=== PATIENT | female | born 1945 | race Caucasian/White ===

== ENCOUNTER 2023-05-22 20:31 | Inpatient (IN) | payer OTHER, SELFPAY ==
[2023-05-22 15:30] VITALS: BP 124/64
--- NOTE | 2023-05-22 16:52 | ED.GENMED ---
History of Present Illness
General
Chief Complaint: Musculo-Skeletal Complaint
Source: patient
Exam Limitations: none
Time Seen by Provider: 05/22/23 16:19
Nursing documentation reviewed up to this point in time: agreed with
Travel History
Have you had any contact with someone who has COVID-19?: No
Do you have any symptoms of coronavirus? Fever > 100 degrees, chills, cough, shortness of breath, sore throat, loss of taste or smell, muscle aches, or headache?: No
History of Present Illness
History of Present Illness:
77 old female with past medical history of chronic kidney disease stage III CABG x 5 hypertension hyperlipidemia reflux type 2 diabetes presents to the ER for evaluation fall. She was at work prior to arrival but reports there was a dog present
and she tripped over the dog landing on her left hip. She denies hitting her head. Denies any neck pain. She is on Plavix
Past History
Past History
ED Past Medical History: HTN, Hypercholesterolemia and NIDDM
ED Past Surgical History: Cardiac (BADG x 5 01/2023. ) and Gynecological
Social History
Tobacco: Smoker
Alcohol: Occasional
Drug: None
Personal:
Living: with family
Phy Exam
General Physical Exam
General Presentation: no apparent distress
General age: appears stated age
General Skin: warm and dry
General Habitus: normal
General Mental: alert
General Hydration: appears well hydrated
Cardiovascular Exam
Cardiovascular Exam: regular rate/rhythm, no murmur and normal peripheral pulses
Pulmonary Exam
Pulmonary Exam: lungs clear
Neurological Exam
Neurological Exam: alert and oriented x3
[place] Coma Scale
Eye Opening: Spontaneous
Verbal Response: Oriented
Motor Response: Obeys Commands
GCS Total Score: 15
Musculoskeletal Exam
Musculoskeletal Exam: other (Patient with strong pulses to left hip pain with any movement of left hip no obvious swelling)
Skin Exam
Skin Exam: normal color and warm/dry
Psychiatric Exam
Psychiatric Exam: normal mood/affect
Course
Orders/Labs/Results
Orders:
Orders
05/22/23 16:52
Hip, Left 2-3 Views [CR Hip - LT w/wo Pel 2-3 Vw*] Urgent
Comment:
Reason For Exam: trauma
Include a pelvis x-ray?: Yes
05/22/23 18:55
IV Insert/Care/Rem.- Treatment PRN
05/22/23 19:01
Morphine Sulfate 2 mg IV NOW STA
05/22/23 19:03
CT Lower Ext W/o Iv Cont Lt Urgent
Comment:
Reason For Exam: trauma
05/22/23 19:23
Electrocardiogram (*1) Stat
Reason for Study: Other
Other Reason for Exam: chest pain
EKG- Treatment ONCE
05/22/23 19:34
Complete Blood Count/With Diff Urgent
Comprehensive Metabolic Panel Urgent
PTT Urgent
Prothrombin Time Urgent
05/22/23 20:03
Admit/Transfer Patient As Directed
Co-Sign Provider:
Level of Care: Inpatient admission
Assign to:: Medical/Surgical
Physician / Group: trent gallagher
Diagnosis: femoral neck fracture
Reason for Hospitalization: femoral neck fracture
Expected length of stay greater than two midnights?: Yes
ELOS- Estimated Length of Stay in days: 3
I certify the patient meets the requirements for IP care: Yes
05/22/23 20:05
Code Status As Directed
Resuscitation Status: Full Code
Abnormal Lab Results
05/22/23
19:34
WBC 13.3 H 10^3/uL
(4.8-10.8)
RBC 3.38 L 10^6/uL
(4.20-5.40)
Hgb 10.1 L g/dL
(12.0-16.0)
Hct 30.4 L %
(37.0-47.0)
Abs Immat Gran (auto) 0.1 H 10^3/uL
(0-0.05)
Absolute Neuts (auto) 9.7 H 10^3/uL
(1.4-6.5)
Absolute Monos (auto) 0.9 H 10^3/uL
(0.1-0.6)
Lymphocytes % 16.5 L %
(20.5-51.1)
BUN 38 H mg/dl
(7-17)
Creatinine 1.7 H mg/dL
(0.6-1.0)
Glucose 231 H mg/dl
(70-99)
AST 81 H U/L
(14-36)
ALT 123 H U/L
(0-35)
Alkaline Phosphatase 193 H U/L
(38-126)
Total Protein 6.1 L g/dl
(6.3-8.2)
Albumin 3.1 L g/dl
(3.5-5.0)
05/22/23 19:34
05/22/23 19:34
Vital Signs
Initial and Last Documented VS:
Initial Vital Signs
Temp Pulse Resp BP Pulse Ox
97.6 F 65 18 124/64 94
05/22/23 15:30 05/22/23 15:30 05/22/23 15:30 05/22/23 15:30 05/22/23 15:30
Last Documented Vital Signs
Temp Pulse Resp BP Pulse Ox
97.6 F 65 18 127/88 97
05/22/23 15:30 05/22/23 15:30 05/22/23 15:30 05/22/23 20:27 05/22/23 20:30
Small Parts Shaper Operator consulted with Physician
Small Parts Shaper Operator consulted with physician?: Yes
Name of Physician Consulted: Christiano
MDM/Problems Addressed
Differential Diagnosis Includes:
not limited to: hip fracture/dislocation
MDM/Problems Addressed:
Patient is a 77-year-old female with cardiac history of bypass surgery on Plavix presents to the ER after fall. She tripped over her dog and fell landing on her left hip denies hitting her head no complaints of headache no obvious injury on exam no
bony cervical spine tenderness. X-ray does show a subcapital fracture of the left femoral neck with impaction. Case reviewed with Dr. Evans who was able to visualize images on [place] text. She does recommend CT. Patient last had Plavix this
morning will require washout. Will admit to the hospital service
2052: Labs reviewed white count elevated however has had chronic leukocytosis in the past elevated renal function however chronic kidney disease LFTS has had mild elevation in the past
*Radiology
Radiology exam reviewed: radiology read reviewed (acute subcapital fx of the left femoral neck w/ impaction )
*Critical Care Note
Total Time (30-74mins, 75-104mins- exclusive of procedures): Not Applicable
ED Attending Note
-
Portions of this chart may have been created with voice recognition software.� Occasional wrong word or��sound alike� substitutions may have occurred due to the inherent limitations of voice recognition software.
Discharge Plan
Departure
Patient Disposition: Admit
Date of Disposition: 05/22/23
Time of Disposition: 19:26
Admit to: Med/Surg
Admit to doctor: hospitalist
Presentation/result/management discussed w/ accepting MD/DO: Hospitalist
Patient with high blood pressure during this ER visit?: No
Condition: Fair
Covid-19: Not Applicable
Discharge Problem:
left hip fracture
Interventions
Interventions:
*Risk Screen - Suicide Last Done: 05/22/23 15:30
*General Assessment Last Done: 05/22/23 15:30
*Neglect/Abuse Screening Last Done: 05/22/23 15:30
ED- Fall Risk Assessment Last Done: 05/22/23 16:05
*ED COVID-19 Vaccine History Last Done: 05/22/23 16:05
ED-Musculoskeletal Assessment Last Done: 05/22/23 16:04
[2023-05-22 16:53] VITALS: BMI 21.8
[2023-05-22] MEDS: MORPHINE SULFATE 2 MG IV (19:34)
--- NOTE | 2023-05-22 19:37 | HPS.HSE ---
Addendum entered and electronically signed by Soren Alvarado DO 05/22/23 21:19:
Patient seen and examined independently. Agree with findings and plan as set forth by MEG Ríos.
Patient is a 77y F with PMH significant for ASCVD, TN, DM-II and CKD who presents to ED for evaluation of L hip pain s/p fall. Patient states that she was carrying a small dog this afternoon when she tripped and fell - landing on her L side.
Patient does not believe that she struck her head. No prodrome of lightheadedness or dizziness. No LOC. Patient typically ambulates with a cane but was not using one while carrying the dog. The dog was not injured.
Ass:
Left Hip Fracture
ASCVD s/p CABG, Bilateral Iliac Stents / Iliofemoral Endarterectomy
Benign Hypertension
DM-II
CKD III
GERD
Plan:
Admit for further evaluation and treatment.
Bedrest and pain control for now.
Hold Plavix in preparation for surgery.
Continue ASA uninterrupted given intravascular stents.
Cardiology evaluation for pre-op assessment given relatively recent issues.
Continue basal : bolus insulin regimen.
Original Note:
Family Physician
-
Family Physician: Larry Bridges
Chief Complaint
-
fall
History of Present Illness
77 year old with PMH for c diff diarrhea, PAD< type 2 DM, CAD,STEMI, CKD, HTN,depression, HLD< GERD presented to us with fall. she has LE weakness and usually uses cane for ambulation. today she picked up a small dog at work, she lost the balance
and fell on her left side. she was on the floor until family got there. she is complaining of left hip pain since the fall. noted some bruising on left elbow and shoulder. denied JOHNSON,dizzy or syncopal episode. denied fever, chills, chest pain, sob.
denied abdominal pain,n,v,d. denied dysuria or hematuria.
x ray with left hip fracture. admitting for further management.
Medical History
Past Medical History
Past Medical History: Reports Other
Additional Past Medical History:
DM
HTN
HLD
GERD
CKD
PAD
Past Surgical History: Reports Other
Additional Past Surgical History:
CABG x5 vessels
right iliofemoral endarterectomy with bovine pericardial patch angioplasty, bilateral kissing iliac stents, right external iliac artery stent
Social History
Tobacco: Former Smoker
Alcohol: None
Drug: None
Living: With Family
Family History
Family History: Not pertinent
Allergies / Home Medications
Allergies reflects when Allergies were last updated in [employer].
Home Medications with original date entered in [employer]
Allergy/Medication List:
Allergies
Allergy/AdvReac Type Severity Reaction Status Date / Time
meperidine Allergy Unknown Verified 02/17/23 12:33
moxifloxacin HCl Allergy Swelling Verified 02/17/23 12:33
[From Avelox]
Penicillins Allergy Swelling Verified 02/17/23 12:33
Sulfa (Sulfonamide Allergy Swelling Verified 02/17/23 12:33
Antibiotics)
[Sulfa(Sulfonamide
Antibiotics)]
Home Medications
aspirin 81 mg tablet,delayed release 81 mg PO DAILY Blood Clot Prevention/Tx 01/18/23
bupropion HCl 150 mg 24 hr tablet, extended release 150 mg PO DAILY Depression 01/18/23
cholecalciferol (vitamin D3) 25 mcg (1,000 unit) tablet (Vitamin D3) 25 mcg PO DAILY Supplement 01/18/23
duloxetine 40 mg capsule,delayed release 40 mg PO DAILY Depression 01/18/23
insulin detemir U-100 100 unit/mL (3 mL) subcutaneous pen (Levemir FlexPen) 26 unit SC HS Diabetes 01/18/23
amlodipine 5 mg tablet 5 mg PO DAILY Blood Pressure #0 tabs 01/29/23
atorvastatin 80 mg tablet 80 mg PO QPM #30 tabs 01/29/23
clopidogrel 75 mg tablet 75 mg PO DAILY #30 tabs 01/29/23
dapagliflozin propanediol 10 mg tablet (Farxiga) 10 mg PO DAILY #30 tabs 01/29/23
pantoprazole 40 mg tablet,delayed release (Protonix) 40 mg PO DAILY GI prophylaxis #30 tabs 01/29/23
acetaminophen 325 mg tablet 650 mg PO Q4HPRN PRN mild pain 02/17/23
guaifenesin 600 mg tablet, extended release 12 hr 600 mg PO [id number] PRN Congestion 02/17/23
metoprolol succinate 25 mg tablet,extended release 24 hr 12.5 mg PO DAILY Blood Pressure 02/17/23
nitroglycerin 0.4 mg sublingual tablet 0.4 mg sublingual [id number] PRN chest pain #0 tabs 02/21/23
potassium chloride 20 mEq tablet,extended release(part/cryst) 20 meq PO DAILY #0 tabs 02/21/23
insulin aspart U-100 100 unit/mL (3 mL) subcutaneous pen (Novolog FlexPen U-100 Insulin aspart) 5 unit SC BID@0800,1700 05/22/23
Review of Systems
-
Constitutional: Reports No Symptoms
EENT: Reports No Symptoms
Respiratory: Reports No Symptoms
Cardiac: Reports No Symptoms
Abdomen/GI: Reports No Symptoms
: Reports No Symptoms
Musculoskeletal: Reports Other (left hip pain)
Skin: Reports No Symptoms
Neurological: Reports No Symptoms
Endocrine: Reports No Symptoms
Hematologic/Lymphatic: Reports No Symptoms
Psych: Reports No Symptoms
Physical Exam
Vital Signs
Vital Signs
Temp Pulse Resp BP Pulse Ox
97.6 F 65 18 124/64 94
05/22/23 15:30 05/22/23 15:30 05/22/23 15:30 05/22/23 15:30 05/22/23 15:30
Physical Exam
General: Well Developed, Well Nourished and No Apparent Distress
HEENT: NormoCephalic, Moist mucous membranes and Atraumatic
Respiratory: Clear
Cardiac: S1/S2 and Regular Rhythm; No Murmur or Rub
GI: Soft, Non Tender, Non Distended and Normal Bowel Sounds; No Organomegaly
Rectal: Deferred by Provider
Musculoskeletal: No Clubbing, No Cyanosis and No Edema
Skin: No Rash
Neuro: AO x 3 and Nonfocal/grossly intact
Psych: Calm
Data Reviewed
-
Diagnostic Radiology: Report Reviewed by me
Lab Data: Labs Reviewed by me
Impression/Plan
-
#fall/left hip fracture
-hip x ray with Acute subcapital fracture of the left femoral neck with impaction.The remaining osseous structures are intact. No dislocation. Moderate osteoarthrosis of the right hip. Mild osteoarthrosis of the left hip. Vascular stents and
surgical clips project over the pelvis.
-orthopedics aware
-Dilaudid prn for pain
-orthopedics aware
#chronic leukocytosis
-wbc 13.3
-afebrile
-ctm
#anemia of chronic disease
-hgb 10.3
-no active bleeding
-ctm
#Ischemia right lower extremity/severe PAD
-status post right iliofemoral endarterectomy with bovine pericardial patch angioplasty, bilateral kissing iliac stents, right external iliac artery stent on 02/18.
#DM2 with hyperglycemia
- insulin sliding scale
-Farxiga continued
-insulin 5u with meals
-Levemir 10us hs
#CAD/recent STEMI - asa continued, hold plavix
-Status post coronary bypass graft x 5 on 01/23/23.
# CKD3b - renal function at baseline.�
#Essential HTN
-Continue Norvasc, metoprolol
#Depression
-Duloxetine continued
-Bupropion continued
#Hyperlipidemia
-Statin continued
#chronic LFT elevation
-ast 81,alt 123
-continue to trend
#GERD
-PPI continued
#Full code
[2023-05-22 19:44] LABS: % Basophils 0.5 % (0-2); % Eosinophils 3.2 % (0-6); % Immature Granulocytes 0.4 % (0-0.5); % Lymphocytes 16.5 % (20.5-51.1); % Monocytes 6.5 % (1.7-9.3); % Neutrophils 72.9 % (42.2-75.2); Absolute Basophils 0.1 10^3/uL (0-0.2); Absolute Eosinophils 0.4 10^3/uL (0-0.7); Absolute Immature Granulocytes 0.1 10^3/uL (0-0.05); Absolute Lymphocytes 2.2 10^3/uL (1.2-3.4); Absolute Monocytes 0.9 10^3/uL (0.1-0.6); Absolute Neutrophils 9.7 10^3/uL (1.4-6.5); Hematocrit 30.4 % (37.0-47.0); Hemoglobin 10.1 g/dL (12.0-16.0); Mean Corp Hgb Conc. 33.2 g/dL (33.0-37.0); Mean Corpuscular Hgb 29.9 pg (27.0-31.0); Mean Corpuscular Volume 89.9 fL (81.0-99.0); Mean Platelet Volume 10.4 fL (7.4-10.4); Nucleated Red Blood Cells % 0 %; Platelet Count 380 10^3/uL (130-400); Red Blood Cell Count 3.38 10^6/uL (4.20-5.40); Red Cell Dist. Width 12.8 % (11.5-14.5); White Blood Cell Count 13.3 10^3/uL (4.8-10.8)
[2023-05-22 19:53] LABS: INR 1.02; PT 13.2 Sec (11.4-14.6)
[2023-05-22 19:54] LABS: APTT 30.2 Sec (23.4-35.0)
[2023-05-22 19:57] LABS: ALT (SGPT) 123 U/L (0-35); AST (SGOT) 81 U/L (14-36); Albumin 3.1 g/dl (3.5-5.0); Alkaline Phosphatase 193 U/L (38-126); Blood Urea Nitrogen 38 mg/dl (7-17); Calcium 9.1 mg/dl (8.4-10.2); Carbon Dioxide 23 mmol/L (22-30); Chloride 107 mmol/L (98-107); Estimated Creatinine Clearance 27 ml/min; Glucose 231 mg/dl (70-99); Potassium 4.8 mmol/L (3.5-5.1); Sodium 135 mmol/L (135-145); Total Bilirubin 0.3 mg/dl (0.2-1.3); Total Protein 6.1 g/dl (6.3-8.2); eGFR 30.89
[2023-05-22 20:27] VITALS: BP 127/88
[2023-05-22 21:50] VITALS: BP 136/73
[2023-05-22 22:00] LABS: Glucose - Point of Care 147 mg/dl (70-99)
[2023-05-22] MEDS: SENOKOT 17.1999999999999993 MG PO (22:28)
[2023-05-22] MEDS: COLACE 100 MG PO (22:29)
[2023-05-22] MEDS: DILAUDID 0.5 MG IV (22:29)
[2023-05-22 22:55] VITALS: BP 136/73; BMI 21.5
[2023-05-22] MEDS: LEVEMIR SC (23:01)
[2023-05-22 23:40] VITALS: BP 110/61
[2023-05-23] MEDS: TYLENOL PO ×4 (00:15→17:43)
--- NOTE | 2023-05-23 01:21 | PTCARENOTE ---
pt refused hs Levemir stating ''my sugar will drop, I don't want it'', Pt was educated regarding her refusal, expressed understanding however continued to decline. Pt has a BOBBI Stovalle meter.
--- NOTE | 2023-05-23 01:33 | PTCARENOTE ---
21:37pt admit to unit, dx left hip fx. Pt aaox3, bedrest,NWB, plavix on hold, asa continues as pt has extensive cardiac hx, stents. Pt refused Hoang,bs 147, LUE Yulia meter in place. Pt rec'vd prn dilaudid for pain, vs stable, call sidhu within
reach, oriented to unit.
[2023-05-23] MEDS: DILAUDID 0.5 MG IV (07:49)
[2023-05-23 07:50] VITALS: BP 150/59
[2023-05-23] MEDS: FLUSH (NSS) 2 FLUSH IV (07:50)
[2023-05-23] MEDS: ASPIR LOW (ENTERIC COATED) 81 MG PO (07:55)
[2023-05-23] MEDS: COLACE PO ×2 (07:56→21:00)
[2023-05-23] MEDS: FARXIGA 10 MG PO (07:57)
[2023-05-23] MEDS: CYMBALTA DELAYED RELEASE 40 MG PO (07:57)
[2023-05-23] MEDS: KCL 20 MEQ PO (07:57)
[2023-05-23] MEDS: NORVASC 5 MG PO (07:57)
[2023-05-23] MEDS: PROTONIX 40 MG PO (07:58)
[2023-05-23] MEDS: TOPROL XL 12.5 MG PO (07:58)
[2023-05-23] MEDS: SENOKOT PO ×2 (07:58→21:00)
[2023-05-23] MEDS: WELLBUTRIN XL (24 hour extended release) 150 MG PO (07:58)
[2023-05-23] MEDS: TYLENOL 650 MG PO ×2 (07:58→20:57)
[2023-05-23 08:09] LABS: Glucose - Point of Care 187 mg/dl (70-99)
--- NOTE | 2023-05-23 08:14 | CON.ORTHO ---
Consultation
-
Date/Time Consultation Requested: 05/22/2023; time unknown
Date/Time Consultation Performed: 05/23/2023; 0700
Requesting Provider: unknown
Performing Provider: Nadine Colon PA-C for Dr. Thea Diego
Reason for Consultation: Left hip fracture
Consultation - Orthopedics
History
Ms. Dwyer is a 77 year old female with PMH of�PAD< type 2 DM, CAD, STEMI, CKD, HTN, depression, HLD and GERD. She is seen today for evaluation of her left hip. She reports she was at work carrying a small dog when she lost her balance and fell onto
her left side. She reports she was unable to get up off the ground and waited until her son came. He was able to pick her up and they presented to [facility] ED where x-rays and CT scan revealed a left femoral neck fracture. She is
resting comfortably in bed this morning, but does endorse mild aching pain about the left hip. She denies pain elsewhere. She reports she has baseline gait dysfunction and balance issues, and typically ambulates with the assistance of a cane. She
lives at home with her daughter. She has a history of left ankle ORIF with subsequent removal of hardware but otherwise denies orthopedic surgeries. She denies any known history of difficulty with anesthesia. She does have a history of ID and is
status post CABG. She has a history of DVT in her right leg. She is diabetic on insulin and medications.
Allergies / Home Medications
Allergy/AdvReac Type Severity Reaction Status Date / Time
meperidine Allergy Unknown Verified 02/17/23 12:33
moxifloxacin HCl Allergy Swelling Verified 02/17/23 12:33
[From Avelox]
Penicillins Allergy Swelling Verified 02/17/23 12:33
Sulfa (Sulfonamide Allergy Swelling Verified 02/17/23 12:33
Antibiotics)
[Sulfa(Sulfonamide
Antibiotics)]
Medication Instructions Recorded
aspirin 81 mg tablet,delayed 81 mg PO DAILY Blood Clot 01/18/23
release Prevention/Tx
bupropion HCl 150 mg 24 hr tablet, 150 mg PO DAILY Depression 01/18/23
extended release
cholecalciferol (vitamin D3) 25 25 mcg PO DAILY Supplement 01/18/23
mcg (1,000 unit) tablet (Vitamin
D3)
duloxetine 40 mg capsule,delayed 40 mg PO DAILY Depression 01/18/23
release
insulin detemir U-100 100 unit/mL 26 unit SC HS Diabetes 01/18/23
(3 mL) subcutaneous pen (Levemir
FlexPen)
amlodipine 5 mg tablet 5 mg PO DAILY Blood Pressure #0 01/29/23
tabs
atorvastatin 80 mg tablet 80 mg PO QPM #30 tabs 01/29/23
clopidogrel 75 mg tablet 75 mg PO DAILY #30 tabs 01/29/23
dapagliflozin propanediol 10 mg 10 mg PO DAILY #30 tabs 01/29/23
tablet (Farxiga)
pantoprazole 40 mg tablet,delayed 40 mg PO DAILY GI prophylaxis #30 01/29/23
release (Protonix) tabs
acetaminophen 325 mg tablet 650 mg PO Q4HPRN PRN mild pain 02/17/23
guaifenesin 600 mg tablet, 600 mg PO [id number] PRN Congestion 02/17/23
extended release 12 hr
metoprolol succinate 25 mg 12.5 mg PO DAILY Blood Pressure 02/17/23
tablet,extended release 24 hr
nitroglycerin 0.4 mg sublingual 0.4 mg sublingual [id number] PRN 02/21/23
tablet chest pain #0 tabs
potassium chloride 20 mEq 20 meq PO DAILY #0 tabs 02/21/23
tablet,extended release(part/cryst)
insulin aspart U-100 100 unit/mL 5 unit SC BID@0800,1700 05/22/23
(3 mL) subcutaneous pen (Novolog
FlexPen U-100 Insulin aspart)
Vital Signs / Lab Results
Temp Pulse Resp BP Pulse Ox
98.1 F 78 14 150/59 94
05/22/23 23:40 05/23/23 07:58 05/22/23 23:40 05/23/23 07:58 05/22/23 23:40
05/22/23 19:34
05/22/23 19:34
XR Left Hip 05/22/2023 FINDINGS/IMPRESSION:
Acute subcapital fracture of the left femoral neck with impaction.
The remaining osseous structures are intact. No dislocation. Moderate osteoarthrosis of the right hip. Mild osteoarthrosis of the left hip. Vascular stents and surgical clips project over the pelvis.
CT LLE 05/22/2023 IMPRESSION:
Acute subcapital fracture of the left femoral neck with impaction.
Physical exam:
General: Pleasant female in no acute distress, alert and oriented x 3
Head: Atraumatic, normocephalic
Eyes: Sclera anicteric
Ears: Normal hearing
Heart: No edema
Lungs: Normal work of breathing, no audible wheezing
Left lower extremity: No obvious erythema, ecchymosis or lesions about the left hip. Tenderness to palpation about the anterior and lateral hip. Thigh soft and compressible. Range of motion deferred secondary to known fracture. Positive logroll.
Calf soft and nontender. Patient able to wiggle toes, plantar and dorsiflex ankle. Sensation intact to light touch. Palpable PT and DP pulses.
Assessment / Plan
Left femoral neck fracture
--Unfortunately, Holly sustained a fracture of her left femoral neck in her fall. We recommend proceeding with cannulated screw fixation for stabilization of her fracture. The risks, benefits, alternatives, recovery process and potential
complications were discussed in detail. All questions were answered. Holly elected to proceed with surgical intervention of her fracture. Surgical and blood consent is signed and placed on the patient chart. Will plan to proceed with surgery on
Saturday 05/27 under the direction of Dr. Diego after Plavix washout. We would appreciate the recommendations of the medicine and cardiac teams for medical optimization.
-- Nonweightbearing to left lower extremity until surgery.
-- Continue current pain management regimen. Ice for edema control.
-- Obtain type and screen within 72 hours of surgery.
-- Orthopedics will continue to follow, please reach out with any additional orthopedic questions or concerns.
--- NOTE | 2023-05-23 08:38 | CON.CAR ---
Addendum entered and electronically signed by Nam Shannon MD 05/23/23 11:55:
I saw and examined the patient.
The BATTERY TESTER's note was reviewed and I agree with the note.
Comment: She is at increased risk but having had CABG recently without ischemic symptoms since CABG is favorable. Needing to hold Plavix increases risk but needed to minimize planned surgical site bleeding. Would resume Plavix once OK with ortho.
Original Note:
Consultation
Consultation Request
Date/Time Consultation Requested: 05/22/232111
Date/Time Consultation Performed: 05/23/23 0800
Requesting Provider: Sonali Brown
Performing Provider: Tianna WEAVER for Dr. Shannon
Reason for Consultation: pre-op cardiovascular risk assessment
Medical History
-
Chief Complaint: fall with hip pain
History of Present Illness:
77 y/o female with NSTEMI with multivessel disease and CABG x 5 01/23/23, PAD (iliofemoral endarterectomy with bovine pericardial patch angioplasty, b/l kissing iliac stents, and right external iliac artery stent 02/18/23), hypertension, DM2, former
tobacco (quit Jan 2023), dyslipidemia, and anemia who is here for evaluation after she was at work yesterday and lifted up a dog (something she wouldn't normally do, and she wasn't using her cane) and her legs gave out and she fell and laid there
until help came. She has LLE pain and has sustained a left femoral neck fracture. Plan is for surgery after Plavix washout. We are consulted for pre-operative cardiovascular risk assessment. She denies any CP, SOB, dizziness, or syncope. She has
been feeling well.
Past Medical History
Past Medical History: CAD, HTN, Hypercholesterolemia, NIDDM and Other (as above)
Social History
Tobacco: Former Smoker (quit in January )
Living: With Family
Employment: Employed
Family History
Family History: Reviewed & Not Pertinent
Allergies / Home Medications
Allergy/AdvReac Type Severity Reaction Status Date / Time
meperidine Allergy Unknown Verified 02/17/23 12:33
moxifloxacin HCl Allergy Swelling Verified 02/17/23 12:33
[From Avelox]
Penicillins Allergy Swelling Verified 02/17/23 12:33
Sulfa (Sulfonamide Allergy Swelling Verified 02/17/23 12:33
Antibiotics)
[Sulfa(Sulfonamide
Antibiotics)]
Medication Instructions Recorded Confirmed Type
aspirin 81 mg tablet,delayed 81 mg PO DAILY Blood Clot 01/18/23 05/22/23 History
release Prevention/Tx
bupropion HCl 150 mg 24 hr tablet, 150 mg PO DAILY Depression 01/18/23 05/22/23 History
extended release
cholecalciferol (vitamin D3) 25 25 mcg PO DAILY Supplement 01/18/23 05/22/23 History
mcg (1,000 unit) tablet (Vitamin
D3)
duloxetine 40 mg capsule,delayed 40 mg PO DAILY Depression 01/18/23 05/22/23 History
release
insulin detemir U-100 100 unit/mL 26 unit SC HS Diabetes 01/18/23 05/22/23 History
(3 mL) subcutaneous pen (Levemir
FlexPen)
amlodipine 5 mg tablet 5 mg PO DAILY Blood Pressure #0 01/29/23 05/22/23 Rx
tabs
atorvastatin 80 mg tablet 80 mg PO QPM #30 tabs 01/29/23 05/22/23 Rx
clopidogrel 75 mg tablet 75 mg PO DAILY #30 tabs 01/29/23 05/22/23 Rx
dapagliflozin propanediol 10 mg 10 mg PO DAILY #30 tabs 01/29/23 05/22/23 Rx
tablet (Farxiga)
pantoprazole 40 mg tablet,delayed 40 mg PO DAILY GI prophylaxis #30 01/29/23 05/22/23 Rx
release (Protonix) tabs
acetaminophen 325 mg tablet 650 mg PO Q4HPRN PRN mild pain 02/17/23 05/22/23 History
guaifenesin 600 mg tablet, 600 mg PO [id number] PRN Congestion 02/17/23 05/22/23 History
extended release 12 hr
metoprolol succinate 25 mg 12.5 mg PO DAILY Blood Pressure 02/17/23 05/22/23 History
tablet,extended release 24 hr
nitroglycerin 0.4 mg sublingual 0.4 mg sublingual [id number] PRN 02/21/23 05/22/23 Rx
tablet chest pain #0 tabs
potassium chloride 20 mEq 20 meq PO DAILY #0 tabs 02/21/23 05/22/23 Rx
tablet,extended release(part/cryst)
insulin aspart U-100 100 unit/mL 5 unit SC BID@0800,1700 Diabetes 05/22/23 05/22/23 History
(3 mL) subcutaneous pen (Novolog
FlexPen U-100 Insulin aspart)
Review of Systems
-
History Source: Patient
All other systems: Negative unless noted
Neurological: Other (fall with left hip pain)
Physical Exam
Vital Signs
Temp Pulse Resp BP Pulse Ox
97.8 F 78 18 150/59 99
05/23/23 07:50 05/23/23 07:58 05/23/23 07:50 05/23/23 07:58 05/23/23 07:50
Lab Results
05/22/23 19:34
05/22/23 19:34
Physical Exam
General: Well Developed, Well Nourished and No Apparent Distress
HEENT: Normocephalic and Anicteric
Respiratory: Clear and Non Labored Respirations
Cardiac: Regular Rhythm and Peripheral Edema (trace BLE edema)
Skin: Warm and Dry
Neuro: AO x 3
Psych: Calm
Impression / Plan
-
Acute subcapital fracture of the left femoral neck with impaction:
-this diagnosis is threat to bodily function
-orthopedics consulted and recommending cannulated screw fixation for stabilization of her fracture on Sunday05/28/23 after Plavix washout.
-pain management/DVT prophylaxis per primary/ortho
-pre-op cardiovascular risk assessment: Patient with NSTEMI with CAD s/p CABG January 2023. She has no CP or SOB. She ambulates with a cane and is able to do ADL's on her own. According to NSQIP risk score, she is at above average risk for
cardiac complication at 2.5%. Continue aspirin and beta-jaime.
CAD s/p CABG:
-stable without CP
-continue ASA, statin, BB
-Plavix held- resume when safe post-op
HTN:
-continue CCB and BB and follow
-pain management as above
Dyslipidemia:
-on statin
-elevated LFT's noted and will have to be monitored closely; per primary team
PAD:
-iliofemoral endarterectomy with bovine pericardial patch angioplasty, b/l kissing iliac stents, and right external iliac artery stent 02/18/23
-on ASA/Plavix as OP; Plavix as above
-follows with Dr. Blanton
CKD:
-seems stable overall
-monitor
Data Reviewed
-
EKG: Tracing Personally Visualized and interpreted (SR 73 BPM, nonspecific ST/T)
CT Scan: Report Reviewed by me (Acute subcapital fracture of the left femoral neck with impaction.)
Medical Tests (Nuc Med, Echo etc): Report Reviewed by me (echo 01/19/23: Normal left ventricular systolic function. Left ventricular ejection fraction is 55-60% . No significant valve stenosis or regurgitation.)
Labs: Labs Reviewed by me
[2023-05-23 09:25] LABS: Glycohemoglobin (HgbA1c) 10.6 % (4.0-5.6)
[2023-05-23] MEDS: NOVOLOG FLEXPEN 5 UNITS SC ×2 (10:03→17:44)
[2023-05-23] MEDS: NOVOLOG FLEXPEN-LOW RESISTANCE 1 UNITS SC (10:04)
--- NOTE | 2023-05-23 10:47 | W.PN.HOSP.TC ---
Today's Communication/Plan
-
see A/P
Assessment / Plan
Assessment / Plan
77y F with PMH significant for ASCVD, HTN, DM-II and CKD who presented to ED for evaluation of L hip pain s/p fall.� Patient states that she was carrying a small dog in the afternoon when she tripped and fell - landing on her L side.� Patient
does not believe that she struck her head.� No prodrome of lightheadedness or dizziness.� No LOC.� Patient typically ambulates with a cane but was not using one while carrying the dog.� The dog was not injured.
A/P:
# Mechanical fall with Left Hip subcapital fracture of the femoral neck
Pain control
Hold SUPERVISOR BIT AND SHANK DEPARTMENT Plavix in preparation for surgery.
Continue ASA uninterrupted given intravascular stents.
Cardiology evaluation for pre-op assessment given relatively recent issues.
Ortho on board, [facility] surgery Sunday05/28/23 after Plavix washout.
# Chronic leukocytosis
afebrile
Monitor WBC
# Anemia of chronic disease
# CAD s/p CABG
# PAD with Bilateral Iliac Stents / Iliofemoral Endarterectomy
# Benign Hypertension
Continue SUPERVIS[employer] BIT [employer] SHANK DEPARTMENT Norvasc, metoprolol with holding parameter
# DM-II
Continue reduced Lantus dose at 10 units HS (from 26 units HS SUPERVISOR BIT AND SHANK DEPARTMENT)
Cont aspart 5 units BID.
Cover with ISS
A1C 10.6%
# CKD III
# GERD
# Depression
Duloxetine continued
Bupropion continued
# Hyperlipidemia
Statin continued
# Chronic LFT elevation
Monitor LFT
Given surgery is not until next Sunday, can check Abd US
Cont statin and tylenol with caution, montior LFT closely
Full code
DVT ppx: ASA
Anticipated Discharge: > 48 hours
Subjective/Interval History
-
Date of Service: May 23, 2023
Objective Data
-
Vital Signs:
Vital Signs
Temp Pulse Resp BP Pulse Ox
36.6 C 78 18 150/59 99
05/23/23 07:50 05/23/23 07:58 05/23/23 07:50 05/23/23 07:58 05/23/23 07:50
I&O
05/22/23 05/23/23 05/24/23
06:59 06:59 06:59
Intake Total 600 / 600
Output Total 725 / 725
Balance -125 / -125
Review of Systems
-
All other systems: Reviewed and negative
Physical Exam
-
General: Well Developed, Well Nourished, No Apparent Distress and Comfortable
HEENT: Normocephalic and Atraumatic
Respiratory: Clear to Auscultation and Non Labored Respirations; Negative Accessory Resp Muscle Use
Cardiac: Regular Rhythm and S1/S2
GI: Soft
Musculoskeletal: No Edema
Neuro: Awake
Psych: Calm and Intact Judgement/Insight
Data Reviewed
-
Diagnostic Radiology: Report Reviewed by me
CT Scan: Report Reviewed by me
Labs: Labs Reviewed by me
--- NOTE | 2023-05-23 10:56 | CM ---
Patient seen at bedside. Patient states that she lives with daughter in a [facility] home with her daughter. Patient daughter had worked outside of the home prior to Sunday but now has been laid off. Patient does have a walker, rollator and a shower
bench. Patient PCP is Dr. Bridges and she uses the [facility] in [place]. Patient has been to [facility] and used [facility] in the past after 2 hospitalizations in last year and early this year. Patient discouraged about being here again. CM will continue to follow
for discharge planning needs.
Plan; home with VN vs SNF pending functional assessments following surgery
[2023-05-23 12:49] LABS: Glucose - Point of Care 288 mg/dl (70-99)
[2023-05-23] MEDS: NOVOLOG FLEXPEN-LOW RESISTANCE 3 UNITS SC (12:58)
[2023-05-23 15:24] VITALS: BP 127/52
--- NOTE | 2023-05-23 16:13 | W.PN.UPDATE ---
Update Note
Progress Note Update
Patient was seen with daughter at bedside
Patient had fallen at home not using her cane. She was instructed to use a cane for balance for ambulation purposes. She injured her left hip. She presented to [facility] emergency room last night and we are consulted by the hospitalist
service for orthopedic evaluation of a left hip fracture. She has not had groin pain in this hip in the past but has had several falls over the course of the past year. She had history of CABG and an NM. She subsequently ended up with C.
difficile infection and a right lower extremity DVT.She is currently on Plavix. Her last dose was yesterday morning.
Left hip: Negative logroll. Good active range of motion of the ankle. No tenderness to palpation about the lower leg. Compartments are supple. Pain with hip flexion.
X-rays and CT scan shows a nondisplaced impacted left femoral neck fracture. Minimal to no DJD.
Nondisplaced left femoral neck fracture impacted
Plan: Nonoperative and operative approaches of her hip fracture were discussed. The operative approaches are left hip hemiarthroplasty or cannulated screw fixation. She agrees with cannulated screw fixation as form Of treatment for this fracture.
She understands if the cannulated screw fixation should fail or she develops arthritis that she may need to be converted into a left Hip hemiarthroplasty or total hip arthroplasty in the future. We need to allow for her Plavix to washout as likely
she will need a spinal anesthetic for this procedure with her history of heart disease. Therefore, we are going to proceed with surgery on 05/27/2022 in the morning. She is to be n.p.o. past midnight the night before. Risks are but are not
limited to infection, need for further surgery, need for physical therapy, stiffness, DVT, PE, NM, CVA, malunion, hardware failure, nonunion, screw cut out the joint, arthritis, avascular necrosis, neurovascular impairment, catastrophic occurrences,
etc. The postoperative regimen was discussed. All questions were answered. Consents were signed and placed on the chart
[2023-05-23 17:08] LABS: Glucose - Point of Care 312 mg/dl (70-99)
[2023-05-23] MEDS: NOVOLOG FLEXPEN-LOW RESISTANCE 4 UNITS SC (17:44)
[2023-05-23] MEDS: LIPITOR 80 MG PO (17:45)
[2023-05-23] MEDS: DILAUDID 0.25 MG IV (20:57)
[2023-05-23 22:36] LABS: Glucose - Point of Care 246 mg/dl (70-99)
[2023-05-23] MEDS: LEVEMIR 0.100000000000000006 UNITS SC (22:50)
[2023-05-23 23:19] VITALS: BP 162/68
[2023-05-24] MEDS: TYLENOL PO ×3 (01:30→08:00)
[2023-05-24 05:23] LABS: % Basophils 0.6 % (0-2); % Eosinophils 4.9 % (0-6); % Immature Granulocytes 0.4 % (0-0.5); % Lymphocytes 20.3 % (20.5-51.1); % Monocytes 10.8 % (1.7-9.3); Absolute Basophils 0.1 10^3/uL (0-0.2); Absolute Eosinophils 0.6 10^3/uL (0-0.7); Absolute Immature Granulocytes 0.1 10^3/uL (0-0.05); Absolute Lymphocytes 2.6 10^3/uL (1.2-3.4); Absolute Monocytes 1.4 10^3/uL (0.1-0.6); Absolute Neutrophils 7.9 10^3/uL (1.4-6.5); Hematocrit 27.8 % (37.0-47.0); Hemoglobin 9.4 g/dL (12.0-16.0); Mean Corp Hgb Conc. 33.8 g/dL (33.0-37.0); Mean Corpuscular Hgb 30.5 pg (27.0-31.0); Mean Corpuscular Volume 90.3 fL (81.0-99.0); Mean Platelet Volume 10.6 fL (7.4-10.4); Nucleated Red Blood Cells % 0 %; Platelet Count 313 10^3/uL (130-400); Red Blood Cell Count 3.08 10^6/uL (4.20-5.40); Red Cell Dist. Width 12.7 % (11.5-14.5); White Blood Cell Count 12.6 10^3/uL (4.8-10.8)
[2023-05-24 05:30] LABS: ALT (SGPT) 81 U/L (0-35); AST (SGOT) 58 U/L (14-36); Albumin 2.4 g/dl (3.5-5.0); Alkaline Phosphatase 131 U/L (38-126); Blood Urea Nitrogen 46 mg/dl (7-17); Calcium 8.3 mg/dl (8.4-10.2); Carbon Dioxide 21 mmol/L (22-30); Chloride 104 mmol/L (98-107); Estimated Creatinine Clearance 23 ml/min; Glucose 237 mg/dl (70-99); Magnesium 1.8 mg/dl (1.6-2.3); Potassium 4.8 mmol/L (3.5-5.1); Sodium 129 mmol/L (135-145); Total Bilirubin 0.4 mg/dl (0.2-1.3); Total Protein 5.2 g/dl (6.3-8.2); eGFR 25.41
[2023-05-24] MEDS: NOVOLOG FLEXPEN-LOW RESISTANCE SC ×2 (07:30→14:14)
[2023-05-24 07:37] LABS: Glucose - Point of Care 211 mg/dl (70-99)
[2023-05-24] MEDS: NOVOLOG FLEXPEN SC (08:00)
[2023-05-24 08:03] VITALS: BP 137/62
--- NOTE | 2023-05-24 08:35 | W.PN.UPDATE ---
Update Note
Progress Note Update
Patient resting comfortably. Continue with Eliqubrad wilhelm. She is n.p.o. for Sunday. plan will be to proceed with a cannulated screw fixation of her left hip fracture via Dr. Evans
--- NOTE | 2023-05-24 09:43 | CM ---
Reviewed the chart notes. Per note, NWB to LLE and the plan is for surgery to LLE on Sunday after Plavix washout. CM continues to be available to patient/family and is monitoring medical plan for needs at discharge.
Plan: Discharge plans will depend on the patient's progress.
--- NOTE | 2023-05-24 10:07 | W.PN.HOSP.TC ---
Today's Communication/Plan
-
fluid restrict
adjust pain meds
if sodium no better in AM--would consult renal
bowel regimen with pain meds
Assessment / Plan
Assessment / Plan
77y F with PMH significant for ASCVD, HTN, DM-II and CKD who presented to ED for evaluation of L hip pain s/p fall.� Patient states that she was carrying a small dog in the afternoon when she tripped and fell - landing on her L side.� Patient
does not believe that she struck her head.� No prodrome of lightheadedness or dizziness.� No LOC.� Patient typically ambulates with a cane but was not using one while carrying the dog.� The dog was not injured.
Mechanical fall with Left Hip subcapital fracture of the femoral neck--cont pain control, stop standing tylenol with increased LFTs--will increase Dilaudid back to 0.5 mg--PT/OT after surgery--plavix washout likely longer as ortho planning spinal
anesthesia per their note--cont asa--apprec Cardiology evaluation for pre-op assessment given relatively recent issues--apprec ortho
hyponatremia --likely multifactorial--pain from fracture, duloxetine--fluid restrict--if no better in AM, would consult renal
Chronic leukocytosis--unclear cause--stable
Anemia of chronic disease--stable--follow
CAD s/p CABG/PAD with Bilateral Iliac Stents / Iliofemoral Endarterectomy--apprec cards
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
Type 2 DM --Continue reduced Lantus dose at 10 units HS (from 26 units HS AUTOMATIC OVEN OPERATOR)--Cont aspart 5 units BID--Cover with ISS--A1C 10.6% (not well controlled)--in fact on pt monitor sugar this AM 209
CKD III--appears creat at baseline
GERD--PPI
Depression--Duloxetine continued--Bupropion continued
Hyperlipidemia--Statin continued--likely cause of mildly elevated LFTs--await abdominal US
LFT elevation--as above
Full code
DVT ppx: ASA
Anticipated Discharge: > 48 hours
Subjective/Interval History
-
Date of Service: May 24, 2023
pt c/o of waiting until Sunday for surgery
Objective Data
-
Labs:
Laboratory Results
05/24/23
04:50
WBC 12.6 H
Hgb 9.4 L
Hct 27.8 L
Plt Count 313
Sodium 129 L
Potassium 4.8
Chloride 104
Carbon Dioxide 21 L
BUN 46 H
Creatinine 2.0 H
Glucose 237 H
Calcium 8.3 L
Total Bilirubin 0.4
AST 58 H
ALT 81 H
Alkaline Phosphatase 131 H
Vital Signs:
max temp for 24 hours
05/23/23
23:19
Temp 98.2 F
Vital Signs
Temp Pulse Resp BP Pulse Ox
97.9 F 74 18 137/62 99
05/24/23 08:03 05/24/23 08:03 05/24/23 08:03 05/24/23 08:03 05/24/23 08:03
I&O
05/23/23 05/24/23 05/25/23
06:59 06:59 06:59
Intake Total 600 / 600 660 / 660
Output Total 725 / 725 900 / 900
Balance -125 / -125 -240 / -240
Review of Systems
-
All other systems: Reviewed and negative
Musculoskeletal: Reports Joint Pain
Physical Exam
-
General: Well Developed, Well Nourished and No Apparent Distress
HEENT: Normocephalic and Atraumatic
Respiratory: Clear to Auscultation; Negative Wheezes or Rhonchi
Cardiac: Regular Rhythm and S1/S2; Negative Murmur
GI: Soft, Nontender, Nondistended and Normal Bowel Sounds
Musculoskeletal: No Clubbing, No Cyanosis, No Edema and Other (left leg shortened and externally rotated)
Neuro: Awake and Alert
Psych: Calm
[2023-05-24] MEDS: DILAUDID 0.5 MG IV ×2 (11:26→21:51)
[2023-05-24] MEDS: FLUSH (NSS) 2 FLUSH IV (11:27)
[2023-05-24 12:31] LABS: Glucose - Point of Care 158 mg/dl (70-99)
[2023-05-24] MEDS: ASPIR LOW (ENTERIC COATED) 81 MG PO (14:07)
[2023-05-24] MEDS: COLACE 100 MG PO ×2 (14:07→21:09)
[2023-05-24] MEDS: CYMBALTA DELAYED RELEASE 40 MG PO (14:07)
[2023-05-24] MEDS: NORVASC 5 MG PO (14:08)
[2023-05-24] MEDS: SENOKOT 17.1999999999999993 MG PO ×2 (14:08→21:09)
[2023-05-24] MEDS: KCL 20 MEQ PO (14:08)
[2023-05-24] MEDS: TOPROL XL 12.5 MG PO (14:08)
[2023-05-24] MEDS: PROTONIX 40 MG PO (14:08)
[2023-05-24] MEDS: FARXIGA 10 MG PO (14:08)
[2023-05-24] MEDS: MIRALAX 17 GRAMS PO (14:09)
[2023-05-24] MEDS: WELLBUTRIN XL (24 hour extended release) 150 MG PO (14:09)
[2023-05-24 15:33] VITALS: BP 161/61
[2023-05-24 17:16] LABS: Glucose - Point of Care 254 mg/dl (70-99)
[2023-05-24] MEDS: NOVOLOG FLEXPEN 5 UNITS SC (17:25)
[2023-05-24] MEDS: NOVOLOG FLEXPEN-LOW RESISTANCE 3 UNITS SC (17:25)
[2023-05-24] MEDS: LIPITOR 80 MG PO (17:25)
[2023-05-24 21:26] LABS: Glucose - Point of Care 193 mg/dl (70-99)
[2023-05-24] MEDS: LEVEMIR 0.100000000000000006 UNITS SC (21:50)
[2023-05-24 23:20] VITALS: BP 136/90
[2023-05-25 05:46] LABS: % Basophils 0.4 % (0-2); % Eosinophils 1.8 % (0-6); % Immature Granulocytes 0.5 % (0-0.5); % Lymphocytes 17.3 % (20.5-51.1); % Monocytes 10.9 % (1.7-9.3); % Neutrophils 69.1 % (42.2-75.2); Absolute Basophils 0.1 10^3/uL (0-0.2); Absolute Eosinophils 0.3 10^3/uL (0-0.7); Absolute Immature Granulocytes 0.1 10^3/uL (0-0.05); Absolute Lymphocytes 2.5 10^3/uL (1.2-3.4); Absolute Monocytes 1.6 10^3/uL (0.1-0.6); Absolute Neutrophils 9.8 10^3/uL (1.4-6.5); Hematocrit 29.8 % (37.0-47.0); Hemoglobin 9.8 g/dL (12.0-16.0); Mean Corp Hgb Conc. 32.9 g/dL (33.0-37.0); Mean Corpuscular Hgb 29.6 pg (27.0-31.0); Mean Platelet Volume 10.7 fL (7.4-10.4); Nucleated Red Blood Cells % 0 %; Platelet Count 354 10^3/uL (130-400); Red Blood Cell Count 3.31 10^6/uL (4.20-5.40); Red Cell Dist. Width 12.6 % (11.5-14.5); White Blood Cell Count 14.2 10^3/uL (4.8-10.8)
[2023-05-25 06:15] LABS: ALT (SGPT) 87 U/L (0-35); AST (SGOT) 65 U/L (14-36); Albumin 2.6 g/dl (3.5-5.0); Alkaline Phosphatase 138 U/L (38-126); Blood Urea Nitrogen 52 mg/dl (7-17); Calcium 8.6 mg/dl (8.4-10.2); Carbon Dioxide 23 mmol/L (22-30); Chloride 98 mmol/L (98-107); Estimated Creatinine Clearance 26 ml/min; Glucose 210 mg/dl (70-99); Magnesium 1.9 mg/dl (1.6-2.3); Potassium 5.3 mmol/L (3.5-5.1); Sodium 129 mmol/L (135-145); Total Bilirubin 0.4 mg/dl (0.2-1.3); Total Protein 5.5 g/dl (6.3-8.2); eGFR 28.84
[2023-05-25 07:40] VITALS: BP 133/60
[2023-05-25 07:45] LABS: Glucose - Point of Care 201 mg/dl (70-99)
--- NOTE | 2023-05-25 08:42 | W.PN.ORTHO ---
Today's Communication / Plan
-
77-year-old female postop day 1 status post left hip cephalomedullary nail fixation with Dr. Munoz doing very well postoperatively
-Weightbearing as tolerated with assistive devices as indicated; PT/OT/discharge planning
-Recommend DVT prophylaxis for 30 days after surgery, aspirin 325 mg daily or per primary
-Will plan for outpatient follow-up in 2 weeks for wound check and staple removal.
-Orthopedic surgery will continue to follow
Assessment
.
Distal Motor Intact: Yes
Dressing:
Clean, dry and intact.
Plan
.
Surgery / Date: 24 May [address] Munoz
DVT Prophylaxis: Aspirin
Activity:
Out of bed.
PT/OT
Subjective
.
.:
Patient resting comfortably. She is ambulatory with a walker complaining of minimal pain
Vital Signs and Labs
.
Vital Signs and Labs:
Lab Results
05/25/23 05:23
05/25/23 05:23
Temp Pulse Resp BP Pulse Ox
98.0 F 74 18 133/60 98
05/25/23 07:40 05/25/23 07:40 05/25/23 07:40 05/25/23 07:40 05/25/23 07:40
PT 13.2 Sec (11.4-14.6) 05/22/23 19:34
INR 1.02 05/22/23 19:34
Physical Exam
-
Examination of the left lower extremity shows dressings intact without strikethrough or surrounding erythema. Neurovascular intact L3-S1
[2023-05-25] MEDS: ROXICODONE 5 MG PO (08:58)
[2023-05-25] MEDS: FARXIGA 10 MG PO (08:59)
[2023-05-25] MEDS: ASPIR LOW (ENTERIC COATED) 81 MG PO (08:59)
[2023-05-25] MEDS: TOPROL XL 12.5 MG PO (08:59)
[2023-05-25] MEDS: PROTONIX 40 MG PO (09:00)
[2023-05-25] MEDS: NORVASC 5 MG PO (09:00)
[2023-05-25] MEDS: WELLBUTRIN XL (24 hour extended release) 150 MG PO (09:00)
[2023-05-25] MEDS: KCL 20 MEQ PO (09:00)
[2023-05-25] MEDS: COLACE 100 MG PO ×2 (09:00→20:44)
[2023-05-25] MEDS: SENOKOT 17.1999999999999993 MG PO ×2 (09:00→20:44)
[2023-05-25] MEDS: CYMBALTA DELAYED RELEASE 40 MG PO (09:01)
[2023-05-25] MEDS: MIRALAX PO (09:02)
[2023-05-25] MEDS: NOVOLOG FLEXPEN-LOW RESISTANCE 2 UNITS SC ×2 (09:03→12:06)
[2023-05-25] MEDS: NOVOLOG FLEXPEN 5 UNITS SC ×2 (09:03→17:25)
--- NOTE | 2023-05-25 09:06 | W.PN.UPDATE ---
Update Note
Progress Note Update
77-year-old female planned for OR 28 May 2023 for left cannulated screw fixation for impacted left femoral neck fracture pending Plavix washout.
-As permitted with medical clearance; hyponatremia as noted by primary.
--- NOTE | 2023-05-25 10:07 | W.PN.HOSP.TC ---
Today's Communication/Plan
-
see A/P
Assessment / Plan
Assessment / Plan
77y F with PMH significant for ASCVD, HTN, DM-II and CKD who presented to ED for evaluation of L hip pain s/p fall.� Patient states that she was carrying a small dog in the afternoon when she tripped and fell - landing on her L side.� Patient
does not believe that she struck her head.� No prodrome of lightheadedness or dizziness.� No LOC.� Patient typically ambulates with a cane but was not using one while carrying the dog.� The dog was not injured.
A/P:
Mechanical fall with Left Hip subcapital fracture of the femoral neck--cont pain control with oxycodone 5 mg Q4H PRN and Dilaudid 0.5 mg Q4H PRN-- not on standing tylenol with increased LFTs--plavix washout prior to OR per ortho--cont asa--apprec
Cardiology evaluation for pre-op assessment given relatively recent issues--apprec ortho
hyponatremia --likely multifactorial--pain from fracture, duloxetine--fluid restrict 40 oz--cont to monitor
Mild hyperkalemia, stop AUTOMATIC THREAD WINDER potassium supplement, monitor K level
Chronic leukocytosis--unclear cause--stable
Anemia of chronic disease--stable--follow
CAD s/p CABG
PAD with Bilateral Iliac Stents / Iliofemoral Endarterectomy--apprec cards
Essential Hypertension--Continue AUTOMATIC THREAD WINDER Norvasc, metoprolol with holding parameter
Type 2 DM --Continue Lantus adjust to 15 units HS (AUTOMATIC THREAD WINDER 26 units HS)--Cont aspart 5 units BID--Cover with ISS--A1C 10.6% (not well controlled)
CKD III--appears creat at baseline, Cr today 1.8
GERD--PPI
Depression--Duloxetine continued--Bupropion continued
Hyperlipidemia--Statin continued--likely cause of mildly elevated LFTs--await abdominal US
LFT elevation, improving-- not on Tylenol, hold AUTOMATIC THREAD WINDER statin, Abd US noted cholelithiasis but pt is asymptomatic
Full code
DVT ppx: ASA
Anticipated Discharge: > 48 hours
Subjective/Interval History
-
Date of Service: May 25, 2023
Objective Data
-
Labs:
Laboratory Results
05/25/23
05:23
WBC 14.2 H
Hgb 9.8 L
Hct 29.8 L
Plt Count 354
Sodium 129 L
Potassium 5.3 H
Chloride 98
Carbon Dioxide 23
BUN 52 H
Creatinine 1.8 H
Glucose 210 H
Calcium 8.6
Total Bilirubin 0.4
AST 65 H
ALT 87 H
Alkaline Phosphatase 138 H
Vital Signs:
Vital Signs
Temp Pulse Resp BP Pulse Ox
36.7 C 74 18 133/60 98
05/25/23 07:40 05/25/23 07:40 05/25/23 07:40 05/25/23 09:00 05/25/23 07:40
I&O
05/24/23 05/25/23 05/26/23
06:59 06:59 06:59
Intake Total 660 / 660 1200 / 1200
Output Total 900 / 900 1375 / 1375
Balance -240 / -240 -175 / -175
Review of Systems
-
All other systems: Reviewed and negative
Physical Exam
-
General: Well Developed, Well Nourished, No Apparent Distress and Comfortable
HEENT: Normocephalic and Atraumatic
Respiratory: Clear to Auscultation and Non Labored Respirations; Negative Wheezes, Rhonchi or Accessory Resp Muscle Use
Cardiac: Regular Rhythm and S1/S2; Negative Murmur
GI: Soft, Nontender, Nondistended and Normal Bowel Sounds
Musculoskeletal: No Clubbing, No Cyanosis, No Edema and Other (left leg shortened and externally rotated)
Neuro: Awake and Alert
Psych: Calm and Intact Judgement/Insight
Data Reviewed
-
Diagnostic Radiology: Report Reviewed by me
CT Scan: Report Reviewed by me
Labs: Labs Reviewed by me
[2023-05-25 11:56] LABS: Glucose - Point of Care 238 mg/dl (70-99)
--- NOTE | 2023-05-25 12:38 | CM ---
No change in plan; patient seen at bedside, hoping for family visit as she is looking for company. CM will continue to follow for discharge planning needs.
Plan; home with VN/PT/OT vs SNF pending functional assessments following planned surgery sunday
[2023-05-25 15:41] VITALS: BP 128/59
[2023-05-25 17:15] LABS: Glucose - Point of Care 290 mg/dl (70-99)
[2023-05-25] MEDS: NOVOLOG FLEXPEN-LOW RESISTANCE 3 UNITS SC (17:25)
--- NOTE | 2023-05-25 17:52 | PTCARENOTE ---
Entered patient's room and found one bottle of water and one bottle of diet coke; Patient educated on fluid restriction and on the importance of fluid restriction; Patient verbalized understanding
[2023-05-25 21:35] LABS: Glucose - Point of Care 313 mg/dl (70-99)
[2023-05-25] MEDS: LEVEMIR 0.149999999999999994 UNITS SC (21:48)
[2023-05-25] MEDS: DILAUDID 0.5 MG IV (23:03)
[2023-05-25] MEDS: FLUSH (NSS) 2 FLUSH IV (23:04)
[2023-05-25 23:05] VITALS: BP 140/59
[2023-05-26 06:53] LABS: % Basophils 0.3 % (0-2); % Eosinophils 2.7 % (0-6); % Immature Granulocytes 0.5 % (0-0.5); % Lymphocytes 17.4 % (20.5-51.1); % Monocytes 10.7 % (1.7-9.3); % Neutrophils 68.4 % (42.2-75.2); Absolute Eosinophils 0.4 10^3/uL (0-0.7); Absolute Immature Granulocytes 0.1 10^3/uL (0-0.05); Absolute Lymphocytes 2.4 10^3/uL (1.2-3.4); Absolute Monocytes 1.5 10^3/uL (0.1-0.6); Absolute Neutrophils 9.6 10^3/uL (1.4-6.5); Hemoglobin 9.6 g/dL (12.0-16.0); Mean Corp Hgb Conc. 33.1 g/dL (33.0-37.0); Mean Corpuscular Hgb 29.5 pg (27.0-31.0); Mean Corpuscular Volume 89.2 fL (81.0-99.0); Mean Platelet Volume 10.6 fL (7.4-10.4); Nucleated Red Blood Cells % 0 %; Platelet Count 373 10^3/uL (130-400); Red Blood Cell Count 3.25 10^6/uL (4.20-5.40); Red Cell Dist. Width 12.5 % (11.5-14.5)
[2023-05-26 07:02] LABS: Glucose - Point of Care 179 mg/dl (70-99)
[2023-05-26 07:27] LABS: ALT (SGPT) 90 U/L (0-35); AST (SGOT) 78 U/L (14-36); Albumin 2.6 g/dl (3.5-5.0); Alkaline Phosphatase 146 U/L (38-126); Blood Urea Nitrogen 57 mg/dl (7-17); Calcium 8.4 mg/dl (8.4-10.2); Carbon Dioxide 24 mmol/L (22-30); Chloride 100 mmol/L (98-107); Estimated Creatinine Clearance 24 ml/min; Glucose 178 mg/dl (70-99); Sodium 128 mmol/L (135-145); Total Bilirubin 0.4 mg/dl (0.2-1.3); Total Protein 5.5 g/dl (6.3-8.2); eGFR 27.03
[2023-05-26 07:34] VITALS: BP 130/65
[2023-05-26] MEDS: CYMBALTA DELAYED RELEASE 40 MG PO (08:44)
[2023-05-26] MEDS: FARXIGA 10 MG PO (08:44)
[2023-05-26] MEDS: NOVOLOG FLEXPEN 5 UNITS SC ×2 (08:44→18:25)
[2023-05-26] MEDS: NOVOLOG FLEXPEN-LOW RESISTANCE 1 UNITS SC ×2 (08:44→18:25)
[2023-05-26] MEDS: SENOKOT 17.1999999999999993 MG PO ×2 (08:45→20:29)
[2023-05-26] MEDS: TOPROL XL 12.5 MG PO (08:45)
[2023-05-26] MEDS: ASPIR LOW (ENTERIC COATED) 81 MG PO (08:45)
[2023-05-26] MEDS: COLACE 100 MG PO ×2 (08:45→20:30)
[2023-05-26] MEDS: PROTONIX 40 MG PO (08:46)
[2023-05-26] MEDS: MIRALAX 17 GRAMS PO (08:46)
[2023-05-26] MEDS: WELLBUTRIN XL (24 hour extended release) 150 MG PO (08:46)
[2023-05-26] MEDS: NORVASC 5 MG PO (08:46)
[2023-05-26] MEDS: ROXICODONE 5 MG PO (09:06)
--- NOTE | 2023-05-26 09:58 | W.PN.HOSP.TC ---
Today's Communication/Plan
-
consult renal
waiting for surgery
Assessment / Plan
Assessment / Plan
pt is a 77 year old female
Mechanical fall with Left Hip subcapital fracture of the femoral neck--cont pain control with oxycodone 5 mg Q4H PRN and Dilaudid 0.5 mg Q4H PRN-- not on standing tylenol with increased LFTs--plavix washout prior to OR per ortho--cont asa--apprec
Cardiology evaluation for pre-op assessment given relatively recent issues--apprec ortho
hyponatremia --likely multifactorial--pain from fracture, duloxetine--fluid restrict 40 oz--cont to monitor
Mild hyperkalemia, stop WASTE HANDLING TECHNICIAN potassium supplement, monitor K level
Chronic leukocytosis--unclear cause--stable
Anemia of chronic disease--stable--follow
CAD s/p CABG
PAD with Bilateral Iliac Stents / Iliofemoral Endarterectomy--apprec cards
Essential Hypertension--Continue WASTE HANDLING TECHNICIAN Norvasc, metoprolol with holding parameter
Type 2 DM --Continue Lantus adjust to 15 units HS (WASTE HANDLING TECHNICIAN 26 units HS)--Cont aspart 5 units BID--Cover with ISS--A1C 10.6% (not well controlled)
CKD III--appears creat at baseline, Cr today 1.8
GERD--PPI
Depression--Duloxetine continued--Bupropion continued
Hyperlipidemia--Statin continued--likely cause of mildly elevated LFTs--await abdominal US
LFT elevation, improving-- not on Tylenol, hold WASTE HANDLING TECHNICIAN statin, Abd US noted cholelithiasis but pt is asymptomatic
Full code
DVT ppx: ASA
Anticipated Discharge: > 48 hours
Subjective/Interval History
-
Date of Service: May 26, 2023
pt still waiting for surgery on Sunday
Objective Data
-
Labs:
Laboratory Results
05/26/23
06:26
WBC 14.0 H
Hgb 9.6 L
Hct 29.0 L
Plt Count 373
Sodium 128 L
Potassium 5.0
Chloride 100
Carbon Dioxide 24
BUN 57 H
Creatinine 1.9 H
Glucose 178 H
Calcium 8.4
Total Bilirubin 0.4
AST 78 H
ALT 90 H
Alkaline Phosphatase 146 H
Vital Signs:
max temp for 24 hours
05/25/23
23:05
Temp 99 F
Vital Signs
Temp Pulse Resp BP Pulse Ox
98 F 70 16 130/65 96
05/26/23 07:34 05/26/23 08:45 05/26/23 07:34 05/26/23 08:45 05/26/23 07:34
I&O
05/25/23 05/26/23 05/27/23
06:59 06:59 06:59
Intake Total 1200 / 1200 1480 / 1480
Output Total 1375 / 1375 1600 / 1600
Balance -175 / -175 -120 / -120
Review of Systems
-
All other systems: Reviewed and negative
Physical Exam
-
General: Well Developed, Well Nourished and No Apparent Distress
HEENT: Normocephalic and Atraumatic
Respiratory: Clear to Auscultation; Negative Wheezes or Rhonchi
Cardiac: Regular Rhythm and S1/S2; Negative Murmur
GI: Soft, Nontender, Nondistended and Normal Bowel Sounds
Musculoskeletal: No Clubbing, No Cyanosis and No Edema
Neuro: Awake
Psych: Calm
--- NOTE | 2023-05-26 10:13 | W.PN.UPDATE ---
Update Note
Progress Note Update
77-year-old female with right hip femoral neck fracture.
Awaiting Plavix washout with plan to proceed to OR on 05/28/2023 right hip cannulated screw fixation under the direction of Dr. Diego.
Continue pain control and bedrest.
Appreciate medicine's management of medical comorbidities.
[2023-05-26 11:57] LABS: Glucose - Point of Care 244 mg/dl (70-99)
[2023-05-26] MEDS: NOVOLOG FLEXPEN-LOW RESISTANCE 244 UNITS SC (12:25)
--- NOTE | 2023-05-26 15:40 | W.CON.NEPH ---
Consultation
-
Date/Time Consultation Requested: 05/26/23 1000
Date/Time Consultation Performed: 05/26/23 1550
Requesting Provider: gris Cain
Performing Provider: Connie Parker
Reason for Consultation: hyponatremia, CKD
Medical History
-
Chief Complaint: Fall
History of Present Illness:
77y F with PMH significant for ASCVD s/p CABG 01/2023 on plavix, ASA, IDDM-II and CKD stage 3b baseline cr 1.5-1.8 on Farxiga, HTN on BB, Amlodipine, Depression on Duloxetine who presents to ED for evaluation of L hip pain s/p fall on 05/21. She
found to have left hip fracture and awaiting plavix wash out to have surg on 05/27. Since admit her sodium slowly decreasing from 135 to 128 today hence Nephro consulted. Her cr peak at 2 and today at 1.9. Reports no dysuria, no cp or sob. No BM
since admit and no n/v.
Past Medical History
-CABG x5 January 23 2023
-IDDM2 uncontrolled
-HTN
-CKD3 b
-Meningioma resection history
PAD
HLD
Past Surgical History: Other (Seizures with meningioma, status post meningioma resection. History of ankle surgery on the right. Tubal ligation. CABG)
Social History
She smoked 1-1/2 packs per day since the age of 16. quit Jan 2023
There is no alcohol abuse.
Family History
Father, hypertension. Mother, breast cancer.
Maternal grandfather had colon cancer.
Allergies / Home Medications
Allergy/AdvReac Type Severity Reaction Status Date / Time
meperidine Allergy Unknown Verified 02/17/23 12:33
moxifloxacin HCl Allergy Swelling Verified 02/17/23 12:33
[From Avelox]
Penicillins Allergy Swelling Verified 02/17/23 12:33
Sulfa (Sulfonamide Allergy Swelling Verified 02/17/23 12:33
Antibiotics)
[Sulfa(Sulfonamide
Antibiotics)]
Medication Instructions Recorded Confirmed Type
aspirin 81 mg tablet,delayed 81 mg PO DAILY Blood Clot 01/18/23 05/22/23 History
release Prevention/Tx
bupropion HCl 150 mg 24 hr tablet, 150 mg PO DAILY Depression 01/18/23 05/22/23 History
extended release
cholecalciferol (vitamin D3) 25 25 mcg PO DAILY Supplement 01/18/23 05/22/23 History
mcg (1,000 unit) tablet (Vitamin
D3)
duloxetine 40 mg capsule,delayed 40 mg PO DAILY Depression 01/18/23 05/22/23 History
release
insulin detemir U-100 100 unit/mL 26 unit SC HS Diabetes 01/18/23 05/22/23 History
(3 mL) subcutaneous pen (Levemir
FlexPen)
amlodipine 5 mg tablet 5 mg PO DAILY Blood Pressure #0 01/29/23 05/22/23 Rx
tabs
atorvastatin 80 mg tablet 80 mg PO QPM #30 tabs 01/29/23 05/22/23 Rx
clopidogrel 75 mg tablet 75 mg PO DAILY #30 tabs 01/29/23 05/22/23 Rx
dapagliflozin propanediol 10 mg 10 mg PO DAILY #30 tabs 01/29/23 05/22/23 Rx
tablet (Farxiga)
pantoprazole 40 mg tablet,delayed 40 mg PO DAILY GI prophylaxis #30 01/29/23 05/22/23 Rx
release (Protonix) tabs
acetaminophen 325 mg tablet 650 mg PO Q4HPRN PRN mild pain 02/17/23 05/22/23 History
guaifenesin 600 mg tablet, 600 mg PO [id number] PRN Congestion 02/17/23 05/22/23 History
extended release 12 hr
metoprolol succinate 25 mg 12.5 mg PO DAILY Blood Pressure 02/17/23 05/22/23 History
tablet,extended release 24 hr
nitroglycerin 0.4 mg sublingual 0.4 mg sublingual [id number] PRN 02/21/23 05/22/23 Rx
tablet chest pain #0 tabs
potassium chloride 20 mEq 20 meq PO DAILY #0 tabs 02/21/23 05/22/23 Rx
tablet,extended release(part/cryst)
insulin aspart U-100 100 unit/mL 5 unit SC BID@0800,1700 Diabetes 05/22/23 05/22/23 History
(3 mL) subcutaneous pen (Novolog
FlexPen U-100 Insulin aspart)
Review of Systems
-
All compelte 12 point ROS have been inquired and found negative other than stated in HPI
Physical Exam
Vital Signs
Vital Signs
Temp Pulse Resp BP Pulse Ox
98 F 70 16 130/65 96
05/26/23 07:34 05/26/23 08:45 05/26/23 07:34 05/26/23 08:45 05/26/23 07:34
Lab Results
WBC 14.0 10^3/uL (4.8-10.8) H 05/26/23 06:26
RBC 3.25 10^6/uL (4.20-5.40) L 05/26/23 06:26
Hgb 9.6 g/dL (12.0-16.0) L 05/26/23 06:26
Hct 29.0 % (37.0-47.0) L 05/26/23 06:26
Plt Count 373 10^3/uL (130-400) 05/26/23 06:26
Sodium 128 mmol/L (135-145) L 05/26/23 06:26
Potassium 5.0 mmol/L (3.5-5.1) 05/26/23 06:26
Chloride 100 mmol/L (98-107) 05/26/23 06:26
Carbon Dioxide 24 mmol/L (22-30) 05/26/23 06:26
BUN 57 mg/dl (7-17) H 05/26/23 06:26
Creatinine 1.9 mg/dL (0.6-1.0) H 05/26/23 06:26
eGFR 27.03 05/26/23 06:26
Glucose 178 mg/dl (70-99) H 05/26/23 06:26
Calcium 8.4 mg/dl (8.4-10.2) 05/26/23 06:26
Albumin 2.6 g/dl (3.5-5.0) L 05/26/23 06:26
Physical Exam
General: Awake, Alert, Oriented, AOx3, No Distress and Nontoxic
HEENT: EOMI and Anicteric
Respiratory: Clear
Cardiac: S1/S2, Regular Rate/Rhythm and No Edema
Abdomen: Soft, Nontender and Nondistended
Musculoskeletal: No Cyanosis and No Edema
Skin: No Rash
Neuro: Nonfocal/Grossly Intact
Psych: Mood/afflect pleasant, Insight/judgement good and Appropriate
Assessment/Plan
-
IMP:
Mechanical fall with Left Hip subcapital fracture of the femoral neck
hyponatremia
CKD III-baseline 1.5-1.8
Mild hyperkalemia-off kcl
Chronic leukocytosis--unclear cause
Anemia of chronic disease-
CAD s/p CABG
PAD with Bilateral Iliac Stents / Iliofemoral Endarterectomy
Essential Hypertension
Type 2 IDDM
GERD
Depression
Hyperlipidemia
LFT elevation
Plan:
A/w M fall and found left hip fx waiting plavix wash out to have surg on 05/27
hyponatremia-chronic and seem slowly worsening since admit
check U osmo, U na suspect high ADH mediated with pain
likely dose sasmca today , check TSH in am
BP stable on meds
CKD-cr over all stable close to baseline , bladder scan 221cc
holding kcl with mild hyperkalemia which improved
pain control
d/w pt and nursing
Data Reviewed
-
Radiology: Report Reviewed by me
Labs: Labs Reviewed by me, Discussed with Nurse and Discussed with Patient
Old Records: Reviewed
[2023-05-26 15:53] VITALS: BP 144/54
[2023-05-26 16:31] LABS: Osmolality Urine 556 mOsm/kg (300-900)
[2023-05-26 17:25] LABS: Urine Sodium 74 mmol/L (30-90)
[2023-05-26 17:44] LABS: Glucose - Point of Care 166 mg/dl (70-99)
[2023-05-26] MEDS: SAMSCA 15 MG PO (20:28)
[2023-05-26 21:38] LABS: Glucose - Point of Care 249 mg/dl (70-99)
[2023-05-26] MEDS: LEVEMIR 0.149999999999999994 UNITS SC (22:14)
[2023-05-26 23:10] VITALS: BP 127/63
[2023-05-27 07:35] VITALS: BP 153/62
[2023-05-27 07:35] LABS: Glucose - Point of Care 131 mg/dl (70-99)
[2023-05-27] MEDS: NOVOLOG FLEXPEN-LOW RESISTANCE SC ×2 (07:35→12:05)
[2023-05-27 08:13] LABS: % Basophils 0.4 % (0-2); % Eosinophils 2.8 % (0-6); % Immature Granulocytes 0.4 % (0-0.5); % Lymphocytes 16.4 % (20.5-51.1); Absolute Basophils 0.1 10^3/uL (0-0.2); Absolute Eosinophils 0.4 10^3/uL (0-0.7); Absolute Immature Granulocytes 0.1 10^3/uL (0-0.05); Absolute Lymphocytes 2.4 10^3/uL (1.2-3.4); Absolute Monocytes 1.6 10^3/uL (0.1-0.6); Absolute Neutrophils 10.2 10^3/uL (1.4-6.5); Hematocrit 30.6 % (37.0-47.0); Mean Corp Hgb Conc. 32.7 g/dL (33.0-37.0); Mean Corpuscular Hgb 29.6 pg (27.0-31.0); Mean Corpuscular Volume 90.5 fL (81.0-99.0); Nucleated Red Blood Cells % 0 %; Platelet Count 385 10^3/uL (130-400); Red Blood Cell Count 3.38 10^6/uL (4.20-5.40); Red Cell Dist. Width 12.5 % (11.5-14.5); White Blood Cell Count 14.8 10^3/uL (4.8-10.8)
[2023-05-27 08:53] LABS: ALT (SGPT) 106 U/L (0-35); AST (SGOT) 90 U/L (14-36); Albumin 2.7 g/dl (3.5-5.0); Alkaline Phosphatase 157 U/L (38-126); Blood Urea Nitrogen 59 mg/dl (7-17); Calcium 8.6 mg/dl (8.4-10.2); Carbon Dioxide 25 mmol/L (22-30); Chloride 102 mmol/L (98-107); Estimated Creatinine Clearance 23 ml/min; Glucose 108 mg/dl (70-99); Magnesium 2.2 mg/dl (1.6-2.3); Potassium 4.7 mmol/L (3.5-5.1); Sodium 134 mmol/L (135-145); Total Bilirubin 0.5 mg/dl (0.2-1.3); Total Protein 5.8 g/dl (6.3-8.2); eGFR 25.41
[2023-05-27] MEDS: ASPIR LOW (ENTERIC COATED) 81 MG PO (09:23)
[2023-05-27] MEDS: WELLBUTRIN XL (24 hour extended release) 150 MG PO (09:23)
[2023-05-27] MEDS: CYMBALTA DELAYED RELEASE 40 MG PO (09:23)
[2023-05-27] MEDS: FARXIGA 10 MG PO (09:23)
[2023-05-27] MEDS: SENOKOT 17.1999999999999993 MG PO (09:24)
[2023-05-27] MEDS: PROTONIX 40 MG PO (09:24)
[2023-05-27] MEDS: COLACE 100 MG PO (09:24)
[2023-05-27] MEDS: NOVOLOG FLEXPEN 5 UNITS SC ×2 (09:25→17:33)
[2023-05-27] MEDS: NORVASC 5 MG PO (09:25)
[2023-05-27] MEDS: TOPROL XL 12.5 MG PO (09:25)
[2023-05-27] MEDS: MIRALAX 17 GRAMS PO (09:25)
--- NOTE | 2023-05-27 10:30 | W.PN.UPDATE ---
Update Note
Progress Note Update
77 year old female resting comfortably in bed on my arrival.
Sodium levels improving - now at 134.
Plan to proceed to OR tomorrow, 05/28/[address] Diego for cannulated screw fixation of hip fracture.
NPO after midnight.
IV antibiotics iron caster to OR.
--- NOTE | 2023-05-27 10:35 | W.PN.HOSP.TC ---
Today's Communication/Plan
-
plan for OR tomorrow 05/27 per ortho
Assessment / Plan
Assessment / Plan
pt is a 77 year old female
Mechanical fall with Left Hip subcapital fracture of the femoral neck--cont pain control with oxycodone 5 mg Q4H PRN and Dilaudid 0.5 mg Q4H PRN-- not on standing tylenol with increased LFTs--plavix washout prior to OR per ortho, for surgery Sunday
05/27--cont asa--apprec Cardiology evaluation for pre-op assessment given relatively recent issues--apprec ortho
hyponatremia --likely multifactorial--SIADH from pain from fracture, duloxetine--fluid restrict 40 oz--apprec renal as was not improving--s/p samsca
Mild hyperkalemia, stop FOOT WORKER potassium supplement, monitor K level
Chronic leukocytosis--unclear cause--stable
Anemia of chronic disease--stable--follow
CAD s/p CABG
PAD with Bilateral Iliac Stents / Iliofemoral Endarterectomy--apprec cards
Essential Hypertension--Continue FOOT WORKER Norvasc, metoprolol with holding parameter
Type 2 DM --Continue Lantus adjust to 15 units HS (FOOT WORKER 26 units HS)--Cont aspart 5 units BID--Cover with ISS--A1C 10.6% (not well controlled)
CKD III--appears creat at baseline, Cr today 2.0
GERD--PPI
Depression--Duloxetine continued--Bupropion continued
Hyperlipidemia--Statin continued--likely cause of mildly elevated LFTs--await abdominal US
LFT elevation, improving-- not on Tylenol, hold FOOT WORKER statin, Abd US noted cholelithiasis but pt is asymptomatic
Full code
DVT ppx: ASA
Anticipated Discharge: > 48 hours
Subjective/Interval History
-
Date of Service: May 27, 2023
pt depressed waiting for surgery
sodium better
Objective Data
-
Labs:
Laboratory Results
05/27/23
07:47
WBC 14.8 H
Hgb 10.0 L
Hct 30.6 L
Plt Count 385
Sodium 134 L
Potassium 4.7
Chloride 102
Carbon Dioxide 25
BUN 59 H
Creatinine 2.0 H
Glucose 108 H
Calcium 8.6
Total Bilirubin 0.5
AST 90 H
ALT 106 H
Alkaline Phosphatase 157 H
Vital Signs:
max temp for 24 hours
05/26/23
23:10
Temp 98.7 F
Vital Signs
Temp Pulse Resp BP Pulse Ox
98.1 F 73 16 153/62 96
05/27/23 07:35 05/27/23 07:35 05/27/23 07:35 05/27/23 07:35 05/27/23 07:35
I&O
05/26/23 05/27/23 05/28/23
06:59 06:59 06:59
Intake Total 1480 / 1480 1120 / 1120
Output Total 1600 / 1600 1100 / 1100
Balance -120 / -120 20 / 20
Review of Systems
-
All other systems: Reviewed and negative
Physical Exam
-
General: Well Developed, Well Nourished and No Apparent Distress
HEENT: Normocephalic and Atraumatic
Respiratory: Clear to Auscultation; Negative Wheezes or Rhonchi
Cardiac: Regular Rhythm and S1/S2; Negative Murmur
GI: Soft, Nontender, Nondistended and Normal Bowel Sounds
Musculoskeletal: No Clubbing, No Cyanosis and No Edema
Neuro: Awake and Alert
[2023-05-27 11:59] LABS: Glucose - Point of Care 145 mg/dl (70-99)
--- NOTE | 2023-05-27 12:54 | W.PN.NEPH.PH ---
Today's Communication / Plan
-
monitor labs
maintain FR 48 ounces/day
Assessment/Plan
-
IMP:
Mechanical fall with Left Hip subcapital fracture of the femoral neck
hyponatremia
CKD III-baseline 1.5-1.8
Mild hyperkalemia-off kcl
Chronic leukocytosis--unclear cause
Anemia of chronic disease-
CAD s/p CABG
PAD with Bilateral Iliac Stents / Iliofemoral Endarterectomy
Essential Hypertension
Type 2 IDDM
GERD
Depression
Hyperlipidemia
LFT elevation
Plan:
A/w M fall and found left hip fx waiting plavix wash out to have surg on 05/27
hyponatremia-chronic and seem slowly worsening since admit
high U osmo 556, U na 74 suggest high ADH mediated with pain
sodium improving with samsca check TSH in am
BP stable on meds
CKD-cr increasing trend, monitorfor now
avoid hypotension and nephrotoxins
use isotonic IVF perioperatively if needed
holding kcl with mild hyperkalemia which improved
pain control
d/w pt
-
-
Date of Service: May 27, 2023
CC / HPI / ROS
-
Chief Complaint:
CKD, hyponatremia
History of Present Illness:
sodium better at 134, ccr up at 2
non [id number] with out ramos
Bp stable
Review of Systems:
no cp or sob
no n/v
Labs
-
Labs:
WBC 14.8 10^3/uL (4.8-10.8) H 05/27/23 07:47
RBC 3.38 10^6/uL (4.20-5.40) L 05/27/23 07:47
Hgb 10.0 g/dL (12.0-16.0) L 05/27/23 07:47
Hct 30.6 % (37.0-47.0) L 05/27/23 07:47
Plt Count 385 10^3/uL (130-400) 05/27/23 07:47
Sodium 134 mmol/L (135-145) L 05/27/23 07:47
Potassium 4.7 mmol/L (3.5-5.1) 05/27/23 07:47
Chloride 102 mmol/L (98-107) 05/27/23 07:47
Carbon Dioxide 25 mmol/L (22-30) 05/27/23 07:47
BUN 59 mg/dl (7-17) H 05/27/23 07:47
Creatinine 2.0 mg/dL (0.6-1.0) H 05/27/23 07:47
eGFR 25.41 05/27/23 07:47
Glucose 108 mg/dl (70-99) H 05/27/23 07:47
Calcium 8.6 mg/dl (8.4-10.2) 05/27/23 07:47
Albumin 2.7 g/dl (3.5-5.0) L 05/27/23 07:47
Physical Exam
-
Vital Signs:
Vital Signs
Temp Pulse Resp BP Pulse Ox
98.1 F 73 16 153/62 96
05/27/23 07:35 05/27/23 07:35 05/27/23 07:35 05/27/23 07:35 05/27/23 07:35
Cardiovascular:: Regular rate and rhythm
Respiratory:: Bilateral: CTA
Lung Excursion:: Normal
Abdomen:: Nontender and Soft
Extremity Edema:: None: Bilateral:
Ramos Catheter: No
[2023-05-27 15:50] VITALS: BP 115/58
[2023-05-27 17:31] LABS: Glucose - Point of Care 265 mg/dl (70-99)
[2023-05-27] MEDS: NOVOLOG FLEXPEN-LOW RESISTANCE 3 UNITS SC (17:32)
[2023-05-27] MEDS: DILAUDID 0.5 MG IV (17:38)
[2023-05-27 21:33] LABS: Glucose - Point of Care 167 mg/dl (70-99)
[2023-05-27] MEDS: COLACE PO (22:12)
[2023-05-27] MEDS: LEVEMIR 0.149999999999999994 UNITS SC (22:12)
[2023-05-27] MEDS: SENOKOT PO (22:12)
[2023-05-27 22:36] VITALS: BP 140/61
[2023-05-28] VITALS (12 sets, daily range): BP systolic 102–145; BP diastolic 49–107; PULSE 82
[2023-05-28] MEDS: DILAUDID 0.5 MG IV (02:49)
[2023-05-28 05:19] LABS: Urine Albumin 1+ (Neg - Trace); Urine Bilirubin Negative (Negative); Urine Color Yellow; Urine Glucose 3+ (Negative); Urine Ketone Negative (Negative); Urine Leukocyte 2+ (Negative); Urine Nitrite Negative (Negative); Urine Occult Blood 2+ (Negative); Urine Urobilinogen Negative (Neg - 1+)
[2023-05-28 05:23] LABS: Urine Character Cloudy (Clear)
[2023-05-28 05:39] LABS: % Basophils 0.4 % (0-2); % Eosinophils 2.6 % (0-6); % Immature Granulocytes 0.5 % (0-0.5); % Lymphocytes 17.7 % (20.5-51.1); % Monocytes 11.5 % (1.7-9.3); % Neutrophils 67.3 % (42.2-75.2); Absolute Basophils 0.1 10^3/uL (0-0.2); Absolute Eosinophils 0.4 10^3/uL (0-0.7); Absolute Immature Granulocytes 0.1 10^3/uL (0-0.05); Absolute Lymphocytes 2.4 10^3/uL (1.2-3.4); Absolute Monocytes 1.6 10^3/uL (0.1-0.6); Absolute Neutrophils 9.3 10^3/uL (1.4-6.5); Hematocrit 31.9 % (37.0-47.0); Hemoglobin 10.5 g/dL (12.0-16.0); Mean Corp Hgb Conc. 32.9 g/dL (33.0-37.0); Mean Corpuscular Hgb 29.6 pg (27.0-31.0); Mean Corpuscular Volume 89.9 fL (81.0-99.0); Mean Platelet Volume 10.7 fL (7.4-10.4); Nucleated Red Blood Cells % 0 %; Platelet Count 435 10^3/uL (130-400); Red Blood Cell Count 3.55 10^6/uL (4.20-5.40); Red Cell Dist. Width 12.4 % (11.5-14.5); White Blood Cell Count 13.8 10^3/uL (4.8-10.8)
[2023-05-28 05:50] LABS: Urine Amorphous Seen; Urine Mucus Many; Urine Squamous Cell >30 /LPF (Few)
[2023-05-28 05:51] LABS: Urine Bacteria Many (Negative); Urine White Cell >100 /HPF (0-5)
[2023-05-28 05:53] LABS: ALT (SGPT) 102 U/L (0-35); AST (SGOT) 80 U/L (14-36); Albumin 2.7 g/dl (3.5-5.0); Alkaline Phosphatase 165 U/L (38-126); Blood Urea Nitrogen 63 mg/dl (7-17); Calcium 8.7 mg/dl (8.4-10.2); Carbon Dioxide 22 mmol/L (22-30); Chloride 105 mmol/L (98-107); Estimated Creatinine Clearance 24 ml/min; Glucose 140 mg/dl (70-99); Magnesium 2.2 mg/dl (1.6-2.3); Potassium 4.5 mmol/L (3.5-5.1); Sodium 135 mmol/L (135-145); Total Bilirubin 0.5 mg/dl (0.2-1.3); Total Protein 5.9 g/dl (6.3-8.2); eGFR 27.03
[2023-05-28 07:26] LABS: Glucose - Point of Care 89 mg/dl (70-99)
[2023-05-28] MEDS: NOVOLOG FLEXPEN SC (08:00)
--- NOTE | 2023-05-28 08:59 | W.PN.HOSP.TC ---
Today's Communication/Plan
-
see A/P
Assessment / Plan
Assessment / Plan
A/P:
# Mechanical fall with Left Hip subcapital fracture of the femoral neck
cont pain control with oxycodone 5 mg Q4H PRN and Dilaudid 0.5 mg Q4H PRN
not on standing tylenol due to chronically elevated LFTs
plavix washout prior to OR per ortho, planned for surgery Saturday 05/27
cont asa
apprec Cardiology evaluation for pre-op assessment given relatively recent issues
# hyponatremia, resolved
Multifactorial due to SIADH from pain/fracture, duloxetine
cont fluid restrict adjusted to 50 oz
apprec renal, s/p samsca
# Mild hyperkalemia,
stopped SEAT PACK INSPECTOR potassium supplement
monitor K level
# Chronic leukocytosis, unclear cause
stable
# Anemia of chronic disease, stable
follow
# CAD s/p CABG
# PAD with Bilateral Iliac Stents / Iliofemoral Endarterectomy
# Essential Hypertension
Continue SEAT PACK INSPECTOR Norvasc, metoprolol with holding parameter
# IDDM
Continue Lantus adjusted to 15 units HS (SEAT PACK INSPECTOR 26 units HS)
Cont aspart 5 units BID
Cover with ISS
A1C 10.6% (not well controlled)
# CKD III
SCr at 1.9, baseline at 1.9
# GERD
PPI
# Depression
cont Duloxetine, cont Bupropion
# Hyperlipidemia
Hold SEAT PACK INSPECTOR statin
# Transaminitis related to statin?
Abs US noted cholelithiasis with small calculi layering in dependent position, mild thickening of the right renal cortex
Pt asymptomatic
Full code
DVT ppx: ASA
DW RN
DW family at bedside
Anticipated Discharge: 24 - 48 hours
Subjective/Interval History
-
Date of Service: May 28, 2023
Objective Data
-
Labs:
Laboratory Results
05/28/23
04:53
WBC 13.8 H
Hgb 10.5 L
Hct 31.9 L
Plt Count 435 H
Sodium 135
Potassium 4.5
Chloride 105
Carbon Dioxide 22
BUN 63 H
Creatinine 1.9 H
Glucose 140 H
Calcium 8.7
Total Bilirubin 0.5
AST 80 H
ALT 102 H
Alkaline Phosphatase 165 H
Vital Signs:
Vital Signs
Temp Pulse Resp BP Pulse Ox
36.8 C 78 18 140/61 95
05/27/23 22:36 05/27/23 22:36 05/27/23 22:36 05/27/23 22:36 05/27/23 22:36
I&O
05/27/23 05/28/23 05/29/23
06:59 06:59 06:59
Intake Total 1120 / 1120 1020 / 1020
Output Total 1100 / 1100 880 / 880
Balance 20 / 20 140 / 140
Review of Systems
-
All other systems: Reviewed and negative
Physical Exam
-
General: Well Developed and Well Nourished
HEENT: Normocephalic, Atraumatic and Oxygen (2L NC)
Respiratory: Clear to Auscultation and Non Labored Respirations; Negative Wheezes, Rhonchi or Accessory Resp Muscle Use
Cardiac: Regular Rhythm and S1/S2; Negative Murmur
GI: Soft, Nontender, Nondistended and Normal Bowel Sounds
Musculoskeletal: No Clubbing, No Cyanosis and No Edema
Neuro: Awake and Alert
Psych: Calm and Intact Judgement/Insight
Data Reviewed
-
Diagnostic Radiology: Report Reviewed by me
CT Scan: Report Reviewed by me
Labs: Labs Reviewed by me
[2023-05-28 09:18] LABS: Glucose - Point of Care 80 mg/dl (70-99)
[2023-05-28] MEDS: NOVOLOG FLEXPEN-LOW RESISTANCE SC ×2 (09:21→13:21)
--- NOTE | 2023-05-28 10:30 | PTCARENOTE ---
Pt received from the PACU via bed. Transport was w/o incident. Pt is AAOx3, HRR, lungs are clear, resp. easy. VSS, pt is afebrile. Left hip with Aquacell dressing intact w/ sm.amount of bloody drainage noted consistent w/ PACU report. Ice pack
applied to left hip as ordered. Pt instructed on plan of care. Pt verbalized understanding of instructions. Call sidhu is within reach.
[2023-05-28] MEDS: COLACE 100 MG PO ×2 (10:38→20:28)
[2023-05-28] MEDS: NORVASC 5 MG PO (10:38)
[2023-05-28] MEDS: FARXIGA 10 MG PO (10:38)
[2023-05-28] MEDS: PROTONIX 40 MG PO (10:38)
[2023-05-28] MEDS: ASPIR LOW (ENTERIC COATED) 81 MG PO (10:38)
[2023-05-28] MEDS: CYMBALTA DELAYED RELEASE 40 MG PO (10:38)
[2023-05-28] MEDS: TOPROL XL 12.5 MG PO (10:38)
[2023-05-28] MEDS: WELLBUTRIN XL (24 hour extended release) 150 MG PO (10:39)
[2023-05-28] MEDS: MIRALAX PO (10:39)
[2023-05-28] MEDS: SENOKOT PO (10:39)
--- NOTE | 2023-05-28 11:13 | W.PN.NEPH.PH ---
Today's Communication / Plan
-
observe
Creatinine at baseline
Sodium stable at 135
Assessment/Plan
-
IMP:
Mechanical fall with Left Hip subcapital fracture of the femoral neck
hyponatremia
CKD III-baseline 1.5-1.8
Mild hyperkalemia-off kcl
Chronic leukocytosis--unclear cause
Anemia of chronic disease-
CAD s/p CABG
PAD with Bilateral Iliac Stents / Iliofemoral Endarterectomy
Essential Hypertension
Type 2 IDDM
GERD
Depression
Hyperlipidemia
LFT elevation
Plan:
A/w M fall and found left hip fx waiting plavix wash out to have surg on 05/27
hyponatremia-chronic and seem slowly worsening since admit
high U osmo 556, U na 74 suggest high ADH mediated with pain
sodium improving to 135 with samsca checked TSH , now on fluid restriction , adjusted to 48 oz today
BP stable on meds
CKD-cr close to baseline
avoid hypotension and nephrotoxins
use isotonic IVF perioperatively if needed
holding kcl with mild hyperkalemia which improved
pain control
d/w pt
-
-
Date of Service: May 28, 2023
CC / HPI / ROS
-
Chief Complaint:
CKD, hyponatremia
History of Present Illness:
sodium better at 135, on fluid restriction
Creatinine stable at 1.9
non [id number] with out ramos
Bp stable
Review of Systems:
no cp or sob
no n/v
Labs
-
Labs:
WBC 13.8 10^3/uL (4.8-10.8) H 05/28/23 04:53
RBC 3.55 10^6/uL (4.20-5.40) L 05/28/23 04:53
Hgb 10.5 g/dL (12.0-16.0) L 05/28/23 04:53
Hct 31.9 % (37.0-47.0) L 05/28/23 04:53
Plt Count 435 10^3/uL (130-400) H 05/28/23 04:53
Sodium 135 mmol/L (135-145) 05/28/23 04:53
Potassium 4.5 mmol/L (3.5-5.1) 05/28/23 04:53
Chloride 105 mmol/L (98-107) 05/28/23 04:53
Carbon Dioxide 22 mmol/L (22-30) 05/28/23 04:53
BUN 63 mg/dl (7-17) H 05/28/23 04:53
Creatinine 1.9 mg/dL (0.6-1.0) H 05/28/23 04:53
eGFR 27.03 05/28/23 04:53
Glucose 140 mg/dl (70-99) H 05/28/23 04:53
Calcium 8.7 mg/dl (8.4-10.2) 05/28/23 04:53
Albumin 2.7 g/dl (3.5-5.0) L 05/28/23 04:53
Physical Exam
-
Vital Signs:
Vital Signs
Temp Pulse Resp BP Pulse Ox
97.4 F 75 17 140/63 96
05/28/23 10:30 05/28/23 10:30 05/28/23 10:30 05/28/23 10:30 05/28/23 10:30
Cardiovascular:: Regular rate and rhythm
Respiratory:: Bilateral: Coarse
Lung Excursion:: Normal
Abdomen:: Nontender and Soft
Bowel Sounds:: Normal
Extremity Edema:: None: Bilateral:
Ramos Catheter: No
[2023-05-28] MEDS: NSS 1000 IV (11:32)
[2023-05-28 13:13] LABS: Glucose - Point of Care 109 mg/dl (70-99)
--- NOTE | 2023-05-28 14:39 | CM ---
Reviewed the chart notes and spoke with the patient at the bedside. Patient agreeable to SNF/rehab prior to transitioning back to home. Patient agreeable to referrals being sent to area SNFs. Referral started, awaiting PT notes to attach and
send. CM continues to be available to patient/family and is monitoring medical plan for needs at discharge.
Plan: Discharge to SNF/rehab once bed found. Precert will be required.
[2023-05-28] MEDS: ROXICODONE 5 MG PO (17:30)
[2023-05-28] MEDS: ASPIRIN 325 MG PO (17:30)
[2023-05-28] MEDS: ANCEF 5 IV (17:30)
[2023-05-28 17:37] LABS: Glucose - Point of Care 387 mg/dl (70-99)
[2023-05-28] MEDS: NOVOLOG FLEXPEN 5 UNITS SC (18:25)
[2023-05-28] MEDS: NOVOLOG FLEXPEN-LOW RESISTANCE 5 UNITS SC (18:26)
[2023-05-28] MEDS: SENOKOT 17.1999999999999993 MG PO (20:28)
[2023-05-28 21:47] LABS: Glucose - Point of Care 376 mg/dl (70-99)
[2023-05-28] MEDS: LEVEMIR 0.149999999999999994 UNITS SC (22:52)
[2023-05-29] MEDS: ANCEF 5 IV (00:01)
[2023-05-29] MEDS: ROXICODONE 5 MG PO ×2 (00:06→04:17)
[2023-05-29] MEDS: NSS 1000 IV (00:19)
[2023-05-29 03:40] VITALS: BP 136/62
--- NOTE | 2023-05-29 06:24 | W.PN.ORTHO ---
Today's Communication / Plan
-
77-year-old female postop day #1 from a cannulated screw fixation for a left femoral neck fracture performed on 05/28/[address] Diego.
- Partial weightbearing to LLE x 4 weeks with a walker for assistance.
- DVT prophylaxis per primary team. May resume Plavix and Aspirin per medical team.
- PT/OT.
- Pain control per primary team.
- Hemoglobin this AM 9.5. Continue to monitor.
- Discharge planning per CM.
- Orthopedic surgery will continue to follow along at this time.
Assessment
.
Distal Motor Intact: Yes
Dressing:
Clean, dry and intact.
Assessment:
Postop day #1 cannulated screw fixation left femoral neck fracture.
Plan
.
Surgery / Date: 05/28/2023; cannulated screw fixation
DVT Prophylaxis: Other
Activity:
Out of bed.
PT/OT
Discharge Information:
Appreciate CM.
Subjective
.
.:
Patient resting comfortably.
Vital Signs and Labs
.
Vital Signs and Labs:
Temp Pulse Resp BP Pulse Ox
97.5 F 76 18 136/62 98
05/29/23 03:40 05/29/23 03:40 05/29/23 03:40 05/29/23 03:40 05/29/23 03:40
PT 13.2 Sec (11.4-14.6) 05/22/23 19:34
INR 1.02 05/22/23 19:34
Physical Exam
-
Physical examination of the left lower extremity, with attention to the left hip reveals Aquacel dressing to be intact. There is localized bloody strikethrough about the middle aspect of the Aquacel, which has not breached beyond the sharpie
marking. Thigh is soft and compressible. Calf is soft nontender to palpation. She is able to plantarflex and dorsiflex her left lower extremity. Sensation is intact to light touch. NVI distally.
[2023-05-29 06:53] LABS: Hematocrit 29.9 % (37.0-47.0); Hemoglobin 9.5 g/dL (12.0-16.0); Mean Corp Hgb Conc. 31.8 g/dL (33.0-37.0); Mean Corpuscular Hgb 29.5 pg (27.0-31.0); Mean Corpuscular Volume 92.9 fL (81.0-99.0); Mean Platelet Volume 10.8 fL (7.4-10.4); Platelet Count 452 10^3/uL (130-400); Red Blood Cell Count 3.22 10^6/uL (4.20-5.40); Red Cell Dist. Width 12.5 % (11.5-14.5)
[2023-05-29 07:19] LABS: Glucose - Point of Care 336 mg/dl (70-99)
[2023-05-29 07:19] LABS: Blood Urea Nitrogen 69 mg/dl (7-17); Calcium 8.5 mg/dl (8.4-10.2); Carbon Dioxide 20 mmol/L (22-30); Chloride 100 mmol/L (98-107); Estimated Creatinine Clearance 22 ml/min; Glucose 307 mg/dl (70-99); Magnesium 2.4 mg/dl (1.6-2.3); Potassium 4.6 mmol/L (3.5-5.1); Sodium 135 mmol/L (135-145); eGFR 23.97
[2023-05-29 07:40] VITALS: BP 129/58
--- NOTE | 2023-05-29 08:23 | W.PN.CD ---
Today's Communication / Plan
-
-Per surgery, aspirin/Plavix can be resumed; will order.
-Will resume atorvastatin at a lower dose of 40 mg daily.
-Elevated LFT's noted; continue to monitor as outpatient.
-Outpatient follow-up with Cardiology.
Impression / Plan
-
Acute subcapital fracture of the left femoral neck with impaction:
-Stable status- surgery yesterday.
-Routine postoperative management as directed by Surgery.
CAD s/p CABG:
-Remains stable without CP.
-Continue statin, BB
-Per surgery, aspirin/Plavix can be resumed; will order.
HTN:
-Fairly controlled on current medication regimen.
-Continue current doses of amlodipine and metoprolol succinate.
Dyslipidemia:
-Will resume atorvastatin at a lower dose of 40 mg daily.
-Elevated LFT's noted; continue to monitor as outpatient.
PAD:
-iliofemoral endarterectomy with bovine pericardial patch angioplasty, b/l kissing iliac stents, and right external iliac artery stent 02/18/23
-on ASA/Plavix as OP; Plavix as above
-follows with Dr. Blanton
CKD:
-Stable.
Physical Exam
Vital Signs/Labs
Vital Signs
Temp Pulse Resp BP Pulse Ox
98.6 F 74 18 129/58 100
05/29/23 07:40 05/29/23 07:40 05/29/23 07:40 05/29/23 07:40 05/29/23 07:40
05/29/23 05:33
05/29/23 05:33
PT 13.2 Sec (11.4-14.6) 05/22/23 19:34
INR 1.02 05/22/23 19:34
APTT 30.2 Sec (23.4-35.0) 05/22/23 19:34
Magnesium 2.4 mg/dl (1.6-2.3) H 05/29/23 05:33
Physical Exam
Constitutional: No acute distress and Comfortable
EENT: Anicteric
Cardiovascular: Rhythm & rate is regular, Pedal edema is absent and Systolic murmur absent
Respiratory: Respiratory effort normal
GI: Soft
Neuro/Psych: AO x 3
Other: Skin (Warm, dry, intact)
Data Reviewed
-
Date of Service: May 29, 2023
Medical Tests (PFT, Pathology etc): Discussed with Nurse and Discussed with Patient
Labs: Labs Reviewed by me
[2023-05-29] MEDS: NOVOLOG FLEXPEN 5 UNITS SC ×2 (08:49→17:37)
[2023-05-29] MEDS: MIRALAX 17 GRAMS PO (08:50)
[2023-05-29] MEDS: CYMBALTA DELAYED RELEASE 40 MG PO (08:50)
[2023-05-29] MEDS: COLACE 100 MG PO ×2 (08:50→21:39)
[2023-05-29] MEDS: NOVOLOG FLEXPEN-LOW RESISTANCE 4 UNITS SC (08:50)
[2023-05-29] MEDS: FARXIGA 10 MG PO (08:50)
[2023-05-29] MEDS: TOPROL XL 12.5 MG PO (08:51)
[2023-05-29] MEDS: NORVASC 5 MG PO (08:51)
[2023-05-29] MEDS: LOW STRENGTH ASPIRIN 81 MG PO (08:51)
[2023-05-29] MEDS: PROTONIX 40 MG PO (08:51)
[2023-05-29] MEDS: SENOKOT 17.1999999999999993 MG PO ×2 (08:51→21:38)
[2023-05-29] MEDS: WELLBUTRIN XL (24 hour extended release) 150 MG PO (08:51)
[2023-05-29] MEDS: PLAVIX 75 MG PO (08:51)
[2023-05-29] MEDS: ASPIRIN PO (08:59)
--- NOTE | 2023-05-29 09:24 | W.PN.HOSP.TC ---
Today's Communication/Plan
-
see A/P
Assessment / Plan
Assessment / Plan
A/P:
# Mechanical fall with Left Hip subcapital fracture of the femoral neck
cont pain control with oxycodone 5 mg Q4H PRN and Dilaudid 0.5 mg Q4H PRN
not on standing tylenol due to chronically elevated LFTs
s/p surgery 05/27 for cannulated screw fixation of left femoral neck by Dr. Diego
cont baby ASA and resumed BUSINESS INTELLIGENCE REPORTING ANALYST plavix, for DVT ppx per ortho
PT OT recc SNF
# hyponatremia, multifactorial due to SIADH from pain/fracture, duloxetine; resolved
cont fluid restrict adjusted to 50 oz
apprec renal, s/p samsca
# Mild hyperkalemia, resolved
stopped BUSINESS INTELLIGENCE REPORTING ANALYST potassium supplement
monitor K level
# Chronic leukocytosis, unclear cause
stable
recc outpt heme eval, pt informed
# Anemia of chronic disease, stable
follow
# CAD s/p CABG
# PAD with Bilateral Iliac Stents / Iliofemoral Endarterectomy
# Essential Hypertension
Continue BUSINESS INTELLIGENCE REPORTING ANALYST Norvasc, metoprolol with holding parameter
# IDDM
Continue Lantus adjusted to 20 units HS (BUSINESS INTELLIGENCE REPORTING ANALYST 26 units HS)
Cont aspart 5 units BID
Cover with ISS
A1C 10.6% (not well controlled)
# CKD III
SCr at 1.9, baseline at 1.9
# GERD
PPI
# Depression
cont Duloxetine, cont Bupropion
# Hyperlipidemia
resumed BUSINESS INTELLIGENCE REPORTING ANALYST statin but lower dose at 40 mg HS
# Transaminitis related to statin?
Abs US noted cholelithiasis with small calculi layering in dependent position, mild thickening of the right renal cortex
Pt asymptomatic
monitor LFT
Full code
DVT ppx: ASA / plavix
DW RN
total time spent 51 min
Anticipated Discharge: Within 24 hours
Subjective/Interval History
-
Date of Service: May 29, 2023
Objective Data
-
Labs:
Laboratory Results
05/29/23
05:33
WBC 17.0 H
Hgb 9.5 L
Hct 29.9 L
Plt Count 452 H
Sodium 135
Potassium 4.6
Chloride 100
Carbon Dioxide 20 L
BUN 69 H
Creatinine 2.1 H
Glucose 307 H
Calcium 8.5
Vital Signs:
Vital Signs
Temp Pulse Resp BP Pulse Ox
37.0 C 74 18 129/58 100
05/29/23 07:40 05/29/23 07:40 05/29/23 07:40 05/29/23 07:40 05/29/23 07:40
I&O
05/28/23 05/29/23 05/30/23
06:59 06:59 06:59
Intake Total 1020 / 1020 1779
Output Total 880 / 880
Balance 140 / 140 1779
Review of Systems
-
All other systems: Reviewed and negative
Physical Exam
-
General: Well Developed, Well Nourished, Comfortable and Conversant
HEENT: Normocephalic and Atraumatic; Negative Oxygen
Respiratory: Clear to Auscultation and Non Labored Respirations; Negative Wheezes, Rhonchi or Accessory Resp Muscle Use
Cardiac: Regular Rhythm and S1/S2; Negative Murmur
GI: Soft, Nontender, Nondistended and Normal Bowel Sounds
Musculoskeletal: No Clubbing, No Cyanosis and No Edema
Neuro: Awake and Alert
Psych: Calm and Intact Judgement/Insight
Data Reviewed
-
Diagnostic Radiology: Report Reviewed by me
CT Scan: Report Reviewed by me
Labs: Labs Reviewed by me
--- NOTE | 2023-05-29 09:27 | CM ---
Reviewed the chart notes and sent referrals forward with PT evaluation attached. CM continues to be available to patient/family and is monitoring medical plan for needs at discharge.
Plan: Discharge to SNF/rehab once bed found and precert obtained.
[2023-05-29 09:56] LABS: ALT (SGPT) 61 U/L (0-35); AST (SGOT) 65 U/L (14-36); Albumin 2.8 g/dl (3.5-5.0); Alkaline Phosphatase 194 U/L (38-126); Direct Bilirubin 0.1 mg/dl (0.0-0.4); Total Bilirubin 0.3 mg/dl (0.2-1.3); Total Protein 5.9 g/dl (6.3-8.2)
--- NOTE | 2023-05-29 11:16 | W.PN.NEPH.PH ---
Today's Communication / Plan
-
observe on FR
Assessment/Plan
-
IMP:
Mechanical fall with Left Hip subcapital fracture of the femoral neck
hyponatremia
CKD III-baseline 1.5-1.8
Mild hyperkalemia-off kcl
Chronic leukocytosis--unclear cause
Anemia of chronic disease-
CAD s/p CABG
PAD with Bilateral Iliac Stents / Iliofemoral Endarterectomy
Essential Hypertension
Type 2 IDDM
GERD
Depression
Hyperlipidemia
LFT elevation
Plan:
A/w M fall and found left hip fx s/p repair on 05.27
hyponatremia-chronic
high U osmo 556, U na 74 suggest high ADH mediated with pain
sodium improving to 135 with samsca given a few days prior remains on fluid restriction adjusted to 48 oz today
BP stable on meds
CKD-cr close to baseline ~2
holding kcl with mild hyperkalemia which improved
-
-
Date of Service: May 29, 2023
CC / HPI / ROS
-
Chief Complaint:
CKD, hyponatremia
History of Present Illness:
sodium better at 135, on fluid restriction
Creatinine stable at 1.9
non [id number] with out ramos
Bp stable
Review of Systems:
no cp or sob
no n/v
Labs
-
Labs:
WBC 17.0 10^3/uL (4.8-10.8) H 05/29/23 05:33
RBC 3.22 10^6/uL (4.20-5.40) L 05/29/23 05:33
Hgb 9.5 g/dL (12.0-16.0) L 05/29/23 05:33
Hct 29.9 % (37.0-47.0) L 05/29/23 05:33
Plt Count 452 10^3/uL (130-400) H 05/29/23 05:33
Sodium 135 mmol/L (135-145) 05/29/23 05:33
Potassium 4.6 mmol/L (3.5-5.1) 05/29/23 05:33
Chloride 100 mmol/L (98-107) 05/29/23 05:33
Carbon Dioxide 20 mmol/L (22-30) L 05/29/23 05:33
BUN 69 mg/dl (7-17) H 05/29/23 05:33
Creatinine 2.1 mg/dL (0.6-1.0) H 05/29/23 05:33
eGFR 23.97 05/29/23 05:33
Glucose 307 mg/dl (70-99) H 05/29/23 05:33
Calcium 8.5 mg/dl (8.4-10.2) 05/29/23 05:33
Albumin 2.8 g/dl (3.5-5.0) L 05/29/23 05:33
Physical Exam
-
Vital Signs:
Vital Signs
Temp Pulse Resp BP Pulse Ox
98.6 F 74 18 129/58 100
05/29/23 07:40 05/29/23 07:40 05/29/23 07:40 05/29/23 07:40 05/29/23 08:00
Cardiovascular:: Regular rate and rhythm
Respiratory:: Bilateral: CTA
Lung Excursion:: Normal
Abdomen:: Nontender and Soft
Bowel Sounds:: Normal
Extremity Edema:: None: Bilateral:
Ramos Catheter: No
[2023-05-29 12:13] LABS: Glucose - Point of Care 177 mg/dl (70-99)
[2023-05-29] MEDS: NOVOLOG FLEXPEN-LOW RESISTANCE 1 UNITS SC (12:38)
[2023-05-29 13:25] VITALS: BP 116/58; PULSE 77
[2023-05-29 13:27] VITALS: BP 116/58; PULSE 77
[2023-05-29 16:00] VITALS: BP 134/58
--- NOTE | 2023-05-29 16:02 | CM ---
Reviewed the chart notes and spoke with the patient and her daughter at the bedside. [facility] has accepted the patient for tomorrow. Patient unsure she wants to go to SNF. Daughter and patient to discuss. PT recommendation is SNF. IMM signed and
placed on the chart. CM continues to be available to patient/family and is monitoring medical plan for needs at discharge.
Precert required. Listed as a [employer] patient in system.
[facility] NPI#[id number]
Dr. Benny Cote NPI# [id number]
Plan: Discharge plan SNF vs home with VN.
[2023-05-29 16:59] LABS: Glucose - Point of Care 211 mg/dl (70-99)
[2023-05-29] MEDS: NOVOLOG FLEXPEN-LOW RESISTANCE 2 UNITS SC (17:37)
[2023-05-29] MEDS: LIPITOR 40 MG PO (17:38)
[2023-05-29 21:30] LABS: Glucose - Point of Care 284 mg/dl (70-99)
[2023-05-29] MEDS: LEVEMIR 0.200000000000000011 UNITS SC (21:39)
[2023-05-29 23:15] LABS: Urine Albumin Trace (Neg - Trace); Urine Bilirubin Negative (Negative); Urine Character Slightly Cloudy (Clear); Urine Color Yellow; Urine Glucose 3+ (Negative); Urine Ketone Negative (Negative); Urine Leukocyte 2+ (Negative); Urine Nitrite Negative (Negative); Urine Occult Blood 1+ (Negative); Urine Urobilinogen Negative (Neg - 1+)
[2023-05-29 23:18] VITALS: BP 123/59
[2023-05-30 00:26] LABS: Urine White Cell >100 /HPF (0-5)
[2023-05-30 00:30] LABS: Urine Squamous Cell SEEN /LPF (Few); Urine Yeast Many (Negative)
[2023-05-30 05:13] LABS: Hematocrit 26.4 % (37.0-47.0); Hemoglobin 8.5 g/dL (12.0-16.0); Mean Corp Hgb Conc. 32.2 g/dL (33.0-37.0); Mean Corpuscular Hgb 29.5 pg (27.0-31.0); Mean Corpuscular Volume 91.7 fL (81.0-99.0); Mean Platelet Volume 10.6 fL (7.4-10.4); Platelet Count 394 10^3/uL (130-400); Red Blood Cell Count 2.88 10^6/uL (4.20-5.40); Red Cell Dist. Width 12.5 % (11.5-14.5); White Blood Cell Count 9.4 10^3/uL (4.8-10.8)
[2023-05-30 05:45] LABS: ALT (SGPT) 48 U/L (0-35); AST (SGOT) 66 U/L (14-36); Albumin 2.5 g/dl (3.5-5.0); Alkaline Phosphatase 169 U/L (38-126); Blood Urea Nitrogen 63 mg/dl (7-17); Calcium 8.2 mg/dl (8.4-10.2); Carbon Dioxide 21 mmol/L (22-30); Chloride 108 mmol/L (98-107); Direct Bilirubin 0.1 mg/dl (0.0-0.4); Estimated Creatinine Clearance 21 ml/min; Glucose 188 mg/dl (70-99); Magnesium 2.3 mg/dl (1.6-2.3); Potassium 4.3 mmol/L (3.5-5.1); Sodium 135 mmol/L (135-145); Total Bilirubin 0.3 mg/dl (0.2-1.3); Total Protein 5.3 g/dl (6.3-8.2); eGFR 22.67
[2023-05-30 07:32] LABS: Glucose - Point of Care 110 mg/dl (70-99)
[2023-05-30 07:35] VITALS: BP 126/62
[2023-05-30] MEDS: NOVOLOG FLEXPEN-LOW RESISTANCE SC ×2 (08:53→12:31)
--- NOTE | 2023-05-30 09:03 | W.PN.HOSP.TC ---
Addendum entered and electronically signed by Patricia Gibbs MD 05/30/23 09:30:
called daughter several times to update, calls now answered
DW CM
total DC time 35 min
Original Note:
Today's Communication/Plan
-
for SNF
Assessment / Plan
Assessment / Plan
A/P:
# Mechanical fall with Left Hip subcapital fracture of the femoral neck
cont pain control with oxycodone 5 mg Q4H PRN and Dilaudid 0.5 mg Q4H PRN
not on standing tylenol due to chronically elevated LFTs
s/p surgery 05/27 for cannulated screw fixation of left femoral neck by Dr. Diego
cont baby ASA and resumed FIRE REGULATOR plavix for DVT ppx per ortho
PT OT recc SNF , pt elected [facility]
# hyponatremia, multifactorial due to SIADH from pain/fracture, duloxetine; resolved
cont fluid restrict adjusted to 50 oz
apprec renal, s/p samsca
# Mild hyperkalemia, resolved
stopped FIRE REGULATOR potassium supplement
monitor K level
# leukocytosis, reactive and resolved
stable
# Anemia of chronic disease, stable
follow
# CAD s/p CABG
# PAD with Bilateral Iliac Stents / Iliofemoral Endarterectomy
# Essential Hypertension
Continue FIRE REGULATOR Norvasc, metoprolol with holding parameter
# IDDM
Continue Lantus adjusted to 20 units HS (FIRE REGULATOR 26 units HS)
Cont aspart 5 units BID
Cover with ISS
A1C 10.6% (not well controlled)
# CKD III
SCr at 1.9, baseline at 1.9
# GERD
PPI
# Depression
cont Duloxetine, cont Bupropion
# Hyperlipidemia
resumed FIRE REGULATOR statin but lower dose at 40 mg HS
# Transaminitis related to statin?
Abs US noted cholelithiasis with small calculi layering in dependent position, mild thickening of the right renal cortex
Pt asymptomatic
monitor LFT
Full code
DVT ppx: ASA / plavix
DW RN
Anticipated Discharge: Today
Subjective/Interval History
-
Date of Service: May 30, 2023
Objective Data
-
Labs:
Laboratory Results
05/30/23
03:46
WBC 9.4
Hgb 8.5 L
Hct 26.4 L
Plt Count 394
Sodium 135
Potassium 4.3
Chloride 108 H
Carbon Dioxide 21 L
BUN 63 H
Creatinine 2.2 H
Glucose 188 H
Calcium 8.2 L
Total Bilirubin 0.3
AST 66 H
ALT 48 H
Alkaline Phosphatase 169 H
Vital Signs:
Vital Signs
Temp Pulse Resp BP Pulse Ox
36.6 C 72 18 126/62 97
05/30/23 07:35 05/30/23 07:35 05/30/23 07:35 05/30/23 07:35 05/30/23 07:35
I&O
05/29/23 05/30/23 05/31/23
06:59 06:59 06:59
Intake Total 1779 240 / 240
Balance 1779 240 / 240
Review of Systems
-
All other systems: Reviewed and negative
Physical Exam
-
General: Well Developed, Well Nourished, Comfortable and Conversant
HEENT: Normocephalic and Atraumatic; Negative Oxygen
Respiratory: Clear to Auscultation and Non Labored Respirations; Negative Wheezes, Rhonchi or Accessory Resp Muscle Use
Cardiac: Regular Rhythm and S1/S2; Negative Murmur
GI: Soft, Nontender, Nondistended and Normal Bowel Sounds
Musculoskeletal: No Clubbing, No Cyanosis and No Edema
Neuro: Awake and Alert
Psych: Calm and Intact Judgement/Insight
Data Reviewed
-
Diagnostic Radiology: Report Reviewed by me
CT Scan: Report Reviewed by me
Labs: Labs Reviewed by me
[2023-05-30] MEDS: PLAVIX 75 MG PO (09:05)
[2023-05-30] MEDS: PROTONIX 40 MG PO (09:05)
[2023-05-30] MEDS: FARXIGA 10 MG PO (09:05)
[2023-05-30] MEDS: WELLBUTRIN XL (24 hour extended release) 150 MG PO (09:05)
[2023-05-30] MEDS: CYMBALTA DELAYED RELEASE 40 MG PO (09:05)
[2023-05-30] MEDS: TOPROL XL 12.5 MG PO (09:06)
[2023-05-30] MEDS: COLACE 100 MG PO (09:06)
[2023-05-30] MEDS: SENOKOT 17.1999999999999993 MG PO (09:06)
[2023-05-30] MEDS: LOW STRENGTH ASPIRIN 81 MG PO (09:06)
[2023-05-30] MEDS: MIRALAX 17 GRAMS PO (09:07)
[2023-05-30] MEDS: NORVASC 5 MG PO (09:07)
[2023-05-30] MEDS: NOVOLOG FLEXPEN 5 UNITS SC (09:10)
--- NOTE | 2023-05-30 09:52 | CM ---
Addendum entered by Mary Ellen Reyes RN 05/30/23 10:25:
[facility]
Call report to: [phone]
Fax report to: [phone]
Patient's daughter to transport.
Original Note:
Reviewed the chart notes and spoke with the patient at the bedside. The patient is in agreement with discharge to [facility] today. Attending and RN informed.
Auth obtained from [facility]: [id number]; Skill Level I; 8 days; NRD 06/06/23; fax clinicals to: [phone].
Patient's daughter will provide transportation.
Plan: Discharge to [facility] today.
--- NOTE | 2023-05-30 10:05 | W.PN.UPDATE ---
Update Note
Progress Note Update
Ms. Dwyer is POD2 following her left hip cannulated screw fixation performed by Dr. Diego. She is resting comfortably in bed this morning. She endorses waxing and waning pain about the hip. She was able to work with physical therapy without
significant difficulty.
Directed exam of the left lower extremity reveals Aquacel dressing clean, dry and intact. Mild tenderness to palpation about the hip. Thigh soft and compressible. Calf soft and nontender. Patient able to wiggle toes, plantar and dorsiflex ankle.
Neurovascularly intact distally.
Hgb 8.5 this AM.
77-year-old female postop day #2 from a cannulated screw fixation for a left femoral neck fracture performed on 05/28/[address] Diego.
- Partial weightbearing to LLE x 4 weeks with a walker for assistance. We appreciate the assistance of PT/OT.
- DVT prophylaxis per primary team.� May resume Plavix and Aspirin per medical team.
- Pain control per primary team.
- Hemoglobin this AM 8.5 this AM.� Continue to monitor.
- Maintain surgical dressing until 7-10 days post-op. Staple removal at 2 weeks post-op.
- Discharge planning per CM.
- Patient stable post-operatively from an orthopedic standpoint. Orthopedics will sign off for now. Please reach out with any additional questions or concerns.
[2023-05-30] MEDS: ROXICODONE 5 MG PO (10:35)
[2023-05-30 12:21] LABS: Glucose - Point of Care 88 mg/dl (70-99)
--- NOTE | 2023-05-30 13:08 | W.PN.NEPH.PH ---
Today's Communication / Plan
-
ok for d/c
Assessment/Plan
-
IMP:
Mechanical fall with Left Hip subcapital fracture of the femoral neck
hyponatremia
CKD III-baseline 1.5-1.8
Mild hyperkalemia-off kcl
Chronic leukocytosis--unclear cause
Anemia of chronic disease-
CAD s/p CABG
PAD with Bilateral Iliac Stents / Iliofemoral Endarterectomy
Essential Hypertension
Type 2 IDDM
GERD
Depression
Hyperlipidemia
LFT elevation
Plan:
A/w M fall and found left hip fx s/p repair on 05.27
hyponatremia-chronic
high U osmo 556, U na 74 suggest high ADH mediated with pain
sodium stable at 135
cont fluid restriction 48 oz
BP stable on meds
CKD-cr close to baseline ~2
holding kcl with mild hyperkalemia which improved
for d/c today
bmp in 1week
f/u Dr Hills
-
-
Date of Service: May 30, 2023
CC / HPI / ROS
-
Chief Complaint:
CKD, hyponatremia
History of Present Illness:
sodium stable at 135, on fluid restriction
Creatinine slightly up at 2.2
Bp stable
hb decreasing to 8.5 post op
Review of Systems:
no cp or sob
no n/v
Labs
-
Labs:
WBC 9.4 10^3/uL (4.8-10.8) 05/30/23 03:46
RBC 2.88 10^6/uL (4.20-5.40) L 05/30/23 03:46
Hgb 8.5 g/dL (12.0-16.0) L 05/30/23 03:46
Hct 26.4 % (37.0-47.0) L 05/30/23 03:46
Plt Count 394 10^3/uL (130-400) 05/30/23 03:46
Sodium 135 mmol/L (135-145) 05/30/23 03:46
Potassium 4.3 mmol/L (3.5-5.1) 05/30/23 03:46
Chloride 108 mmol/L (98-107) H 05/30/23 03:46
Carbon Dioxide 21 mmol/L (22-30) L 05/30/23 03:46
BUN 63 mg/dl (7-17) H 05/30/23 03:46
Creatinine 2.2 mg/dL (0.6-1.0) H 05/30/23 03:46
eGFR 22.67 05/30/23 03:46
Glucose 188 mg/dl (70-99) H 05/30/23 03:46
Calcium 8.2 mg/dl (8.4-10.2) L 05/30/23 03:46
Albumin 2.5 g/dl (3.5-5.0) L 05/30/23 03:46
Physical Exam
-
Vital Signs:
Vital Signs
Temp Pulse Resp BP Pulse Ox
97.9 F 72 18 126/62 97
05/30/23 07:35 05/30/23 09:07 05/30/23 07:35 05/30/23 09:07 05/30/23 07:35
Cardiovascular:: Regular rate and rhythm
Respiratory:: Bilateral: CTA
Lung Excursion:: Normal
Abdomen:: Nontender and Soft
Extremity Edema:: None: Bilateral:
Triplett Catheter: No
--- NOTE | 2023-05-30 15:22 | W.DCSUMMARY ---
Discharge Summary
Discharge Data
Date of Admission: 05/22/23
Date of Discharge: 05/30/23
-
Pending Results: No
Hospital Course
Principal Diagnosis:
Mechanical fall with Left Hip subcapital fracture of the femoral neck
hyponatremia, multifactorial due to SIADH from pain/fracture vs duloxetine, resolved
Transaminitis, improved, possibly reactive
Chronic Diagnoses:�
Anemia of chronic disease, stable
Coronary artery disease status post bypass surgery
Peripheral artery disease with Bilateral Iliac Stents / Iliofemoral Endarterectomy
Essential Hypertension on Norvasc, metoprolol
Insulin-dependent diabetes
Chronic kidney disease stage III
Gastroesophageal reflux disease
Depression, mood stable on Duloxetine, cont Bupropion
Hyperlipidemia
Consultations:�
Orthopedic
Cardiology
Nephrology
Procedures:�
Cannulated screw fixation of left femoral neck by Dr. Diego
Clinical course:�
This is a 77-year-old female, with past medical history as stated above, who presented with mechanical fall resulting in left hip femoral neck fracture.
Problem 1:
Mechanical fall with Left Hip subcapital fracture of the femoral neck.
She underwent surgery 05/27 for cannulated screw fixation of left femoral neck by Dr. Diego.
She can continue with her prior to admission baby ASA and Plavix for DVT prophylaxis per orthopedic.
She was discharged to SNF per PT OT recommendation.
Problem 2:
Hyponatremia, multifactorial due to SIADH from pain/fracture vs duloxetine; resolved.
The patient received 1 dose of Samsca which improved her sodium level.
Her sodium level was at 135 on the day of discharge.
Problem 3:
Transaminitis, improved, possibly reactive.
Her prior to admission Lipitor was decreased from 80 to 40 mg daily which she should continue per cardiology recommendation.
She can follow-up a repeat LFT with result to her PCP outpatient.
As for the rest of her medical problems, they were stable during her hospital stay.
Discharge Plan
-
Patient Disposition: Fpc/SNF
Discharge Diagnosis/Procedures: Mechanical fall with Left Hip sub-capital fracture of the femoral neck status post surgery 05/27 for cannulated screw fixation of left femoral neck by Dr. Diego; elevated liver enzymes
Condition: Fair
Diet: As tolerated, Low Sodium and Diabetic, Carb Controlled
Activity: As tolerated
Driving Restrictions: Not until seen by your Dr
Blood Work: CBC, CMP
Referrals:
Larry Bridges MD [Family Provider] - in less than 1 week
Additional Discharge Medication Instructions: Your Lipitor was decreased from 80 to 40 mg (due to elevated LFT)
stop taking potassium supplement
Prescriptions:
New
atorvastatin 40 mg Tablet
40 mg PO QPM Qty: 30 0RF
Continued
aspirin 81 mg Tablet,Delayed Release (Dr/Ec)
81 mg PO DAILY
bupropion HCl 150 mg Tablet Extended Release 24 Hr
150 mg PO DAILY
Levemir FlexPen 100 unit/mL (3 mL) Insulin Pen
26 unit SC HS
cholecalciferol (vitamin D3) [Vitamin D3] 25 mcg (1,000 unit) Tablet
25 mcg PO DAILY
duloxetine 40 mg Capsule,Delayed Release(Dr/Ec)
40 mg PO DAILY
clopidogrel 75 mg Tablet
75 mg PO DAILY Qty: 30 1RF
dapagliflozin propanediol [Farxiga] 10 mg Tablet
10 mg PO DAILY Qty: 30 0RF
amlodipine 5 mg Tablet
5 mg PO DAILY Qty: 0 0RF
pantoprazole [Protonix] 40 mg tablet,delayed release (DR/EC)
40 mg PO DAILY Qty: 30 1RF
acetaminophen 325 mg tablet
650 mg PO Q4HPRN PRN (Reason: mild pain)
metoprolol succinate 25 mg tablet extended release 24 hr
12.5 mg PO DAILY
guaifenesin 600 mg tablet extended release 12hr
600 mg PO [id number] PRN (Reason: Congestion)
nitroglycerin 0.4 mg Tablet, Sublingual
0.4 mg sublingual [id number] PRN (Reason: chest pain) Qty: 0 0RF
insulin aspart U-100 [Novolog FlexPen U-100 Insulin] 100 unit/mL (3 mL) insulin pen
5 unit SC BID@0800,1700
Discontinued
atorvastatin 80 mg Tablet
80 mg PO QPM Qty: 30 1RF
potassium chloride 20 mEq Tablet,Er Particles/Crystals
20 meq PO DAILY Qty: 0 0RF
Discharge Orders:
Discharge Patient (As Directed); Ordered 05/30/23
Ordered By: Patricia Gibbs
Discharge Date and Time
Discharge Date/Time: 05/30/23 14:25
== END 2023-05-30 14:25 | DRG 481 ==
LOC: 2 SOUTH 20:31
PROVIDERS: Nurse Practitioner; Nurse Practitioner Gerontology; Registered Nurse; ADMITTING PHYSICIAN Hospitalist; ATTENDING PHYSICIAN Internal Medicine; CONSULT PHYSICIAN Internal Medicine; CONSULT PHYSICIAN Internal Medicine Cardiovascular Disease; CONSULT PHYSICIAN Orthopaedic Surgery; EMERGENCY PHYSICIAN Emergency Medicine; FAMILY PHYSICIAN Family Medicine
PROC: 0QS734Z Reposition Left Upper Femur with Internal Fixation Device, Percutaneous Approach (ICD-10-PCS; 2023-05-28)
DX: S72.012A Unspecified intracapsular fracture of left femur, initial encounter for closed fracture (principal); E22.2 Syndrome of inappropriate secretion of antidiuretic hormone; N18.32 Chronic kidney disease, stage 3b; I25.10 Atherosclerotic heart disease of native coronary artery without angina pectoris; E78.00 Pure hypercholesterolemia, unspecified; W01.0XXA Fall on same level from slipping, tripping and stumbling without subsequent striking against object, initial encounter; Y93.01 Activity, walking, marching and hiking; Y92.89 Other specified places as the place of occurrence of the external cause; Y99.0 Civilian activity done for income or pay; E11.22 Type 2 diabetes mellitus with diabetic chronic kidney disease; I12.9 Hypertensive chronic kidney disease with stage 1 through stage 4 chronic kidney disease, or unspecified chronic kidney disease; E11.65 Type 2 diabetes mellitus with hyperglycemia; F32.A Depression, unspecified; E87.5 Hyperkalemia; E11.51 Type 2 diabetes mellitus with diabetic peripheral angiopathy without gangrene; F17.200 Nicotine dependence, unspecified, uncomplicated; D63.8 Anemia in other chronic diseases classified elsewhere; M16.11 Unilateral primary osteoarthritis, right hip; M16.12 Unilateral primary osteoarthritis, left hip; D72.829 Elevated white blood cell count, unspecified; K21.9 Gastro-esophageal reflux disease without esophagitis; R79.89 Other specified abnormal findings of blood chemistry; R74.01 Elevation of levels of liver transaminase levels; R29.6 Repeated falls; I25.2 Old myocardial infarction; Z79.02 Long term (current) use of antithrombotics/antiplatelets; Z88.0 Allergy status to penicillin; Z88.2 Allergy status to sulfonamides; Z95.1 Presence of aortocoronary bypass graft; Z88.8 Allergy status to other drugs, medicaments and biological substances; Z79.82 Long term (current) use of aspirin; Z79.4 Long term (current) use of insulin; Z86.718 Personal history of other venous thrombosis and embolism; Z80.3 Family history of malignant neoplasm of breast; Z80.0 Family history of malignant neoplasm of digestive organs
CPT/HCPCS: 73502; 73700; 76000; 76700; 80053; 81003; 81015; 82248; 82570; 82962; 83036; 83735; 83935; 84300; 85025; 85027; 85610; 85730; 86850; 86900; 86901; 87086; 93005; 96374; 97162; 97166; 97530; 97535; 99285; C1713; C1769

== ENCOUNTER 2023-06-13 15:28 | Emergency (ER) | payer OTHER, SELFPAY ==
[2023-06-13 15:32] VITALS: BP 127/35; BMI 22.9
[2023-06-13 15:38] VITALS: BP 127/35
[2023-06-13 15:42] LABS: Glucose - Point of Care 221 mg/dl (70-99)
--- NOTE | 2023-06-13 15:59 | ED.GENMED ---
History of Present Illness
General
Chief Complaint: Blood Sugar Problem
Source: patient and ambulance crew
Time Seen by Provider: 06/13/23 15:31
Travel History
Have you had any contact with someone who has COVID-19?: No
Do you have any symptoms of coronavirus? Fever > 100 degrees, chills, cough, shortness of breath, sore throat, loss of taste or smell, muscle aches, or headache?: No
History of Present Illness
History of Present Illness:
78-year-old female history of insulin-dependent diabetes, CKD, CAD status post CABG presenting with hyperglycemia. Per EMS, glucose was 364 prior to arrival. Patient states that she has been taking insulin as prescribed. Patient denies chest
pain, shortness of breath, cough, nausea, vomiting, diarrhea, abdominal pain. Patient pressure with urination but denies dysuria or or hematuria.
Past History
Past History
ED Past Medical History: HTN, Hypercholesterolemia and NIDDM
ED Past Surgical History: Cardiac (BADG x 5 01/2023. ) and Gynecological
Social History
Tobacco: Smoker
Alcohol: Occasional
Drug: None
Personal:
Living: with family
Phy Exam
Physical Exam
Physical Exam:
General: Alert, no acute distress
Head: NCAT
Eyes: clear conjunctiva
Neck: supple
Cardiac: regular rate and rhythm, no murmur
Lungs: clear to auscultation bilaterally. No wheezes, rales, or rhonchi. Speaking full unlabored sentences. No respiratory distress.
Abdomen: soft, nondistended nontender. No rebound or guarding.
MSK: bilateral equal pitting lower extremity edema. No deformity. superficial abrasions to bilateral shins, no overlying erythema or discharge. no erythema to bilateral lower extremities
Skin: warm, dry, no rash
Neuro: Alert. no focal deficits
Course
Orders/Labs/Results
Orders:
Orders
06/13/23 16:03
CXR2 [CR Chest - 2 Views ] Urgent
Comment:
Reason For Exam: sob, hx chf
06/13/23 16:04
EKG [Electrocardiogram (*1)] Urgent
Reason for Study: Fatigue / Weakness
EKG- Treatment ONCE
06/13/23 16:45
B-Hydroxybutyrate Urgent
CBC/With Diff [Complete Blood Count/With Diff] Urgent
CMP [Comprehensive Metabolic Panel] Urgent
UA Reflex to Culture [Urinalysis Reflex To Culture] Urgent
Date Specimen was Collected: 06/13/23
Time Specimen was Collected: 16:35
Urine Microscopic Reflex Cult Urgent
Urine Culture Urgent
RANDY Source: U
Specimen Description:
Date Specimen was Collected: 06/13/23
Time Specimen was Collected: 16:35
06/13/23 19:19
CefTRIAXone [Rocephin] 1,000 mg IV NOW STA
Abnormal Lab Results
06/13/23 06/13/23
15:39 16:45
WBC 12.0 H 10^3/uL
(4.8-10.8)
RBC 2.63 L 10^6/uL
(4.20-5.40)
Hgb 7.7 L g/dL
(12.0-16.0)
Hct 24.9 L %
(37.0-47.0)
MCHC 30.9 L g/dL
(33.0-37.0)
Absolute Neuts (auto) 7.8 H 10^3/uL
(1.4-6.5)
Absolute Monos (auto) 1.1 H 10^3/uL
(0.1-0.6)
Monocytes % 9.5 H %
(1.7-9.3)
Sodium 133 L mmol/L
(135-145)
BUN 37 H mg/dl
(7-17)
Creatinine 1.9 H mg/dL
(0.6-1.0)
Glucose 152 H mg/dl
(70-99)
AST 122 H U/L
(14-36)
ALT 131 H U/L
(0-35)
Alkaline Phosphatase 238 H U/L
(38-126)
Total Protein 6.0 L g/dl
(6.3-8.2)
Albumin 3.1 L g/dl
(3.5-5.0)
Leukocyte Esterase Rfl Trace A
(Negative)
Urine WBC (Reflex) 30-40 A /HPF
(0-5)
Urine Bacteria (Reflex) Few A
(Negative)
Urine Yeast Few A
(Negative)
Urine Glucose 3+ A
(Negative)
POC Glucose 221 H mg/dl
(70-99)
06/13/23 16:45
06/13/23 16:45
Vital Signs
Initial and Last Documented VS:
Initial Vital Signs
Temp Pulse Resp BP Pulse Ox
97.9 F 85 18 127/35 98
06/13/23 15:32 06/13/23 15:32 06/13/23 15:32 06/13/23 15:32 06/13/23 15:32
Last Documented Vital Signs
Temp Pulse Resp BP Pulse Ox
97.9 F 86 9 144/50 97
06/13/23 15:32 06/13/23 20:30 06/13/23 20:00 06/13/23 19:39 06/13/23 19:39
Comment
Comment:
Patient presents to the Emergency Department with ___hyperglycemia
Number and Complexity of Problems Addressed at the Encounter
� Chronic conditions affecting care: insulin dependent diabetes
� Acute Exacerbation and/or Progression of Chronic Illness: insulin dependent diabetes
� Differential Diagnosis includes: DKA, UTI, pneumonia, STEMI, medication noncompliance
Amount and/or Complexity of Data to be Reviewed and Analyzed
� I performed an independent evaluation of and my interpretation is:
EKG:
CT:
Xrays: CXR clear
Laboratory Studies: UA shows possible UTI. WBC 12. elevated LFTs (chronically elevated). no evidence of DKA. creatinine at baseline.
Other:
� Review of other/old records reveals:
� Clinical information was obtained by an independent historian:
� Prescriptions/Medications Considered but not given:
� Further testing considered but not performed: given no abdominal tenderness to palpation on exam, will hold on further abdominal imaging to investigate elevated LFTs
Risk of Complications and/or Morbidity or Mortality of Patient Management
� Social Determinants of health affecting care:
� Discussion with other providers (PCP, Hospitalists, Consultants, etc):
� Escalation of care including admission/observation vs risk of discharge considered: 78yoF presenting with hyperglycemia. Family at bedside states patient is currently being treated for yeast infection with fluconazole. Family also states patient
has been intermittently confused for the past few days, none currently. UA shows possible UTI. Given history of hyperglycemia and confusion, will treat for UTI. Glucose 152 in ER with no evidence of DKA. No vomiting. Vitals stable. Stable for
discharge back to facility with keflex for UTI
*Critical Care Note
Total Time (30-74mins, 75-104mins- exclusive of procedures): Not Applicable
ED Attending Note
-
Portions of this chart may have been created with voice recognition software.� Occasional wrong word or��sound alike� substitutions may have occurred due to the inherent limitations of voice recognition software.
Discharge Plan
Departure
Patient Disposition: Senior Living/SNF
Date of Disposition: 06/13/23
Time of Disposition: 19:20
Patient with high blood pressure during this ER visit?: Yes
Discharge Problem:
Acute UTI
Instructions: Urinary Tract Infection, Adult (DC), BLOOD PRESSURE
Prescriptions:
New
cephalexin 500 mg capsule
500 mg PO TID 7 Days Qty: 21 0RF
No Action
aspirin 81 mg Tablet,Delayed Release (Dr/Ec)
81 mg PO DAILY
bupropion HCl 150 mg Tablet Extended Release 24 Hr
150 mg PO DAILY
Levemir FlexPen 100 unit/mL (3 mL) Insulin Pen
24 unit SC HS
cholecalciferol (vitamin D3) [Vitamin D3] 25 mcg (1,000 unit) Tablet
25 mcg PO DAILY
duloxetine 40 mg Capsule,Delayed Release(Dr/Ec)
40 mg PO DAILY
clopidogrel 75 mg Tablet
75 mg PO DAILY Qty: 30 1RF
dapagliflozin propanediol [Farxiga] 10 mg Tablet
10 mg PO DAILY Qty: 30 0RF
amlodipine 5 mg Tablet
5 mg PO DAILY Qty: 0 0RF
pantoprazole [Protonix] 40 mg tablet,delayed release (DR/EC)
40 mg PO DAILY Qty: 30 1RF
acetaminophen 325 mg tablet
650 mg PO Q4HPRN PRN (Reason: mild pain/fever>100.4)
metoprolol succinate 25 mg tablet extended release 24 hr
12.5 mg PO DAILY
guaifenesin 600 mg tablet extended release 12hr
600 mg PO [id number] PRN (Reason: Congestion)
nitroglycerin 0.4 mg Tablet, Sublingual
0.4 mg sublingual [id number] PRN (Reason: chest pain) Qty: 0 0RF
insulin aspart U-100 [Novolog FlexPen U-100 Insulin] 100 unit/mL (3 mL) insulin pen
4 unit SC TID@0800,1200,1700
atorvastatin 40 mg Tablet
40 mg PO QPM Qty: 30 0RF
fluconazole 200 mg Tablet
200 mg PO DAILY@2029
Patient Comments:
06/13/2023: for 7 days started 06/09/23
tramadol 50 mg Tablet
25 mg PO Q8H
bisacodyl [Dulcolax (bisacodyl)] 10 mg Suppository
10 mg W[place] DAILY PRN (Reason: if lactulose is ineffective)
oxybutynin chloride 5 mg Tablet
5 mg PO HS
lactulose 10 gram/15 mL Solution
20 g PO HS PRN (Reason: constipation)
Referrals:
Benny Coet DO [Non-Admitting Privileges] -
Activity Restrictions/Additional Instructions:
Follow up with primary care doctor in 1-2 days
Take keflex 3 times daily for 7 days
Continue taking all medications include fluconazole and insulin as prescribed
Return to the emergency department for fever, persistent vomiting or new/worsening symptoms
Interventions
Interventions:
*Risk Screen - Suicide Last Done: 06/13/23 15:32
*General Assessment Last Done: 06/13/23 15:32
*Neglect/Abuse Screening Last Done: 06/13/23 15:32
ED- Fall Risk Assessment Last Done: 06/13/23 15:49
*ED COVID-19 Vaccine History Last Done: 06/13/23 15:32
*Nursing Disposition Last Done: 06/13/23 20:58
ED- Neurological Assessment Last Done: 06/13/23 15:32
Discharge Date and Time
Discharge Date/Time: 06/13/23 23:04
Print Language: JAPANESE
[2023-06-13 16:01] VITALS: BP 115/39
[2023-06-13 17:00] LABS: Urine Albumin Negative (Neg - Trace); Urine Bilirubin Negative (Negative); Urine Character Clear (Clear); Urine Color Yellow; Urine Glucose 3+ (Negative); Urine Ketone Negative (Negative); Urine Leukocyte Trace (Negative); Urine Nitrite Negative (Negative); Urine Occult Blood Negative (Negative); Urine Urobilinogen Negative (Neg - 1+)
[2023-06-13 17:02] LABS: % Basophils 0.4 % (0-2); % Eosinophils 1.5 % (0-6); % Immature Granulocytes 0.3 % (0-0.5); % Lymphocytes 23.2 % (20.5-51.1); % Monocytes 9.5 % (1.7-9.3); % Neutrophils 65.1 % (42.2-75.2); Absolute Basophils 0.1 10^3/uL (0-0.2); Absolute Eosinophils 0.2 10^3/uL (0-0.7); Absolute Lymphocytes 2.8 10^3/uL (1.2-3.4); Absolute Monocytes 1.1 10^3/uL (0.1-0.6); Absolute Neutrophils 7.8 10^3/uL (1.4-6.5); Hematocrit 24.9 % (37.0-47.0); Hemoglobin 7.7 g/dL (12.0-16.0); Mean Corp Hgb Conc. 30.9 g/dL (33.0-37.0); Mean Corpuscular Hgb 29.3 pg (27.0-31.0); Mean Corpuscular Volume 94.7 fL (81.0-99.0); Mean Platelet Volume 10.3 fL (7.4-10.4); Nucleated Red Blood Cells % 0 %; Platelet Count 352 10^3/uL (130-400); Red Blood Cell Count 2.63 10^6/uL (4.20-5.40); Red Cell Dist. Width 13.8 % (11.5-14.5)
[2023-06-13 17:07] LABS: Urine Squamous Cell 16-20 /LPF (Few)
[2023-06-13 17:09] LABS: Urine Bacteria Few (Negative); Urine Red Blood Cell 0-2 /HPF (0-2); Urine White Cell 30-40 /HPF (0-5)
[2023-06-13 17:10] LABS: Urine Yeast Few (Negative)
[2023-06-13 17:16] LABS: ALT (SGPT) 131 U/L (0-35); AST (SGOT) 122 U/L (14-36); Albumin 3.1 g/dl (3.5-5.0); Alkaline Phosphatase 238 U/L (38-126); Blood Urea Nitrogen 37 mg/dl (7-17); Calcium 8.9 mg/dl (8.4-10.2); Carbon Dioxide 22 mmol/L (22-30); Chloride 101 mmol/L (98-107); Estimated Creatinine Clearance 24 ml/min; Glucose 152 mg/dl (70-99); Potassium 4.1 mmol/L (3.5-5.1); Sodium 133 mmol/L (135-145); Total Bilirubin 0.5 mg/dl (0.2-1.3); eGFR 26.86
[2023-06-13 17:22] LABS: B-Hydroxybutyrate 0.08 mmol/L (0.02-0.27)
[2023-06-13 17:50] VITALS: BP 154/44
[2023-06-13 18:00] VITALS: BP 151/80
[2023-06-13] MEDS: ROCEPHIN 1000 MG IV (19:34)
[2023-06-13 19:39] VITALS: BP 144/50
== END 2023-06-13 23:04 ==
LOC: EMR 15:28
PROVIDERS: EMERGENCY PHYSICIAN Emergency Medicine; FAMILY PHYSICIAN Family Medicine
DX: N39.0 Urinary tract infection, site not specified (principal); E11.22 Type 2 diabetes mellitus with diabetic chronic kidney disease; I13.0 Hypertensive heart and chronic kidney disease with heart failure and stage 1 through stage 4 chronic kidney disease, or unspecified chronic kidney disease; I50.9 Heart failure, unspecified; N18.9 Chronic kidney disease, unspecified; E78.00 Pure hypercholesterolemia, unspecified; I25.10 Atherosclerotic heart disease of native coronary artery without angina pectoris; F17.200 Nicotine dependence, unspecified, uncomplicated; Z87.440 Personal history of urinary (tract) infections; Z95.1 Presence of aortocoronary bypass graft
CPT/HCPCS: 99283; 96374; 71046; 80053; 81003; 81015; 82010; 82962; 85025; 87086; 93005

== ENCOUNTER → 2023-06-15 09:22 | Outpatient (REF) | payer OTHER, SELFPAY ==
[2023-06-15 11:35] LABS: Iron 59 ug/dl (37-170)
[2023-06-15 11:44] LABS: Percent Saturation 37 % (20-50); Total Iron Binding Capacity 157 ug/dl (265-497)
== END ==
LOC: OLABN 09:22
PROVIDERS: ATTENDING PHYSICIAN Student in an Organized Health Care Education/Training Program
DX: D63.8 Anemia in other chronic diseases classified elsewhere (principal)
CPT/HCPCS: 36415; 82728; 83540; 83550

== ENCOUNTER 2023-06-19 13:09 | Inpatient (IN) | payer OTHER, SELFPAY ==
[2023-06-19] VITALS (11 sets, daily range): BP systolic 93–148; BP diastolic 52–105; BMI 22.6
--- NOTE | 2023-06-19 09:15 | ED.GENMED ---
History of Present Illness
General
Chief Complaint: Abnormal Lab Value
Source: patient, records and ambulance crew
Time Seen by Provider: 06/19/23 09:08
Travel History
Have you had any contact with someone who has COVID-19?: No
Do you have any symptoms of coronavirus? Fever > 100 degrees, chills, cough, shortness of breath, sore throat, loss of taste or smell, muscle aches, or headache?: No
History of Present Illness
History of Present Illness:
78-year-old female with past medical history of CAD, CKD, insulin-dependent diabetes, previous brain tumor, currently being treated for urinary tract infection that was diagnosed in this emergency department about a week ago presenting to the
emergency department via EMS from [facility] after reportedly experiencing hallucinations. Unclear as to what exactly patient was hallucinating about as patient states she does not feel as if she needs to be in the emergency
department and she is angry that she is even here. Patient reportedly had a hemoglobin of 6 at the facility but it is also unclear as to when this lab work placed. Patient has no other concerns at this time.
Past History
Past History
ED Past Medical History: HTN, Hypercholesterolemia, IDDM and Renal failure
ED Past Surgical History: Cardiac (BADG x 5 01/2023. ), Gynecological, Orthopedic and Other
Social History
Tobacco: Smoker
Alcohol: Occasional
Drug: None
Personal:
Living: with family
Review of Systems
Review of Systems
All Other Systems: ROS reviewed and negative except as documented in HPI and ROS
Phy Exam
Physical Exam
Physical Exam:
GENERAL: Alert , in no apparent distress
EYE: Clear conjunctiva
NECK: Supple
ENT: o/p clr, mmm.
CARDIAC: Regular rate and rhythm, no murmur.
LUNGS: Clear breath sounds bilaterally, no acute respiratory distress, no wheezes/rales/rhonchi
ABDOMEN: Soft, without focal tenderness, no r/g, no cvat
Rectal exam: Chaperoned by ED EHSAN Trish: Light brown stool and heme-negative
NEUROLOGICAL: Alert and oriented, questionably dysarthric although it is noted patient does not have her upper dentures in. Patient states she does not feel that her speech is different than normal
SKIN: Warm and dry, skin intact.
MUSCULOSKELETAL: No edema, well perfused.
PSYCH: Normal and appropriate interaction.
Scores
Heart Failure Risk
Heart Failure Risk Score: Not Applicable
Heart Score for Chest Pain Patients
STEMI patient?: Not applicable
Withdrawal Assessment of Alcohol
Withdrawal Assessment Completed?: Not applicable
Course
Orders/Labs/Results
Orders:
Orders
06/19/23 09:15
Bedside Glucose- Treatment ONCE
06/19/23 09:24
Type+Screen Urgent
Complete Blood Count/With Diff Urgent
Comprehensive Metabolic Panel Urgent
Iron Urgent
PTT Urgent
Prothrombin Time Urgent
TSH Reflex To Free T4 Urgent
Comment: ADD ON
Total Iron Binding Urgent
Vitamin B12 Urgent
Comment: ADD ON
06/19/23 09:27
CT Head W/o Iv Contrast Urgent
Comment:
Reason For Exam: hallucinations
06/19/23 10:14
Urinalysis Reflex To Culture Urgent
Date Specimen was Collected: 06/19/23
Time Specimen was Collected: 10:12
Urine Microscopic Reflex Cult Urgent
Blood Culture Q30M
RANDY Source: Blood/Venous
Specimen Description:
Urine Culture Urgent
RANDY Source: U
Specimen Description:
Date Specimen was Collected: 06/19/23
Time Specimen was Collected: 10:12
06/19/23 10:29
Add On- LAB Routine
Tests Added?: B12, TSH reflex T4, Iron, TIBC
06/19/23 10:30
Blood Culture Q30M
RANDY Source: Blood/Venous
Specimen Description:
Abnormal Lab Results
06/19/23 06/19/23 06/19/23
09:53 10:14
RBC 2.47 L 10^6/uL
(4.20-5.40)
Hgb 7.4 L g/dL
(12.0-16.0)
Hct 23.1 L %
(37.0-47.0)
MCHC 32.0 L g/dL
(33.0-37.0)
RDW 14.9 H %
(11.5-14.5)
Plt Count 410 H 10^3/uL
(130-400)
Absolute Monos (auto) 0.7 H 10^3/uL
(0.1-0.6)
BUN 36 H mg/dl
(7-17)
Creatinine 1.6 H mg/dL
(0.6-1.0)
Glucose 127 H mg/dl
(70-99)
AST 87 H U/L
(14-36)
ALT 112 H U/L
(0-35)
Alkaline Phosphatase 223 H U/L
(38-126)
Total Protein 5.7 L g/dl
(6.3-8.2)
Albumin 2.8 L g/dl
(3.5-5.0)
Leukocyte Esterase Rfl 2+ A
(Negative)
Urine WBC (Reflex) 30-40 A /HPF
(0-5)
Urine Bacteria (Reflex) Few A
(Negative)
Urine Glucose 3+ A
(Negative)
POC Glucose 129 H mg/dl
(70-99)
06/19/23 09:24
06/19/23 09:24
Vital Signs
Initial and Last Documented VS:
Initial Vital Signs
Temp Pulse Resp BP Pulse Ox
98.2 F 75 22 148/95 74
06/19/23 09:05 06/19/23 09:05 06/19/23 09:05 06/19/23 09:05 06/19/23 09:05
Last Documented Vital Signs
Temp Pulse Resp BP Pulse Ox
98.2 F 75 18 140/99 74
06/19/23 09:05 06/19/23 10:06 06/19/23 10:06 06/19/23 10:05 06/19/23 09:05
MDM/Problems Addressed
Differential Diagnosis Includes:
UTI refractory to antibiotics, anemia, electrolyte disturbance, neurologic event considered given patient's history of a brain mass and also her questionable dysarthria however there are no other focal neurologic deficits
MDM/Problems Addressed:
78-year-old female presenting emergency department for evaluation from [facility] where she is currently residing after a recent hip fracture with surgical repair. Patient states she does not feel that there is anything wrong.
There is questionable anemia on previous labs as well as reports that patient was hallucinating earlier today. Patient is awake alert and oriented x 3 and is without any specific complaint. Will check labs, given her history of diabetes we will
check a [id number] glucose. Patient's daughter is reportedly on her way to the emergency department so we will attempt to get further history from daughter. Will also contact [facility].
*Pulse Oximetry
Patient hypoxic: no
*Special Library Librarian Interpretation
Rate: normal
Rhythm: sinus
*Critical Care Note
Total Time (30-74mins, 75-104mins- exclusive of procedures): Not Applicable
Data Reviewed
Review of Other/Old Records Reveals: Labs (Patient's urine culture from June 12 was likely contaminated. It does not appear patient was actively having a urinary tract infection), Records and Discharge Summary
Source: patient, records, ambulance crew and [facility]
Patient Management
Discussion with other providers: Hospitalist and senior care staff
Escalation/DeEscalation of care consider admission/obs:
9:28 AM: Spoke to patient's nurse at [facility] who states that over the last few days patient has been hallucinating stating that she has been seeing things that are not present. Last night one of the district administrative assistant managers for the facility had
to sit with the patient from 3 AM to 6 AM as patient believes that there were killers in the building that were holding guns and threatening to kill staff and residents. Patient was also noted to be fully awake alert and oriented and would answer
questions appropriately but still have these episodes. Nursing team notes that over the last few weeks patient's ambulatory function has significantly declined and has needed much more assistance than she usually has needed. They are overall
unsure as to what the exact causes as they note that she has been getting her antibiotics for her potential UTI as directed.
9:40 AM: Patient's daughter now at the bedside. Confirms history from [facility]. States that this has been a pretty progressive decline and that her mother is normally able to care for herself but that over the last few days this has been much
different than her usual baseline.
10:20 AM: Notified hospitalist team with plan to admit. Unclear etiology for patient's delirium/altered mental status at this time. She does have a downtrending hemoglobin however has light brown stool that is heme-negative. Family is in
agreement with plan for admission.
ED Attending Note
-
Portions of this chart may have been created with voice recognition software.� Occasional wrong word or��sound alike� substitutions may have occurred due to the inherent limitations of voice recognition software.
Discharge Plan
Departure
Patient Disposition: Admit
Date of Disposition: 06/19/23
Time of Disposition: 10:21
Presentation/result/management discussed w/ accepting MD/DO: Hospitalist
Discharge Problem:
Delirium, Anemia, CKD (chronic kidney disease), Elevated liver function tests
Prescriptions:
No Action
aspirin 81 mg Tablet,Delayed Release (Dr/Ec)
81 mg PO DAILY
Levemir FlexPen 100 unit/mL (3 mL) Insulin Pen
24 unit SC HS
cholecalciferol (vitamin D3) [Vitamin D3] 25 mcg (1,000 unit) Tablet
25 mcg PO DAILY
duloxetine 40 mg Capsule,Delayed Release(Dr/Ec)
40 mg PO DAILY
amlodipine 5 mg Tablet
5 mg PO DAILY Qty: 0 0RF
pantoprazole [Protonix] 40 mg tablet,delayed release (DR/EC)
40 mg PO DAILY Qty: 30 1RF
acetaminophen 325 mg tablet
650 mg PO Q4HPRN PRN (Reason: mild pain/fever>100.4)
metoprolol succinate 25 mg tablet extended release 24 hr
12.5 mg PO DAILY
guaifenesin 600 mg tablet extended release 12hr
600 mg PO [id number] PRN (Reason: Congestion)
nitroglycerin 0.4 mg Tablet, Sublingual
0.4 mg sublingual [id number] PRN (Reason: chest pain) Qty: 0 0RF
insulin aspart U-100 [Novolog FlexPen U-100 Insulin] 100 unit/mL (3 mL) insulin pen
4 unit SC TID@0800,1200,1700
bisacodyl [Dulcolax (bisacodyl)] 10 mg Suppository
10 mg SC [id number] PRN (Reason: if lactulose is ineffective)
oxybutynin chloride 5 mg Tablet
5 mg PO HS
lactulose 10 gram/15 mL Solution
20 g PO HSPRN PRN (Reason: constipation)
melatonin 3 mg Tablet
6 mg PO HS PRN (Reason: SLEEP)
atorvastatin 40 mg tablet
40 mg PO QPM
clopidogrel 75 mg tablet
75 mg PO DAILY
cephalexin 500 mg capsule
500 mg PO TID
Patient Comments:
PATIENT STARTED 06/14/2023-06/20/23
dapagliflozin propanediol [Farxiga] 10 mg tablet
10 mg PO DAILY
Referrals:
Benny Cote DO [Family Provider] -
Interventions
Interventions:
*Risk Screen - Suicide Last Done: 06/19/23 09:05
*General Assessment Last Done: 06/19/23 09:05
*Neglect/Abuse Screening Last Done: 06/19/23 09:05
Discharge Date and Time
Print Language: MOHAWK
[2023-06-19 09:43] LABS: % Basophils 0.6 % (0-2); % Eosinophils 4.2 % (0-6); % Immature Granulocytes 0.3 % (0-0.5); % Lymphocytes 23.3 % (20.5-51.1); % Monocytes 7.8 % (1.7-9.3); % Neutrophils 63.8 % (42.2-75.2); Absolute Basophils 0.1 10^3/uL (0-0.2); Absolute Eosinophils 0.4 10^3/uL (0-0.7); Absolute Monocytes 0.7 10^3/uL (0.1-0.6); Absolute Neutrophils 5.5 10^3/uL (1.4-6.5); Hematocrit 23.1 % (37.0-47.0); Hemoglobin 7.4 g/dL (12.0-16.0); Mean Corpuscular Volume 93.5 fL (81.0-99.0); Mean Platelet Volume 10.2 fL (7.4-10.4); Nucleated Red Blood Cells % 0 %; Platelet Count 410 10^3/uL (130-400); Red Blood Cell Count 2.47 10^6/uL (4.20-5.40); Red Cell Dist. Width 14.9 % (11.5-14.5); White Blood Cell Count 8.6 10^3/uL (4.8-10.8)
[2023-06-19 09:50] LABS: INR 1.14; PT 14.4 Sec (11.4-14.6)
[2023-06-19 09:51] LABS: APTT 34.3 Sec (23.4-35.0)
[2023-06-19 09:53] LABS: ALT (SGPT) 112 U/L (0-35); AST (SGOT) 87 U/L (14-36); Albumin 2.8 g/dl (3.5-5.0); Alkaline Phosphatase 223 U/L (38-126); Blood Urea Nitrogen 36 mg/dl (7-17); Calcium 8.7 mg/dl (8.4-10.2); Carbon Dioxide 24 mmol/L (22-30); Chloride 106 mmol/L (98-107); Estimated Creatinine Clearance 29 ml/min; Glucose 127 mg/dl (70-99); Potassium 4.6 mmol/L (3.5-5.1); Sodium 135 mmol/L (135-145); Total Bilirubin 0.4 mg/dl (0.2-1.3); Total Protein 5.7 g/dl (6.3-8.2); eGFR 33.01
[2023-06-19 09:55] LABS: Glucose - Point of Care 129 mg/dl (70-99)
[2023-06-19 10:22] LABS: Urine Albumin Trace (Neg - Trace); Urine Bilirubin Negative (Negative); Urine Character Clear (Clear); Urine Color Yellow; Urine Glucose 3+ (Negative); Urine Ketone Negative (Negative); Urine Leukocyte 2+ (Negative); Urine Nitrite Negative (Negative); Urine Occult Blood Negative (Negative); Urine Specific Gravity 1.005 (<1.030); Urine Urobilinogen Negative (Neg - 1+)
--- NOTE | 2023-06-19 10:25 | HPS.HSE ---
Family Physician
-
Family Physician: Benny Cote DO
Chief Complaint
-
Hallucinations
History of Present Illness
78 female history of recent CABG peripheral arterial disease bilateral iliac stents iliofemoral endarterectomy hypertension diabetes CKD 3 GERD depression hyperlipidemia remote Hx Meningioma resection recent left hip fracture ORIF presents from
[facility] due to progressive confusion hallucinations for weeks. AOx3 but clearly confused exhibiting chorea makes motions like she is eating something with a fork unable to give meaningful history follows simple commands. All of history
taken from records, ED report, and family report at bedside. Family (daughter Yanna, [id number] Madeleine, son JAYLEN) reports confusion started roughly around the same time patient was started on oxybutynin for urinary frequency. Patient was
evaluated at this facility earlier 06/12 for which she was diagnosed with UTI and discharged with oral abx Keflex. Urine Cx from 06/12 notably neg for infection. VSS on room air afebrile no leukocytosis progressive anemia hgb 7.4 down from 7.7
previous ED evaluation. Brown stools heme neg per ED report. No obvious signs of bleeding. Mild transaminitis persistently present since Jan 2023, CKD III Cr baseline 1.6 CT head notes no acute abn's.
Medical History
Past Medical History
Past Medical History: Reports None (as above)
Past Surgical History: Reports Other (as above)
Social History
Tobacco: Smoker
Alcohol: Occasional
Drug: None
Personal:
Living: Other (from SNF rehab for hip fracture)
Family History
Family History: Not pertinent (reviewed)
Allergies / Home Medications
Allergies reflects when Allergies were last updated in [employer]
Home Medications with original date entered in [employer]
Allergy/Medication List:
Allergies
Allergy/AdvReac Type Severity Reaction Status Date / Time
meperidine Allergy Unknown Verified 06/19/23 09:12
moxifloxacin HCl Allergy Swelling Verified 06/19/23 09:12
[From Avelox]
Penicillins Allergy Swelling, Verified 06/19/23 11:05
tolerated
cefazolin
and
ceftriaxone
in the past
Sulfa (Sulfonamide Allergy Swelling Verified 06/19/23 09:12
Antibiotics)
[Sulfa(Sulfonamide
Antibiotics)]
Home Medications
aspirin 81 mg tablet,delayed release 81 mg PO DAILY Blood Clot Prevention/Tx 01/18/23
cholecalciferol (vitamin D3) 25 mcg (1,000 unit) tablet (Vitamin D3) 25 mcg PO DAILY Supplement 01/18/23
duloxetine 40 mg capsule,delayed release 40 mg PO DAILY Neurological Condition 01/18/23
insulin detemir U-100 100 unit/mL (3 mL) subcutaneous pen (Levemir FlexPen) 24 unit SC HS Diabetes 01/18/23
amlodipine 5 mg tablet 5 mg PO DAILY Blood Pressure #0 tabs 01/29/23
pantoprazole 40 mg tablet,delayed release (Protonix) 40 mg PO DAILY GI prophylaxis #30 tabs 01/29/23
acetaminophen 325 mg tablet 650 mg PO Q4HPRN PRN mild pain/fever>100.4 02/17/23
guaifenesin 600 mg tablet, extended release 12 hr 600 mg PO [id number] PRN Congestion 02/17/23
metoprolol succinate 25 mg tablet,extended release 24 hr 12.5 mg PO DAILY Blood Pressure 02/17/23
nitroglycerin 0.4 mg sublingual tablet 0.4 mg sublingual [id number] PRN chest pain #0 tabs 02/21/23
insulin aspart U-100 100 unit/mL (3 mL) subcutaneous pen (Novolog FlexPen U-100 Insulin aspart) 4 unit SC TID@0800,1200,1700 Diabetes 05/22/23
bisacodyl 10 mg rectal suppository (Dulcolax (bisacodyl)) 10 mg WA [id number] PRN if lactulose is ineffective 06/13/23
lactulose 10 gram/15 mL oral solution 20 g PO HSPRN PRN constipation 06/13/23
oxybutynin chloride 5 mg tablet 5 mg PO HS Urinary Issue 06/13/23
atorvastatin 40 mg tablet 40 mg PO QPM High Cholesterol 06/19/23
cephalexin 500 mg capsule 500 mg PO TID Infection 06/19/23
clopidogrel 75 mg tablet 75 mg PO DAILY Blood Clot Prevention/Tx 06/19/23
dapagliflozin propanediol 10 mg tablet (Farxiga) 10 mg PO DAILY Diabetes 06/19/23
melatonin 3 mg tablet 6 mg PO HS PRN SLEEP 06/19/23
Review of Systems
-
Unable to obtain full review of systems at this time due to: Acuity (Patient acutely delirious no meaningful ROS could be obtained)
A 12 point ROS was completed and negative except as noted: No
Physical Exam
Vital Signs
Vital Signs
Temp Pulse Resp BP Pulse Ox
98.2 F 75 22 148/95 74
06/19/23 09:05 06/19/23 09:05 06/19/23 09:05 06/19/23 09:05 06/19/23 09:05
Physical Exam
General: Other (as below)
Laboratory Results
-
06/19/23 09:24
06/19/23 09:24
Laboratory Results
PT 14.4 Sec (11.4-14.6) 06/19/23 09:24
INR 1.14 06/19/23 09:24
APTT 34.3 Sec (23.4-35.0) 06/19/23 09:24
Total Bilirubin 0.4 mg/dl (0.2-1.3) 06/19/23 09:24
AST 87 U/L (14-36) H 06/19/23 09:24
ALT 112 U/L (0-35) H 06/19/23 09:24
Alkaline Phosphatase 223 U/L (38-126) H 06/19/23 09:24
Impression/Plan
-
Physical Exam
General: Pallor noted
HEENT: Throat clear. PERRLA Normocephalic atraumatic
NECK: Supple. No JVD Carotid Bruits
RESPIRATORY: Lungs clear to auscultation. No crackles wheezes stridor
CVS: S1, S2 normal. RRR. No murmur, rub or gallop.
ABDOMEN: Soft, non-tender. No distension. BS+/normal.
EXTREMITIES: No peripheral cyanosis or edema.
INTERNAL AFFAIRS COMMANDER: AOx3 ostensibly confused exhibiting chorea upper extremities making motions like she is eating a meal with a fork and knife
IMPRESSION:
78 female history of recent CABG peripheral arterial disease bilateral iliac stents iliofemoral endarterectomy hypertension diabetes CKD 3 GERD depression hyperlipidemia remote Hx Meningioma resection recent left hip fracture ORIF 05/28/23 presents
from [facility] due to progressive confusion hallucinations for weeks. AOx3 but clearly confused exhibiting chorea makes motions like she is eating something with a fork unable to give meaningful history follows simple commands. All of
history taken from records, ED report, and family report at bedside. Family (daughter Yanna, [id number] Madeleine, son JAYLEN) reports confusion started roughly around the same time patient was started on oxybutynin for urinary frequency. Patient
was evaluated at this facility earlier 06/12 for which she was diagnosed with UTI and discharged with oral abx Keflex. Urine Cx from 06/12 notably neg for infection. VSS on room air afebrile no leukocytosis progressive anemia hgb 7.4 down from 7.7
previous ED evaluation. Brown stools heme neg per ED report. No obvious signs of bleeding. Mild transaminitis persistently present since Jan 2023, CKD III Cr baseline 1.6 CT head notes no acute abn's.
PLAN:
#Acute Delirium suspect Medication induced
#Possible Serotonin syndrome vs Anticholinergic Syndrome vs Polypharmacy
#Hx depression on Duloxetine (reportedly Wellbutrin was added at SNF rehab not seen on med [facility])
Tele admit
EKG appreciated no significant QT prolongation
hold home Duloxetine Melatonin Oxybutynin
Psych Eval
#Progressive Anemia
Anemia of Chronic disease
B12 and iron wnl, TIBC low
stools reportedly brown heme neg
no obvious signs of bleeding
monitor H&H
Hematology eval requested
#Persistent Transaminitis unclear etiology
monitor LFT
GI eval
#CABG
#PAD hx bilateral iliac stents iliofemoral endarterectomy
cont home ASA Plavix
#HLD
cont statin
#HTN
cont home Amlodipine Metoprolol with holding parameters
#DM
with confusion unclear how much patient will eat
low dose sliding scale for now
reduced dose bedtime long acting 5U
#CKD3
Cr 1.6 baseline
monitor
avoid nephrotoxic agents as possible
#GERD
cont protonix
#Depression
monitor off psychiatric medications for now given acute deliirium above
Psych eval
svt ppx SCD
gi ppx protonix
meds reconciled and resumed as appropriate
Full Code
discussed with patient and family (son JAYLEN, daughter Yanna, [id number] Gaby) at bedside
I spent a total of 60 minutes with the patient or on the floor. More than 50% of this time involved counseling and coordination of care.
[2023-06-19 10:38] LABS: Urine Squamous Cell 0-2 /LPF (Few)
[2023-06-19 10:39] LABS: Urine Bacteria Few (Negative); Urine Red Blood Cell 0-2 /HPF (0-2); Urine White Cell 30-40 /HPF (0-5)
[2023-06-19 11:48] LABS: TSH Reflex To Free T4 1.06 uIU/ml (0.47-4.68)
[2023-06-19 12:06] LABS: Iron 50 ug/dl (37-170)
[2023-06-19 12:07] LABS: Vitamin B12 754 pg/ml (239-931)
[2023-06-19 12:15] LABS: Percent Saturation 25 % (20-50); Total Iron Binding Capacity 197 ug/dl (265-497)
[2023-06-19] MEDS: NSS 1000 IV (14:56)
[2023-06-19 15:06] LABS: Creatine Phosphokinase 65 U/L (30-135)
[2023-06-19 15:16] LABS: Ammonia < 9 umol/L (9-30)
--- NOTE | 2023-06-19 15:26 | CON.ONC ---
Impression
Impression
Normocytic anemia
borderline thrombocytosis
change in MS, hallucinations
CKD3
recent ORIF
recent UTI
CABG in late 2022
Plan
Plan
Anemia may be from CKD, recent surgery and recent infection/antibiotics. No evidence for deficiencies of B12, folate, or iron. Will check hemolysis panel and myeloma panel to be complete.
Patient History
History of Present Illness
78 yo F brought in from SNF w/ change in mental status, and atypical movements. Recent medical history noted for CABG in late 2022, hip ORIF in late May 2023, and recent UTI, treated with abx. Neurologic status thought possibly secondary to meds.
Heme consulted re: worsening anemia. hgb is 7.4, WBC 8.6, platelet count 410. She has chronic kidney disease, creatinine is 1.6. No deficiencies of B12, folate, iron. No bleeding. She bruises easily, on Plavix and ASA.
She's unable to give much history, very irritable.
Past-Medical/Surgical History
PSH/PMH: as above, also peripheral arterial disease bilateral iliac stents iliofemoral endarterectomy hypertension diabetes CKD 3 GERD depression hyperlipidemia remote Hx Meningioma resection recent left hip fracture ORIF
SH: smoker, lives at [facility] currently
FH: unknown
Patient Medication
�Medication �Instructions �Recorded �Confirmed �Last Taken �Type
aspirin 81 mg tablet,delayed 81 mg PO DAILY Blood Clot 01/18/23 06/19/23 05/22/23 History
release Prevention/Tx
cholecalciferol (vitamin D3) 25 25 mcg PO DAILY Supplement 01/18/23 06/19/23 05/22/23 History
mcg (1,000 unit) tablet (Vitamin
D3)
duloxetine 40 mg capsule,delayed 40 mg PO DAILY Neurological 01/18/23 06/19/23 05/22/23 History
release Condition
insulin detemir U-100 100 unit/mL 24 unit SC HS Diabetes 01/18/23 06/19/23 05/21/23 History
(3 mL) subcutaneous pen (Levemir
FlexPen)
amlodipine 5 mg tablet 5 mg PO DAILY Blood Pressure #0 01/29/23 06/19/23 05/22/23 Rx
tabs
pantoprazole 40 mg tablet,delayed 40 mg PO DAILY GI prophylaxis #30 01/29/23 06/19/23 05/22/23 Rx
release (Protonix) tabs
acetaminophen 325 mg tablet 650 mg PO Q4HPRN PRN mild 02/17/23 06/19/23 02/16/23 History
pain/fever>100.4
guaifenesin 600 mg tablet, 600 mg PO [id number] PRN Congestion 02/17/23 06/19/23 Unknown History
extended release 12 hr
metoprolol succinate 25 mg 12.5 mg PO DAILY Blood Pressure 02/17/23 06/19/23 05/22/23 History
tablet,extended release 24 hr
nitroglycerin 0.4 mg sublingual 0.4 mg sublingual [id number] PRN 02/21/23 06/19/23 Unknown Rx
tablet chest pain #0 tabs
insulin aspart U-100 100 unit/mL 4 unit SC TID@0800,1200,1700 05/22/23 06/19/23 05/22/23 History
(3 mL) subcutaneous pen (Novolog Diabetes
FlexPen U-100 Insulin aspart)
bisacodyl 10 mg rectal suppository 10 mg HI [id number] PRN if lactulose 06/13/23 06/19/23 Unknown History
(Dulcolax (bisacodyl)) is ineffective
lactulose 10 gram/15 mL oral 20 g PO HSPRN PRN constipation 06/13/23 06/19/23 Unknown History
solution
oxybutynin chloride 5 mg tablet 5 mg PO HS Urinary Issue 06/13/23 06/19/23 Unknown History
atorvastatin 40 mg tablet 40 mg PO QPM High Cholesterol 06/19/23 06/19/23 Unknown History
cephalexin 500 mg capsule 500 mg PO TID Infection 06/19/23 06/19/23 Unknown History
clopidogrel 75 mg tablet 75 mg PO DAILY Blood Clot 06/19/23 06/19/23 Unknown History
Prevention/Tx
dapagliflozin propanediol 10 mg 10 mg PO DAILY Diabetes 06/19/23 06/19/23 Unknown History
tablet (Farxiga)
melatonin 3 mg tablet 6 mg PO HS PRN SLEEP 06/19/23 06/19/23 Unknown History
Active Medications
Generic Name Dose Route Start Last Admin
Trade Name Freq PRN Reason Stop Dose Admin
Acetaminophen 650 mg 06/19/23 14:26
Acetaminophen 325 Mg Tablet PO 07/17/23 14:25
Q4HPRN PRN
mild pain/fever>100.4
Amlodipine Besylate 5 mg 06/20/23 08:00
Amlodipine 5 Mg Tablet PO 07/18/23 07:59
DAILY ANDREA
Aspirin 81 mg 06/20/23 08:00
Aspirin 81 Mg (Enteric Coated) Tablet PO 07/18/23 07:59
DAILY ANDREA
Atorvastatin Calcium 40 mg 06/19/23 18:00
Atorvastatin (Lipitor) 40 Mg Tablet PO 07/17/23 17:59
QPM ANDREA
Bisacodyl 10 mg 06/19/23 14:26
Bisacodyl 10 Mg Rectal Suppository RECTAL 07/17/23 14:25
[id number] PRN
if lactulose is ineffective
Cholecalciferol 25 mcg 06/20/23 08:00
Cholecalciferol (Vitamin D3) 25 Mcg Tablet (1,000 Units) PO 07/18/23 07:59
DAILY ANDREA
Clopidogrel Bisulfate 75 mg 06/20/23 08:00
Clopidogrel 75 Mg Tablet PO 07/18/23 07:59
DAILY ANDREA
Dapagliflozin 10 mg 06/20/23 08:00
Dapagliflozin (Farxiga) 10 Mg Tablet PO 07/18/23 07:59
DAILY ANDREA
Dextrose 12.5 grams 06/19/23 13:14
Dextrose 50% (0.5 Grams/Ml) 50 Ml Syringe IV 07/17/23 13:13
[id number] PRN
hypoglycemia
Protocol
Glucagon 1 mg 06/19/23 13:14
Glucagon 1 Mg Vial IM 07/17/23 13:13
PRN PRN
hypoglycemia
Protocol
Guaifenesin 600 mg 06/19/23 14:26
Guaifenesin 600 Mg Extended Release Tablet PO 07/17/23 14:25
[id number] PRN
Congestion
Sodium Chloride 1,000 mls @ 70 mls/hr 06/19/23 13:22 06/19/23 14:56
Nss IV 1,000 mls
.[id number] ANDREA Administration
Insulin Glargine 5 units/ 0.05 mls @ 0 mls/hr 06/19/23 22:00
Device SC 07/17/23 21:59
HS ANDREA
As Directed
Insulin Aspart 0 units 06/19/23 16:30
Insulin Aspart Low Resistance 300 Units/3 Ml Pen.Injctr SC 07/17/23 16:29
AC ANDREA
Protocol
Lactulose 20 grams 06/19/23 14:38
Lactulose Solution (20 Grams/30 Ml) 30 Ml Cup PO 07/17/23 14:37
HSPRN PRN
constipation
Metoprolol Succinate 12.5 mg 06/20/23 08:00
Metoprolol 12.5 Mg Extended Release Dose (1/2 Of 25 Mg Xl Tablet) PO 07/18/23 07:59
DAILY ANDREA
Nitroglycerin 0.4 mg 06/19/23 14:26
Nitroglycerin 0.4 Mg Sl Tablet SL 07/17/23 14:25
[id number] PRN
chest pain
Pantoprazole Sodium 40 mg 06/20/23 08:00
Pantoprazole 40 Mg Delayed Release Tablet PO 07/18/23 07:59
DAILY ANDREA
Polyethylene Glycol 17 grams 06/19/23 14:26
Polyethylene Glycol Powder 17 Grams Packet PO 07/17/23 14:25
DAILYPRN PRN
constipation
Senna/Docusate Sodium 1 tablet 06/19/23 14:26
Docusate W/Senna (Luann-Colace) Tablet PO 07/17/23 14:25
BIDPRN PRN
constipation
Sodium Chloride 0 flush 06/19/23 14:00
Sodium Chloride 0.9% (Flush) Syringe IV 07/17/23 13:59
PER PROTOCOL ANDREA
Physical Exam
-
General: Appears Chronically Ill and Other (irritable)
HEENT: Negative Jaundice
Cardiology: Normal Sinus Rhythm
Pulmonary: Clear
GI: Soft, Normal Bowel Sounds and Distended
Extremities: Edema
Neurology: Non Focal and No Lateralizing Symptoms
Skin: Warm; Negative No Ecchymosis (scattered purpura)
Hematologic / Lymphatic: No Lymphadenopathy
Psych: Agitated
Labs
Lab Results
WBC 8.6 10^3/uL (4.8-10.8) 06/19/23 09:24
RBC 2.47 10^6/uL (4.20-5.40) L 06/19/23 09:24
Hgb 7.4 g/dL (12.0-16.0) L 06/19/23 09:24
Hct 23.1 % (37.0-47.0) L 06/19/23 09:24
MCV 93.5 fL (81.0-99.0) 06/19/23 09:24
MCH 30.0 pg (27.0-31.0) 06/19/23 09:24
MCHC 32.0 g/dL (33.0-37.0) L 06/19/23 09:24
RDW 14.9 % (11.5-14.5) H 06/19/23:
Plt Count 410 10^3/uL (130-400) H 06/19/23:24
MPV 10.2 fL (7.4-10.4) 06/19/23:24
Abs Immat Gran (auto) 0.0 10^3/uL (0-0.05) 06/19/23:
Absolute Neuts (auto) 5.5 10^3/uL (1.4-6.5) 06/19/23:
Absolute Lymphs (auto) 2.0 10^3/uL (1.2-3.4) 06/19/23:
Absolute Monos (auto) 0.7 10^3/uL (0.1-0.6) H 06/19/23:24
Absolute Eos (auto) 0.4 10^3/uL (0-0.7) 06/19/23:
Absolute Basos (auto) 0.1 10^3/uL (0-0.2) 06/19/23:24
Immature Gran % 0.3 % (0-0.5) 06/19/23:
Neutrophils % 63.8 % (42.2-75.2) 06/19/23:
Lymphocytes % 23.3 % (20.5-51.1) 06/19/23:
Monocytes % 7.8 % (1.7-9.3) 06/19/23:
Eosinophils % 4.2 % (0-6) 06/19/23:
Basophils % 0.6 % (0-2) 06/19/23:
Creatinine 1.6 mg/dL (0.6-1.0) H 06/19/23:24
Vital Signs
Vital Signs
Temp Pulse Resp BP Pulse Ox
98.9 F 78 12 142/52 91
06/19/23 14:55 06/19/23 14:55 06/19/23 14:55 06/19/23 14:55 06/19/23 14:55
--- NOTE | 2023-06-19 15:49 | CS.PSYCHR ---
Consult Summary - Psychiatry
-
Pt is 78 yo female history of recent left hip fracture ORIF presents from [facility] due to progressive confusion hallucinations for weeks. Pt alert, oriented to self and hospital, making motions like she is eating something with a fork unable
to give meaningful history, follows simple commands. Family reported confusion started roughly around the same time patient was started on oxybutynin for urinary frequency. Cymbalta, oxybutynin, melatonin being held. Pt seen resting in bed,
refusing to keep nasal cannuli in place, has INT in left hand. Pt calm, fairly cooperative with questions, states she 'does not want things pumped into my body', states she has had recent surgeries, giving rambling history. No overt hallucinations
at present, no agitation, no unusual hand gestures/movements. Sensorium appears fairly intact at present.
PMH: DM-II, HTN, CKD-3, HLD, GERD, PAD with hx of bilat iliac stents, hx of iliofemoral endarterectomy, remote Hx Meningioma resection
Psych hx: unspecified depression, Rx Cymbalta 40 mg QD, reportedly on it for years without issue, previously noted on Bupropion in combination
SH: lives in her home with dtr, states she has had the house for 48 years
MSE: as above, no current agitation, no signs of hallucinations, no abnormal movements or gestures. Pt alert, oriented to self and hospital, giving limited answers. Pt states she feels a little depressed due to medical problems. Insight appears
limited
Imp: Delirium, cause unclear, possibly related to medications. Do not see signs of Serotonin syndrome or psychosis
Unspecified depression
Rec: agree with monitoring off of suspected medications
will follow
[2023-06-19] MEDS: NSS (PRESERVATIVE FREE) 0.25 ML IV (16:19)
[2023-06-19] MEDS: ATIVAN 0.5 MG IV (16:19)
[2023-06-19 16:24] LABS: Glucose - Point of Care 102 mg/dl (70-99)
[2023-06-19] MEDS: LIPITOR 40 MG PO (16:26)
[2023-06-19] MEDS: NOVOLOG FLEXPEN-LOW RESISTANCE SC (16:26)
--- NOTE | 2023-06-19 16:50 | PTCARENOTE ---
Received pt from ED, pulled over to bed. Pt oriented to person, place and month/year but pt is having confused conversation regarding her stay here. She seems to think she is going for surgery. Attempts to reorient unsuccessful. [facility] sitter placed as
pt was getting more agitated, attempting to get OOB and pulling at IV lines. Dr Bey notified of increased agitation, 0.5mg IV ativan given. VSS. Oxygen 91%, RR shallow, unlabored, but pt is refusing to wear oxygen. Full assessment and admission as
documented.
[2023-06-19 17:53] LABS: Uric Acid 7.4 mg/dl (2.5-6.2)
--- NOTE | 2023-06-19 18:05 | PTCARENOTE ---
Pt fell asleep. Restraints never applied. Med-sitter in room and redirecting pt when needed. Pt having hallucinations intermittently, reaching for things in the air, appearing to be eating food at times, talking to herself. Will continue to bed
alarm, med sitter and hourly rounds to maintain pt safety.
--- NOTE | 2023-06-19 19:40 | PTCARENOTE ---
Pt received in bed, agitated, angry and restless with poor safety awareness, unable to follow commands. Speech garbled and confused. Medsitter and bed alarm in place. Pt constantly rolling body on the side of the bed and swinging legs to the side of
the bed/floor. VETERINARY [employer]ICINE TEACHER made aware, 4side rails and soft limb b/l wrist restrains ordered and in place.
[2023-06-19 21:54] LABS: Glucose - Point of Care 182 mg/dl (70-99)
[2023-06-19] MEDS: LANTUS 0.0500000000000000028 UNITS SC (21:58)
[2023-06-20] VITALS (9 sets, daily range): BP systolic 116–141; BP diastolic 50–68
--- NOTE | 2023-06-20 03:55 | PTCARENOTE ---
Pt bladder scan for 960cc d/t decreased urine output at the beginning of shift. Toileting attempted with max assist x2 to the bedside commode, 100cc urine output. [employer] made aware, straight cath x2 this shift with approx 900 cc and 450cc of yellow
urine with sediments. Tolerated procedure well.
[2023-06-20] MEDS: NSS 1000 IV (04:43)
[2023-06-20 05:22] LABS: % Basophils 0.4 % (0-2); % Eosinophils 1.2 % (0-6); % Immature Granulocytes 0.4 % (0-0.5); % Lymphocytes 19.8 % (20.5-51.1); % Monocytes 6.5 % (1.7-9.3); % Neutrophils 71.7 % (42.2-75.2); Absolute Eosinophils 0.1 10^3/uL (0-0.7); Absolute Monocytes 0.7 10^3/uL (0.1-0.6); Absolute Neutrophils 7.3 10^3/uL (1.4-6.5); Hematocrit 21.9 % (37.0-47.0); Mean Corpuscular Hgb 30.2 pg (27.0-31.0); Mean Corpuscular Volume 94.4 fL (81.0-99.0); Mean Platelet Volume 10.3 fL (7.4-10.4); Nucleated Red Blood Cells % 0 %; Platelet Count 379 10^3/uL (130-400); Red Blood Cell Count 2.32 10^6/uL (4.20-5.40); Red Cell Dist. Width 15.1 % (11.5-14.5); White Blood Cell Count 10.2 10^3/uL (4.8-10.8)
[2023-06-20 05:47] LABS: Blood Urea Nitrogen 32 mg/dl (7-17); Calcium 8.2 mg/dl (8.4-10.2); Carbon Dioxide 23 mmol/L (22-30); Chloride 109 mmol/L (98-107); Estimated Creatinine Clearance 29 ml/min; Glucose 145 mg/dl (70-99); LDH 310 U/L (120-246); Potassium 4.5 mmol/L (3.5-5.1); Sodium 135 mmol/L (135-145); eGFR 33.01
--- NOTE | 2023-06-20 06:26 | W.PN.ONC2 ---
Today's Communication / Plan
-
Awaiting anemia panel. Transfuse 1 unit PRBC for HgB 7 but with MS issues and inability to consent will ask primary attending to order.
Retic count = 4 suggests descent underlying bone marrow function.
Impression
Impression
Normocytic anemia
Delirium
CKD3
recent ORIF
recent UTI
CABG in late 2022
Plan
Plan
Anemia may be from CKD, recent surgery and recent infection/antibiotics. No evidence for deficiencies of B12, folate, or iron. Further anemia w/u pending including hemolysis panel and myeloma panel to be complete.
Subjective/Objective
Chief Complaint
ACS Heme F/U
Subjective
Very confused and agitated. Not answering verbal commands. /\\ in MS seems to have occurred at SNF around time she was started on oxybutynin. Needed strait cath overnight for urinary retention. In soft restraints.
Vital Signs:
Vital Signs
Temp Pulse Resp BP Pulse Ox
97.9 F 81 24 116/50 90
06/20/23 03:48 06/20/23 03:48 06/20/23 03:48 06/20/23 03:48 06/20/23 03:48
Lab Results:
Laboratory Data
WBC 10.2 10^3/uL (4.8-10.8) 06/20/23 05:08
Hgb 7.0 g/dL (12.0-16.0) L 06/20/23 05:08
Plt Count 379 10^3/uL (130-400) 06/20/23 05:08
PT 14.4 Sec (11.4-14.6) 06/19/23 09:24
INR 1.14 06/19/23 09:24
APTT 34.3 Sec (23.4-35.0) 06/19/23 09:24
eGFR 33.01 06/20/23 05:08
Laboratory Tests
04/10/24
05:08
Retic Count 4.0 H
Physical Exam
Cardiology: S1 and S2
Extremities: No C/C/E
Neuro: Other (encephalopathic)
--- NOTE | 2023-06-20 06:53 | CON.GI ---
Addendum entered and electronically signed by Madonna Quinteros DO 06/20/23 11:33:
2. Abnormal LFTs - . Majority cholestatic
. They have been abnormal since 2022 which is as far back as the labs I can see. Added GGT to see if this could possibly be bone involvement. Avoid hepatotoxic medications. Check hepatitis panel - pending. Ultrasound done in May showed no
abnormal liver findings.
- Will follow up on ordered labs
Addendum entered and electronically signed by Madonna Quinteros DO 06/20/23 11:29:
Patient seen and examined independently of CIRCULAR SHEAR OPERATOR. I agree with her note with my additions below
Holly is a 78-year-old female who is not clear on why she is here. She has a history of recent CABG, peripheral arterial disease with bilateral iliac stents and iliofemoral endarterectomy on Plavix and 81 mg of aspirin, chronic anemia, history of
remote meningioma resection recent left hip fracture who comes from [facility] with confusion and hallucinations. Primary team believes it was secondary to medications and possible UTI. GI was asked to see her for anemia.
I did speak both with the patient and the daughter. From a GI perspective she denies any dysphagia, heartburn, nausea, vomiting, abdominal pain. She says she has chronic alternating constipation diarrhea. Has never had endoscopy or colonoscopy.
Her father may have had colon cancer.
Patient is not certain why she is here and why she is getting all these tests done. I did call and speak with her daughter Yanna over the phone. She is not aware of having prior anemia or GI workup.
The patient states she does not want any significant testing done including an endoscopy or colonoscopy. I have asked her daughter to come in and discuss this with her to make sure this is a team decision.
# Anemia -patient stools are brown and heme-negative. She has no overt bleeding other than easy bruising being on aspirin Plavix
-- Patient denies any overt bleeding including epistaxis, vaginal bleeding, GI bleeding
likely multifactorial in the setting of recent surgery in May, anemia of chronic disease from CKD 3
-- Her B12 and folate are normal, her ferritin is high and her percent saturation is 37. Not consistent with iron deficiency
-I did review Dr. Pierre's note. This is normocytic anemia -other etiologies and addition to the recent surgery, recent infections and antibiotics. She has no evidence of B12, folate or iron deficiency. He did include a hemolysis panel and myeloma
panel to be completed
- -Patient has no GI symptoms
-- The patient states she does not want any significant testing done including an endoscopy or colonoscopy. I have asked her daughter to come in and discuss this with her to make sure this is a team decision.
-- Patient is to get 1 unit of blood.
-- Please call us back if family/patient is willing to undergo GI procedures otherwise this is supportive care especially with brown heme-negative stool
-- No urgent indication for endoscopy
Original Note:
Consultation
-
Date/Time Consultation Requested: 06/19/23 1430
Date/Time Consultation Performed: 06/20/23 0700
Requesting Provider: Marcio ugarte MD
Performing Provider: MEG Tobar, Madonna Quinteros DO
Reason for Consultation: increased LFT's anemia
Medical History
Chief Complaint / HPI
Chief Complaint: confusion
History of Present Illness:
Pt is a 78yo with recent CABG, peripheral arterial disease with bilateral iliac stents and iliofemoral endarterectomy, hypertension, diabetes, CKD 3, GERD depression, hyperlipidemia, remote Hx Meningioma resection, recent left hip fracture ORIF
presents from [facility] due to progressive confusion and hallucinations. Per admission pt with some medication changes including Oxybutynin and UTI with Keflex use. On admission patient noted anemia with drop in hbg baseline 8-10 now down to
7 after admission. She was also noted with increased LFT's with bili 0.4, AT 87, ALT 112, alk phos 223. LDH mild elevation 310 and chronic hypoalbuminemia since last fall. She has been seen by hematology for anemia with concern for anemia for
CKD, recent surgery and infection with hemolysis and myeloma work up pending with stable retic count at 4. She has also been seen by psych with concern for medication induced delirium.
At this time unable to reach family per patient admits to occasional GERD but denies dysphagia, nausea, vomiting
abdominal pain, diarrhea, constipation, or rectal bleeding.
Past Medical History
Past Medical History: GERD, HTN, Hypercholesterolemia, NIDDM, Renal Failure (CKD 3 ), Psychiatric (depression) and Other (PAD with prior iliac stents, c-diff 02/2023 )
Past Surgical History: Brain (meningioma resection), Cardiac (CABG), Orthopedic (hip ORIF) and Other (iliofemoral endarterctomy)
Social History
Tobacco: Former Smoker
Alcohol: None
Drug: None
Living: Care Home
Employment: Retired
Family History
Family History: Other (pt denies family hx liver disease but spouse hx hepatitis )
Allergies / Home Medications
Allergy/AdvReac Type Severity Reaction Status Date / Time
meperidine Allergy Unknown Verified 06/19/23 09:12
moxifloxacin HCl Allergy Swelling Verified 06/19/23 09:12
[From Avelox]
Penicillins Allergy Swelling, Verified 06/19/23 11:05
tolerated
cefazolin
and
ceftriaxone
in the past
Sulfa (Sulfonamide Allergy Swelling Verified 06/19/23 09:12
Antibiotics)
[Sulfa(Sulfonamide
Antibiotics)]
�Medication �Instructions �Recorded
aspirin 81 mg tablet,delayed 81 mg PO DAILY Blood Clot 01/18/23
release Prevention/Tx
cholecalciferol (vitamin D3) 25 25 mcg PO DAILY Supplement 01/18/23
mcg (1,000 unit) tablet (Vitamin
D3)
duloxetine 40 mg capsule,delayed 40 mg PO DAILY Neurological 01/18/23
release Condition
insulin detemir U-100 100 unit/mL 24 unit SC HS Diabetes 01/18/23
(3 mL) subcutaneous pen (Levemir
FlexPen)
amlodipine 5 mg tablet 5 mg PO DAILY Blood Pressure #0 01/29/23
tabs
pantoprazole 40 mg tablet,delayed 40 mg PO DAILY GI prophylaxis #30 01/29/23
release (Protonix) tabs
acetaminophen 325 mg tablet 650 mg PO Q4HPRN PRN mild 02/17/23
pain/fever>100.4
guaifenesin 600 mg tablet, 600 mg PO [id number] PRN Congestion 02/17/23
extended release 12 hr
metoprolol succinate 25 mg 12.5 mg PO DAILY Blood Pressure 02/17/23
tablet,extended release 24 hr
nitroglycerin 0.4 mg sublingual 0.4 mg sublingual [id number] PRN 02/21/23
tablet chest pain #0 tabs
insulin aspart U-100 100 unit/mL 4 unit SC TID@0800,1200,1700 05/22/23
(3 mL) subcutaneous pen (Novolog Diabetes
FlexPen U-100 Insulin aspart)
bisacodyl 10 mg rectal suppository 10 mg WA [id number] PRN if lactulose 06/13/23
(Dulcolax (bisacodyl)) is ineffective
lactulose 10 gram/15 mL oral 20 g PO HSPRN PRN constipation 06/13/23
solution
oxybutynin chloride 5 mg tablet 5 mg PO HS Urinary Issue 06/13/23
atorvastatin 40 mg tablet 40 mg PO QPM High Cholesterol 06/19/23
cephalexin 500 mg capsule 500 mg PO TID Infection 06/19/23
clopidogrel 75 mg tablet 75 mg PO DAILY Blood Clot 06/19/23
Prevention/Tx
dapagliflozin propanediol 10 mg 10 mg PO DAILY Diabetes 06/19/23
tablet (Farxiga)
melatonin 3 mg tablet 6 mg PO HS PRN SLEEP 06/19/23
Review of Systems
-
Unable to obtain full review of systems at this time due to: Other (delerium )
History Source: Patient
Constitutional: Reports No Symptoms
EENT: Reports No Symptoms
Respiratory: Reports No Symptoms
Cardiac: Reports No Symptoms
Abdomen/GI: Reports No Symptoms
: Reports No Symptoms
Musculoskeletal: Reports No Symptoms
Skin: Reports No Symptoms
Neurological: Reports Other (forgetfulness )
Endocrine: Reports No Symptoms
Hematologic/Lymphatic: Reports No Symptoms
Vital Signs
Temp Pulse Resp BP Pulse Ox
97.9 F 81 24 116/50 90
06/20/23 03:48 06/20/23 03:48 06/20/23 03:48 06/20/23 03:48 06/20/23 03:48
Physical Exam
Exam
General: Other (elderly female with some forgetfulness )
HEENT: Normocephalic and Anicteric
Respiratory: Other (decreased )
Cardiac: Regular Rhythm
GI: Soft, Non Tender and Non Distended
Musculoskeletal: No Clubbing and No Cyanosis
Skin: Warm and Dry
Neuro: Awake, Alert and Other (forgetful )
Psych: Other (minimal restlessness with b/l limb restraints )
Results
WBC 10.2 10^3/uL (4.8-10.8) 06/20/23 05:08
Hgb 7.0 g/dL (12.0-16.0) L 06/20/23 05:08
Hct 21.9 % (37.0-47.0) L 06/20/23 05:08
MCV 94.4 fL (81.0-99.0) 06/20/23 05:08
Plt Count 379 10^3/uL (130-400) 06/20/23 05:08
Absolute Neuts (auto) 7.3 10^3/uL (1.4-6.5) H 06/20/23 05:08
PT 14.4 Sec (11.4-14.6) 06/19/23 09:24
INR 1.14 06/19/23 09:24
APTT 34.3 Sec (23.4-35.0) 06/19/23 09:24
Sodium 135 mmol/L (135-145) 06/20/23 05:08
Potassium 4.5 mmol/L (3.5-5.1) 06/20/23 05:08
Chloride 109 mmol/L (98-107) H 06/20/23 05:08
Carbon Dioxide 23 mmol/L (22-30) 06/20/23 05:08
BUN 32 mg/dl (7-17) H 06/20/23 05:08
Creatinine 1.6 mg/dL (0.6-1.0) H 06/20/23 05:08
Calcium 8.2 mg/dl (8.4-10.2) L 06/20/23 05:08
Total Bilirubin 0.4 mg/dl (0.2-1.3) 06/19/23 09:24
AST 87 U/L (14-36) H 06/19/23 09:24
ALT 112 U/L (0-35) H 06/19/23 09:24
Alkaline Phosphatase 223 U/L (38-126) H 06/19/23 09:24
Diagnostic Image Results:
05/23 US abdomen
The liver measures 13 cm in length and is normal
Cholelithiasis with small calculi layering in dependent position
Mild thickening of the right renal cortex
Prior GI Procedures:
EGD: pt denies
Colonoscopy: pt denies
Assessment / Plan
-
Pt is a 78yo with recent CABG, peripheral arterial disease with bilateral iliac stents and iliofemoral endarterectomy, hypertension, diabetes, CKD 3, GERD depression, hyperlipidemia, remote Hx Meningioma resection, recent left hip fracture ORIF
presents from [facility] due to progressive confusion and hallucinations. Per admission pt with some medication changes including Oxybutynin and UTI with Keflex use. On admission patient noted anemia with drop in hbg baseline 8-10 now down to
7 after admission. She was also noted with increased LFT's with bili 0.4, AT 87, ALT 112, alk phos 223. LDH mild elevation 310 and chronic hypoalbuminemia since last fall. She has been seen by hematology for anemia with concern for anemia for
CKD, recent surgery and infection with hemolysis and myeloma work up pending with stable retic count at 4. She has also been seen by psych with concern for medication induced delirium.
-increased LFT's
-delirium
-anemia acute on chronic
-recent fall with femoral neck fracture with repair 05/28/23
-recent CABG 01/2023
- PAD iliofemoral endarterectomy with bovine pericardial patch angioplasty, b/l kissing iliac stents, and right external iliac artery stent 02/18/23 on chronic ASA and Plavix
-recent hyponatremia- improved
other medical problems:
-cholelithiasis
-02/2023 c-diff
-DM
-CKD
-GERD
-depression
-hyperlipidemia
-hx meningioma resection
PLAN:
etiology of elevated LFT's unclear-- some elevation since February with limited labs prior to that time
recent US abdomen in May normal liver, CBD 5.5 cm, cholelithiasis
check hepatitis panel as pt states spouse with hx hepatitis in past
INR, Platelets normal but low albumin, Ammonia <9
will review for further serology with dr. Quinteros to proceed IP vs OP
as far as anemia stools remain brown
pt remains on ASA and Plavix with recent vascular procedure in February
may be multi factorial with multiple recent medication issues, CKD, infection etc. B12, folate and iron studies stable
cont to trend hbg for transfusion today
Pt unsure about any prior EGD/colon
await heme work up for hemolysis and myeloma
retic count 4 and haptoglobin pending
left message for daughter to review history
-
-
Thank you for consultation and allowing me to participate in the patient's care. Please call the [facility] physician during the after hours with any questions or concerns.
[2023-06-20 07:04] LABS: ALT (SGPT) 81 U/L (0-35); AST (SGOT) 63 U/L (14-36); Albumin 2.4 g/dl (3.5-5.0); Alkaline Phosphatase 187 U/L (38-126); Direct Bilirubin 0.4 mg/dl (0.0-0.4); Total Bilirubin 0.5 mg/dl (0.2-1.3); Total Protein 4.9 g/dl (6.3-8.2)
--- NOTE | 2023-06-20 07:25 | W.PN.HOSP.TC ---
Today's Communication/Plan
-
cont hold duloxetine oxybutynin melatonin
bladder scan, straight cath prn
follow up pos-transfusion CBC with AM labs
ativan prn agitation
IVF completed, daily weights I/O
Assessment / Plan
Assessment / Plan
Physical Exam
General: Pallor noted
HEENT: Throat clear. PERRLA Normocephalic atraumatic
NECK: Supple. No JVD Carotid Bruits
RESPIRATORY: Lungs clear to auscultation. No crackles wheezes stridor
CVS: S1, S2 normal. RRR. No murmur, rub or gallop.
ABDOMEN: Soft, non-tender. No distension. BS+/normal.
EXTREMITIES: No peripheral cyanosis or edema.
VENDING ROUTE DRIVER: AOx3 some confusion rambling remains present but more coherent less chorea noted
IMPRESSION:
78 female history of recent CABG peripheral arterial disease bilateral iliac stents iliofemoral endarterectomy hypertension diabetes CKD 3 GERD depression hyperlipidemia remote Hx Meningioma resection recent left hip fracture ORIF 05/28/23 presents
from [facility] due to progressive confusion hallucinations for weeks. AOx3 but clearly confused exhibiting chorea makes motions like she is eating something with a fork unable to give meaningful history follows simple commands. All of
history taken from records, ED report, and family report at bedside. Family (daughter Yanna, [id number] Madeleine, son JAYLEN) reports confusion started roughly around the same time patient was started on oxybutynin for urinary frequency. Patient
was evaluated at this facility earlier 06/12 for which she was diagnosed with UTI and discharged with oral abx Keflex. Urine Cx from 06/12 notably neg for infection. VSS on room air afebrile no leukocytosis progressive anemia hgb 7.4 down from 7.7
previous ED evaluation. Brown stools heme neg per ED report. No obvious signs of bleeding. Mild transaminitis persistently present since Jan 2023, CKD III Cr baseline 1.6 CT head notes no acute abn's.
PLAN:
#Acute Delirium suspect Medication induced
#Possible Serotonin syndrome vs Anticholinergic Syndrome vs Polypharmacy
#Hx depression on Duloxetine (reportedly Wellbutrin was added at [facility] rehab not seen on med rec)
Tele admit
EKG appreciated no significant QT prolongation
hold home Duloxetine Melatonin Oxybutynin
Psych Eval appreciated
Delirium appears to be resolving
Acute urinary retention noted consistent with anticholinergic effects Oxybutynin (half-life 13h should note improvement in symptoms 24-48H from last dose)
cont bladder scan prn, straight cath as necessary for now
Acute Hypoxic Insufficiency
Possible Heart Failure
-CXR appreciated possible Heart Failure Atelectasis PNA (less likely PNA given afebrile no leukocytosis)
-Incentive Spirometer
-Daily weight I/O
-BNP elevated 05186 increased from prior 6400
-ECHO however notes preserved EF 60-65% no significant change from prior ECHO
-exam not suggestive of hypervolemia, holding off on diuretics for now
#Progressive Anemia
Anemia of Chronic disease
B12 and iron wnl, TIBC low
stools reportedly brown heme neg
no obvious signs of bleeding
monitor H&H
Hematology eval appreciated transfused 1PRBC for hgb 7.0 (daughter provided consent, patient at the time without capacity to make decisions for herself d/t confusion AMS)
#Persistent Transaminitis unclear etiology
monitor LFT
GI eval appreciated
#CABG
#PAD hx bilateral iliac stents iliofemoral endarterectomy
cont home ASA Plavix
#HLD
cont statin
#HTN
cont home Amlodipine Metoprolol with holding parameters
#DM
with confusion unclear how much patient will eat
low dose sliding scale for now
reduced dose bedtime long acting 5U
#CKD3
Cr 1.6 baseline
monitor
avoid nephrotoxic agents as possible
#GERD
cont protonix
#Depression
monitor off psychiatric medications for now given acute deliirium above
Psych eval
svt ppx SCD
gi ppx protonix
meds reconciled and resumed as appropriate
Full Code
discussed with patient and her daughter Yanna
I spent a total of 60 minutes with the patient or on the floor. More than 50% of this time involved counseling and coordination of care.
Anticipated Discharge: > 48 hours
Subjective/Interval History
-
Date of Service: June 20, 2023
Remains AOx3. Confusion seems to be improving, less chorea upper ext's noted. weaned off restraints. Noted acute urinary retention consistent with anticholinergic effects oxybutynin
Objective Data
-
Labs:
Laboratory Results
06/20/23
05:08
WBC 10.2
Hgb 7.0 L
Hct 21.9 L
Plt Count 379
Sodium 135
Potassium 4.5
Chloride 109 H
Carbon Dioxide 23
BUN 32 H
Creatinine 1.6 H
Glucose 145 H
Calcium 8.2 L
Total Bilirubin 0.5
AST 63 H
ALT 81 H
Alkaline Phosphatase 187 H
Vital Signs:
Vital Signs
Temp Pulse Resp BP Pulse Ox
97.9 F 81 24 116/50 90
06/20/23 03:48 06/20/23 03:48 06/20/23 03:48 06/20/23 03:48 06/20/23 03:48
I&O
06/19/23 06/20/23 06/21/23
06:59 06:59 06:59
Intake Total 1560 / 1560
Output Total 1350 / 1350
Balance 210 / 210
[2023-06-20 08:36] LABS: Glucose - Point of Care 154 mg/dl (70-99)
[2023-06-20] MEDS: NOVOLOG FLEXPEN-LOW RESISTANCE 1 UNITS SC ×3 (09:23→17:27)
[2023-06-20] MEDS: ASPIR LOW (ENTERIC COATED) 81 MG PO (09:24)
[2023-06-20] MEDS: TOPROL XL 12.5 MG PO (09:24)
[2023-06-20] MEDS: PROTONIX 40 MG PO (09:24)
[2023-06-20] MEDS: NORVASC 5 MG PO (09:24)
[2023-06-20] MEDS: PLAVIX 75 MG PO (09:25)
[2023-06-20] MEDS: FARXIGA 10 MG PO (09:25)
[2023-06-20 09:43] LABS: Venous Blood Gas B.E. -3.9 mmol/L (-4 to +4); Venous Blood Gas HCO3 21.6 mmol/L (22-27); Venous Blood Gas O2 Sat % 94.6 %; Venous Blood Gas pCO2 40 mmHg (35-48); Venous Blood Gas pH 7.34 (7.32-7.43); Venous Blood Gas pO2 114 mmHg (30-50)
[2023-06-20] MEDS: VITAMIN D3 (cholecalciferol) 25 MCG PO (09:53)
--- NOTE | 2023-06-20 11:33 | W.PN.UPDATE ---
Update Note
Progress Note Update
For billing purposes
[2023-06-20 11:42] LABS: GGTP 60 U/L (12-43)
--- NOTE | 2023-06-20 11:48 | W.PN.UPDATE ---
Update Note
Progress Note Update
patient seen chart reviewed. discussed with nursing. the patient comes to from [facility]. she had recent left hip fx. she was brought to bc change in mental status. she had periods of agitation since coming here and continues to be
confused. she has hx dm htn ckd hld gerd pad with hx years ago of surgery for meningioma. she was noted to be very anemic and transfusion is planned for today. b12 tsh are nl. liver functions are elevated unclear cause. ua appeared to indicate
infection but culture results suggest contamination and antibiotics have been dc'ed. medications which may have contributed to confusion including oxybutynin cymbalta and melatonin have been dc'ed. notably nsg reports she has not voided
spontaneously yet and nursing may have to catherize her. the patient when i saw her today was pleasant and calm. restraints had been removed. she was oriented x3. she was appropriate with superficial conversation. she did tell me she worried
about her son. for now would hold off on any meds which could be associated with confusion . would repeat urinalysis with reflex to culture especially since catheterizaion likely given retention. would check folic acid will follow
[2023-06-20 12:35] LABS: Glucose - Point of Care 171 mg/dl (70-99)
[2023-06-20 13:58] LABS: Folate > 20.0 ng/ml (2.76-20)
[2023-06-20 16:35] LABS: Urine Albumin Negative (Neg - Trace); Urine Bilirubin Negative (Negative); Urine Character Clear (Clear); Urine Color Yellow; Urine Glucose 3+ (Negative); Urine Ketone 1+ (Negative); Urine Leukocyte Negative (Negative); Urine Nitrite Negative (Negative); Urine Occult Blood Negative (Negative); Urine Urobilinogen Negative (Neg - 1+)
[2023-06-20 16:44] LABS: NT-proBNP 17100 pg/ml
[2023-06-20 17:10] LABS: Glucose - Point of Care 176 mg/dl (70-99)
--- NOTE | 2023-06-20 17:14 | CM ---
Patient was discharged from on 05/30/23 to [facility] for detention and rehab. She became ill and was admitted back to on 06/19/23. Prior to [facility], patient lived with her daughter in a [facility] style home. She has a RW,
rollator and shower chair. no in-home services.. Discharge Plan of Care: TBD after therapy evaluations. Pharmacy is [facility] in [place] and PCP is Dr. Benny Cote.
[2023-06-20] MEDS: NOVOLOG FLEXPEN-LOW RESISTANCE SC (17:22)
[2023-06-20] MEDS: LIPITOR 40 MG PO (17:23)
[2023-06-20] MEDS: TYLENOL 650 MG PO (18:47)
[2023-06-20 21:56] LABS: Glucose - Point of Care 259 mg/dl (70-99)
[2023-06-20] MEDS: LANTUS 0.0500000000000000028 UNITS SC (22:10)
[2023-06-21] VITALS (8 sets, daily range): BP systolic 130–152; BP diastolic 63–82; O2SAT 93–96; BMI 22.9
[2023-06-21 04:58] LABS: Mean Corp Hgb Conc. 33.4 g/dL (33.0-37.0); Mean Corpuscular Hgb 29.8 pg (27.0-31.0); Mean Platelet Volume 10.1 fL (7.4-10.4); Platelet Count 451 10^3/uL (130-400); Red Blood Cell Count 3.26 10^6/uL (4.20-5.40); Red Cell Dist. Width 16.3 % (11.5-14.5); White Blood Cell Count 14.4 10^3/uL (4.8-10.8)
[2023-06-21 05:15] LABS: Hemoglobin 9.7 g/dL (12.0-16.0)
[2023-06-21 05:32] LABS: Blood Urea Nitrogen 38 mg/dl (7-17); Calcium 8.4 mg/dl (8.4-10.2); Carbon Dioxide 23 mmol/L (22-30); Chloride 105 mmol/L (98-107); Estimated Creatinine Clearance 29 ml/min; Glucose 184 mg/dl (70-99); Magnesium 1.9 mg/dl (1.6-2.3); Phosphorus 4.2 mg/dl (2.5-4.5); Sodium 133 mmol/L (135-145); eGFR 33.01
[2023-06-21 06:02] LABS: Hepatitis A IgM Antibody Negative (Negative); Hepatitis B Core Ab, IgM Negative (Negative)
[2023-06-21 08:47] LABS: Glucose - Point of Care 169 mg/dl (70-99)
[2023-06-21] MEDS: TOPROL XL 12.5 MG PO (09:17)
[2023-06-21] MEDS: FARXIGA 10 MG PO (09:17)
[2023-06-21] MEDS: PLAVIX 75 MG PO (09:18)
[2023-06-21] MEDS: VITAMIN D3 (cholecalciferol) 25 MCG PO (09:18)
[2023-06-21] MEDS: NOVOLOG FLEXPEN-LOW RESISTANCE 1 UNITS SC (09:18)
[2023-06-21] MEDS: ASPIR LOW (ENTERIC COATED) 81 MG PO (09:18)
[2023-06-21] MEDS: NORVASC 5 MG PO (09:18)
[2023-06-21] MEDS: PROTONIX 40 MG PO (09:18)
[2023-06-21 09:36] LABS: Procalcitonin 0.88 ng/ml (0.0-0.25)
--- NOTE | 2023-06-21 11:29 | W.PN.UPDATE ---
Update Note
Progress Note Update
patient seen chart reviewed. spoke with nursing. patient is at this point cooperative. there have been no problems with agitation / aggression. patient offered no complaints. she is not in pain. her tray came while i was there....she allowed me to
help set up her tray and began eating. noted at times patient speech a little difficult to understand not clear what this represents but do not feel it is psychiatric. changed ativan order to q 12 h do not foresee her needing it and would avoid
sedating meds if possible psych will sign off.
--- NOTE | 2023-06-21 11:47 | W.PN.GI.CBS2 ---
Addendum entered and electronically signed by Madonna Quinteros DO 06/21/23 16:17:
Patient seen and examined independently of IMPRESS ASSOCIATE. I agree with her note with my additions below
Patient is still confused about why she is here and does not have capacity to make medical decisions.
I left a detailed message with her daughter, Yanna. I have not heard back.
Patient's anemia is stable.
Currently the patient does not want to undergo any GI procedures. I asked the daughter to come in and talk to her about goals and what to if any testing she would want. I have not heard back from the daughter and have left messages.
. If the patient is interested in a workup, we can do it outpatient.
GI will sign off.
Original Note:
Today's Communication / Plan
-
etiology of elevated LFT's unclear-- some elevation since February with limited labs prior to that time and may be chronic elevation
GGT elevated at 60, Hep A IGM and hep B core neg other serology pending with per patient spouse hx hepatitis in past
avoid hepatotoxic meds
recent US abdomen in May normal liver, CBD 5.5 cm, cholelithiasis
INR, Platelets normal but low albumin, Ammonia <9
consider further OP serology work up
cont to trend no LFT's completed today
anemia may be multi factorial with multiple recent medication issues, CKD, infection etc. B12, folate and iron studies stable
hbg improved to 9.7 with 1 unit up from 7 with brown stools
remain on ASA and Plavix
await heme work up for hemolysis and myeloma
retic count 4 and haptoglobin remains pending
discussed again with patient declined work up for anemia with other medical issues-- I left a detailed message for daughter Yanna to confirm her input also
-- Please call us back if family/patient is willing to undergo GI procedures otherwise this is supportive care especially with brown heme-negative stool
I left GI contact on discharge for follow up if pt wishes to proceed with further GI work up for anemia and elevated LFT
Assessment / Plan
-
Pt is a 78yo with recent CABG, peripheral arterial disease with bilateral iliac stents and iliofemoral endarterectomy, hypertension, diabetes, CKD 3, GERD depression, hyperlipidemia, remote Hx Meningioma resection, recent left hip fracture ORIF
presents from [facility] due to progressive confusion and hallucinations. Per admission pt with some medication changes including Oxybutynin and UTI with Keflex use. On admission patient noted anemia with drop in hbg baseline 8-10 now down to
7 after admission. She was also noted with increased LFT's with bili 0.4, AT 87, ALT 112, alk phos 223. LDH mild elevation 310 and chronic hypoalbuminemia since last fall. She has been seen by hematology for anemia with concern for anemia for
CKD, recent surgery and infection with hemolysis and myeloma work up pending with stable retic count at 4. She has also been seen by psych with concern for medication induced delirium. Per 06/19 eval pt denies any dysphagia, heartburn, nausea,
vomiting, abdominal pain. She says she has chronic alternating constipation diarrhea. Has never had endoscopy or colonoscopy. Her father may have had colon cancer.
-increased LFT's
-delirium
-anemia acute on chronic
-recent fall with femoral neck fracture with repair 05/28/23
-recent CABG 01/2023
- PAD iliofemoral endarterectomy with bovine pericardial patch angioplasty, b/l kissing iliac stents, and right external iliac artery stent 02/18/23 on chronic ASA and Plavix
-recent hyponatremia- improved
other medical problems:
-cholelithiasis
-02/2023 c-diff
-DM
-CKD
-GERD
-depression
-hyperlipidemia
-hx meningioma resection
PLAN:
etiology of elevated LFT's unclear-- some elevation since February with limited labs prior to that time and may be chronic elevation
GGT elevated at 60, Hep A IGM and hep B core neg other serology pending with per patient spouse hx hepatitis in past
avoid hepatotoxic meds
recent US abdomen in May normal liver, CBD 5.5 cm, cholelithiasis
INR, Platelets normal but low albumin, Ammonia <9
consider further OP serology work up
cont to trend no LFT's completed today
anemia may be multi factorial with multiple recent medication issues, CKD, infection etc. B12, folate and iron studies stable
hbg improved to 9.7 with 1 unit up from 7 with brown stools
remain on ASA and Plavix
await heme work up for hemolysis and myeloma
retic count 4 and haptoglobin remains pending
discussed again with patient declined work up for anemia with other medical issues-- I left a detailed message for daughter Yanna to confirm her input also
-- Please call us back if family/patient is willing to undergo GI procedures otherwise this is supportive care especially with brown heme-negative stool
I left GI contact on discharge for follow up if pt wishes to proceed with further GI work up for anemia and elevated LFT
Subjective
Subjective
Date of Service: June 21, 2023
06/19 brown stool, on diabetic diet
Objective
Data Reviewed
Laboratory Data:
Laboratory Results
06/21/23 04:33
06/21/23 04:33
Laboratory Results
PT 14.4 Sec (11.4-14.6) 06/19/23 09:24
INR 1.14 06/19/23 09:24
APTT 34.3 Sec (23.4-35.0) 06/19/23 09:24
Phosphorus 4.2 mg/dl (2.5-4.5) 06/21/23 04:33
Magnesium 1.9 mg/dl (1.6-2.3) 06/21/23 04:33
Total Bilirubin 0.5 mg/dl (0.2-1.3) 06/20/23 05:08
AST 63 U/L (14-36) H 06/20/23 05:08
ALT 81 U/L (0-35) H 06/20/23 05:08
Alkaline Phosphatase 187 U/L (38-126) H 06/20/23 05:08
Vital Signs and I&O:
Vital Signs
Temp Pulse Resp BP Pulse Ox
98.0 F 85 20 141/63 95
06/21/23 11:38 06/21/23 11:38 06/21/23 11:38 06/21/23 11:38 06/21/23 11:38
I&O
06/20/23 06/21/23 06/22/23
06:59 06:59 06:59
Intake Total 1560 / 1560 1090 / 1090
Output Total 1350 / 1350 1710 / 1710
Balance 210 / 210 -620 / -620
Physical Exam
Physical Exam
HEENT: Anicteric and Moist mucous membranes
Cardiology: Normal Sinus Rhythm
Pulmonary: Clear
GI: Soft and Non Tender
Extremities: Other (diffuse weakness)
Neuro: Non Focal (soft speech)
[2023-06-21 13:06] LABS: Glucose - Point of Care 216 mg/dl (70-99)
[2023-06-21] MEDS: NOVOLOG FLEXPEN-LOW RESISTANCE 2 UNITS SC ×2 (13:08→17:31)
--- NOTE | 2023-06-21 14:01 | W.PN.HOSP.TC ---
Addendum entered and electronically signed by Maurice Epps MD 06/21/23 14:32:
Cef/Flagyl (allergy to PCN)
Original Note:
Today's Communication/Plan
-
see outlined plan
Assessment / Plan
Assessment / Plan
IMPRESSION:
78 female history of recent CABG peripheral arterial disease bilateral iliac stents iliofemoral endarterectomy hypertension diabetes CKD 3 GERD depression hyperlipidemia remote Hx Meningioma resection recent left hip fracture ORIF 05/28/23 [facility] confusion hallucinations for weeks. AOx3 but clearly confused exhibiting chorea makes motions like she is eating something with a fork unable to give meaningful history follows simple commands. All of
history taken from records, ED report, and family report at bedside. Family (daughter Yanna, [id number] Madeleine, son JAYLEN) reports confusion started roughly around the same time patient was started on oxybutynin for urinary frequency. Patient
was evaluated at this facility earlier 06/12 for which she was diagnosed with UTI and discharged with oral abx Keflex. Urine Cx from 06/12 notably neg for infection. VSS on room air afebrile no leukocytosis progressive anemia hgb 7.4 down from 7.7
previous ED evaluation. Brown stools heme neg per ED report. No obvious signs of bleeding. Mild transaminitis persistently present since Jan 2023, CKD III Cr baseline 1.6 CT head notes no acute abn's.
Assessment:
Acute Delirium, med induced
- stop Duloxetine/Melatonin/Oxybutynin
- resolving symptoms, more alert/awake
HX of depression
- psych evaluated
- hold meds
Acute urinary retention
- continue Triplett; patient had multiple SCs
- Oxybutynin stopped
Acute Hypoxic Insufficiency on 3L NC
- dry cough, leukocytosis, + procal
- start IV Unasyn
- speech eval
possible mild CHF on CXR, likely worsened by IVF
- IV Lasix x 1
- Normal biventricular size and systolic function without regional wall motion abnormality. Estimated LVEF 60-65%. Aortic sclerosis without stenosis.
Progressive Anemia
Anemia of Chronic disease
- heme negative
- monitor Hb
- Heme following
- s/p 1 unit PRBC; 9.7
Persistent Transaminitis unclear etiology
- trend LFTs
CABG
PAD hx bilateral iliac stents iliofemoral endarterectomy
- cont home ASA Plavix
HLD
- cont statin
Essential HTN
- continue Amlodipine/Metoprolol
Type 2 DM
- continue basal/bolus
- A1c: 10.6% last month
CKD3
- Cr 1.6 baseline
- monitor
- avoid nephrotoxic agents as possible
GERD
- cont Protonix
Hx of C. Diff
- start empiric Vanco x 10 days while on IV unasyn
DVT ppx: SCDs
Code: Full
Anticipated Discharge: > 48 hours
Subjective/Interval History
-
Date of Service: June 21, 2023
no new complaints presently
reports dry cough, remains on 3L, procal elevated
Objective Data
-
Labs:
Laboratory Results
06/21/23
04:33
WBC 14.4 H
Hgb 9.7 L D
Hct 29.0 L
Plt Count 451 H
Sodium 133 L
Potassium 4.0
Chloride 105
Carbon Dioxide 23
BUN 38 H
Creatinine 1.6 H
Glucose 184 H
Calcium 8.4
Vital Signs:
Vital Signs
Temp Pulse Resp BP Pulse Ox
98.0 F 85 20 141/63 95
06/21/23 11:38 06/21/23 11:38 06/21/23 11:38 06/21/23 11:38 06/21/23 11:38
I&O
06/20/23 06/21/23 06/22/23
06:59 06:59 06:59
Intake Total 1560 / 1560 1090 / 1090
Output Total 1350 / 1350 1710 / 1710
Balance 210 / 210 -620 / -620
Physical Exam
-
General: No Apparent Distress
HEENT: Normocephalic and Atraumatic
Respiratory: Rhonchi (faint), Crackles and Decreased Breath Sounds
Cardiac: Regular Rhythm and S1/S2
GI: Soft and Nontender
Musculoskeletal: No Edema
Neuro: AO x 3
Hematologic / Lymphatic: No Lymphadenopathy
Psych: Calm
Data Reviewed
-
Total Time Spent with Patient (in minutes): 45
Labs: Labs Reviewed by me
[2023-06-21 14:37] LABS: ALT (SGPT) 74 U/L (0-35); AST (SGOT) 61 U/L (14-36); Albumin 2.5 g/dl (3.5-5.0); Alkaline Phosphatase 185 U/L (38-126); Direct Bilirubin 0.3 mg/dl (0.0-0.4); Total Bilirubin 0.5 mg/dl (0.2-1.3); Total Protein 5.2 g/dl (6.3-8.2)
--- NOTE | 2023-06-21 14:40 | CM ---
On O2 3L, baseline is no O2, Ruling out PNA. Discharge Plan of Care: Return to [facility]. Updated referral forwarded.
[2023-06-21] MEDS: ROCEPHIN 1000 MG IV (15:26)
[2023-06-21] MEDS: LASIX 20 MG IV (15:26)
[2023-06-21] MEDS: STERILE WATER FOR INJECTION 10 ML IV (15:26)
[2023-06-21] MEDS: FLAGYL 500 MG PO ×2 (15:26→23:05)
--- NOTE | 2023-06-21 16:17 | W.PN.UPDATE ---
Update Note
Progress Note Update
For billing purposes
--- NOTE | 2023-06-21 16:29 | PTOTSP ---
Speech Language Pathology
Pt seen for clinical bedside swallow evaluation. Seen with meal tray of regular solids/thin liquids (soda via cup, water via straw, mashed potatoes, open face hot turkey sandwich). Adequate mastication, bolus formation, and A-P transit noted with
no oral residue. No overt signs of aspiration.
Recommend:
(1) Continue regular solids/thin liquids
(2) General aspiration precautions
(3) Meds as tolerated
(4) FUR BLOWER to sign off. Please reconsult as indicated
[2023-06-21 17:04] LABS: Haptoglobin 94 mg/dL (30-200)
[2023-06-21] MEDS: LIPITOR 40 MG PO (17:21)
[2023-06-21] MEDS: FIRVANQ 125 MG PO ×2 (17:21→23:07)
[2023-06-21 17:28] LABS: Glucose - Point of Care 199 mg/dl (70-99)
[2023-06-21 19:06] LABS: Hepatitis B Surface Antigen Negative (Negative)
[2023-06-21 19:25] LABS: Hepatitis B Core Ab, Total Reactive (Negative); Hepatitis B Surface Antibody Positive; Hepatitis C Antibody Negative (Negative)
[2023-06-21 19:46] LABS: Hepatitis A Antibody, Total Negative (Negative)
[2023-06-21 20:57] LABS: Glucose - Point of Care 188 mg/dl (70-99)
[2023-06-21] MEDS: LANTUS 0.0500000000000000028 UNITS SC (22:57)
[2023-06-22 03:00] VITALS: BP 121/52
[2023-06-22 06:00] VITALS: BMI 22.6
[2023-06-22 06:06] LABS: % Basophils 0.3 % (0-2); % Eosinophils 0.8 % (0-6); % Immature Granulocytes 0.3 % (0-0.5); % Lymphocytes 15.5 % (20.5-51.1); % Monocytes 6.1 % (1.7-9.3); Absolute Eosinophils 0.1 10^3/uL (0-0.7); Absolute Lymphocytes 1.8 10^3/uL (1.2-3.4); Absolute Monocytes 0.7 10^3/uL (0.1-0.6); Absolute Neutrophils 9.1 10^3/uL (1.4-6.5); Hematocrit 27.3 % (37.0-47.0); Hemoglobin 9.2 g/dL (12.0-16.0); Mean Corp Hgb Conc. 33.7 g/dL (33.0-37.0); Mean Corpuscular Hgb 29.7 pg (27.0-31.0); Mean Corpuscular Volume 88.1 fL (81.0-99.0); Mean Platelet Volume 10.5 fL (7.4-10.4); Nucleated Red Blood Cells % 0 %; Platelet Count 390 10^3/uL (130-400); Red Cell Dist. Width 15.7 % (11.5-14.5); White Blood Cell Count 11.9 10^3/uL (4.8-10.8)
[2023-06-22] MEDS: FIRVANQ 125 MG PO ×4 (06:27→23:53)
[2023-06-22 06:36] LABS: ALT (SGPT) 61 U/L (0-35); AST (SGOT) 57 U/L (14-36); Albumin 2.3 g/dl (3.5-5.0); Alkaline Phosphatase 167 U/L (38-126); Blood Urea Nitrogen 41 mg/dl (7-17); Calcium 8.3 mg/dl (8.4-10.2); Carbon Dioxide 21 mmol/L (22-30); Chloride 102 mmol/L (98-107); Direct Bilirubin 0.4 mg/dl (0.0-0.4); Estimated Creatinine Clearance 31 ml/min; Glucose 158 mg/dl (70-99); Potassium 3.7 mmol/L (3.5-5.1); Sodium 132 mmol/L (135-145); Total Bilirubin 0.6 mg/dl (0.2-1.3); Total Protein 4.9 g/dl (6.3-8.2); eGFR 35.67
[2023-06-22 07:05] VITALS: BP 131/73
[2023-06-22 07:36] LABS: Glucose - Point of Care 197 mg/dl (70-99)
[2023-06-22] MEDS: TOPROL XL 12.5 MG PO (08:21)
[2023-06-22] MEDS: PROTONIX 40 MG PO (08:21)
[2023-06-22] MEDS: NORVASC 5 MG PO (08:21)
[2023-06-22] MEDS: VITAMIN D3 (cholecalciferol) 25 MCG PO (08:21)
[2023-06-22] MEDS: ASPIR LOW (ENTERIC COATED) 81 MG PO (08:21)
[2023-06-22] MEDS: PLAVIX 75 MG PO (08:21)
[2023-06-22] MEDS: FARXIGA 10 MG PO (08:21)
[2023-06-22] MEDS: FLAGYL 500 MG PO ×3 (08:22→23:53)
[2023-06-22] MEDS: NOVOLOG FLEXPEN-LOW RESISTANCE 1 UNITS SC (08:22)
[2023-06-22 11:08] LABS: Glucose - Point of Care 228 mg/dl (70-99)
--- NOTE | 2023-06-22 11:10 | PN.CDI ---
CDI
- -
CDI:
Physician Documentation Request
Admit Date: 06/19/23 13:09
Dear Doctor Mich,
Clinical Indicators:
Patient admitted with confusion & hallucinations.
06/18 RN note, 'Med sitter placed as pt was getting more agitated, attempting to get OOB and pulling at IV lines.'
06/19 Oncology PN, Physical Exam: encephalopathic
06/20 PN, 'Acute Delirium, med induced- stop Duloxetine/Melatonin/Oxybutynin- resolving symptoms, more alert/awake.'
Based on the above, could you clarify which, if any of the following, is the most likely etiology of the confusion/altered mental status.
Toxic Metabolic Encephalopathy.
Acute Delirium Only
Other, please specify
Unable to determine
Use of terms such as suspected, likely, concern for, or probable (associated with a specific diagnosis that is being evaluated, monitored, or treated as if it exists) are acceptable and can be coded in the inpatient setting, when documented at the
time of discharge.
Thank you,
NYDIA Alejandra RN
CDI Specialist
available via tiger text
Please use your independent medical judgment in providing your response.
--- NOTE | 2023-06-22 11:20 | PN.CDI ---
CDI
- -
CDI:
Physician Documentation Request
Admit Date: 06/19/23 13:09
Dear Doctor Mich,
Clinical Indicators:
Patient admitted with confusion & hallucinations.
06/18 RN skin/wound assessment: Sacrum Stage 2 pressure injury, POA
Treatment: Silicone border foam dressing per protocol.
Physician documentation of the type and location of wounds is required for compliant documentation. Based on the above clinical findings and your assessment, please provide the following in your progress note:
1. Location of the ulcer/wound, including laterality.
2. Type (etiology) of ulcer/wound:
- Pressure (decubitus) ulcer
- Other, please specify
- Unable to determine
3. If a pressure ulcer, please also include the stage* of the ulcer:
- Stage 1 - Skin intact, non-blanchable redness
- Stage 2 - Partial thickness loss of dermis, includes intact or open blister
- Stage 3 - Full thickness tissue not including bone, tendon or muscle
- Stage 4 - Full thickness tissue loss, including exposed bone, tendon or muscle
- Unstageable - Full thickness loss in which the base of the ulcer is covered by slough (yellow, vanegas, brock, green or brown) and/or eschar (avnegas, brown or black) in the wound bed.
- Unable to determine
Use of terms such as suspected, likely, concern for, or probable (associated with a specific diagnosis that is being evaluated, monitored, or treated as if it exists) are acceptable and can be coded in the inpatient setting, when documented at the
time of discharge.
Thank you,
NYDIA Alejandra RN
CDI Specialist
available via tiger text
Please use your independent medical judgment in providing your response.
*Source: National Pressure Ulcer Advisory Panel (NPUAP)
[2023-06-22 11:22] VITALS: BP 126/54
--- NOTE | 2023-06-22 11:48 | W.PN.HOSP.TC ---
Today's Communication/Plan
-
IV Lasix x1 further dose
continue IV Abx and wean O2
monitor labs
Assessment / Plan
Assessment / Plan
IMPRESSION:
78 female history of recent CABG peripheral arterial disease bilateral iliac stents iliofemoral endarterectomy hypertension diabetes CKD 3 GERD depression hyperlipidemia remote Hx Meningioma resection recent left hip fracture ORIF 05/28/23 [facility] confusion hallucinations for weeks. AOx3 but clearly confused exhibiting chorea makes motions like she is eating something with a fork unable to give meaningful history follows simple commands. All of
history taken from records, ED report, and family report at bedside. Family (daughter Yanna, [id number] Madeleine, son JAYLEN) reports confusion started roughly around the same time patient was started on oxybutynin for urinary frequency. Patient
was evaluated at this facility earlier 06/12 for which she was diagnosed with UTI and discharged with oral abx Keflex. Urine Cx from 06/12 notably neg for infection. VSS on room air afebrile no leukocytosis progressive anemia hgb 7.4 down from 7.7
previous ED evaluation. Brown stools heme neg per ED report. No obvious signs of bleeding. Mild transaminitis persistently present since Jan 2023, CKD III Cr baseline 1.6 CT head notes no acute abn's.
Assessment:
Acute Delirium, med induced
- stop Duloxetine/Melatonin/Oxybutynin
- resolving symptoms, more alert/awake
HX of depression
- psych evaluated
- hold meds
Acute urinary retention
- continue Triplett; patient had multiple SCs
- Oxybutynin stopped
Acute Hypoxic Insufficiency on 3L NC
- wean O2 as able, down 2L
- dry cough, leukocytosis, + procal
- continue Rocephin/Flagyl, day 2
- speech evaluation
possible mild CHF on CXR, likely worsened by IVF
- IV Lasix x 1
- Normal biventricular size and systolic function without regional wall motion abnormality. Estimated LVEF 60-65%. Aortic sclerosis without stenosis.
Progressive Anemia
Anemia of Chronic disease
- heme negative
- monitor Hb
- Heme following
- s/p 1 unit PRBC; 9.2
Persistent Transaminitis unclear etiology
- trend LFTs
CABG
PAD hx bilateral iliac stents iliofemoral endarterectomy
- cont home ASA/Plavix
HLD
- cont statin
Essential HTN
- continue Amlodipine/Metoprolol
Type 2 DM
- continue basal/bolus
- A1c: 10.6% last month
CKD3
- Cr 1.6 baseline
- monitor
- avoid nephrotoxic agents as possible
GERD
- cont Protonix
Hx of C. Diff
- continue empiric Vanco, day 04/21 while on IV abx
DVT ppx: SCDs
Code: Full
Anticipated Discharge: > 48 hours
Subjective/Interval History
-
Date of Service: June 22, 2023
denies any complaints
s/p IV Lasix x 1 with good output
remains on 2L
Objective Data
-
Labs:
Laboratory Results
06/22/23
05:09
WBC 11.9 H
Hgb 9.2 L
Hct 27.3 L
Plt Count 390
Sodium 132 L
Potassium 3.7
Chloride 102
Carbon Dioxide 21 L
BUN 41 H
Creatinine 1.5 H
Glucose 158 H
Calcium 8.3 L
Total Bilirubin 0.6
AST 57 H
ALT 61 H
Alkaline Phosphatase 167 H
Vital Signs:
Vital Signs
Temp Pulse Resp BP Pulse Ox
98.6 F 81 17 126/54 93
06/22/23 11:22 06/22/23 11:22 06/22/23 11:22 06/22/23 11:22 06/22/23 11:22
I&O
06/21/23 06/22/23 06/23/23
06:59 06:59 06:59
Intake Total 1090 / 1090 1210 / 1210
Output Total 1710 / 1710 2275 / 2275
Balance -620 / -620 -1065 / -1065
Physical Exam
-
General: No Apparent Distress
HEENT: Normocephalic and Atraumatic
Respiratory: Crackles; Negative Wheezes
Cardiac: Regular Rhythm and S1/S2
GI: Soft
Neuro: AO x 3
Psych: Calm
Data Reviewed
-
Total Time Spent with Patient (in minutes): 42
Labs: Labs Reviewed by me
[2023-06-22] MEDS: MUCINEX 1200 MG PO ×2 (12:06→20:49)
[2023-06-22] MEDS: LASIX 20 MG IV (12:07)
[2023-06-22] MEDS: NOVOLOG FLEXPEN-LOW RESISTANCE 2 UNITS SC (12:08)
[2023-06-22 13:41] LABS: Alpha 1 Globulin 0.42 g/dL (0.19-0.46); IgA 262 mg/dL (68-408); IgG 939 mg/dL (768-1632); IgM 72 mg/dL (35-263); Immunofixation Electrophoresis IFE Done
[2023-06-22 15:15] VITALS: BP 129/59
[2023-06-22 16:38] LABS: Glucose - Point of Care 311 mg/dl (70-99)
--- NOTE | 2023-06-22 17:09 | CM ---
Per MD: Treating for PNA. Anticipating discharge on Sunday06/25/23. Discharge Plan of Care: Return to [facility] for resumption of STR. WILL NEED AUTH.
[2023-06-22] MEDS: STERILE WATER FOR INJECTION 10 ML IV (17:29)
[2023-06-22] MEDS: LIPITOR 40 MG PO (17:29)
[2023-06-22] MEDS: ROCEPHIN 1000 MG IV (17:29)
[2023-06-22] MEDS: NOVOLOG FLEXPEN-LOW RESISTANCE 4 UNITS SC (17:34)
[2023-06-22 20:28] VITALS: BP 114/66
[2023-06-22 21:43] LABS: Glucose - Point of Care 226 mg/dl (70-99)
[2023-06-22] MEDS: LANTUS 0.0500000000000000028 UNITS SC (21:59)
[2023-06-23 00:02] VITALS: BP 146/58
[2023-06-23 04:28] VITALS: BP 148/60
[2023-06-23 06:00] VITALS: BMI 22.9
[2023-06-23] MEDS: FIRVANQ 125 MG PO ×3 (06:08→17:02)
[2023-06-23 07:05] VITALS: BP 139/54
[2023-06-23 07:05] LABS: Glucose - Point of Care 177 mg/dl (70-99)
[2023-06-23] MEDS: NOVOLOG FLEXPEN-LOW RESISTANCE 1 UNITS SC (08:06)
[2023-06-23] MEDS: MUCINEX 1200 MG PO ×2 (08:07→20:24)
[2023-06-23] MEDS: PLAVIX 75 MG PO (08:07)
[2023-06-23] MEDS: FLAGYL 500 MG PO ×2 (08:07→17:02)
[2023-06-23] MEDS: ASPIR LOW (ENTERIC COATED) 81 MG PO (08:07)
[2023-06-23] MEDS: PROTONIX 40 MG PO (08:07)
[2023-06-23] MEDS: TOPROL XL 12.5 MG PO (08:08)
[2023-06-23] MEDS: VITAMIN D3 (cholecalciferol) 25 MCG PO (08:08)
[2023-06-23] MEDS: FARXIGA 10 MG PO (08:08)
[2023-06-23] MEDS: NORVASC 5 MG PO (08:08)
[2023-06-23 08:12] LABS: Hematocrit 28.7 % (37.0-47.0); Hemoglobin 9.6 g/dL (12.0-16.0); Mean Corp Hgb Conc. 33.4 g/dL (33.0-37.0); Mean Corpuscular Hgb 29.6 pg (27.0-31.0); Mean Corpuscular Volume 88.6 fL (81.0-99.0); Mean Platelet Volume 10.5 fL (7.4-10.4); Platelet Count 394 10^3/uL (130-400); Red Blood Cell Count 3.24 10^6/uL (4.20-5.40); Red Cell Dist. Width 15.6 % (11.5-14.5); White Blood Cell Count 9.9 10^3/uL (4.8-10.8)
[2023-06-23 08:40] LABS: ALT (SGPT) 61 U/L (0-35); AST (SGOT) 69 U/L (14-36); Albumin 2.1 g/dl (3.5-5.0); Alkaline Phosphatase 180 U/L (38-126); Blood Urea Nitrogen 43 mg/dl (7-17); Calcium 8.1 mg/dl (8.4-10.2); Carbon Dioxide 20 mmol/L (22-30); Chloride 103 mmol/L (98-107); Estimated Creatinine Clearance 27 ml/min; Glucose 164 mg/dl (70-99); Potassium 3.3 mmol/L (3.5-5.1); Sodium 133 mmol/L (135-145); Total Bilirubin 0.5 mg/dl (0.2-1.3); Total Protein 4.8 g/dl (6.3-8.2)
[2023-06-23 11:05] VITALS: BP 115/60
[2023-06-23 12:48] LABS: Glucose - Point of Care 226 mg/dl (70-99)
[2023-06-23] MEDS: KCL 20 MEQ PO (13:08)
[2023-06-23] MEDS: NOVOLOG FLEXPEN-LOW RESISTANCE 2 UNITS SC (13:09)
--- NOTE | 2023-06-23 14:50 | W.PN.HOSP.TC ---
Today's Communication/Plan
-
continue IV Abx
continue prophylactic PO Vanco
wean O2
DC planning SNF
Assessment / Plan
Assessment / Plan
IMPRESSION:
78 female history of recent CABG peripheral arterial disease bilateral iliac stents iliofemoral endarterectomy hypertension diabetes CKD 3 GERD depression hyperlipidemia remote Hx Meningioma resection recent left hip fracture ORIF 05/28/23 [facility] confusion hallucinations for weeks. AOx3 but clearly confused exhibiting chorea makes motions like she is eating something with a fork unable to give meaningful history follows simple commands. All of
history taken from records, ED report, and family report at bedside. Family (daughter Yanna, [id number] Madeleine, son JAYLEN) reports confusion started roughly around the same time patient was started on oxybutynin for urinary frequency. Patient
was evaluated at this facility earlier 06/12 for which she was diagnosed with UTI and discharged with oral abx Keflex. Urine Cx from 06/12 notably neg for infection. VSS on room air afebrile no leukocytosis progressive anemia hgb 7.4 down from 7.7
previous ED evaluation. Brown stools heme neg per ED report. No obvious signs of bleeding. Mild transaminitis persistently present since Jan 2023, CKD III Cr baseline 1.6 CT head notes no acute abn's.
Assessment:
Acute Delirium from TME from med induced
- stop Duloxetine/Melatonin/Oxybutynin
- resolving symptoms, more alert/awake
HX of depression
- psych evaluated
- hold meds
Acute urinary retention
- continue Triplett; patient had multiple SCs
- Oxybutynin stopped
Acute Hypoxic Insufficiency on 3L NC
- wean O2 as able, down to RA
- dry cough, leukocytosis, + procal
- continue Rocephin/Flagyl, day 3/7
- speech evaluation; reg diet/thins
possible mild CHF on CXR, likely worsened by IVF
- IV Lasix x 2 doses
- Normal biventricular size and systolic function without regional wall motion abnormality. Estimated LVEF 60-65%. Aortic sclerosis without stenosis.
Progressive Anemia
Anemia of Chronic disease
- heme negative
- monitor Hb
- Heme following
- s/p 1 unit PRBC; 9.6
Persistent Transaminitis unclear etiology
- trend LFTs
CABG
PAD hx bilateral iliac stents iliofemoral endarterectomy
- cont home ASA/Plavix
HLD
- cont statin
Essential HTN
- continue Amlodipine/Metoprolol
Type 2 DM
- continue basal/bolus
- A1c: 10.6% last month
CKD3
Hypokalemia
- Cr 1.6 baseline
- monitor
- avoid nephrotoxic agents as possible
- replete K prn
GERD
- cont Protonix
Hx of C. Diff
- continue empiric Vanco, day 05/19 while on IV abx
Sacrum Stage 2 pressure injury, POA
DVT ppx: SCDs
Code: Full
Anticipated Discharge: > 48 hours
Subjective/Interval History
-
Date of Service: June 23, 2023
weaned to RA
no new complaints presently
Objective Data
-
Labs:
Laboratory Results
06/23/23
07:20
WBC 9.9
Hgb 9.6 L
Hct 28.7 L
Plt Count 394
Sodium 133 L
Potassium 3.3 L
Chloride 103
Carbon Dioxide 20 L
BUN 43 H
Creatinine 1.7 H
Glucose 164 H
Calcium 8.1 L
Total Bilirubin 0.5
AST 69 H
ALT 61 H
Alkaline Phosphatase 180 H
Vital Signs:
Vital Signs
Temp Pulse Resp BP Pulse Ox
97.9 F 78 12 115/60 98
06/23/23 11:05 06/23/23 11:05 06/23/23 11:05 06/23/23 11:05 06/23/23 13:12
I&O
06/22/23 06/23/23 06/24/23
06:59 06:59 06:59
Intake Total 1210 / 1210 600 / 600
Output Total 2275 / 2275 1900 / 1900
Balance -1065 / -1065 -1300 / -1300
Physical Exam
-
General: No Apparent Distress
HEENT: Normocephalic and Atraumatic
Respiratory: Negative Wheezes or Rales
Cardiac: Regular Rhythm and S1/S2
GI: Soft
Genito-urinary: No Costovertebral Tender
Neuro: AO x 3
Psych: Calm
Data Reviewed
-
Total Time Spent with Patient (in minutes): 42
Labs: Labs Reviewed by me
[2023-06-23 15:05] VITALS: BP 145/51
[2023-06-23 15:24] LABS: Free Kappa Light Chains,Quant 50.15 mg/L (3.30-19.40); Free Lambda Light Chains,Quant 32.32 mg/L (5.71-26.30); Kappa/Lambda Fr Light Ratio 1.55 (0.26-1.65)
[2023-06-23] MEDS: ROCEPHIN 1000 MG IV (16:59)
[2023-06-23] MEDS: STERILE WATER FOR INJECTION 10 ML IV (16:59)
[2023-06-23] MEDS: LIPITOR 40 MG PO (17:08)
[2023-06-23 17:57] LABS: Glucose - Point of Care 312 mg/dl (70-99)
[2023-06-23] MEDS: NOVOLOG FLEXPEN-LOW RESISTANCE 4 UNITS SC (18:04)
[2023-06-23 21:43] LABS: Glucose - Point of Care 208 mg/dl (70-99)
[2023-06-23] MEDS: LANTUS 0.0500000000000000028 UNITS SC (21:56)
[2023-06-23 23:28] VITALS: BP 139/57
[2023-06-24] MEDS: FLAGYL 500 MG PO ×3 (00:31→17:02)
[2023-06-24] MEDS: FIRVANQ 125 MG PO ×4 (00:31→17:02)
[2023-06-24 05:56] VITALS: BMI 21.5
[2023-06-24 06:00] VITALS: BMI 21.5
[2023-06-24 07:05] VITALS: BP 136/70
[2023-06-24 07:13] LABS: Glucose - Point of Care 215 mg/dl (70-99)
[2023-06-24 07:52] LABS: % Basophils 0.6 % (0-2); % Eosinophils 9.4 % (0-6); % Immature Granulocytes 0.5 % (0-0.5); % Lymphocytes 18.3 % (20.5-51.1); % Monocytes 8.7 % (1.7-9.3); % Neutrophils 62.5 % (42.2-75.2); Absolute Basophils 0.1 10^3/uL (0-0.2); Absolute Eosinophils 0.8 10^3/uL (0-0.7); Absolute Lymphocytes 1.5 10^3/uL (1.2-3.4); Absolute Monocytes 0.7 10^3/uL (0.1-0.6); Absolute Neutrophils 5.2 10^3/uL (1.4-6.5); Hematocrit 28.7 % (37.0-47.0); Hemoglobin 9.6 g/dL (12.0-16.0); Mean Corp Hgb Conc. 33.4 g/dL (33.0-37.0); Mean Corpuscular Hgb 29.5 pg (27.0-31.0); Mean Corpuscular Volume 88.3 fL (81.0-99.0); Mean Platelet Volume 10.5 fL (7.4-10.4); Nucleated Red Blood Cells % 0 %; Platelet Count 417 10^3/uL (130-400); Red Blood Cell Count 3.25 10^6/uL (4.20-5.40); Red Cell Dist. Width 15.5 % (11.5-14.5); White Blood Cell Count 8.3 10^3/uL (4.8-10.8)
[2023-06-24 08:14] LABS: ALT (SGPT) 67 U/L (0-35); AST (SGOT) 87 U/L (14-36); Albumin 2.1 g/dl (3.5-5.0); Alkaline Phosphatase 206 U/L (38-126); Blood Urea Nitrogen 40 mg/dl (7-17); Calcium 8.2 mg/dl (8.4-10.2); Carbon Dioxide 20 mmol/L (22-30); Chloride 104 mmol/L (98-107); Estimated Creatinine Clearance 29 ml/min; Glucose 176 mg/dl (70-99); Potassium 3.6 mmol/L (3.5-5.1); Sodium 134 mmol/L (135-145); Total Bilirubin 0.4 mg/dl (0.2-1.3); Total Protein 4.7 g/dl (6.3-8.2); eGFR 33.01
[2023-06-24] MEDS: PLAVIX 75 MG PO (08:19)
[2023-06-24] MEDS: TOPROL XL 12.5 MG PO (08:19)
[2023-06-24] MEDS: ASPIR LOW (ENTERIC COATED) 81 MG PO (08:19)
[2023-06-24] MEDS: PROTONIX 40 MG PO (08:19)
[2023-06-24] MEDS: NORVASC 5 MG PO (08:19)
[2023-06-24] MEDS: MUCINEX 1200 MG PO ×2 (08:19→20:26)
[2023-06-24] MEDS: VITAMIN D3 (cholecalciferol) 25 MCG PO (08:19)
[2023-06-24] MEDS: FARXIGA 10 MG PO (08:20)
[2023-06-24] MEDS: NOVOLOG FLEXPEN-LOW RESISTANCE 2 UNITS SC ×3 (08:20→17:08)
--- NOTE | 2023-06-24 09:26 | W.PN.HOSP.TC ---
Today's Communication/Plan
-
medically stable for DC pending bed/auth. CM aware.
Assessment / Plan
Assessment / Plan
IMPRESSION:
78 female history of recent CABG peripheral arterial disease bilateral iliac stents iliofemoral endarterectomy hypertension diabetes CKD 3 GERD depression hyperlipidemia remote Hx Meningioma resection recent left hip fracture ORIF 05/28/23 [facility] confusion hallucinations for weeks. AOx3 but clearly confused exhibiting chorea makes motions like she is eating something with a fork unable to give meaningful history follows simple commands. All of
history taken from records, ED report, and family report at bedside. Family (daughter Yanna, [id number]-lle Madeleine, son JAYLEN) reports confusion started roughly around the same time patient was started on oxybutynin for urinary frequency. Patient
was evaluated at this facility earlier 06/12 for which she was diagnosed with UTI and discharged with oral abx Keflex. Urine Cx from 06/12 notably neg for infection. VSS on room air afebrile no leukocytosis progressive anemia hgb 7.4 down from 7.7
previous ED evaluation. Brown stools heme neg per ED report. No obvious signs of bleeding. Mild transaminitis persistently present since Jan 2023, CKD III Cr baseline 1.6 CT head notes no acute abn's.
Assessment:
Acute Delirium from TME from med induced
- stop Duloxetine/Melatonin/Oxybutynin
- resolving symptoms, more alert/awake
HX of depression
- psych evaluated
- above meds stopped
Acute urinary retention
- continue Triplett; patient had multiple SCs
- Oxybutynin stopped
Acute Hypoxic Insufficiency on 3L NC
- wean O2 as able, down to RA
- dry cough, leukocytosis, + procal
- continue Rocephin/Flagyl, day 4/
- speech evaluation; reg diet/thins
possible mild CHF on CXR, likely worsened by IVF
- IV Lasix x 2 doses
- Normal biventricular size and systolic function without regional wall motion abnormality. Estimated LVEF 60-65%. Aortic sclerosis without stenosis.
Progressive Anemia
Anemia of Chronic disease
- heme negative
- monitor Hb
- Heme following
- s/p 1 unit PRBC; 9.6 and stable today
Persistent Transaminitis unclear etiology
- trend LFTs; they seem chronically elevated
- OP GI f/u
CABG
PAD hx bilateral iliac stents iliofemoral endarterectomy
- cont home ASA/Plavix
HLD
- cont statin
Essential HTN
- continue Amlodipine/Metoprolol
Type 2 DM
- continue basal/bolus
- A1c: 10.6% last month
CKD3
Hypokalemia
- Cr 1.6 baseline
- monitor
- avoid nephrotoxic agents as possible
- replete K prn
GERD
- cont Protonix
Hx of C. Diff
- continue empiric Vanco, day 06/19 while on IV abx
Sacrum Stage 2 pressure injury, POA
DVT ppx: SCDs
Code: Full
Anticipated Discharge: Within 24 hours
Subjective/Interval History
-
Date of Service: June 24, 2023
feels much improved
no new complaints
Objective Data
-
Labs:
Laboratory Results
06/24/23
06:44
WBC 8.3
Hgb 9.6 L
Hct 28.7 L
Plt Count 417 H
Sodium 134 L
Potassium 3.6
Chloride 104
Carbon Dioxide 20 L
BUN 40 H
Creatinine 1.6 H
Glucose 176 H
Calcium 8.2 L
Total Bilirubin 0.4
AST 87 H
ALT 67 H
Alkaline Phosphatase 206 H
Vital Signs:
Vital Signs
Temp Pulse Resp BP Pulse Ox
97.4 F 82 16 136/70 92
06/24/23 07:05 06/24/23 08:19 06/24/23 07:05 06/24/23 08:19 06/24/23 07:05
I&O
06/23/23 06/24/23 06/25/23
06:59 06:59 06:59
Intake Total 600 / 600 1420 / 1420
Output Total 1900 / 1900 850 / 850
Balance -1300 / -1300 570 / 570
Physical Exam
-
General: No Apparent Distress
HEENT: Normocephalic and Atraumatic
Respiratory: Negative Wheezes or Rales
Cardiac: Regular Rhythm and S1/S2
GI: Soft and Nontender
Neuro: AO x 3
Hematologic / Lymphatic: No Lymphadenopathy
Psych: Calm
Data Reviewed
-
Total Time Spent with Patient (in minutes): 42
Labs: Labs Reviewed by me
[2023-06-24 11:28] VITALS: BP 150/70; PULSE 78; O2SAT 100
[2023-06-24 11:57] LABS: Glucose - Point of Care 237 mg/dl (70-99)
[2023-06-24 15:05] VITALS: BP 144/61
--- NOTE | 2023-06-24 15:55 | CM ---
CM reviewed pt with Dr Epps- anticipate dc tomorrow
Update to admissions/[facility] ([phone])
Pt accepted back for readmission pending [employer] auth
[place] to therapy requesting updated clinicals for auth
[facility]- [id number]
[facility]- [phone]
Discharge Disposition- return [facility] tomorrow pending [employer] auth
[2023-06-24] MEDS: LIPITOR 40 MG PO (17:02)
[2023-06-24] MEDS: ROCEPHIN 1000 MG IV (17:02)
[2023-06-24] MEDS: STERILE WATER FOR INJECTION 10 ML IV (17:02)
[2023-06-24 17:04] LABS: Glucose - Point of Care 229 mg/dl (70-99)
[2023-06-24 21:40] LABS: Glucose - Point of Care 273 mg/dl (70-99)
[2023-06-24] MEDS: LANTUS 0.0500000000000000028 UNITS SC (21:47)
[2023-06-24 23:24] VITALS: BP 144/66
[2023-06-25] MEDS: FLAGYL 500 MG PO ×3 (00:15→15:58)
[2023-06-25] MEDS: FIRVANQ 125 MG PO ×4 (00:15→17:16)
[2023-06-25 04:58] LABS: % Basophils 0.5 % (0-2); % Eosinophils 9.7 % (0-6); % Immature Granulocytes 0.3 % (0-0.5); % Lymphocytes 24.2 % (20.5-51.1); % Monocytes 8.7 % (1.7-9.3); % Neutrophils 56.6 % (42.2-75.2); Absolute Eosinophils 0.8 10^3/uL (0-0.7); Absolute Lymphocytes 1.9 10^3/uL (1.2-3.4); Absolute Monocytes 0.7 10^3/uL (0.1-0.6); Absolute Neutrophils 4.4 10^3/uL (1.4-6.5); Hematocrit 29.9 % (37.0-47.0); Hemoglobin 9.7 g/dL (12.0-16.0); Mean Corp Hgb Conc. 32.4 g/dL (33.0-37.0); Mean Corpuscular Hgb 29.8 pg (27.0-31.0); Mean Corpuscular Volume 91.7 fL (81.0-99.0); Mean Platelet Volume 10.4 fL (7.4-10.4); Nucleated Red Blood Cells % 0 %; Platelet Count 383 10^3/uL (130-400); Red Blood Cell Count 3.26 10^6/uL (4.20-5.40); Red Cell Dist. Width 15.2 % (11.5-14.5); White Blood Cell Count 7.8 10^3/uL (4.8-10.8)
[2023-06-25 05:29] LABS: ALT (SGPT) 61 U/L (0-35); AST (SGOT) 68 U/L (14-36); Albumin 2.1 g/dl (3.5-5.0); Alkaline Phosphatase 218 U/L (38-126); Blood Urea Nitrogen 40 mg/dl (7-17); Calcium 8.1 mg/dl (8.4-10.2); Carbon Dioxide 19 mmol/L (22-30); Chloride 109 mmol/L (98-107); Estimated Creatinine Clearance 31 ml/min; Glucose 218 mg/dl (70-99); Potassium 3.5 mmol/L (3.5-5.1); Sodium 133 mmol/L (135-145); Total Bilirubin 0.3 mg/dl (0.2-1.3); Total Protein 4.7 g/dl (6.3-8.2); eGFR 35.67
[2023-06-25 06:00] VITALS: BMI 21.2
--- NOTE | 2023-06-25 06:09 | PTCARENOTE ---
Removed Triplett catheter at 0600 per order. Patient resting comfortably and has no complaints at this time.
[2023-06-25 07:13] LABS: Glucose - Point of Care 207 mg/dl (70-99)
[2023-06-25 08:04] VITALS: BP 141/70
[2023-06-25] MEDS: VITAMIN D3 (cholecalciferol) 25 MCG PO (08:14)
[2023-06-25] MEDS: PLAVIX 75 MG PO (08:14)
[2023-06-25] MEDS: NOVOLOG FLEXPEN-LOW RESISTANCE 2 UNITS SC ×2 (08:14→17:15)
[2023-06-25] MEDS: PROTONIX 40 MG PO (08:15)
[2023-06-25] MEDS: SODIUM BICARBONATE 1300 MG PO (08:15)
[2023-06-25] MEDS: MUCINEX 1200 MG PO ×2 (08:15→20:07)
[2023-06-25] MEDS: TOPROL XL 12.5 MG PO (08:16)
[2023-06-25] MEDS: FARXIGA 10 MG PO (08:16)
[2023-06-25] MEDS: NORVASC 5 MG PO (08:16)
[2023-06-25] MEDS: ASPIR LOW (ENTERIC COATED) 81 MG PO (08:16)
--- NOTE | 2023-06-25 08:23 | PN.CDI ---
CDI
- -
CDI:
Physician Documentation Request
Admit Date: 06/19/23 13:09
Dear Doctor Mich,
Clinical Indicators:
Patient admitted with acute delirium, med induced.
06/19 CXR report, 'There is interstitial airspace disease at the right infrahilar region which may be pneumonia or atelectasis.'
06/19 PN, 'possible Heart Failure Atelectasis PNA (less likely PNA given afebrile no leukocytosis)
06/20 PN, 'Acute Hypoxic Insufficiency on 3L NC - dry cough, leukocytosis, + procal- continue Rocephin/Flagyl, day 3/7...'
Procalcitonin:
06/21/23
08:47
Procalcitonin 0.88 H
Based on the above, could you clarify in the progress notes, the appropriate diagnosis, if significant, that supports the above abnormalities and additional evaluation, monitoring and/or treatment rendered:
Pneumonia, please indicate POA status
Atelectasis only
Other, please specify
Use of terms such as suspected, likely, concern for, or probable (associated with a specific diagnosis that is being evaluated, monitored, or treated as if it exists) are acceptable and can be coded in the inpatient setting, when documented at the
time of discharge.
Thank you,
NYDIA Alejandra RN
CDI Specialist
available via tiger text
Please use your independent medical judgment in providing your response.
--- NOTE | 2023-06-25 08:34 | PTCARENOTE ---
pt ramos removed at 0600 this morning. pt states not having to go at this time. pt due to void by 12pm. pt received 2 units of insulin with breakfast per sliding scale protocol. see MAR for proper documentation. pt is aaox3 and plan is to [facility]. pt states she has been having loose stool incontinence starting yesterday and states this is what happened in may when she had her hip surgery. made aware.
--- NOTE | 2023-06-25 08:40 | PN.CDI ---
CDI
- -
CDI:
Physician Documentation Request
Admit Date: 06/19/23 13:09
Dear Doctor Mich,
Clinical Indicators:
Patient admitted with acute delirium, med induced.
06/19 Echo report, 'Normal biventricular size and systolic function without regional wall motion abnormality. Estimated LVEF 60-65%'
06/20 PN, 'possible mild CHF on CXR, likely worsened by IVF'
Lasix 20 mg IV x 2 doses.
BNP:
06/20/23
05:08
Fle-H-[id number] Pept [id number]
Based on the above, could you clarify in the progress notes, the appropriate diagnosis, if significant, that supports the above abnormalities and additional evaluation, monitoring and/or treatment rendered:.
Acute HFpEF
Iatrogenic fluid overload only
Other, please specify
Use of terms such as suspected, likely, concern for, or probable (associated with a specific diagnosis that is being evaluated, monitored, or treated as if it exists) are acceptable and can be coded in the inpatient setting, when documented at the
time of discharge.
Thank you,
NYDIA Alejandra RN
CDI Specialist
available via tiger text
Please use your independent medical judgment in providing your response.
--- NOTE | 2023-06-25 08:51 | PN.CDI ---
CDI
- -
CDI:
Physician Documentation Request
Admit Date: 06/19/23 13:09
Dear Doctor Mich,
Clinical Indicators:
Patient admitted with acute delirium, med induced.
Lasix 20 mg IV given x 2 doses.
Sodium levels:
06/21/23 06/22/23 06/23/23
04:33 05:09 07:20
Sodium 133 L 132 L 133 L
06/24/23
06:44
Sodium 134 L
Based on the above, could you clarify in the progress notes, the appropriate diagnosis, if significant, that supports the above abnormalities and additional evaluation, monitoring and/or treatment rendered:
Hyponatremia
Abnormal lab values, clinically insignificant
Other, please specify
Use of terms such as suspected, likely, concern for, or probable (associated with a specific diagnosis that is being evaluated, monitored, or treated as if it exists) are acceptable and can be coded in the inpatient setting, when documented at the
time of discharge.
Thank you,
NYDIA Alejandra RN
CDI Specialist
available via tiger text
Please use your independent medical judgment in providing your response.
[2023-06-25 11:09] LABS: Glucose - Point of Care 335 mg/dl (70-99)
[2023-06-25] MEDS: NOVOLOG FLEXPEN-LOW RESISTANCE 4 UNITS SC (11:39)
[2023-06-25 12:09] LABS: Albumin 2.46 g/dL (3.75-5.01); Alpha 2 Globulin 0.62 g/dL (0.48-1.05); Total Protein-Electrophoresis 5.1 g/dL (6.3-8.2)
--- NOTE | 2023-06-25 13:04 | W.PN.HOSP.TC ---
Today's Communication/Plan
-
test for C. Diff
continue oral Vanco
continue pneumonia tx
Assessment / Plan
Assessment / Plan
IMPRESSION:
78 female history of recent CABG peripheral arterial disease bilateral iliac stents iliofemoral endarterectomy hypertension diabetes CKD 3 GERD depression hyperlipidemia remote Hx Meningioma resection recent left hip fracture ORIF 05/28/23 presents
from [facility] due to progressive confusion hallucinations for weeks. AOx3 but clearly confused exhibiting chorea makes motions like she is eating something with a fork unable to give meaningful history follows simple commands. All of
history taken from records, ED report, and family report at bedside. Family (daughter Yanna, [id number] Madeleine, son JAYLEN) reports confusion started roughly around the same time patient was started on oxybutynin for urinary frequency. Patient
was evaluated at this facility earlier 06/12 for which she was diagnosed with UTI and discharged with oral abx Keflex. Urine Cx from 06/12 notably neg for infection. VSS on room air afebrile no leukocytosis progressive anemia hgb 7.4 down from 7.7
previous ED evaluation. Brown stools heme neg per ED report. No obvious signs of bleeding. Mild transaminitis persistently present since Jan 2023, CKD III Cr baseline 1.6 CT head notes no acute abn's.
Assessment:
Acute Delirium from TME from med induced
- stop Duloxetine/Melatonin/Oxybutynin
- resolving symptoms, more alert/awake
HX of depression
- psych evaluated
- above meds stopped
Acute urinary retention
- Oxybutynin stopped
- s/p Triplett, follow void trial
Acute Hypoxic Insufficiency on 3L NC
- wean O2 as able, down to RA
- dry cough, leukocytosis, + procal consistent with pneumonia, likely aspiration
- continue Rocephin/Flagyl, day 5/7
- speech evaluation; reg diet/thins
possible mild HFpEF on CXR, likely worsened by IVF (iatrogenic overload)
- IV Lasix x 2 doses
- Normal biventricular size and systolic function without regional wall motion abnormality. Estimated LVEF 60-65%. Aortic sclerosis without stenosis.
Progressive Anemia
Anemia of Chronic disease
- heme negative
- monitor Hb
- Heme following
- s/p 1 unit PRBC; 9.7 and stable today
Persistent Transaminitis unclear etiology
- trend LFTs; they seem chronically elevated
- OP GI f/u
CABG
PAD hx bilateral iliac stents iliofemoral endarterectomy
- cont home ASA/Plavix
HLD
- cont statin
Essential HTN
- continue Amlodipine/Metoprolol
Type 2 DM
- continue basal/bolus
- A1c: 10.6% last month
CKD3b
Hypokalemia
- Cr 1.6 baseline
- monitor
- avoid nephrotoxic agents as possible
- replete K prn
GERD
- cont Protonix
Hx of C. Diff
- continue empiric Vanco, day 07/19 while on IV abx
- with diarrhea last night, will request C. Diff sample
Sacrum Stage 2 pressure injury, POA
Hyponatremia
DVT ppx: SCDs
Code: Full
Anticipated Discharge: Within 24 hours
Subjective/Interval History
-
Date of Service: June 25, 2023
Objective Data
-
Labs:
Laboratory Results
06/25/23
04:40
WBC 7.8
Hgb 9.7 L
Hct 29.9 L
Plt Count 383
Sodium 133 L
Potassium 3.5
Chloride 109 H
Carbon Dioxide 19 L
BUN 40 H
Creatinine 1.5 H
Glucose 218 H
Calcium 8.1 L
Total Bilirubin 0.3
AST 68 H
ALT 61 H
Alkaline Phosphatase 218 H
Vital Signs:
Vital Signs
Temp Pulse Resp BP Pulse Ox
97.5 F 76 18 141/70 98
06/25/23 08:04 06/25/23 08:04 06/25/23 08:04 06/25/23 08:16 06/25/23 09:32
I&O
06/24/23 06/25/23 06/26/23
06:59 06:59 06:59
Intake Total 1420 / 1420 1680 / 1680
Output Total 850 / 850 1500 / 1500
Balance 570 / 570 180 / 180
Data Reviewed
-
Total Time Spent with Patient (in minutes): 41
Labs: Labs Reviewed by me
[2023-06-25 15:09] VITALS: BP 158/73
[2023-06-25] MEDS: ROCEPHIN 1000 MG IV (15:58)
[2023-06-25] MEDS: STERILE WATER FOR INJECTION 10 ML IV (15:59)
[2023-06-25 16:27] LABS: Glucose - Point of Care 243 mg/dl (70-99)
[2023-06-25] MEDS: LIPITOR 40 MG PO (17:16)
--- NOTE | 2023-06-25 17:28 | CM ---
Addendum entered by Lynn Ca 06/25/23 17:29:
NEEDS AUTH FOR [facility].
Original Note:
Discharge Plan of Care: Return to [facility] when medically cleared.
[2023-06-25 21:28] LABS: Glucose - Point of Care 351 mg/dl (70-99)
[2023-06-25] MEDS: LANTUS 0.0500000000000000028 UNITS SC (21:29)
[2023-06-25 23:09] VITALS: BP 135/72
[2023-06-26] MEDS: FIRVANQ 125 MG PO ×3 (01:00→12:13)
[2023-06-26] MEDS: FLAGYL 500 MG PO ×2 (01:00→08:18)
[2023-06-26 05:55] VITALS: BMI 21.5
[2023-06-26 07:14] LABS: Glucose - Point of Care 279 mg/dl (70-99)
[2023-06-26 07:49] VITALS: BP 134/100
[2023-06-26] MEDS: TOPROL XL 12.5 MG PO (08:17)
[2023-06-26] MEDS: VITAMIN D3 (cholecalciferol) 25 MCG PO (08:18)
[2023-06-26] MEDS: ASPIR LOW (ENTERIC COATED) 81 MG PO (08:18)
[2023-06-26] MEDS: FARXIGA 10 MG PO (08:18)
[2023-06-26] MEDS: PLAVIX 75 MG PO (08:19)
[2023-06-26] MEDS: PROTONIX 40 MG PO (08:19)
[2023-06-26] MEDS: NORVASC 5 MG PO (08:19)
[2023-06-26] MEDS: MUCINEX 1200 MG PO (08:31)
[2023-06-26] MEDS: NOVOLOG FLEXPEN-LOW RESISTANCE 3 UNITS SC ×2 (08:32→12:09)
[2023-06-26 08:33] LABS: % Basophils 0.7 % (0-2); % Eosinophils 6.9 % (0-6); % Immature Granulocytes 0.3 % (0-0.5); % Lymphocytes 18.7 % (20.5-51.1); % Monocytes 6.3 % (1.7-9.3); % Neutrophils 67.1 % (42.2-75.2); Absolute Basophils 0.1 10^3/uL (0-0.2); Absolute Eosinophils 0.6 10^3/uL (0-0.7); Absolute Lymphocytes 1.7 10^3/uL (1.2-3.4); Absolute Monocytes 0.6 10^3/uL (0.1-0.6); Absolute Neutrophils 6.2 10^3/uL (1.4-6.5); Hematocrit 31.1 % (37.0-47.0); Hemoglobin 10.2 g/dL (12.0-16.0); Mean Corp Hgb Conc. 32.8 g/dL (33.0-37.0); Mean Corpuscular Hgb 29.9 pg (27.0-31.0); Mean Corpuscular Volume 91.2 fL (81.0-99.0); Mean Platelet Volume 10.5 fL (7.4-10.4); Nucleated Red Blood Cells % 0 %; Platelet Count 406 10^3/uL (130-400); Red Blood Cell Count 3.41 10^6/uL (4.20-5.40); Red Cell Dist. Width 15.2 % (11.5-14.5); White Blood Cell Count 9.2 10^3/uL (4.8-10.8)
[2023-06-26] MEDS: NOVOLOG FLEXPEN 6 UNITS SC ×2 (08:33→12:10)
[2023-06-26 09:03] LABS: ALT (SGPT) 57 U/L (0-35); AST (SGOT) 59 U/L (14-36); Albumin 2.4 g/dl (3.5-5.0); Alkaline Phosphatase 252 U/L (38-126); Blood Urea Nitrogen 39 mg/dl (7-17); Calcium 8.2 mg/dl (8.4-10.2); Carbon Dioxide 18 mmol/L (22-30); Chloride 107 mmol/L (98-107); Estimated Creatinine Clearance 31 ml/min; Glucose 261 mg/dl (70-99); Potassium 3.9 mmol/L (3.5-5.1); Sodium 132 mmol/L (135-145); Total Bilirubin 0.3 mg/dl (0.2-1.3); eGFR 35.67
[2023-06-26 11:30] LABS: Glucose - Point of Care 287 mg/dl (70-99)
[2023-06-26 12:28] VITALS: BP 149/63
--- NOTE | 2023-06-26 12:32 | CM ---
Patient has been medically cleared for discharge back to [facility] for resumption of care home and rehab services. Insurance authorization with [employer] ([employer] [place] [facility]) has been approved for 06/26/23 through to and including 07/03/23
with [employer] on 07/03/23. Concurrent reviews to be faxed to [phone]. Authorization reference # for facility is: [id number] and reference # for ambulance is: [id number].
Transport has been scheduled for 1:30PM. Patient, daughter, admissions and team notified.
NURSE TO NURSE # [phone]
FAX # [phone]
--- NOTE | 2023-06-26 12:40 | W.PN.HOSP.TC ---
Today's Communication/Plan
-
dc SNF
Assessment / Plan
Assessment / Plan
IMPRESSION:
78 female history of recent CABG peripheral arterial disease bilateral iliac stents iliofemoral endarterectomy hypertension diabetes CKD 3 GERD depression hyperlipidemia remote Hx Meningioma resection recent left hip fracture ORIF 05/28/23 [facility] confusion hallucinations for weeks. AOx3 but clearly confused exhibiting chorea makes motions like she is eating something with a fork unable to give meaningful history follows simple commands. All of
history taken from records, ED report, and family report at bedside. Family (daughter Yanna, [id number] Madeleine, son JAYLEN) reports confusion started roughly around the same time patient was started on oxybutynin for urinary frequency. Patient
was evaluated at this facility earlier 06/12 for which she was diagnosed with UTI and discharged with oral abx Keflex. Urine Cx from 06/12 notably neg for infection. VSS on room air afebrile no leukocytosis progressive anemia hgb 7.4 down from 7.7
previous ED evaluation. Brown stools heme neg per ED report. No obvious signs of bleeding. Mild transaminitis persistently present since Jan 2023, CKD III Cr baseline 1.6 CT head notes no acute abn's.
Assessment:
Acute Delirium from TME from med induced
- stop Duloxetine/Melatonin/Oxybutynin
- resolving symptoms, more alert/awake
HX of depression
- psych evaluated
- above meds stopped
Acute urinary retention
- Oxybutynin stopped
- s/p Triplett, voiding well
Acute Hypoxic Insufficiency on 3L NC
- wean O2 as able, down to RA
- dry cough, leukocytosis, + procal consistent with pneumonia, likely aspiration
- continue Rocephin/Flagyl, day 6/7
- speech evaluation; reg diet/thins
possible mild HFpEF on CXR, likely worsened by IVF (iatrogenic overload)
- IV Lasix x 2 doses
- Normal biventricular size and systolic function without regional wall motion abnormality. Estimated LVEF 60-65%. Aortic sclerosis without stenosis.
Progressive Anemia
Anemia of Chronic disease
- heme negative
- monitor Hb
- Heme following
- s/p 1 unit PRBC; 10.2 and stable today
Persistent Transaminitis unclear etiology
- trend LFTs; they seem chronically elevated
- OP GI f/u
CABG
PAD hx bilateral iliac stents iliofemoral endarterectomy
- cont home ASA/Plavix
HLD
- cont statin
Essential HTN
- continue Amlodipine/Metoprolol
Type 2 DM
- continue basal/bolus
- A1c: 10.6% last month
CKD3b
Hypokalemia
- Cr 1.6 baseline
- monitor
- avoid nephrotoxic agents as possible
- replete K prn
GERD
- cont Protonix
Hx of C. Diff
- continue empiric Vanco, day 08/23
- C. Diff sample ag+, toxin -
Sacrum Stage 2 pressure injury, POA
Hyponatremia
DVT ppx: SCDs
Code: Full
More than 30 minutes spent in discharge including
Final examination of the patient
Summarizing hospital stay
Instructions for continuing care to all relevant caregivers
Preparation of discharge records, prescriptions, and referral forms
Total time spent (in minutes): 41
Anticipated Discharge: Today
Subjective/Interval History
-
Date of Service: June 26, 2023
stools documented as forming
denies any new complaints
for SNF dc today
Objective Data
-
Labs:
Laboratory Results
06/26/23
07:47
WBC 9.2
Hgb 10.2 L
Hct 31.1 L
Plt Count 406 H
Sodium 132 L
Potassium 3.9
Chloride 107
Carbon Dioxide 18 L
BUN 39 H
Creatinine 1.5 H
Glucose 261 H
Calcium 8.2 L
Total Bilirubin 0.3
AST 59 H
ALT 57 H
Alkaline Phosphatase 252 H
Vital Signs:
Vital Signs
Temp Pulse Resp BP Pulse Ox
97.9 F 77 18 149/63 98
06/26/23 12:28 06/26/23 12:28 06/26/23 12:28 06/26/23 12:28 06/26/23 12:28
I&O
06/25/23 06/26/23 06/27/23
06:59 06:59 06:59
Intake Total 1680 / 1680 1560 / 1560
Output Total 1500 / 1500 400 / 400
Balance 180 / 180 1160 / 1160
Physical Exam
-
General: No Apparent Distress
HEENT: Normocephalic and Atraumatic
Respiratory: Negative Wheezes
Cardiac: Regular Rhythm and S1/S2
GI: Soft and Nontender
Musculoskeletal: No Edema
Neuro: AO x 3
Hematologic / Lymphatic: No Lymphadenopathy
Psych: Calm
Data Reviewed
-
Total Time Spent with Patient (in minutes): 41
Labs: Labs Reviewed by me
--- NOTE | 2023-06-26 12:49 | W.DS.TRANS ---
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
-
Discharge Instructions:
Discharge Diagnosis/Procedures change in mental status from medications,
aspiration pneumonia, diarrhea
Diet Low Cholesterol
Activity As tolerated
Other Services OT,PT
Instructions:
Stand-Alone Forms:
Changes to Home Medications: No
Discharge Medications:
DC Medications w/original date entered in [employer]
aspirin 81 mg tablet,delayed release 81 mg PO DAILY Blood Clot Prevention/Tx 01/18/23
cholecalciferol (vitamin D3) 25 mcg (1,000 unit) tablet (Vitamin D3) 25 mcg PO DAILY Supplement 01/18/23
insulin detemir U-100 100 unit/mL (3 mL) subcutaneous pen (Levemir FlexPen) 24 unit SC HS Diabetes 01/18/23
amlodipine 5 mg tablet 5 mg PO DAILY Blood Pressure #0 tabs 01/29/23
pantoprazole 40 mg tablet,delayed release (Protonix) 40 mg PO DAILY GI prophylaxis #30 tabs 01/29/23
acetaminophen 325 mg tablet 650 mg PO Q4HPRN PRN mild pain/fever>100.4 02/17/23
guaifenesin 600 mg tablet, extended release 12 hr 600 mg PO [id number] PRN Congestion 02/17/23
metoprolol succinate 25 mg tablet,extended release 24 hr 12.5 mg PO DAILY Blood Pressure 02/17/23
nitroglycerin 0.4 mg sublingual tablet 0.4 mg sublingual [id number] PRN chest pain #0 tabs 02/21/23
insulin aspart U-100 100 unit/mL (3 mL) subcutaneous pen (Novolog FlexPen U-100 Insulin aspart) 4 unit SC TID@0800,1200,1700 Diabetes 05/22/23
bisacodyl 10 mg rectal suppository (Dulcolax (bisacodyl)) 10 mg NV [id number] PRN if lactulose is ineffective 06/13/23
lactulose 10 gram/15 mL oral solution 20 g PO HSPRN PRN constipation 06/13/23
atorvastatin 40 mg tablet 40 mg PO QPM High Cholesterol 06/19/23
clopidogrel 75 mg tablet 75 mg PO DAILY Blood Clot Prevention/Tx 06/19/23
dapagliflozin propanediol 10 mg tablet (Farxiga) 10 mg PO DAILY Diabetes 06/19/23
cefdinir 300 mg capsule 300 mg PO BID #2 caps 06/26/23
metronidazole 500 mg tablet 500 mg PO Q8 #6 tabs 06/26/23
vancomycin 125 mg capsule (Vancocin) 125 mg PO QID #32 caps 06/26/23
Home Medication Changes
Pending Results: No
Total time spent discharging patient (in min): 42
== END 2023-06-26 14:04 | DRG 91 ==
LOC: 2 NORTH 13:09
PROVIDERS: Nurse Practitioner Adult Health; Physician Assistant Medical; Psychiatry & Neurology Psychiatry; ADMITTING PHYSICIAN Internal Medicine; ATTENDING PHYSICIAN Internal Medicine; CONSULT PHYSICIAN Internal Medicine; CONSULT PHYSICIAN Internal Medicine Hematology & Oncology; EMERGENCY PHYSICIAN Emergency Medicine; FAMILY PHYSICIAN Student in an Organized Health Care Education/Training Program; OTHER PHYSICIAN Psychiatry & Neurology Psychiatry
PROC: 30233N1 Transfusion of Nonautologous Red Blood Cells into Peripheral Vein, Percutaneous Approach (ICD-10-PCS; 2023-06-20)
DX: G92.8 Other toxic encephalopathy (principal); J69.0 Pneumonitis due to inhalation of food and vomit; I50.30 Unspecified diastolic (congestive) heart failure; I13.0 Hypertensive heart and chronic kidney disease with heart failure and stage 1 through stage 4 chronic kidney disease, or unspecified chronic kidney disease; E87.1 Hypo-osmolality and hyponatremia; J98.11 Atelectasis; R79.89 Other specified abnormal findings of blood chemistry; I25.10 Atherosclerotic heart disease of native coronary artery without angina pectoris; N18.32 Chronic kidney disease, stage 3b; E11.22 Type 2 diabetes mellitus with diabetic chronic kidney disease; E78.00 Pure hypercholesterolemia, unspecified; F17.200 Nicotine dependence, unspecified, uncomplicated; D63.8 Anemia in other chronic diseases classified elsewhere; R74.01 Elevation of levels of liver transaminase levels; D75.839 Thrombocytosis, unspecified; E11.649 Type 2 diabetes mellitus with hypoglycemia without coma; K21.9 Gastro-esophageal reflux disease without esophagitis; K80.20 Calculus of gallbladder without cholecystitis without obstruction; R09.02 Hypoxemia; R33.9 Retention of urine, unspecified; T43.295A Adverse effect of other antidepressants, initial encounter; Y92.129 Unspecified place in nursing home as the place of occurrence of the external cause; I70.0 Atherosclerosis of aorta; T44.3X5A Adverse effect of other parasympatholytics [anticholinergics and antimuscarinics] and spasmolytics, initial encounter; E87.6 Hypokalemia; L89.152 Pressure ulcer of sacral region, stage 2; R06.89 Other abnormalities of breathing; F32.A Depression, unspecified; E11.51 Type 2 diabetes mellitus with diabetic peripheral angiopathy without gangrene; Z79.4 Long term (current) use of insulin; Z79.82 Long term (current) use of aspirin; Z79.02 Long term (current) use of antithrombotics/antiplatelets; Z79.2 Long term (current) use of antibiotics; Z95.1 Presence of aortocoronary bypass graft; Z86.011 Personal history of benign neoplasm of the brain; Z88.0 Allergy status to penicillin; Z88.2 Allergy status to sulfonamides; Z88.8 Allergy status to other drugs, medicaments and biological substances
CPT/HCPCS: 70450; 71045; 80053; 81003; 81015; 82140; 82248; 82550; 82607; 82746; 82784; 82805; 82962; 82977; 83010; 83521; 83540; 83550; 83615; 83735; 83880; 84100; 84145; 84155; 84165; 84443; 84550; 85025; 85027; 85045; 85610; 85730; 86334; 86704; 86705; 86706; 86708; 86709; 86803; 86850; 86900; 86901; 86920; 87040; 87070; 87086; 87324; 87340; 87449; 92610; 93005; 93306; 97110; 97116; 97163; 97167; 97535; 99285; P9016

== ENCOUNTER → 2023-11-23 09:02 | Outpatient (REF) | payer OTHER, SELFPAY | LOC: RAD 09:02 | PROVIDERS: ATTENDING PHYSICIAN Surgery Vascular Surgery; FAMILY PHYSICIAN Family Medicine | DX: I77.9 Disorder of arteries and arterioles, unspecified (principal) | CPT/HCPCS: 93922; 93925; 93978 ==

== ENCOUNTER → 2024-02-28 07:46 | Outpatient (REF) | payer OTHER, SELFPAY | LOC: RSP 07:46 | PROVIDERS: ATTENDING PHYSICIAN Internal Medicine; FAMILY PHYSICIAN Family Medicine | DX: I25.10 Atherosclerotic heart disease of native coronary artery without angina pectoris (principal); R06.09 Other forms of dyspnea | CPT/HCPCS: 94727; 94729; 88738; 94060 ==

== ENCOUNTER 2024-03-06 14:01 | Inpatient (IN) | payer OTHER, SELFPAY ==
[2024-03-06] VITALS (19 sets, daily range): BP systolic 79–155; BP diastolic 29–107; BMI 23.5
[2024-03-06 11:32] LABS: % Basophils 0.5 % (0-2); % Eosinophils 1.4 % (0-6); % Immature Granulocytes 0.3 % (0-0.5); % Lymphocytes 12.4 % (20.5-51.1); % Neutrophils 79.4 % (42.2-75.2); Absolute Basophils 0.1 10^3/uL (0-0.2); Absolute Eosinophils 0.2 10^3/uL (0-0.7); Absolute Immature Granulocytes 0.1 10^3/uL (0-0.05); Absolute Lymphocytes 1.8 10^3/uL (1.2-3.4); Absolute Monocytes 0.9 10^3/uL (0.1-0.6); Absolute Neutrophils 11.6 10^3/uL (1.4-6.5); Hematocrit 33.6 % (37.0-47.0); Hemoglobin 11.4 g/dL (12.0-16.0); Mean Corp Hgb Conc. 33.9 g/dL (33.0-37.0); Mean Corpuscular Hgb 30.2 pg (27.0-31.0); Mean Corpuscular Volume 88.9 fL (81.0-99.0); Mean Platelet Volume 10.3 fL (7.4-10.4); Nucleated Red Blood Cells % 0 %; Platelet Count 295 10^3/uL (130-400); Red Blood Cell Count 3.78 10^6/uL (4.20-5.40); Red Cell Dist. Width 11.9 % (11.5-14.5); White Blood Cell Count 14.6 10^3/uL (4.8-10.8)
[2024-03-06 11:41] LABS: ALT (SGPT) 21 U/L (0-35); AST (SGOT) 18 U/L (14-36); Albumin 3.5 g/dl (3.5-5.0); Alkaline Phosphatase 130 U/L (38-126); Blood Urea Nitrogen 35 mg/dl (7-17); Calcium 8.9 mg/dl (8.4-10.2); Carbon Dioxide 18 mmol/L (22-30); Chloride 107 mmol/L (98-107); Glucose 191 mg/dl (70-99); Potassium 3.9 mmol/L (3.5-5.1); Sodium 136 mmol/L (135-145); Total Bilirubin 0.3 mg/dl (0.2-1.3); Total Protein 6.2 g/dl (6.3-8.2); eGFR 33.01
--- NOTE | 2024-03-06 12:04 | EDRN ---
Hannah Draper WEIGHT COUNT OPERATOR (vascular surgery) and Dr. Yee in room w/ pt.
[2024-03-06] MEDS: NSS 1000 IV (12:18)
[2024-03-06] MEDS: MORPHINE SULFATE 4 MG IV (12:18)
--- NOTE | 2024-03-06 12:22 | W.PN.UPDATE ---
Update Note
Progress Note Update
Patient seen today in our outpatient vascular surgical office, please see visit note below for full vascular surgical consultation, reporting fall roughly a week ago where she cannot discern exactly where in her body she hit but does note since fall
experiencing right groin 'lump 'that has worsened over the past several days as far as pain and redness. On physical exam patient appears that she is resting comfortably on stretcher, does note severe tenderness to over right groin mass with even
light palpation, erythema noted at right groin, no increased warmth to touch, nonpulsatile mass, bilateral feet warm, right DP pulse +1 palpable. Bilateral lower extremity motor and sensation intact. Plan is to obtain stat CT abdomen pelvis for
evaluation of mass to rule out possible pseudoaneurysm or involvement of right common femoral endarterectomy patch. Relayed message to ED attending Dr. Mane Yee.
--- NOTE | 2024-03-06 12:33 | EDRN ---
Bilateral dorsalis pedis and posterior tibialis pulses very weak on palpation (? if feeling a pulse) but all present w/ doppler.
--- NOTE | 2024-03-06 12:35 | ED.GENMED ---
History of Present Illness
General
Chief Complaint: Skin Problem
Source: patient
Exam Limitations: none
Time Seen by Provider: 03/06/24 12:04
History of Present Illness
History of Present Illness:
See MDM
Past History
Past History
ED Past Medical History: HTN, Hypercholesterolemia, IDDM and Renal failure
ED Past Surgical History: Cardiac (BADG x 5 01/2023. ), Gynecological, Orthopedic and Other
Social History
Tobacco: Smoker
Alcohol: Occasional
Drug: None
Personal:
Living: with family
Phy Exam
Physical Exam
Physical Exam:
See MDM
Course
Orders/Labs/Results
Orders:
Orders
03/06/24 11:18
CMP [Comprehensive Metabolic Panel] Urgent
Complete Blood Count/With Diff Urgent
03/06/24 12:08
0.9% Sodium Chloride 1000 ml [Nss] 1,000 ml IV BOLUS
Morphine Sulfate 4 mg IV NOW STA
03/06/24 12:27
CT Angio Abd/Pelvis w/wo IV [CT Abd/pelvis Angio W/wo Iv] Stat
Comment: Recent endartectomy
Reason For Exam: R groin pain and swelling
03/06/24 13:18
Aztreonam [Azactam] 1,000 mg IV NOW STA
Vancomycin [Vancocin] 1,500 mg 0.9% Sodium Chloride 500 ml [Nss] 500 ml IV NOW
Abnormal Lab Results
03/06/24
11:18
WBC 14.6 H 10^3/uL
(4.8-10.8)
RBC 3.78 L 10^6/uL
(4.20-5.40)
Hgb 11.4 L g/dL
(12.0-16.0)
Hct 33.6 L %
(37.0-47.0)
Abs Immat Gran (auto) 0.1 H 10^3/uL
(0-0.05)
Absolute Neuts (auto) 11.6 H 10^3/uL
(1.4-6.5)
Absolute Monos (auto) 0.9 H 10^3/uL
(0.1-0.6)
Neutrophils % 79.4 H %
(42.2-75.2)
Lymphocytes % 12.4 L %
(20.5-51.1)
Carbon Dioxide 18 L mmol/L
(22-30)
BUN 35 H mg/dl
(7-17)
Creatinine 1.6 H mg/dL
(0.6-1.0)
Glucose 191 H mg/dl
(70-99)
Alkaline Phosphatase 130 H U/L
(38-126)
Total Protein 6.2 L g/dl
(6.3-8.2)
03/06/24 11:18
03/06/24 11:18
Vital Signs
Initial and Last Documented VS:
Initial Vital Signs
Temp Pulse Resp BP Pulse Ox
98.7 F 77 16 118/70 99
03/06/24 11:10 03/06/24 11:10 03/06/24 11:10 03/06/24 11:10 03/06/24 11:10
Last Documented Vital Signs
Temp Pulse Resp BP Pulse Ox
98.7 F 73 15 142/107 99
03/06/24 11:10 03/06/24 13:19 03/06/24 13:19 03/06/24 13:18 03/06/24 13:19
MDM/Problems Addressed
Differential Diagnosis Includes:
HPI and MDM Narrative:
78-year-old female presenting with swelling and tenderness to her right groin. Patient had recent right endarterectomy
On arrival to the emergency department, patient met by myself and the vascular staff. Patient does have swelling and erythema to her right groin but it is not pulsatile. Distal pulses are intact. I had a discussion with. Although patient does
have any disease, she will require a CT angiogram
Physical exam
General: Well appearing and non-toxic
HEENT: protecting airway
Neck: appears supple
CV: No evidence of cyanosis
Resp: No accessory muscle use
Abd: Non-distended. Erythema and tenderness to right groin without pulsatile mass
Extremities: No deformities
Neuro: alert
Psych: Normal affect
Skin: Intact
Problems Addressed including Acute and Chronic Conditions affecting care:
1. Right groin pain
Acuity: acute
Prognosis: stable
Details: Given recent endarterectomy, will obtain CT angiogram per vascular request
Updates
Vascular evaluated the CT and it appears to be an infected seroma. Will start antibiotics and vascular planning to bring to the OR for washout
Differential Diagnosis (but not limited to): Pseudoaneurysm, postsurgical infection
Testing considered: Ultrasound but vascular requesting CT angiogram
Drug therapy (if applicable): OTC meds, please see d/c instruction regarding Rx drugs
Amount and/or Complexity of Data Reviewed
Clinical info obtained from: Patient
External data reviewed: N/A
Labs I independently reviewed (but not limited to): Chronic kidney disease
Radiology: The CT scan was personally and independently reviewed. In addition, official CT report reviewed.
Pulse Ox: not hypoxic
EKG independently reviewed: N/A
Robotics Mechanic: N/A
Critical Care: N/A
Risk of Complication:
Social Determinants of health: Good social support
Discussed with other providers: Vascular surgeon, Hospitalist
Escalation of Care includes Admit/Obs: Given concern for infected seroma, will start antibiotics and admit
Occasional wrong word or 'sound a like' substitutions may have occurred due to the inherent limitations of voice recognition software. Read the chart carefully and recognize, using context, where substitutions have occurred.
*Critical Care Note
Total Time (30-74mins, 75-104mins- exclusive of procedures): Not Applicable
ED Attending Note
-
Portions of this chart may have been created with voice recognition software.� Occasional wrong word or��sound alike� substitutions may have occurred due to the inherent limitations of voice recognition software.
Discharge Plan
Departure
Patient Disposition: Admit
Date of Disposition: 03/06/24
Time of Disposition: 13:
Admit to: Med/Surg
Presentation/result/management discussed w/ accepting MD/DO: Hospitalist
Discharge Problem:
Infected seroma, postoperative
Prescriptions:
No Action
aspirin 81 mg Tablet,Delayed Release (Dr/Ec)
81 mg PO DAILY
Levemir FlexPen 100 unit/mL (3 mL) Insulin Pen
24 unit SC HS
cholecalciferol (vitamin D3) [Vitamin D3] 25 mcg (1,000 unit) Tablet
25 mcg PO DAILY
amlodipine 5 mg Tablet
5 mg PO DAILY Qty: 0 0RF
pantoprazole [Protonix] 40 mg tablet,delayed release (DR/EC)
40 mg PO DAILY Qty: 30 1RF
acetaminophen 325 mg tablet
650 mg PO Q4HPRN PRN (Reason: mild pain/fever>100.4)
metoprolol succinate 25 mg tablet extended release 24 hr
12.5 mg PO DAILY
guaifenesin 600 mg tablet extended release 12hr
600 mg PO [id number] PRN (Reason: Congestion)
nitroglycerin 0.4 mg Tablet, Sublingual
0.4 mg sublingual [id number] PRN (Reason: chest pain) Qty: 0 0RF
insulin aspart U-100 [Novolog FlexPen U-100 Insulin] 100 unit/mL (3 mL) insulin pen
4 unit SC TID@0800,1200,1700
bisacodyl [Dulcolax (bisacodyl)] 10 mg Suppository
10 mg MN [id number] PRN (Reason: if lactulose is ineffective)
lactulose 10 gram/15 mL Solution
20 g PO HSPRN PRN (Reason: constipation)
atorvastatin 40 mg tablet
40 mg PO QPM
clopidogrel 75 mg tablet
75 mg PO DAILY
dapagliflozin propanediol [Farxiga] 10 mg tablet
10 mg PO DAILY
cefdinir 300 mg capsule
300 mg PO BID Qty: 2 0RF
Rx Instructions:
tolerated Rocephin in hospital. start 06/26
metronidazole 500 mg Tablet
500 mg PO Q8 Qty: 6 0RF
vancomycin [Vancocin] 125 mg capsule
125 mg PO QID Qty: 32 0RF
Referrals:
Larry Bridges MD [Family Provider] -
Interventions
Interventions:
*Risk Screen - Suicide Last Done: 03/06/24 11:10
*General Assessment Last Done: 03/06/24 11:10
*Neglect/Abuse Screening Last Done: 03/06/24 11:10
ED- Fall Risk Assessment Last Done: 03/06/24 12:06
*ED COVID-19 Vaccine History Last Done: 03/06/24 11:10
ED-Skin Assessment Last Done: 03/06/24 11:59
Discharge Date and Time
Print Language: MOLDOVAN
--- NOTE | 2024-03-06 13:19 | EDRN ---
SBP 79 taken by ED PCT Shirlene and retaken and still low. Pt placed on international nurse. Dr. Yee in to see pt. Pt just placed on bedpan to void.
--- NOTE | 2024-03-06 13:30 | EDRN ---
Dr. Toledo in room w/ pt prior to pt leaving for vascular surgery
--- NOTE | 2024-03-06 13:41 | W.PN.UPDATE ---
Update Note
Progress Note Update
Seen and examined in the emergency room with DARWIN Draper. Full consultation to follow. 78-year-old female known to me in the outpatient setting (follows with me in the office) who had prior undergone urgent right iliofemoral endarterectomy with bovine
pericardial patch angioplasty and bilateral kissing iliac stents as well as right external iliac artery stent for acute limb ischemia by our partner, Dr. Salas here at [place] on 02/18/2023. Now she presents to the ER with worsening
right groin painful lump. She had noted she had a lump postoperatively that had persisted. Had not caused her any discomfort. She notes that she did fall 10 days ago, but unclear the etiology of she landed on that site. Regardless in the last
couple days she noted increasing painful lump in the right groin. She may have had subjective fevers last night.
On exam/she is awake and alert. In no acute distress. Breathing is unlabored. Abdomen is soft, nondistended, nontender. Right groin skin is intact. In the vicinity of the prior scar, there is a palpable subcutaneous fullness/lump that is
tender. Slight overlying redness. Nonfluctuant. Nonpulsatile.
Right foot warm with palpable DP pulse.
White blood cell count over 14,000.
CT angiogram reviewed images.
Plan/infected right groin seroma. I reviewed CT scan imaging. Does not appear to involve the artery. On the delayed imaging, there is enhancement/rim enhancement of the periphery of this collection in the subcutaneous tissue. It appears just
anterior to the patched artery. The artery patch/repair appears completely intact with no evidence of pseudoaneurysm or disintegration otherwise. There does not appear to be any obvious artery/graft infection. I discussed with her plan for urgent
washout of infected seroma. Discussed with her that I can never definitely say with 100% certainty that the artery is not involved. I did discuss that if the artery is involved with the infection, the significantly enhanced procedural risks and
extent of procedure that would need to be performed (wide debridement of infected artery as well as extra-anatomic revascularization). Discussed the likelihood of leaving the wound open if just infected seroma. Discussed debridement of seroma
capsule as well. Discussed likely placing packing or wound VAC therapy. Discussed alternatively closing over drains. Discussed risk of procedure include but not limited to bleeding, infection, recurrent fluid collections, need for extensive
arterial surgical repair. Discussed the risks therein as well as that needed to be done. Discussed potential need for muscle flap coverage. She understands all wishes to proceed.
--- NOTE | 2024-03-06 13:55 | HPS.HSE ---
Addendum entered and electronically signed by Ivone Galaviz MD 03/06/24 23:14:
Reduced Levemir from 18 units to 10 units tonight.
Original Note:
Family Physician
-
Family Physician: Larry Bridges
Chief Complaint
-
right groin swelling
History of Present Illness
78-year-old female past medical history of recent CABG, peripheral arterial disease bilateral iliac stents iliofemoral endarterectomy hypertension diabetes CKD 3 GERD depression hyperlipidemia remote Hx Meningioma resection recent left hip fracture
ORIF 05/28/23 presenting for swelling and tenderness of her right groin. She had chills but no fever. She has chronic numbness and tingling of both lower extremities which is stable. Patient underwent right iliofemoral endarterectomy with bovine
pericardial patch angioplasty a year ago.
She is a former smoker she does not drink alcohol.
Medical History
Past Medical History
Past Medical History: Reports Other (recent CABG, peripheral arterial disease bilateral iliac stents iliofemoral endarterectomy hypertension diabetes CKD 3 GERD depression hyperlipidemia remote Hx Meningioma resection recent left hip fracture ORIF
05/28/23)
Past Surgical History: Reports Other (bilateral iliac stents iliofemoral endarterectomy, ORIF )
Social History
Tobacco: Non-smoker
Alcohol: None
Drug: None
Family History
Family History: Not pertinent
Allergies / Home Medications
Allergies reflects when Allergies were last updated in [facility].
Home Medications with original date entered in [facility]
Allergy/Medication List:
Allergies
Allergy/AdvReac Type Severity Reaction Status Date / Time
meperidine Allergy Unknown Verified 03/06/24 11:13
moxifloxacin HCl Allergy Swelling Verified 03/06/24 11:13
[From Avelox]
Penicillins Allergy Swelling, Verified 03/06/24 11:13
tolerated
cefazolin
and
ceftriaxone
in the past
Sulfa (Sulfonamide Allergy Swelling Verified 03/06/24 11:13
Antibiotics)
[Sulfa(Sulfonamide
Antibiotics)]
Home Medications
aspirin 81 mg tablet,delayed release 81 mg PO DAILY Blood Clot Prevention/Tx 01/18/23
cholecalciferol (vitamin D3) 25 mcg (1,000 unit) tablet (Vitamin D3) 25 mcg PO DAILY Supplement 01/18/23
insulin detemir U-100 100 unit/mL (3 mL) subcutaneous pen (Levemir FlexPen) 24 unit SC HS Diabetes 01/18/23
amlodipine 5 mg tablet 5 mg PO DAILY Blood Pressure #0 tabs 01/29/23
acetaminophen 325 mg tablet 650 mg PO Q4HPRN PRN mild pain/fever>100.4 02/17/23
metoprolol succinate 25 mg tablet,extended release 24 hr 12.5 mg PO DAILY Blood Pressure 02/17/23
insulin aspart U-100 100 unit/mL (3 mL) subcutaneous pen (Novolog FlexPen U-100 Insulin aspart) 4 unit SC TID@0800,1200,1700 Diabetes 05/22/23
atorvastatin 40 mg tablet 40 mg PO QPM High Cholesterol 06/19/23
clopidogrel 75 mg tablet 75 mg PO DAILY Blood Clot Prevention/Tx 06/19/23
dapagliflozin propanediol 10 mg tablet (Farxiga) 10 mg PO DAILY Diabetes 06/19/23
Review of Systems
-
History Source: Patient
A 12 point ROS was completed and negative except as noted: Yes
Constitutional: Reports No Symptoms
EENT: Reports No Symptoms
Respiratory: Reports No Symptoms
Cardiac: Reports No Symptoms
Abdomen/GI: Reports No Symptoms
: Reports No Symptoms
Musculoskeletal: Reports No Symptoms
Skin: Reports See HPI
Neurological: Reports No Symptoms
Endocrine: Reports No Symptoms
Hematologic/Lymphatic: Reports No Symptoms
Psych: Reports No Symptoms
Physical Exam
Vital Signs
Vital Signs
Temp Pulse Resp BP Pulse Ox
98.7 F 79 15 153/67 99
03/06/24 11:10 03/06/24 13:20 03/06/24 13:20 03/06/24 13:20 03/06/24 13:20
Physical Exam
General: Well Developed, Well Nourished and No Apparent Distress
HEENT: NormoCephalic, Moist mucous membranes and Atraumatic
Respiratory: Clear
Cardiac: S1/S2 and Regular Rhythm; No Murmur or Rub
GI: Soft, Non Tender, Non Distended and Normal Bowel Sounds; No Organomegaly
Rectal: Deferred by Provider
Musculoskeletal: No Clubbing, No Cyanosis and No Edema
Skin: Other (right groin swelling ); No Rash
Neuro: Nonfocal/grossly intact
Laboratory Results
-
03/06/24 11:18
03/06/24 11:18
Laboratory Results
Total Bilirubin 0.3 mg/dl (0.2-1.3) 03/06/24 11:18
AST 18 U/L (14-36) 03/06/24 11:18
ALT 21 U/L (0-35) 03/06/24 11:18
Alkaline Phosphatase 130 U/L (38-126) H 03/06/24 11:18
Data Reviewed
-
Lab Data: Labs Reviewed by me
Old Records: Reviewed
Impression/Plan
-
IMPRESSION:
PLAN:
# Infected seroma/abscess associated with prior right-sided endarterectomy
# History of PAD with recent right endarterectomy 1 year ago, prior iliofemoral endarterectomy/stents
-CTA shows right groin rim-enhancing fluid collection suspicious for abscess/seroma
-Vancomycin/aztreonam
-Vascular planning on washout now
-N.p.o.
Severe right renal artery stenosis
Severe celiac artery stenosis
CAD status post CABG
-Continue aspirin, Plavix, statin
-Continue metoprolol
Type 2 diabetes
-Insulin sliding scale
-Continue dapagliflozin
Essential hypertension
-Continue amlodipine
Depression
Chronic heart failure
Chronic anemia of chronic disease
-Hemoglobin stable
Hyperlipidemia
CKD 3B
-Renal function at baseline
GERD
-Continue Protonix
History of C. difficile
Sacrum stage II pressure injury
History of meningioma s/p resection
Left hip fracture status post ORIF on 05/27
Full code
DVT prophylaxis�SCDs
N.p.o.
--- NOTE | 2024-03-06 15:19 | W.SUR.POST ---
Addendum entered and electronically signed by MEG Alvarez 03/06/24 15:25:
Right groin wound measurements 8cm x 4cm x 5.5cm
Original Note:
Surgical Immediate Post Op
Note
Pre Op Diagnosis: Right groin abscess
Post Op Diagnosis: Right groin abscess
Procedure Performed: Right groin incision and drainage of abscess with pulse lavage and placement of wound VAC
Primary Surgeon: Oc Blanton MD
certified ophthalmic assistant: MEG Swann
Anesthesia: GETA
Estimated Blood Loss: 5 mL
Fluids: See anesthesia flowsheet
Drains/Shunts: N/A
Specimens/Cultures: Wound culture
Doppler/Duplex/Angio (Y/N): N
Complications: None
Operative Findings: Successful removal of right groin abscess
[2024-03-06 15:29] LABS: Glucose - Point of Care 94 mg/dl (70-99)
[2024-03-06] MEDS: MORPHINE SULFATE 1 MG IV (15:36)
--- NOTE | 2024-03-06 15:42 | OR.RPT ---
Operative Report
Operative Report
PROCEDURE DATE: 03/06/2024
Preoperative diagnosis: Infected right groin subcutaneous fluid collection, possible seroma.
Postoperative diagnosis: Same, possible lymphocele.
Procedure: Incision and drainage with washout right groin subcutaneous fluid collection, pulse lavage irrigation, wound VAC placement.
Surgeon: Harvinder
Crew Chief: Paula Draper NP, required for all aspects of procedure including assistance with traction/countertraction, wound VAC application.
Complications: None
Anesthesia: General
Indications for procedure:
Patient with history 1 year ago of right femoral endarterectomy with patch angioplasty and covered stent placement in the iliacs (kissing iliac stents) for thrombotic complications. Patient had acute limb ischemia at that time. Now presented to
the emergency room with chronic persistent fluid collection but now with severe tenderness and redness. White blood cell count elevated. CT scan imaging reviewed and findings all suggested infected subcutaneous fluid collection, likely seroma.
Risk/benefit/alternatives all fully discussed. Patient understood all wished to proceed with washout.
Description of procedure:
Patient was identified brought to the operating room placed on the table in supine position. After the adequate administration of anesthesia she was prepped and draped in the standard surgical fashion. A standard preoperative timeout was
undertaken and everybody was in agreement the plan. A longitudinal incision was made in the right groin through the prior scar with a 15 blade. Through skin subcutaneous tissue with the electrocautery. I then encountered the subcutaneous pocket
which when I entered resulted in release of pressurized milky fluid. Appeared to be milky white fluid. There was also some gelatinous and fibrinous type debris. The fibrinous type debris appeared more like glistening white seroma capsule.
However the fluid was not straw-colored but rather milky in nature. Not yellow/purulent definitively. Culture swabs were sent. Once I expressed out all the fluid, the cavity was inspected and there appeared to be excellent granulation tissue in
the lateral/medial/posterior tissues. There was no evidence of exposed artery or arterial patch repair. Deep palpation I could palpate the pulsation of the artery, but it was not exposed. The subcutaneous tissue overlying the abdominal wall at
the superior aspect of the incision site had a pocket that extended there as well, but no lymphatic tissues or seromatous type draining tissues were identified. At this point I then curetted the surfaces surrounding the fluid pocket that had been
created. I used a curette to do this. I then sharply removed any of the seroma capsule like white glistening tissue. Once I removed all this I had excellent granulation tissue throughout. I achieved full hemostasis. I then carefully inspected
the cavity for an extended period to look for any obvious lymphatic leak sources or seromatous leak source. None could be identified. We then pulse lavaged irrigated 3 L of saline solution. I then inspected the cavity. I again confirmed
hemostasis. Then placed a wound VAC into the pocket. The patient tolerated procedure well.
--- NOTE | 2024-03-06 16:20 | PHA.VAN.IN ---
Assessment
- Assessment
Renal Function: Appears similar to baseline (06/26/23 BASELINE SCR: 1.5)
Concomitant Antimicrobials: AZTREONAM
- Previous Dosing Experience
Previous Regimen: NONE
Plan
- Plan
Initial / Loading Dose: 1500MG
Maintenance Regimen: DOSING BY RANDOM LEVEL
Monitoring: RANDOM VANCOMYCIN LEVEL 03/07/24 AM
Pharmacokinetics Vancomycin I
- -
Patient Age: 78
Patient Sex: Female
Vancomycin Day #: 1
Indication: Skin And Soft Tissue (INFECTED SEROMA/ABSCESS)
Requesting Provider: RAGINI
Height / Weight:
Height 5 ft 7 in
Actual Weight 68.1 kg
- Vital Signs / Lab Results
Temp Pulse Resp BP Pulse Ox
97.6 F 63 13 129/62 100
03/06/24 15:18 03/06/24 16:02 03/06/24 16:02 03/06/24 16:02 03/06/24 16:02
Lab Results - Hematology
03/06/24
11:18
WBC 14.6 H
Lab Results - Chemistry
03/06/24
11:18
BUN 35 H
Creatinine 1.6 H
Albumin 3.5
Microbiology Results
03/06/24 14:45 Gram Stain - Preliminary
Groin - Right
[2024-03-06 16:51] LABS: Glucose - Point of Care 122 mg/dl (70-99)
[2024-03-06] MEDS: NOVOLOG FLEXPEN-LOW RESISTANCE SC (16:54)
--- NOTE | 2024-03-06 17:38 | PTCARENOTE ---
Received pt from PACU via stretcher, accompanied by CELLULAR PHONE REPAIRER. Pt AAO x3, ARMAS; able to assist with transfer to bed. Fall prec initiated. VSS. On nc 2 lpm - pulse ox 99%, no SOB noted. Abd soft, rounded, BS (+);to start 1800 josé diet. Pt DTV;
states will call for assistance to BSC. Rt groin site dsg D/I; wound VAC intact, set at 120 mm/Hg continuous. Toes of rt foot sl dusky/bruised but warm; bilat DP and PT pulses strong with Doppler assessment. Pt without c/o dsicomfort at present,
resting quietly. Oriented to 4east. Will continue to monitor.
[2024-03-06] MEDS: STERILE WATER FOR INJECTION 10 ML IV (21:30)
[2024-03-06] MEDS: AZACTAM 1000 MG IV (21:30)
[2024-03-06 21:41] LABS: Glucose - Point of Care 204 mg/dl (70-99)
[2024-03-06 23:27] LABS: Glucose - Point of Care 189 mg/dl (70-99)
--- NOTE | 2024-03-06 23:27 | PTCARENOTE ---
Patient vomited 300 mL greenish/brown emesis. No complaints of pain. Reached out to MARKETING SALES REPRESENTATIVE to order something for nausea. Will continue to monitor.
[2024-03-06] MEDS: LANTUS 0.1 UNITS SC (23:55)
[2024-03-06] MEDS: COMPAZINE 5 MG IV (23:57)
[2024-03-07 04:00] VITALS: BP 130/58
[2024-03-07] MEDS: AZACTAM 1000 MG IV (05:38)
[2024-03-07] MEDS: STERILE WATER FOR INJECTION 10 ML IV ×2 (05:38→13:43)
[2024-03-07 07:20] VITALS: BP 137/78
--- NOTE | 2024-03-07 07:22 | W.PN.VS ---
Addendum entered and electronically signed by Oc Blanton MD 03/07/24 08:22:
Seen and examined with DARWIN Draper. Agree with findings as noted below. Patient without significant complaints this morning. Right groin feels much better status post incision/drainage/washout. On exam/abdomen soft, nondistended, nontender. Right
groin VAC in place. Groin is flat. Erythema is resolved. Foot is warm with palpable DP pulse. Plan/as discussed and noted below. Note operative findings had demonstrated milky pressurized fluid, but seromatous capsule noted surrounding it.
Either a lymphocele or seroma. However I did not see any active lymphatic leak or any lymph nodes in the vicinity. Did not appear to be frankly purulent, although there was cellulitic changes to the skin and given timing (this collection had been
present for a while and only the last couple days became more painful and reddened) suggest possibly low virulence infection. I did send cultures from the operating room. Appreciate ID input. No graft involvement, and otherwise deeper tissues
granulating well with no other necrosis or infectious findings.
Original Note:
Today's Communication / Plan
-
Patient seen and examined at bedside with Dr. Oc Blanton, below plan reviewed with attending.
Assessment/Plan
-
Assessment: 78-year-old female POD #1 Incision and drainage with washout right groin subcutaneous fluid collection, pulse lavage irrigation, wound VAC placement.
Plan:
Continue wound VAC treatment to right groin, consult placed to case management and wound care nurse for set up of home wound VAC and visiting nurse
Case management consulted for discharge plan
Infectious disease consulted for antibiotic management, appreciate recommendation
Subjective Data
-
Date of Service: March 07, 2024
Patient seen and examined at bedside, reports well-managed postoperative pain that is vastly improved from preoperative undrained abscess. Does endorse episode of emesis with nausea overnight, now resolved.
Objective Data
-
Vital Signs
Temp Pulse Resp BP Pulse Ox
98.5 F 70 16 130/58 93
03/07/24 04:00 03/07/24 04:00 03/07/24 04:00 03/07/24 04:00 03/07/24 04:00
Intake and Output
03/06/24 03/07/24 03/08/24
06:59 06:59 06:59
Intake Total 340 / 340
Output Total 1500 / 1500
Balance -1160 / -1160
Intake:
Oral fluids 240 / 240
IV fluids (Total) 100 / 100
NSS 100 / 100
Output:
Urine, Voided 750 / 750
Straight cath output 750 / 750
Calcium 8.9 mg/dl (8.4-10.2) 03/06/24 11:18
Total Bilirubin 0.3 mg/dl (0.2-1.3) 03/06/24 11:18
AST 18 U/L (14-36) 03/06/24 11:18
ALT 21 U/L (0-35) 03/06/24 11:18
Alkaline Phosphatase 130 U/L (38-126) H 03/06/24 11:18
Total Protein 6.2 g/dl (6.3-8.2) L 03/06/24 11:18
Albumin 3.5 g/dl (3.5-5.0) 03/06/24 11:18
Physical Exam
-
No apparent distress resting in bed comfortably
No tachycardia
No dyspnea on room air
ABD flat, nontender, nondistended
Right groin wound VAC CDI, holding suction
Bilateral feet warm, +1 palpable right DP pulse
[2024-03-07 07:34] LABS: Glucose - Point of Care 213 mg/dl (70-99)
[2024-03-07 08:45] LABS: % Basophils 0.4 % (0-2); % Eosinophils 2.3 % (0-6); % Immature Granulocytes 0.5 % (0-0.5); % Lymphocytes 11.9 % (20.5-51.1); % Monocytes 6.2 % (1.7-9.3); % Neutrophils 78.7 % (42.2-75.2); Absolute Eosinophils 0.3 10^3/uL (0-0.7); Absolute Immature Granulocytes 0.1 10^3/uL (0-0.05); Absolute Lymphocytes 1.3 10^3/uL (1.2-3.4); Absolute Monocytes 0.7 10^3/uL (0.1-0.6); Absolute Neutrophils 8.6 10^3/uL (1.4-6.5); Hematocrit 32.8 % (37.0-47.0); Hemoglobin 10.3 g/dL (12.0-16.0); Mean Corp Hgb Conc. 31.4 g/dL (33.0-37.0); Mean Corpuscular Hgb 29.5 pg (27.0-31.0); Mean Platelet Volume 10.5 fL (7.4-10.4); Nucleated Red Blood Cells % 0 %; Platelet Count 290 10^3/uL (130-400); Red Blood Cell Count 3.49 10^6/uL (4.20-5.40); Red Cell Dist. Width 12.3 % (11.5-14.5)
[2024-03-07 09:03] LABS: INR 1.04; PT 14.1 Sec (11.4-14.6)
[2024-03-07 09:04] LABS: ALT (SGPT) 18 U/L (0-35); APTT 35.8 Sec (23.4-35.0); AST (SGOT) 16 U/L (14-36); Albumin 2.9 g/dl (3.5-5.0); Alkaline Phosphatase 110 U/L (38-126); Blood Urea Nitrogen 31 mg/dl (7-17); Calcium 8.4 mg/dl (8.4-10.2); Carbon Dioxide 19 mmol/L (22-30); Chloride 106 mmol/L (98-107); Estimated Creatinine Clearance 27 ml/min; Glucose 182 mg/dl (70-99); Potassium 4.7 mmol/L (3.5-5.1); Sodium 134 mmol/L (135-145); Total Bilirubin 0.2 mg/dl (0.2-1.3); Total Protein 5.4 g/dl (6.3-8.2)
[2024-03-07 09:07] LABS: Vancomycin Random 6.5 ug/ml
[2024-03-07] MEDS: NOVOLOG FLEXPEN-LOW RESISTANCE 2 UNITS SC (09:16)
[2024-03-07] MEDS: LIPITOR 40 MG PO (09:17)
[2024-03-07] MEDS: TOPROL XL 12.5 MG PO (09:17)
[2024-03-07] MEDS: PLAVIX 75 MG PO (09:17)
[2024-03-07] MEDS: FARXIGA 10 MG PO (09:17)
[2024-03-07] MEDS: ASPIR LOW (ENTERIC COATED) 81 MG PO (09:17)
[2024-03-07] MEDS: VITAMIN D3 (cholecalciferol) 25 MCG PO (09:17)
[2024-03-07] MEDS: NORVASC 5 MG PO (09:17)
--- NOTE | 2024-03-07 10:36 | PHA.VAN.FU ---
Vancomycin Assessment / Plan
- Assessment
Renal Function: SCR Increasing
WBC's are: Trending Down
In the past 24 hrs, patient has been: Afebrile
Concomitant Antimicrobials: aztreonam 1000 mg q8h
- Dosing Plan
Dosing by Level: Re-dose today (vancomycin 1250 mg x 1)
Dosing Comments: random vancomycin level=6.5 on 03/07 @ 7:55 am
- Monitoring Plan
Random Level: 12.28 @06:00
- Follow Up
Pharmacy will continue to follow.
Vancomycin Follow UP
- -
Patient Age: 78
Patient Sex: Female
Vancomycin Day #: 2
Indication: Skin And Soft Tissue (INFECTED SEROMA/ABSCESS)
Requesting Provider: RAGINI
Height / Weight:
Height 5 ft 7 in
Actual Weight 68.1 kg
IBW in k.6 kg
Adjusted BW in k.2 kg
Pertinent Past Medical History: CKD
- Vital Signs / Lab Results
Temp Pulse Resp BP Pulse Ox
98.7 F 70 16 137/78 95
03/07/24 07:20 03/07/24 09:17 03/07/24 07:20 03/07/24 09:17 03/07/24 07:20
Lab Results - Hematology
03/06/24 03/07/24
11:18 07:55
WBC 14.6 H 11.0 H
Lab Results - Chemistry
03/06/24 03/07/24
11:18 07:55
BUN 35 H 31 H
Creatinine 1.6 H 1.7 H
Estimated Creat Clear 27
Albumin 3.5 2.9 L
Microbiology Results
03/06/24 14:45 Gram Stain - Preliminary
Groin - Right
Therapeutic Drug Monitoring
Random Vancomycin 6.5 ug/ml 03/07/24 07:55
[2024-03-07] MEDS: VANCOCIN 275 MG IV (10:45)
[2024-03-07 11:15] VITALS: BP 141/53
[2024-03-07 11:28] LABS: Glycohemoglobin (HgbA1c) 8.3 % (4.0-5.6)
[2024-03-07 11:41] LABS: Glucose - Point of Care 257 mg/dl (70-99)
[2024-03-07] MEDS: NOVOLOG FLEXPEN-LOW RESISTANCE 3 UNITS SC (12:35)
--- NOTE | 2024-03-07 12:42 | CON.ID ---
Consultation
-
Date/Time Consultation Requested: 03/06/24 15:12
Date/Time Consultation Performed: 03/06/24 12:42
Requesting Provider: Baron GRANADOS
Performing Provider: Dr Terrell
Reason for Consultation: right groin swelling
Chief Complaint / Past History
Chief Complaint
right groin swelling
History of Present Illness
Ms Dwyer is a 78 year old female with history of PAD s/p R ileofemoral endarterectomyu with bovine pericardial patch angioplasty, bilateral kissing iliac stents, right external iliac artery stent who presented to vascular clinic on 03/06 after a
fall for a right groin lump found to be firm, warm, tender - not pulsatile. No new claudication. Patient was sent to the ER for further evaluation.
Since arrival here patient has been afebrile, bp stable, wbc initially 14.6 now 11.0, hgb 10.3, plt 290, L shift is noted, cr 1.7 which appears to be her baseline, a1c 8.3, normal IgG/IgA/IgM when assessed earlier this year, 03/06 CT a/p angio w and
w/o: 6.2 x 3.9 x 4.7 cm fluid collection suspicious for abscess, advanced PAD. Taken to the OR same day 03/[address] Blanton and found to have a right going abscess with milky pressurized fluid with seromatous capsule - no active lymphatic leak seen
- not frankly purulent, no graft involvement, had I&D and wound vac placement, wound cultures aerobic (prelim few CONS) and anaerobic taken. June 2023 she was noted to be colonized with C Difficile. Currently on vancomycin and aztreonam though
she has been documented to tolerate ceftriaxone in the past, ID is consulted for assistance with management.
Past History
Additional Past Medical History:
recent CABG, peripheral arterial disease bilateral iliac stents iliofemoral endarterectomy hypertension diabetes CKD 3 GERD depression hyperlipidemia remote Hx Meningioma resection recent left hip fracture ORIF 05/28/23
Additional Past Surgical History:
bilateral iliac stents iliofemoral endarterectomy, ORIF
Allergy History:
meperidine Allergy (Verified 03/06/24 16:56)
Unknown
moxifloxacin HCl [From Avelox] Allergy (Verified 03/06/24 16:56)
Swelling
Penicillins Allergy (Verified 03/06/24 16:56)
Swelling, tolerated cefazolin and ceftriaxone in the past
Sulfa (Sulfonamide Antibiotics) [Sulfa(Sulfonamide Antibiotics)] Allergy (Verified 03/06/24 16:56)
Swelling
Medications Reviewed: Yes
Social History
Tobacco: Non-Smoker
Alcohol: None
Drug: None
Family History
Family History: Not Pertinent
Review of Systems
Review of Systems
General: Negative Fever or Chills
All systems: All other systems were reviewed and were negative
Vital Signs
Temp Pulse Resp BP Pulse Ox
98.3 F 70 16 141/53 93
03/07/24 11:15 03/07/24 11:15 03/07/24 11:15 03/07/24 11:15 03/07/24 11:15
Physical Exam
Physical Exam
Constitutional: No Acute Distress
Cardiovascular: Regular Rate and S1/S2; Negative Murmur or Rub
Pulmonary: Clear and Symmetric; Negative Wheezes, Rales or Rhonchi
Gastrointestinal: Soft, Non Tender, Non Distended and Normal Bowel Sounds
Genito-Urinary: Suprapubic Tenderness
Skin: Warm and Dry; Negative Rash or Jaundice
Lines: Other (wound vac in place)
Lab / Diagnostic Study Results
03/07/24 07:55
03/07/24 07:55
Abs Immat Gran (auto) 0.1 10^3/uL (0-0.05) H 03/07/24 07:55
Absolute Neuts (auto) 8.6 10^3/uL (1.4-6.5) H 03/07/24 07:55
Absolute Lymphs (auto) 1.3 10^3/uL (1.2-3.4) 03/07/24 07:55
Absolute Monos (auto) 0.7 10^3/uL (0.1-0.6) H 03/07/24 07:55
Absolute Basos (auto) 0.0 10^3/uL (0-0.2) 03/07/24 07:55
Immature Gran % 0.5 % (0-0.5) 03/07/24 07:55
Neutrophils % 78.7 % (42.2-75.2) H 03/07/24 07:55
Lymphocytes % 11.9 % (20.5-51.1) L 03/07/24 07:55
Monocytes % 6.2 % (1.7-9.3) 03/07/24 07:55
Eosinophils % 2.3 % (0-6) 03/07/24 07:55
Basophils % 0.4 % (0-2) 03/07/24 07:55
PT 14.1 Sec (11.4-14.6) 03/07/24 07:55
INR 1.04 03/07/24 07:55
Microbiology Results
Micro:
03/06/24 14:45 Anaerobic Culture - Preliminary
Groin - Right Culture pending. Anaerobic cultures are examined after 3
days incubation. Additional information to follow.
03/06/24 14:45 Wound Culture - Preliminary
Groin - Right Gram Stain - Preliminary
Assessment / Plan
Groin Abscess s/p I&D 03/06
Peripheral arterial disease s/p R ileofemoral endarterectomyu with bovine pericardial patch angioplasty, bilateral kissing iliac stents, right external iliac artery stent 02/19/24
CKD
DM2 - fair control
Colonization with C difficile within the last 12 months; kady infection x1
Allergy to penicillin (swelling); tolerates ceftriaxone
Dysuria with urgency
- Dr Blanton comments graft did not appear to be involved, fluid not frankly purulent though with cellulitic changes
- abscess culture - prelim CONS - lab will get ID and sensi
- anaerobic culture - in progress
- blood cultures x2 03/07: ordered
- ua reflex to culture - likely covered by cefepime
- continue IV vancomycin for present
- start cefepime stop aztreonam dosed for CKD
- start metronidazole 500 mg po bid
- add oral vancomycin 125 mg PO BID for history of C difficile within the last year
- anticipate completion of therapy with an oral regimen when sensitivities back
- would tighten Dm2 control outpatient
follow cultures, fever curve
Patient shares that she has lost her this year, son recently with a prolonged hospitalization and daughter just diagnosed with breast cancer. she feels appropriately sad; shares she does have a strong support network
--- NOTE | 2024-03-07 12:44 | PTCARENOTE ---
Pt was bladder scanned at 1130. Bladder yielding 537ml. The pt said she did not want to be straight cath'd. She asked for an hour so she could eat her lunch. The pt went back to the bathroom at 1232 and put out 275ml.
[2024-03-07] MEDS: MAXIPIME 1000 MG IV (13:43)
--- NOTE | 2024-03-07 14:05 | W.PN.HOSP.TC ---
Today's Communication/Plan
-
pt wants to go home tomorrow--will depend on ID and abx--plus needs wound vac set up etc
Assessment / Plan
Assessment / Plan
pt is a 78 year old female
Infected seroma/abscess associated with prior right-sided endarterectomy--History of PAD with recent right endarterectomy 1 year ago, prior iliofemoral endarterectomy/stents---CTA shows right groin rim-enhancing fluid collection suspicious for
abscess/seroma--apprec ID--abscess culture with coag neg staph--cont vanco/cefepime/metronidazole/oral vanco- s/p washout by vascular
Severe right renal artery stenosis
Severe celiac artery stenosis
CAD status post CABG--Continue aspirin, Plavix, statin--Continue metoprolol
Type 2 diabetes mellitus--Insulin sliding scale--Continue dapagliflozin--HGB A1C 8.5--needs better control
Essential hypertension--Continue amlodipine
Depression
Chronic heart failure
Chronic anemia of chronic disease--Hemoglobin stable
Hyperlipidemia
CKD 3B--Renal function at baseline
GERD--Continue Protonix
History of C. difficile--on oral vanco per ID
Sacrum stage II pressure injury
History of meningioma s/p resection
Left hip fracture status post ORIF on 05/27
code status--Full code
DVT prophylaxis�SCDs
Anticipated Discharge: Within 24 hours
Subjective/Interval History
-
Date of Service: March 07, 2024
pt wants to go home tomorrow
Objective Data
-
Labs:
Laboratory Results
03/07/24
07:55
WBC 11.0 H
Hgb 10.3 L
Hct 32.8 L
Plt Count 290
PT 14.1
INR 1.04
APTT 35.8 H
Sodium 134 L
Potassium 4.7
Chloride 106
Carbon Dioxide 19 L
BUN 31 H
Creatinine 1.7 H
Glucose 182 H
Calcium 8.4
Total Bilirubin 0.2
AST 16
ALT 18
Alkaline Phosphatase 110
Vital Signs:
max temp for 24 hours
03/07/24
07:20
Temp 98.7 F
Vital Signs
Temp Pulse Resp BP Pulse Ox
98.3 F 70 16 141/53 93
03/07/24 11:15 03/07/24 11:15 03/07/24 11:15 03/07/24 11:15 03/07/24 11:15
I&O
03/06/24 03/07/24 03/08/24
06:59 06:59 06:59
Intake Total 340 / 340 180 / 180
Output Total 1500 / 1500 275 / 275
Balance -1160 / -1160 -95 / -95
Review of Systems
-
All other systems: Reviewed and negative
Physical Exam
-
General: Well Developed, Well Nourished and No Apparent Distress
HEENT: Normocephalic and Atraumatic
Respiratory: Clear to Auscultation; Negative Wheezes or Rhonchi
Cardiac: Regular Rhythm and S1/S2; Negative Murmur
GI: Soft, Nontender, Nondistended and Normal Bowel Sounds
Musculoskeletal: No Clubbing, No Cyanosis, No Edema and Other (right groin with wound vac)
Neuro: Awake and Alert
Psych: Calm
[2024-03-07 15:10] VITALS: BP 168/60
--- NOTE | 2024-03-07 15:29 | WOUNDNOTE ---
[facility] RN Note: Faxed [employer] home vac paperwork to [facility]. [employer] rep Kole Salmeron and Kishore Deutsch to follow up on the approval process and will provide the home vac once it's approved. Thea Aviles from [facility] is aware patient will be going home with a
wound vac as early as this weekend.
--- NOTE | 2024-03-07 15:49 | VNURNOTE ---
[facility] liaison called patient's room phone and patient's cell- no answer. Attempted to visit with patient at beside, she was in the middle of a procedure. Liaison called patient's primary contact, daughter Yanna. Left message. Patient has had
VN recently- a few months ago. Referral [facility]. Left [facility] contact number if questions.
[2024-03-07] MEDS: ROXICODONE 5 MG PO (15:51)
--- NOTE | 2024-03-07 15:56 | W.PN.UPDATE ---
Update Note
Progress Note Update
Hopeful to have patient eligible for discharge to home over the weekend, thus wanted to assess wound prior to DC. Wound VAC dressing removed and changed, no evidence of purulent drainage, good granulation tissue evident, all surrounding skin CDI.
Wound measurements unchanged from immediate postoperative note measurements, wound VAC dressing CDI and holding suction after change.
--- NOTE | 2024-03-07 16:48 | WOUNDNOTE ---
[facility] RN note: Kole from [employer] notified this caption writer that the home vac will not get approved prior to Sunday d/t DME unable to get insurance approval until Sunday.
[2024-03-07] MEDS: VISBIOME 2 CAP PO (16:49)
[2024-03-07 16:55] LABS: Glucose - Point of Care 313 mg/dl (70-99)
[2024-03-07] MEDS: NOVOLOG FLEXPEN 4 UNITS SC (17:01)
[2024-03-07] MEDS: NOVOLOG FLEXPEN-LOW RESISTANCE 4 UNITS SC (17:01)
[2024-03-07 20:25] LABS: Urine Albumin Trace (Neg - Trace); Urine Bilirubin Negative (Negative); Urine Character Slightly Cloudy (Clear); Urine Color Straw; Urine Glucose 3+ (Negative); Urine Ketone Negative (Negative); Urine Leukocyte 2+ (Negative); Urine Nitrite Negative (Negative); Urine Occult Blood Trace (Negative); Urine Urobilinogen Negative (Neg - 1+)
[2024-03-07 20:45] LABS: Urine Bacteria Few (Negative); Urine White Cell 30-40 /HPF (0-5); Urine Yeast Many (Negative)
[2024-03-07 21:13] LABS: Glucose - Point of Care 264 mg/dl (70-99)
[2024-03-07] MEDS: LANTUS 0.18 UNITS SC (21:17)
[2024-03-07] MEDS: FLAGYL 500 MG PO (21:17)
[2024-03-07] MEDS: FIRVANQ 125 MG PO (21:17)
[2024-03-07 21:44] VITALS: BP 137/64
[2024-03-08] MEDS: MAXIPIME 1000 MG IV ×2 (01:20→14:31)
[2024-03-08] MEDS: STERILE WATER FOR INJECTION 10 ML IV ×2 (01:20→14:31)
[2024-03-08 08:13] LABS: Vancomycin Random 10.3 ug/ml
[2024-03-08 08:15] LABS: Hematocrit 28.2 % (37.0-47.0); Hemoglobin 9.7 g/dL (12.0-16.0); Mean Corp Hgb Conc. 34.4 g/dL (33.0-37.0); Mean Corpuscular Hgb 30.6 pg (27.0-31.0); Mean Platelet Volume 10.7 fL (7.4-10.4); Platelet Count 273 10^3/uL (130-400); Red Blood Cell Count 3.17 10^6/uL (4.20-5.40); Red Cell Dist. Width 12.2 % (11.5-14.5); White Blood Cell Count 9.8 10^3/uL (4.8-10.8)
[2024-03-08 08:18] LABS: Glucose - Point of Care 201 mg/dl (70-99)
[2024-03-08 08:47] VITALS: BP 113/80
[2024-03-08 08:59] LABS: Blood Urea Nitrogen 46 mg/dl (7-17); Calcium 8.7 mg/dl (8.4-10.2); Carbon Dioxide 15 mmol/L (22-30); Chloride 107 mmol/L (98-107); Estimated Creatinine Clearance 24 ml/min; Glucose 201 mg/dl (70-99); Magnesium 2.1 mg/dl (1.6-2.3); Potassium 4.6 mmol/L (3.5-5.1); Sodium 134 mmol/L (135-145); eGFR 26.86
[2024-03-08] MEDS: NORVASC 5 MG PO (09:01)
[2024-03-08] MEDS: FLAGYL 500 MG PO ×2 (09:01→21:56)
[2024-03-08] MEDS: FARXIGA PO ×2 (09:01→09:15)
[2024-03-08] MEDS: NOVOLOG FLEXPEN-LOW RESISTANCE 2 UNITS SC ×2 (09:01→17:40)
[2024-03-08] MEDS: FIRVANQ 125 MG PO ×2 (09:01→21:56)
[2024-03-08] MEDS: TOPROL XL 12.5 MG PO (09:01)
[2024-03-08] MEDS: VISBIOME 2 CAP PO (09:02)
[2024-03-08] MEDS: ASPIR LOW (ENTERIC COATED) 81 MG PO (09:02)
[2024-03-08] MEDS: LIPITOR 40 MG PO (09:02)
[2024-03-08] MEDS: VITAMIN D3 (cholecalciferol) 25 MCG PO (09:02)
[2024-03-08] MEDS: PLAVIX PO ×2 (09:02→09:18)
[2024-03-08] MEDS: NOVOLOG FLEXPEN 4 UNITS SC ×3 (09:12→17:40)
--- NOTE | 2024-03-08 09:12 | PHA.VAN.FU ---
Vancomycin Assessment / Plan
- Assessment
Renal Function: SCR Increasing
WBC's are: Trending Down
In the past 24 hrs, patient has been: Afebrile
Concomitant Antimicrobials: CEFEPIME, METRONIDAZOLE
- Assessment - Therapeutic Drug Monitoring
Random Level: 10.3
- Dosing Plan
Dosing by Level: Re-dose today (1000mg)
Dosing Comments: scr is increasing will reduce dose
- Monitoring Plan
Random Level: 03/09 in am
- Follow Up
Pharmacy will continue to follow.
Vancomycin Follow UP
- -
Patient Age: 78
Patient Sex: Female
Vancomycin Day #: 3
Indication: Skin And Soft Tissue (INFECTED SEROMA/ABSCESS)
Requesting Provider: RAGINI
Height / Weight:
Height 5 ft 7 in
Actual Weight 68.1 kg
IBW in k.6 kg
Adjusted BW in k.2 kg
Pertinent Past Medical History: CKD
- Vital Signs / Lab Results
Temp Pulse Resp BP Pulse Ox
97.6 F 67 18 113/80 96
03/08/24 08:47 03/08/24 08:47 03/08/24 08:47 03/08/24 08:47 03/08/24 08:47
Lab Results - Hematology
03/06/24 03/07/24 03/08/24
11:18 07:55 07:27
WBC 14.6 H 11.0 H 9.8
Lab Results - Chemistry
03/06/24 03/07/24 03/08/24
11:18 07:55 07:27
BUN 35 H 31 H 46 H
Creatinine 1.6 H 1.7 H 1.9 H
Estimated Creat Clear
Albumin 3.5 2.9 L
Lab Results - Urine
03/07/24
20:19
Urine Nitrite (Reflex) Negative
Leukocyte Esterase Rfl 2+ A
Ur Squamous Epith Cells 3-5
Microbiology Results
03/06/24 14:45 Wound Culture - Preliminary
Groin - Right Gram Stain - Preliminary
03/06/24 14:45 Anaerobic Culture - Preliminary
Groin - Right Culture pending. Anaerobic cultures are examined after 3
days incubation. Additional information to follow.
Therapeutic Drug Monitoring
Random Vancomycin 10.3 ug/ml 03/08/24 07:27
[2024-03-08] MEDS: VANCOCIN 200 IV (10:01)
--- NOTE | 2024-03-08 10:50 | W.PN.ID1 ---
Date of Service
Date of Service: March 08, 2024
Today's Communication
Continue antibiotics
Assessment / Plan
Groin Abscess
- s/p I&D 03/06
Peripheral arterial disease
- Hx (R) ileofemoral endarterectomy with bovine pericardial patch angioplasty, bilateral kissing iliac stents, right external iliac artery stent (02/19/24)
CKD
DM2 - fair control
Colonization with C difficile within the last 12 months; kady infection x1
Allergy to penicillin (swelling); tolerates ceftriaxone
Dysuria with urgency
- Dr Blanton comments graft did not appear to be involved, fluid not frankly purulent though with cellulitic changes
- abscess culture - prelim CONS - lab will get ID and sensi
- anaerobic culture - in progress
- blood cultures x2 03/07: ordered
- continue IV vancomycin for present
- Continue cefepime
- Continue metronidazole 500 mg po bid for today
- add oral vancomycin 125 mg PO BID prophylaxis for history of C difficile within the last year
- Hopeful for completion of therapy with an oral regimen when sensitivities back
follow cultures, fever curve
����������������������������������������������������������
Chief Complaint
-: Other (Right groin infected seroma)
Subjective / Review of Systems
Review of Systems: No Fever and No Chills
Vital Signs / Physical Exam
Vital Signs
Vital Signs
Temp Pulse Resp BP Pulse Ox
97.6 F 67 18 113/80 96
03/08/24 08:47 03/08/24 08:47 03/08/24 08:47 03/08/24 08:47 03/08/24 08:47
Physical Exam
Constitutional: No Acute Distress, Comfortable and Non-toxic
Eyes: Sclera Anicteric
Cardiovascular: S1/S2; Negative S3/S4
Pulmonary: Non Labored
Wound: Other (Right groin with VAC in place. No significant periwound erythema.)
Neurological: Awake and Alert
Psychological: Calm
Objective Data
Lab Data
Lab Results
03/08/24 07:27
03/08/24 07:27
PT 14.1 Sec (11.4-14.6) 03/07/24 07:55
INR 1.04 03/07/24 07:55
APTT 35.8 Sec (23.4-35.0) H 03/07/24 07:55
Estimated Creat Clear 24 ml/min 03/08/24 07:27
Total Bilirubin 0.2 mg/dl (0.2-1.3) 03/07/24 07:55
AST 16 U/L (14-36) 03/07/24 07:55
ALT 18 U/L (0-35) 03/07/24 07:55
Alkaline Phosphatase 110 U/L (38-126) 03/07/24 07:55
Most recent labs reviewed.
Micro Results:
03/07/24 20:19 Urine Culture - Pending
Urine
03/07/24 14:54 Blood Culture - Pending
Blood/Venous
03/07/24 14:05 Blood Culture - Pending
Blood/Venous
03/06/24 14:45 Wound Culture - Preliminary
Groin - Right Gram Stain - few coag negative staph
ID & Sensitivities pending.
03/06/24 14:45 Anaerobic Culture - Preliminary
Groin - Right Culture pending. Anaerobic cultures are examined after 3
days incubation. Additional information to follow.
--- NOTE | 2024-03-08 11:17 | W.PN.HOSP.TC ---
Today's Communication/Plan
-
cont current management
wound vac to be delivered Sunday
Assessment / Plan
Assessment / Plan
pt is a 78 year old female
Infected seroma/abscess associated with prior right-sided endarterectomy--History of PAD with recent right endarterectomy 1 year ago, prior iliofemoral endarterectomy/stents---CTA shows right groin rim-enhancing fluid collection suspicious for
abscess/seroma--apprec ID--abscess culture with coag neg staph, still being worked up by ID--cont vanco/cefepime/metronidazole/oral vanco- s/p washout by vascular--on wound vac, won't be delivered until Sunday
Severe right renal artery stenosis/Severe celiac artery stenosis--noted
CAD status post CABG--Continue aspirin, Plavix, statin--Continue metoprolol
Type 2 diabetes mellitus--Insulin sliding scale----HGB A1C 8.5--needs better control--cont insulin/levemir
Essential hypertension--Continue amlodipine, metoprolol
Depression--situational as cannot go home
Chronic heart failure--unknown type
Chronic anemia of chronic disease--Hemoglobin stable
Hyperlipidemia--cont atorvastatin
CKD 3B--Renal function at baseline
GERD--Continue Protonix
History of C. difficile--on oral vanco per ID
Sacrum stage II pressure injury
History of meningioma s/p resection
Left hip fracture status post ORIF on 05/27
code status--Full code
DVT prophylaxis�SCDs
Anticipated Discharge: 24 - 48 hours
Subjective/Interval History
-
Date of Service: March 08, 2024
pt depressed because she cannot go home--wound vac won't be delivered until Sunday
Objective Data
-
Labs:
Laboratory Results
03/08/24
07:27
WBC 9.8
Hgb 9.7 L
Hct 28.2 L
Plt Count 273
Sodium 134 L
Potassium 4.6
Chloride 107
Carbon Dioxide 15 L
BUN 46 H
Creatinine 1.9 H
Glucose 201 H
Calcium 8.7
Vital Signs:
max temp for 24 hours
03/07/24
15:10
Temp 98.6 F
Vital Signs
Temp Pulse Resp BP Pulse Ox
97.6 F 67 18 113/80 96
03/08/24 08:47 03/08/24 08:47 03/08/24 08:47 03/08/24 08:47 03/08/24 08:47
I&O
03/07/24 03/08/24 03/09/24
06:59 06:59 06:59
Intake Total 340 / 340 540 / 540
Output Total 1500 / 1500 775 / 775 500 / 500
Balance -1160 / -1160 -235 / -235 -500 / -500
Review of Systems
-
All other systems: Reviewed and negative
Physical Exam
-
General: Well Developed, Well Nourished and No Apparent Distress
HEENT: Normocephalic and Atraumatic
Cardiac: Regular Rhythm and S1/S2; Negative Murmur
GI: Soft, Nontender, Nondistended and Normal Bowel Sounds
Musculoskeletal: No Clubbing, No Cyanosis, No Edema and Other (wound vac right groin)
Neuro: Awake and Alert
Psych: Calm
[2024-03-08 13:09] LABS: Glucose - Point of Care 192 mg/dl (70-99)
[2024-03-08] MEDS: NOVOLOG FLEXPEN-LOW RESISTANCE 1 UNITS SC (13:29)
--- NOTE | 2024-03-08 14:24 | CM ---
CM following re: discharge planning.
Reviewed pt's chart, met with pt.
Pt is a 78 year old female, admitted with primary dx of Groin Abscess. ID following. Per MD pt might need wound vac.
Pt reports she lives with daughter 2SH, 2 steps to enter, has 2 supportive children. pt described herself as independent in all areas [employer], uses a walker and a cane as needed.
PT and OT will evaluate the pt to determine a level of care at discharge.
PCP: nel Bridges
Pharmacy: [facility]
D/C plan: most likely home with VN services, possible wound vac/IV antibiotics.
CM< will follow with discharge plan updates as hospitalization progresses
[2024-03-08 15:49] VITALS: BP 171/60
[2024-03-08 16:50] LABS: Glucose - Point of Care 236 mg/dl (70-99)
[2024-03-08 17:59] VITALS: BP 158/61
[2024-03-08 21:20] LABS: Glucose - Point of Care 300 mg/dl (70-99)
[2024-03-08] MEDS: LANTUS 0.18 UNITS SC (21:56)
[2024-03-08 23:25] VITALS: BP 143/58
[2024-03-09] MEDS: MAXIPIME 1000 MG IV ×2 (02:18→13:01)
[2024-03-09] MEDS: STERILE WATER FOR INJECTION 10 ML IV ×2 (02:19→13:01)
[2024-03-09 06:00] VITALS: BMI 23.1
[2024-03-09 06:44] LABS: Hemoglobin 9.7 g/dL (12.0-16.0); Mean Corp Hgb Conc. 33.4 g/dL (33.0-37.0); Mean Corpuscular Hgb 29.8 pg (27.0-31.0); Mean Corpuscular Volume 89.2 fL (81.0-99.0); Mean Platelet Volume 10.3 fL (7.4-10.4); Platelet Count 290 10^3/uL (130-400); Red Blood Cell Count 3.25 10^6/uL (4.20-5.40); Red Cell Dist. Width 12.1 % (11.5-14.5); White Blood Cell Count 8.1 10^3/uL (4.8-10.8)
[2024-03-09 06:57] LABS: Vancomycin Random 14.7 ug/ml
[2024-03-09 07:12] LABS: Blood Urea Nitrogen 45 mg/dl (7-17); Calcium 8.7 mg/dl (8.4-10.2); Carbon Dioxide 18 mmol/L (22-30); Chloride 108 mmol/L (98-107); Estimated Creatinine Clearance 25 ml/min; Glucose 190 mg/dl (70-99); Potassium 4.3 mmol/L (3.5-5.1); Sodium 135 mmol/L (135-145); eGFR 28.66
--- NOTE | 2024-03-09 08:08 | PHA.VAN.FU ---
Vancomycin Assessment / Plan
- Assessment
Renal Function: Stable
WBC's are: Trending Down
In the past 24 hrs, patient has been: Afebrile
Concomitant Antimicrobials: CEFEPIME, METRONIDAZOLE
- Assessment - Therapeutic Drug Monitoring
Random Level: 14.7
- Dosing Plan
Dosing by Level: Re-dose today (500mg)
- Monitoring Plan
Random Level: 1230 in am
- Follow Up
Pharmacy will continue to follow.
Vancomycin Follow UP
- -
Patient Age: 78
Patient Sex: Female
Vancomycin Day #: 4
Indication: Skin And Soft Tissue (INFECTED SEROMA/ABSCESS)
Requesting Provider: RAGINI
Height / Weight:
Height 5 ft 7 in
Actual Weight 66.735 kg
IBW in k.6 kg
Adjusted BW in k.2 kg
Pertinent Past Medical History: CKD
- Vital Signs / Lab Results
Temp Pulse Resp BP Pulse Ox
99 F 70 16 143/58 98
03/08/24 23:25 03/08/24 23:25 03/08/24 23:25 03/08/24 23:25 03/08/24 23:25
Lab Results - Hematology
03/06/24 03/07/24 03/08/24
11:18 07:55 07:27
WBC 14.6 H 11.0 H 9.8
03/09/24
06:18
WBC 8.1
Lab Results - Chemistry
03/06/24 03/07/24 03/08/24
11:18 07:55 07:27
BUN 35 H 31 H 46 H
Creatinine 1.6 H 1.7 H 1.9 H
Estimated Creat Clear
Albumin 3.5 2.9 L
03/09/24
06:18
BUN 45 H
Creatinine 1.8 H
Estimated Creat Clear 25
Albumin
Microbiology Results
03/07/24 14:54 Blood Culture - Preliminary
Blood/Venous No Growth in 24 hours- Final report to follow
03/07/24 14:05 Blood Culture - Preliminary
Blood/Venous No Growth in 24 hours- Final report to follow
03/06/24 14:45 Wound Culture - Preliminary
Groin - Right Gram Stain - Preliminary
03/06/24 14:45 Anaerobic Culture - Preliminary
Groin - Right Culture pending. Anaerobic cultures are examined after 3
days incubation. Additional information to follow.
Therapeutic Drug Monitoring
Random Vancomycin 14.7 ug/ml 03/09/24 06:18
[2024-03-09 08:23] LABS: Glucose - Point of Care 186 mg/dl (70-99)
[2024-03-09 08:45] VITALS: BP 164/64
[2024-03-09] MEDS: VANCOCIN HCL 500 MG 100 IV (08:51)
[2024-03-09] MEDS: FIRVANQ 125 MG PO ×2 (08:52→21:38)
[2024-03-09] MEDS: FLAGYL 500 MG PO ×2 (08:52→20:16)
[2024-03-09] MEDS: TOPROL XL 12.5 MG PO (08:52)
[2024-03-09] MEDS: LIPITOR 40 MG PO (08:52)
[2024-03-09] MEDS: NOVOLOG FLEXPEN 4 UNITS SC ×3 (08:53→17:26)
[2024-03-09] MEDS: VISBIOME 2 CAP PO (08:53)
[2024-03-09] MEDS: ASPIR LOW (ENTERIC COATED) 81 MG PO (08:53)
[2024-03-09] MEDS: NOVOLOG FLEXPEN-LOW RESISTANCE 1 UNITS SC ×2 (08:53→17:27)
[2024-03-09] MEDS: VITAMIN D3 (cholecalciferol) 25 MCG PO (08:53)
[2024-03-09] MEDS: NORVASC 5 MG PO (08:53)
--- NOTE | 2024-03-09 10:25 | W.PN.HOSP.TC ---
Today's Communication/Plan
-
waiting for wound vac
start bowel regimen
defer to ID for abx
Assessment / Plan
Assessment / Plan
pt is a 78 year old female
Infected seroma/abscess associated with prior right-sided endarterectomy--History of PAD with recent right endarterectomy 1 year ago, prior iliofemoral endarterectomy/stents---CTA shows right groin rim-enhancing fluid collection suspicious for
abscess/seroma--apprec ID--abscess culture with staph epi--cont vanco/cefepime/metronidazole/oral vanco-- s/p washout by vascular--on wound vac, won't be delivered until Sunday
Severe right renal artery stenosis/Severe celiac artery stenosis--noted
CAD status post CABG--Continue aspirin, Plavix, statin--Continue metoprolol
Type 2 diabetes mellitus--Insulin sliding scale----HGB A1C 8.5--needs better control--cont insulin/levemir
Essential hypertension--Continue amlodipine, metoprolol
Depression--situational as cannot go home
Chronic heart failure--unknown type
Chronic anemia of chronic disease--Hemoglobin stable
Hyperlipidemia--cont atorvastatin
CKD 3B--Renal function at baseline
GERD--Continue Protonix
History of C. difficile--on oral vanco per ID
Sacrum stage II pressure injury
History of meningioma s/p resection
Left hip fracture status post ORIF on 05/27
code status--Full code
DVT prophylaxis�SCDs
Anticipated Discharge: Within 24 hours
Subjective/Interval History
-
Date of Service: March 09, 2024
pt wants pain med for dressing changes
Objective Data
-
Labs:
Laboratory Results
03/09/24
06:18
WBC 8.1
Hgb 9.7 L
Hct 29.0 L
Plt Count 290
Sodium 135
Potassium 4.3
Chloride 108 H
Carbon Dioxide 18 L
BUN 45 H
Creatinine 1.8 H
Glucose 190 H
Calcium 8.7
Vital Signs:
max temp for 24 hours
03/08/24
23:25
Temp 99 F
Vital Signs
Temp Pulse Resp BP Pulse Ox
97.9 F 67 18 164/64 98
03/09/24 08:45 03/09/24 08:45 03/09/24 08:45 03/09/24 08:45 03/09/24 08:45
I&O
03/08/24 03/09/24 03/10/24
06:59 06:59 06:59
Intake Total 540 / 540 480 / 480
Output Total 775 / 775 1050 / 1050
Balance -235 / -235 -570 / -570
Review of Systems
-
All other systems: Reviewed and negative
Physical Exam
-
General: Well Developed, Well Nourished and No Apparent Distress
HEENT: Normocephalic and Atraumatic
Respiratory: Clear to Auscultation; Negative Wheezes or Rhonchi
Cardiac: Regular Rhythm and S1/S2; Negative Murmur
GI: Soft, Nontender, Nondistended and Normal Bowel Sounds
Musculoskeletal: No Clubbing, No Cyanosis, No Edema and Other (wound vac right groin)
Skin: Warm
Neuro: Awake
[2024-03-09] MEDS: COLACE 100 MG PO ×2 (10:51→20:16)
[2024-03-09] MEDS: MIRALAX 17 GRAMS PO (10:51)
[2024-03-09 12:11] LABS: Glucose - Point of Care 286 mg/dl (70-99)
[2024-03-09] MEDS: NOVOLOG FLEXPEN-LOW RESISTANCE 3 UNITS SC (12:20)
[2024-03-09 16:19] VITALS: BP 148/51
[2024-03-09 17:22] LABS: Glucose - Point of Care 190 mg/dl (70-99)
[2024-03-09 21:18] LABS: Glucose - Point of Care 360 mg/dl (70-99)
[2024-03-09] MEDS: LANTUS 0.18 UNITS SC (21:37)
[2024-03-09 23:00] VITALS: BP 142/70
[2024-03-10] MEDS: STERILE WATER FOR INJECTION 10 ML IV (02:13)
[2024-03-10] MEDS: MAXIPIME 1000 MG IV (02:13)
--- NOTE | 2024-03-10 07:12 | W.PN.HOSP.TC ---
Addendum entered and electronically signed by Rebeca Aviles MD 03/10/24 15:58:
I saw and evaluated the patient independently. I reviewed the resident�s note and agree with findings and plan as documented by Dr. Sanchez.
GENERAL: well developed, well nourished, female in no apparent distress
HEENT: NC/AT
HEART: regular rate and rhythm, +S1, +S2
LUNGS : clear to auscultation bilaterally
ABDOM: soft, nontender, nondistended, + bowel sounds
EXT: no cyanosis, clubbing, or edema--right groin wound vac
NEUROLOGIC: grossly intact
Infected seroma/abscess associated with prior right-sided endarterectomy--History of PAD with recent right endarterectomy 1 year ago, prior iliofemoral endarterectomy/stents---CTA shows right groin rim-enhancing fluid collection suspicious for
abscess/seroma--apprec ID--abscess culture with staph epi--going home on oral doxycycline/oral vancomycin-- s/p washout by vascular--on wound vac, delivered Sunday
Severe right renal artery stenosis/Severe celiac artery stenosis--noted
CAD status post CABG--Continue aspirin, Plavix, statin--Continue metoprolol
Type 2 diabetes mellitus--Insulin sliding scale----HGB A1C 8.5--needs better control--cont insulin/levemir
Essential hypertension--Continue amlodipine, metoprolol
Depression--situational as cannot go home--improved
Chronic heart failure--unknown type
Chronic anemia of chronic disease--Hemoglobin stable
Hyperlipidemia--cont atorvastatin
CKD 3B--Renal function at baseline
GERD--Continue Protonix
History of C. difficile--on oral vanco per ID
Sacrum stage II pressure injury
History of meningioma s/p resection
Left hip fracture status post ORIF on 05/27
code status--Full code
DVT prophylaxis�SCDs
ok for d/c
Original Note:
Today's Communication/Plan
-
Wound vac change today
Transition to appropriate oral abx upon discharge
Dc today
Assessment / Plan
Assessment / Plan
Impression: 78-year-old female past medical history of recent CABG, peripheral arterial disease bilateral iliac stents iliofemoral endarterectomy hypertension diabetes CKD 3 GERD depression hyperlipidemia remote Hx Meningioma resection recent left
hip fracture ORIF 05/28/23 presenting for swelling and tenderness of her right groin.
Assessment/Plan:
#Infected seroma/abscess associated with prior right-sided endarterectomy--History of PAD with recent right endarterectomy 1 year ago, prior iliofemoral endarterectomy/stents
-CTA shows right groin rim-enhancing fluid collection suspicious for abscess/seroma
-Consulted, apprec ID
-abscess culture with staph epi--cont vanco/cefepime/metronidazole/oral vanco transition to oral doxy and oral vanco upon dc as per ID
- s/p washout by vascular--on wound vac, changed today.
#Severe right renal artery stenosis/Severe celiac artery stenosis
-noted
#CAD status post CABG
-Continue aspirin, Plavix, statin
-Continue metoprolol
#Type 2 diabetes mellitus
-Insulin sliding scale
-HGB A1C 8.5
-Cont insulin/levemir
#Essential hypertension
-Continue amlodipine, metoprolol
#Depression
-situational as patient states she 'just wants to go home'
#Chronic heart failure unknown type
#Chronic anemia of chronic disease
-Hemoglobin stable
#Hyperlipidemia
-cont atorvastatin
#CKD 3B
-Renal function at baseline
#GERD
-Continue Protonix
#History of C. difficile
-on oral vanco per ID
#Sacrum stage II pressure injury
#History of meningioma s/p resection
#Left hip fracture status post ORIF on 05/27
code status--Full code
DVT prophylaxis�SCDs
Anticipated Discharge: Today
Subjective/Interval History
-
Date of Service: March 10, 2024
Patient states that she feels fine and denies any swelling at groin, fevers or chills.
Objective Data
-
Labs:
Laboratory Results
03/10/24
06:00
Sodium Pending
Potassium Pending
Chloride Pending
Carbon Dioxide Pending
BUN Pending
Creatinine Pending
Glucose Pending
Calcium Pending
Vital Signs:
Vital Signs
Temp Pulse Resp BP Pulse Ox
98.8 F 74 18 142/70 97
03/09/24 23:00 03/09/24 23:00 03/09/24 23:00 03/09/24 23:00 03/09/24 23:00
I&O
03/09/24 03/10/24 03/11/24
06:59 06:59 06:59
Intake Total 480 / 480
Output Total 1050 / 1050
Balance -570 / -570
Review of Systems
-
All other systems: Reviewed and negative
Physical Exam
-
General: No Apparent Distress
HEENT: Normocephalic
Respiratory: Clear to Auscultation
Cardiac: Regular Rhythm
GI: Soft, Nontender and Nondistended
Musculoskeletal: No Edema
Skin: Warm, Dry and Other (Wound vac at R groin)
Neuro: Awake, Alert and Oriented
Psych: Calm
[2024-03-10 07:58] LABS: Glucose - Point of Care 243 mg/dl (70-99)
[2024-03-10 08:17] VITALS: BP 173/61
[2024-03-10] MEDS: NOVOLOG FLEXPEN-LOW RESISTANCE 2 UNITS SC ×2 (08:30→12:22)
[2024-03-10] MEDS: NOVOLOG FLEXPEN 4 UNITS SC ×2 (08:30→12:21)
[2024-03-10] MEDS: VISBIOME 2 CAP PO (08:31)
[2024-03-10] MEDS: FLAGYL 500 MG PO (08:31)
[2024-03-10] MEDS: TOPROL XL 12.5 MG PO (08:32)
[2024-03-10] MEDS: NORVASC 5 MG PO (08:32)
[2024-03-10] MEDS: VITAMIN D3 (cholecalciferol) 25 MCG PO (08:32)
[2024-03-10] MEDS: LIPITOR 40 MG PO (08:32)
[2024-03-10] MEDS: ASPIR LOW (ENTERIC COATED) 81 MG PO (08:32)
[2024-03-10] MEDS: FIRVANQ 125 MG PO (08:33)
[2024-03-10] MEDS: MIRALAX 17 GRAMS PO (08:33)
[2024-03-10] MEDS: COLACE 100 MG PO (08:33)
[2024-03-10 09:48] LABS: Vancomycin Random 14.1 ug/ml
[2024-03-10 10:32] LABS: Blood Urea Nitrogen 42 mg/dl (7-17); Calcium 8.7 mg/dl (8.4-10.2); Carbon Dioxide 19 mmol/L (22-30); Chloride 103 mmol/L (98-107); Estimated Creatinine Clearance 25 ml/min; Glucose 330 mg/dl (70-99); Potassium 4.5 mmol/L (3.5-5.1); Sodium 134 mmol/L (135-145); eGFR 28.66
--- NOTE | 2024-03-10 11:12 | W.PN.ID1 ---
Date of Service
Date of Service: March 10, 2024
Today's Communication
Transition to doxycycline 100 mg po bid through 03/21/24
Continue oral vancomycin 125 mg PO BID prophylaxis through 03/26/2024
Assessment / Plan
Groin Abscess
- s/p I&D 03/06
Peripheral arterial disease
- Hx (R) ileofemoral endarterectomy with bovine pericardial patch angioplasty, bilateral kissing iliac stents, right external iliac artery stent (02/19/24)
CKD
DM2 - fair control
Colonization with C difficile within the last 12 months; kady infection x1
Allergy to penicillin (swelling); tolerates ceftriaxone
Dysuria with urgency
- Dr Blanton comments graft did not appear to be involved, fluid not frankly purulent though with cellulitic changes
- abscess culture - Staph epi
- anaerobic culture - negative
- blood cultures x2 03/07: neg
- DC IV Vanco/cefepime/metronidazole
_ Transition to doxycycline 100 mg po bid through 03/21/24
- Continue oral vancomycin 125 mg PO BID prophylaxis for history of C difficile within the last year, through 03/26/2024
- Hopeful for completion of therapy with an oral regimen when sensitivities back
follow cultures, fever curve
����������������������������������������������������������
Chief Complaint
-: Other (Right groin infected seroma)
Subjective / Review of Systems
Waiting for wound vac insurance approval. Otherwise, feels well.
Vital Signs / Physical Exam
Vital Signs
Vital Signs
Temp Pulse Resp BP Pulse Ox
98.4 F 70 18 173/61 98
03/10/24 08:17 03/10/24 08:17 03/10/24 08:17 03/10/24 08:17 03/10/24 08:17
Physical Exam
Constitutional: No Acute Distress and Comfortable
Cardiovascular: Regular Rate and S1/S2
Pulmonary: Clear
Gastrointestinal: Non Tender and Non Distended
Wound: None (right groin wound vac in place)
Neurological: AO x 3
Objective Data
Lab Data
Lab Results
03/09/24 06:18
03/10/24 08:57
PT 14.1 Sec (11.4-14.6) 03/07/24 07:55
INR 1.04 03/07/24 07:55
APTT 35.8 Sec (23.4-35.0) H 03/07/24 07:55
Estimated Creat Clear 25 ml/min 03/10/24 08:57
Total Bilirubin 0.2 mg/dl (0.2-1.3) 03/07/24 07:55
AST 16 U/L (14-36) 03/07/24 07:55
ALT 18 U/L (0-35) 03/07/24 07:55
Alkaline Phosphatase 110 U/L (38-126) 03/07/24 07:55
Most recent labs reviewed.
Micro Results:
03/07/24 14:54 Blood Culture - Preliminary
Blood/Venous No Growth in 48 hours- Final report to follow
03/07/24 14:05 Blood Culture - Preliminary
Blood/Venous No Growth in 48 hours- Final report to follow
03/06/24 14:45 Anaerobic Culture - Preliminary
Groin - Right NO ANAEROBES ISOLATED
03/07/24 20:19 Urine Culture - Preliminary
Urine Sparse growth, too young to be identified. Further results
to follow.
03/06/24 14:45 Wound Culture - Preliminary
Groin - Right Staphylococcus epidermidis
Gram Stain - Preliminary
SPEC #: [id number] RPAKASH: 03/06/24 STATUS: RES REQ #: [id number]
RECD: 03/06/24-[address]: Harvinder PRINCE, Oc
SOURCE: GROIN ENTR: 03/06/[address] [facility] [address]: Cyrus PRINCE,Larry Pozo
SPDESC: Right Anastacia PRINCE,Udaybhanu
ORDERED: Wound/Other
QUERIES: Date Specimen was Collected 03/06/24
Time Specimen was Collected 1445
Procedure Result Verified
Wound/abscess/other Cult Preliminary 03/09/24-0856
Few Staphylococcus epidermidis
Organism 1 Staphylococcus epidermidis
1. Staphylococcus epidermidis
M.I.C. RX
--------- ---
Amoxicillin/Potas. Clavulanate <=4/2 S
Ampicillin <=2 R
Clindamycin <=0.5 S
Gentamicin <=4 S
Erythromycin <=0.5 S
Levofloxacin <=1 S
Oxacillin <=0.25 S
Tetracycline <=4 S
Trimethoprim/Sulfamethoxazole <=0.5/9.5 S
Vancomycin 1 S
[2024-03-10 11:33] VITALS: BP 150/60
--- NOTE | 2024-03-10 11:55 | VNURNOTE ---
Home Health Liaison met with patient at bedside to discuss [facility] nurse/therapy, visits, schedule and homebound status. Patient is agreeable and understands that visits at home will be 2-3 x per week to assess and teach medical and wound vac
management. [facility] brochure provided with contact information. Patient is aware that [facility] will contact them for start of care in 1-2 days after discharge from .
[facility] referral updated in [facility].
[2024-03-10 12:04] LABS: Glucose - Point of Care 230 mg/dl (70-99)
[2024-03-10] MEDS: ROXICODONE 5 MG PO (12:31)
[2024-03-10] MEDS: VIBRAMYCIN 100 MG PO (12:32)
--- NOTE | 2024-03-10 13:09 | W.PN.VS ---
Today's Communication / Plan
-
See below.
Assessment/Plan
-
Assessment: 78-year-old female POD #4 Incision and drainage with washout right groin subcutaneous fluid collection, pulse lavage irrigation, wound VAC placement.
Plan:
Continue wound VAC treatment to right groin, consult placed to case management and wound care nurse for set up of home wound VAC and visiting nurse. Hopefully all outpatient care services will be established today for discharge.
Case management consulted for discharge plan
Infectious disease consulted for antibiotic management, appreciate recommendation
Wound care following will change VAC today
Follow-up appointment placed in discharge instructions
Subjective Data
-
Date of Service: March 10, 2024
Patient seen and evaluated bedside, offers no complaints. Continues to endorse vast improvement in right groin pain, to near complete resolution other than intermittent discomfort.
Objective Data
-
Vital Signs
Temp Pulse Resp BP Pulse Ox
98.4 F 64 18 150/60 98
03/10/24 08:17 03/10/24 11:33 03/10/24 08:17 03/10/24 11:33 03/10/24 08:17
Intake and Output
03/09/24 03/10/24 03/11/24
06:59 06:59 06:59
Intake Total 480 / 480
Output Total 1050 / 1050
Balance -570 / -570
Intake:
Oral fluids 480 / 480
Output:
Urine, Voided 1050 / 1050
Other:
Number of approximated MODERATE 3 1 1
amounts of urine
Lab Results
03/09/24 06:18
03/10/24 08:57
Calcium 8.7 mg/dl (8.4-10.2) 03/10/24 08:57
Magnesium 2.0 mg/dl (1.6-2.3) 03/09/24 06:18
Total Bilirubin 0.2 mg/dl (0.2-1.3) 03/07/24 07:55
AST 16 U/L (14-36) 03/07/24 07:55
ALT 18 U/L (0-35) 03/07/24 07:55
Alkaline Phosphatase 110 U/L (38-126) 03/07/24 07:55
Total Protein 5.4 g/dl (6.3-8.2) L 03/07/24 07:55
Albumin 2.9 g/dl (3.5-5.0) L 03/07/24 07:55
Physical Exam
-
No apparent distress resting in bed comfortably
No tachycardia
No dyspnea on room air
ABD flat, nontender, nondistended
Right groin wound VAC CDI, holding suction, no evidence of erythema at surrounding skin
Bilateral feet warm
--- NOTE | 2024-03-10 14:15 | WOUNDNOTE ---
R 5TH MTH (LATERAL)
--- NOTE | 2024-03-10 14:18 | WOUNDNOTE ---
[facility] RN note: Patient's R groin vac dressing changed and connected to [employer] home vac ([employer]). [employer] rep Brandon delivered and instructed patient use of the home vac equipment, where to find [employer] phone number and he had patient sign a proof of home vac
delivery form. Patient was pre medicated for pain by EHSAN Mitchell prior to wound negative pressure dressing change. Patient tolerated dressing change fair. She recovered from pain after dressing change completed. Wound clean with moderate ss drainage.
No surrounding erythema. Say texted Dr. Aviles and SHEFALI Titus re: home vac connected to patient. Patient sacral and heel skin intact. Heels off bed with air chair cushion. Instructed patient pressure injury prevention measures, use of home
vac, how to connect vac pump to power cord, how to disconnect and reconnect vac tubing. Instructed patient to call [employer] or VN 02/10 if she has a problem with the wound vac. Instructed patient if kady bleeding occurs, to disconnect vac tubing and turn
vac pump off, and call 911. Instructed patient how to change vac canister and how to patch dressing with a strip of vac drape if an air leak occurs. Patient instructed to call VN or [employer] if the vac looses it's suction for greater than 2 hours.
--- NOTE | 2024-03-10 14:30 | WOUNDNOTE ---
[facility] RN note: [employer] rep Aleksandr took the [employer] hospital vac pump ([employer]enas[employer] Touch) now that patient is connected to the home vac. Patient was given the 2 page patient hand out on the [employer] home vac ([employer]enas[employer] Edge).
--- NOTE | 2024-03-10 15:19 | CM ---
Patient seen at bedside with physician. Patient wound vac delivered and wound care met with patient. IMM completed and signed form placed on chart. Patient will be followed by [facility] and CM will continue to follow for discharge planning needs.
Plan; home with [facility]/wound care
--- NOTE | 2024-03-10 15:31 | W.DCSUMMARY ---
Addendum entered and electronically signed by Rebeca Aviles MD 03/10/24 20:31:
Read, reviewed, and agree. See same day progress note for additional details. Time spent coordinating care, DC planning, review of DC plan of care with resident, transition of care, review of records in EMR, med rec, consults, notes, d/w
consultants, nursing, family, and CM = 35 minutes
Original Note:
Discharge Summary
Discharge Data
Date of Admission: 03/06/24
Date of Discharge: 03/10/24
-
Pending Results: No
Hospital Course
Discharging Physician : ,
Disposition : Home
Primary care physician : Dr.Paul Bridges
Principal Discharge diagnosis : Infected seroma/abscess status post washout by vascular
Chronic Discharge diagnosis : Previous history of right sided femoral endarterectomy, severe right renal artery stenosis/celiac artery stenosis, coronary artery disease status post bypass surgery in past, type 2 diabetes mellitus, essential
hypertension, depression, chronic heart failure unknown type, anemia of chronic disease, hyperlipidemia, chronic kidney disease stage IIIb, gastroesophageal reflux disease, previous history of C. difficile, stage II pressure injury sacrum (present
on admission), history of meningioma resection, left hip fracture status post open reduction internal fixation in the past
Hospital Course : 78-year-old female past medical history of recent CABG, peripheral arterial disease bilateral iliac stents iliofemoral endarterectomy hypertension diabetes CKD 3 GERD depression hyperlipidemia remote Hx Meningioma resection recent
left hip fracture ORIF 05/28/23 presented for swelling and tenderness of her right groin. CTA abdomen/pelvis show fluid collection suspicious for abscess/seroma. Vascular surgery was consulted and patient was planned for washout. IV
vancomycin/aztreonam started initially. Cultures sent from operating room during washout. Fluid was not frankly purulent though it was associated with cellulitic changes, ID consulted. Blood cultures were negative. Aztreonam discontinued and
changed to IV cefepime and metronidazole. Patient was also added on oral vancomycin for history of C. difficile within the last year. Culture of the abscess showed coagulase-negative staph. Wound VAC dressing was changed, no evidence of purulent
drainage. Urine culture showed yeast this is likely due to course of antibiotics. As per sensitivities and ID, patient to be continued on doxycycline and oral vancomycin upon discharge. All other chronic medical conditions stable and continued on
home medications. Patient stable for discharge and will follow-up with vascular surgery, follow-up with PCP and continue oral antibiotics to finish course.
Important imaging findings :
03/06/24 CT Abd/pel angiogram:
1. Right groin rim-enhancing fluid collection measuring 6.2 x 3.9 x 4.7 cm as above, suspicious for abscess.
2. Advanced atherosclerotic changes as described. Severe stenosis of the celiac axis. Severe stenosis of the right renal artery. Patent bilateral common iliac stents. Patent right external iliac stent. Multifocal iliac and femoral stenoses as
above.
3. Peripheral mucus plugging at the bilateral lung bases.
4. Diverticulosis without diverticulitis.
5. Right adnexal 3.5 cm cyst as seen previously, probable ovarian cyst.
6. Mild compression deformity T11, most likely chronic.
Procedure findings :
02/25/24: Incision and drainage with washout right groin subcutaneous fluid collection, pulse lavage irrigation, wound VAC placement.
Discharge Plan
-
Patient Disposition: Home (Routine Discharge)
Discharge Diagnosis/Procedures: Infected seroma/abscess status post washout by vascular and previous history of right sided femoral endarterectomy, severe right renal artery stenosis/celiac artery stenosis, coronary artery disease status post bypass
surgery in past, type 2 diabetes mellitus, essential hypertension, depression, chronic heart failure unknown type, anemia of chronic disease, hyperlipidemia, chronic kidney disease stage IIIb, gastroesophageal reflux disease, previous history of C.
difficile, stage II pressure injury sacrum (present on admission), history of meningioma resection, left hip fracture status post open reduction internal fixation in the past
Condition: Good
Diet: Diabetic, Carb Controlled
Activity: As tolerated
Driving Restrictions: Not until seen by your Dr
Bathing Restrictions: OK to Shower
Others Tests: Your follow-up arterial ultrasound is scheduled on 03/19/2024 at 8 AM here at [facility]
Other Services: VN
Activity Restrictions/Additional Instructions:
Wound Care Instructions
Right Groin-negative pressure wound therapy, clean with saline, use Black Foam, Change every 48 - 72 hours (i. e. Bjojzdf-[id number]-[id number]) and prn if unable to obtain a seal. Low Intensity, Continuous at 120 mmHg. Upon discharge or transfer to
another facility, remove VAC foam and apply NS moistened gauze dressing unless home VAC unit available. Call [employer] ( ) or [employer] wound vac rep for any vac pump questions/concerns Kishore Deutsch cell # or Kole Salmeron
or call VN.
Elevate heels off bed with pillow and/or air chair cushion.
Pressure redistrbuting chair cushion (i.e. Air chair cushion).
Follow up with vascular surgeon.
Referrals:
Larry Bridges MD [Family Provider] - in less than 1 week
Terri Santacruz CRNP [Specified Professional Personl] - 03/24/24 2:30 pm
Additional Discharge Medication Instructions: If experiencing any symptoms such as worsening swelling/pain at groin site or high grade fevers, please return to ER. Continue antibiotics as listed. Follow up with vascular surgeon. Follow up with
family physician in 1 week.
Take doxycycline 100 mg orally twice a day through 03/21/24
Take oral vancomycin 125 mg orally twice a day prophylaxis through 03/26/2024
Prescriptions:
New
oxycodone 5 mg Tablet
5 mg PO Q4HPRN PRN (Reason: moderate pain) Qty: 20 0RF
Rx Instructions:
take 1/2 hour before dressing changes
doxycycline hyclate 100 mg Capsule
100 mg PO Q12 11 Days Qty: 22 0RF
vancomycin 125 mg capsule
125 mg PO BID 16 Days Qty: 32 0RF
Continued
aspirin 81 mg Tablet,Delayed Release (Dr/Ec)
81 mg PO DAILY
Levemir FlexPen 100 unit/mL (3 mL) Insulin Pen
18 unit SC HS
cholecalciferol (vitamin D3) [Vitamin D3] 25 mcg (1,000 unit) Tablet
25 mcg PO DAILY
amlodipine 5 mg Tablet
5 mg PO DAILY Qty: 0 0RF
acetaminophen 325 mg tablet
650 mg PO Q4HPRN PRN (Reason: mild pain/fever>100.4)
metoprolol succinate 25 mg tablet extended release 24 hr
12.5 mg PO DAILY
insulin aspart U-100 [Novolog FlexPen U-100 Insulin] 100 unit/mL (3 mL) insulin pen
4 unit SC TID@0800,1200,1700
atorvastatin 40 mg tablet
40 mg PO DAILY
Discharge Orders:
Discharge Patient (As Directed); Ordered 03/10/24
Ordered By: Sofi Sanchez
Discharge Date and Time
Print Language: GIBRALTARIAN
[2024-03-10 16:09] VITALS: BP 143/66
== END 2024-03-10 16:52 | disposition home health service (06) | DRG 857 ==
LOC: 4 EAST ACU 14:01
PROVIDERS: Emergency Medicine; Nurse Practitioner; Student in an Organized Health Care Education/Training Program; Surgery Vascular Surgery; ADMITTING PHYSICIAN Hospitalist; ATTENDING PHYSICIAN Internal Medicine; CONSULT PHYSICIAN Student in an Organized Health Care Education/Training Program; EMERGENCY PHYSICIAN Student in an Organized Health Care Education/Training Program; FAMILY PHYSICIAN Family Medicine
PROC: 0Y9500Z Drainage of Right Inguinal Region with Drainage Device, Open Approach (ICD-10-PCS; 2024-03-06)
DX: T81.41XA Infection following a procedure, superficial incisional surgical site, initial encounter (principal); I13.0 Hypertensive heart and chronic kidney disease with heart failure and stage 1 through stage 4 chronic kidney disease, or unspecified chronic kidney disease; L76.34 Postprocedural seroma of skin and subcutaneous tissue following other procedure; L02.214 Cutaneous abscess of groin; Y83.8 Other surgical procedures as the cause of abnormal reaction of the patient, or of later complication, without mention of misadventure at the time of the procedure; L89.152 Pressure ulcer of sacral region, stage 2; N18.32 Chronic kidney disease, stage 3b; I50.9 Heart failure, unspecified; I25.10 Atherosclerotic heart disease of native coronary artery without angina pectoris; I70.1 Atherosclerosis of renal artery; I77.1 Stricture of artery; E11.22 Type 2 diabetes mellitus with diabetic chronic kidney disease; E78.00 Pure hypercholesterolemia, unspecified; K21.9 Gastro-esophageal reflux disease without esophagitis; F32.A Depression, unspecified
CPT/HCPCS: 10140; 74174; 80048; 80053; 80202; 81003; 81015; 82962; 83036; 83735; 85025; 85027; 85610; 85730; 87040; 87070; 87075; 87086; 87147; 87186; 87205; 96361; 96374; 99285; Q9967

== ENCOUNTER → 2024-05-15 08:34 | Outpatient (REF) | payer OTHER, SELFPAY | LOC: RAD 08:34 | PROVIDERS: ATTENDING PHYSICIAN Surgery Vascular Surgery; FAMILY PHYSICIAN Family Medicine | DX: I77.9 Disorder of arteries and arterioles, unspecified (principal) | CPT/HCPCS: 93922; 93925; 93978 ==

== ENCOUNTER → 2024-09-01 12:52 | Outpatient (REF) | payer OTHER, SELFPAY | LOC: RAD 12:52 | PROVIDERS: ATTENDING PHYSICIAN Surgery Vascular Surgery; FAMILY PHYSICIAN Family Medicine | DX: I77.9 Disorder of arteries and arterioles, unspecified (principal) | CPT/HCPCS: 93922; 93925; 93978 ==

== ENCOUNTER 2024-11-04 07:40 | Outpatient (RCR) | payer OTHER, SELFPAY ==
[2024-11-04 08:00] VITALS: BP 167/62
[2024-11-04] MEDS: SODIUM BICARBONATE 1150 MEQ IV (08:20)
--- NOTE | 2024-11-05 15:55 | OID.PS.NOTER ---
OID Social Work Note
- -
SW received consult on patient who was in [facility] For pre/post IV hydration for a CT Scan.
Patient answered yes to both PHQ-2 questions. She denied any suicide ideation.
Per nursing, she refused SW consult.
Wish respect to patient's wishes, will defer a phone call and instead mail her a letter detailing SW's role and contact information.
== END 2024-11-09 23:59 | disposition home or self-care (01) ==
LOC: OID 07:40
PROVIDERS: ATTENDING PHYSICIAN Surgery Vascular Surgery; FAMILY PHYSICIAN Family Medicine
DX: I77.9 Disorder of arteries and arterioles, unspecified (principal)
CPT/HCPCS: 75635; 96365; Q9967

== ENCOUNTER → 2024-11-19 14:28 | Outpatient (REF) | payer OTHER, SELFPAY | LOC: RAD 14:28 | PROVIDERS: ATTENDING PHYSICIAN Surgery Vascular Surgery; FAMILY PHYSICIAN Family Medicine | DX: Z01.818 Encounter for other preprocedural examination (principal) | CPT/HCPCS: 93970 ==

== ENCOUNTER 2024-11-24 09:04 | Inpatient (IN) | payer OTHER, SELFPAY ==
[2024-11-14 09:35] VITALS: BMI 27.5
[2024-11-14 10:18] LABS: Hematocrit 34.2 % (37.0-47.0); Hemoglobin 11.3 g/dL (12.0-16.0); Mean Corp Hgb Conc. 33.0 g/dL (33.0-37.0); Mean Corpuscular Volume 88.4 fL (81.0-99.0); Nucleated Red Blood Cells % 0 %; Platelet Count 226 10^3/uL (130-400); Red Cell Dist. Width 12.4 % (11.5-14.5)
[2024-11-14 10:23] LABS: INR 0.91; PT 12.6 Sec (11.4-14.6)
[2024-11-14 10:24] LABS: APTT 28.1 Sec (23.4-35.0)
[2024-11-14 10:42] LABS: Blood Urea Nitrogen 42 mg/dl (7-17); Calcium 9.5 mg/dl (8.4-10.2); Carbon Dioxide 21 mmol/L (22-30); Chloride 110 mmol/L (98-107); Estimated Creatinine Clearance 28 ml/min; Glucose 204 mg/dl (70-99); Potassium 5.1 mmol/L (3.5-5.1); Sodium 138 mmol/L (135-145); eGFR 30.50
--- NOTE | 2024-11-21 14:47 | PTCARENOTE ---
Abnormal ECG on 11/19/2024, reviewed by Dr. Gorman. No further orders at this time.
[2024-11-24] VITALS (26 sets, daily range): BP systolic 129–193; BP diastolic 41–78
--- NOTE | 2024-11-24 09:26 | W.SUR.PREOP ---
Pre-Operative Surgical Note
-
I have examined this patient prior to the performance of the scheduled procedure.
The patient's condition is unchanged from the time of the current History and
Physical and the patient is able to undergo the scheduled procedure.
[2024-11-24 09:46] LABS: Glucose - Point of Care 214 mg/dl (70-99)
[2024-11-24] MEDS: BACTROBAN NASAL 1 GRAM NASAL (09:58)
--- NOTE | 2024-11-24 12:37 | W.SUR.POST ---
Surgical Immediate Post Op
Note
Pre Op Diagnosis: PAD
Post Op Diagnosis: Same
Procedure Performed: Left femoral endarterectomy with bovine patch angioplasty, on table diagnostic arteriogram
Primary Surgeon: Harvinder
Secondary Surgeons: Baron WEAVER
Anesthesia: general
Estimated Blood Loss: 25cc
Fluids: see anesthesia flow sheet
Drains/Shunts: none
Specimens/Cultures: femoral plaque
Doppler/Duplex/Angio (Y/N): Y
Complications: none
Operative Findings: +DP and PT signals
[2024-11-24 14:12] LABS: Glucose - Point of Care 204 mg/dl (70-99)
--- NOTE | 2024-11-24 14:18 | OR.RPT ---
Operative Report
Operative Report
PROCEDURE DATE: 11/24/2024
Preoperative diagnosis: Ischemic rest pain left foot, severe peripheral arterial disease.
Postoperative diagnosis: Same
Procedure:
1. Left femoral endarterectomy with bovine pericardial patch angioplasty, profundoplasty.
2. On table left lower extremity arteriogram.
Surgeon: Harvinder
Primary School Teacher: Paula Draper NP, required for all aspects of procedure including assistance with traction/countertraction, following a suture line, assistance with closure.
Complications: None
Anesthesia: General
Indications for procedure:
Severe peripheral arterial disease with ischemic rest pain symptoms in the left foot. Risk/benefits/alternatives of revascularization fully discussed. Based on noninvasive imaging with significant profunda stenosis/common femoral plaque I had
discussed femoral endarterectomy/profundoplasty. Discussed possible antegrade stenting of the SFA if possible. Discussed alternatively potential bypass if needed. However her symptoms were rest pain symptoms with no tissue loss. Therefore had
discussed possible femoral endarterectomy alone as well. Patient understood all and wished to proceed.
Description of procedure:
Patient was identified brought to the operating room placed on the table in supine position. After the adequate administration of anesthesia she was prepped and draped in the standard surgical fashion. A standard preoperative timeout was
undertaken and everybody was in agreement the plan. A standard longitudinal incision was made in the left groin that was carried through the skin to be healthy tissue with the electrocautery. Any crossing venous or lymphatic structures were
ligated between silk ties and divided. I dissected down to the level of the inguinal ligament and then identified the common femoral artery as it emerged from underneath the inguinal ligament. Very proximally it was noted to be soft, but in its
mid segment was hard and significantly calcified. I continued to dissect to the femoral bifurcation and the proximal SFA. The SFA was dissected for about 4 to 6 cm. Throughout that entire length, it was severely calcified with no real pulsation.
The femoral pulse in the common femoral artery was somewhat weak and. However when I dissected further cephalad at the external iliac underneath the inguinal ligament, the pulsation was strong. I circumferentially dissected the SFA and passed the
vessel loop around it. I now dissected back to the origin of the profunda. The profunda was carefully dissected away from surrounding structures and I continued to dissected down for length. I initially dissected beyond a branch point where there
is a medial and lateral branch. I dissected just beyond there and passed a vessel loop around it. The artery was noted to be soft here. In addition there was a larger branch at the origin of the profunda/at the femoral bifurcation that I was able
to circumferentially control as well. Now I dissected underneath the inguinal ligament. Circumflex iliac artery branches were controlled with Vesseloops. I dissected the external iliac artery just proximal to this point and it was noted to be
soft. I passed a vessel loop around it here.
Now that I had control the femoral bifurcation vessels, I gave the patient 6500 units of intravenous heparin. Once this had circulated I then placed a profunda clamp on the profunda, tightened the doubly Vesseloops on the SFA, and clamped the
distal external iliac artery. An arteriotomy was made on the profunda where it was soft with an 11 blade, and extended using a Oh scissor. I extended it proximally back onto the common femoral. There was significant plaque throughout the
common femoral and onto the origin of the profunda. This resulted in severe profunda origin stenosis. Beyond the origin, there was a little bit of plaque and then thickening that resulted in moderate stenosis as well. I made sure to extend the
arteriotomy beyond this. I now had to extend my arteriotomy on the profunda little bit and therefore I dissected slightly more distally on the profunda, beyond the next branch point passed a vessel loop around both the main profunda and the branch.
I then moved my profunda clamp to the main profunda more distally and tightened a double vessel loop on the other branch. I then extended my arteriotomy slightly more. Now I had better clean endpoint here. Therefore I now used a [place] to create
an endarterectomy plane in the common femoral artery. I divided the plaque in the mid common femoral artery. I then grasped the plaque and endarterectomized it out of the proximal common femoral artery and up to the level of the clamp, releasing
the clamp temporarily to allow complete endarterectomy and then reclamping. I then inspected up to my arteriotomy to the endpoint there. Any fine debris was removed with fine forceps, but now had a nice clean endpoint that appeared nicely adherent.
Now I turned my attention to the distal aspect of the plaque. The plaque somewhat feathered out in the profunda and then I grasped it and everted out of the origin of the SFA.
Now any fine debris throughout the endarterectomy bed was removed with fine forceps. On the profunda I had to perform the endarterectomy slightly more distally as there was still thickened intima and loose debris. When I had moved my clamp down, I
had a nice clean endpoint in the profunda and I was able to endarterectomized a last portion of plaque out of the more distal profunda and that last branch that I controlled by temporarily releasing that vessel loop and then plucking the remainder
of that plaque out. Now I had an excellent clean endpoint distally. The profunda was widely patent now. Again I confirmed no residual debris. I irrigated heparinized saline. I now used a bovine pericardial patch and a 6-0 Prolene suture to sew
it in place in a running fashion. Prior to completing and tying down my suture line I backbled the pilot station arteries and flushed heparinized saline. I then completed and tied down my suture line. At this point there is excellent pulsatile flow in
the common femoral and profunda. There is excellent pulse into the origin of the SFA. Doppler confirmed an excellent profunda signal. A couple 6-0 Prolene sutures were placed along the suture line in a lwhidv-ay-mbung fashion at 2 bleeding points
to achieve full hemostasis.
At this point I punctured the patch using a micropuncture needle trying to gain needle and wire access down the SFA. The angles were little bit tough due to the depth and the high bifurcation. But I was able to do so. However I could not guide my
wire into the SFA. I then ended up losing wire and needle access and repaired the puncture site with a single 6-0 Prolene phjvaf-aw-zavci suture. I then repunctured more proximally on the patch. I again had trouble wiring into the SFA. The wire
formed a loop initially and it looked like it was almost going subintimal he which I was favoring not to do. Therefore at this point I pulled the wire back and obtained imaging/angiography through the needle. This demonstrated widely patent
endarterectomy/profundaplasty site. The SFA had bulky plaque throughout and essentially was occluded now. I did not see any flow down the chronically occluded SFA, and there is reconstitution via collaterals at the very distal SFA/proximal
above-knee popliteal artery. However it was a diseased vessel with calcified plaque there and a moderate stenosis in the proximal above-knee popliteal artery, and then more reasonable lumen just beyond there and then more mid to distal
ffqli-kky-atbi popliteal artery. Continuous flow through the popliteal artery and then into essentially two-vessel runoff via the anterior tibial and posterior tibial arteries. At this point I felt that endovascular therapy was not really tenable
due to the severe plaque occlusion in the SFA and difficulty with wire access and navigation into the SFA. Therefore, I debated whether to proceed with bypass. However at this point I ascertained the Doppler signals in the foot. The patient had
excellent dopplerable DP and PT signals. Therefore I felt based on the patient's presenting complaint with ischemic rest pain, that performing this endarterectomy should suffice for relief of her rest pain. I felt that bypass was a marginal
conduit (had ultrasound examined the vein prior to prepping and draping and it was slightly smaller in some areas), and a diseased target vessel (all of her runoff vessels had significant plaque burden based on his angiography imaging as well as the
CT angiogram I performed prior), I felt that bypass was not an ideal option. And in the absence of tissue loss, I felt performing an inflow procedure alone should be sufficient.
Therefore at this point the needle was withdrawn and a 6-0 Prolene qbqttr-ze-tertc suture was placed at the needle entry site for hemostasis. I irrigated. I confirmed full hemostasis (gave protamine to reverse the heparin). We then closed in
layers using 2-0 Vicryl layers x 2 followed by 3-0 Vicryl deep dermal layer, followed by running 4-0 Monocryl subcuticular stitch. Dermabond and dressings were applied. The patient tolerated the procedure well.
[2024-11-24] MEDS: NOVOLOG vial 2 UNITS SC (14:19)
[2024-11-24 14:25] LABS: Hematocrit 29.8 % (37.0-47.0); Hemoglobin 9.9 g/dL (12.0-16.0); Mean Corp Hgb Conc. 33.2 g/dL (33.0-37.0); Mean Corpuscular Volume 87.9 fL (81.0-99.0); Platelet Count 191 10^3/uL (130-400); Red Cell Dist. Width 12.5 % (11.5-14.5)
[2024-11-24 14:34] LABS: Blood Urea Nitrogen 33 mg/dl (7-17); Calcium 8.3 mg/dl (8.4-10.2); Carbon Dioxide 22 mmol/L (22-30); Chloride 111 mmol/L (98-107); Estimated Creatinine Clearance 34 ml/min; Glucose 190 mg/dl (70-99); Potassium 5.1 mmol/L (3.5-5.1); Sodium 135 mmol/L (135-145); eGFR 38.51
--- NOTE | 2024-11-24 15:16 | CON.INTV ---
Consultation
Consultation Request
Date/Time Consultation Requested: 11/24/2024
Date/Time Consultation Performed: 11/24/2024
Medical History
-
Chief Complaint: Limb ischemia
History of Present Illness:
Patient is a very pleasant 79-year-old female with longstanding history of smoking, close to 90 pack years, with known history of peripheral vascular disease, was admitted today for an elective surgery. Patient has known history of severe
peripheral vascular disease with prior history of left common iliac stent as well as right common and right external iliac stent placement. She follows up with vascular surgery as outpatient. In view of some ischemia, she was admitted to the
hospital today and had left femoral endarterectomy and profundoplasty performed. Postprocedure, she was admitted to the ICU and night cleaner consultation was requested for further input.
Past medical history. Emphysema with COPD, coronary artery disease, history of [place] in 2022 s/p coronary artery bypass graft, hypertension, hyperlipidemia, diabetes, peripheral vascular disease, longstanding history of smoking. History of meningioma
thought to be etiology for seizures.
Past surgical history. Coronary artery bypass graft in 2022, right iliofemoral endarterectomy, angioplasty and stenting, right groin seroma s/p I&D in 2023, ankle surgery, history of meningioma s/p removal,
Social history. Close to 55-ocya-iads smoking history, quit in 2022.
Allergies / Home Medications
Allergies
Allergy/AdvReac Type Severity Reaction Status Date / Time
meperidine Allergy Severe Swelling Verified 11/24/24 09:17
moxifloxacin HCl (From Allergy Severe Swelling Verified 11/24/24 09:17
Avelox)
Penicillins Allergy Severe Swelling, Verified 11/24/24 09:18
tolerated
cefazolin
and
ceftriaxone
in the past
Sulfa (Sulfonamide Allergy Severe Swelling Verified 11/24/24 09:18
Antibiotics)
(Sulfa(Sulfonamide
Antibiotics))
Home Medications
�Medication �Instructions �Recorded �Confirmed �Last Taken �Type
aspirin 81 mg tablet,delayed 81 mg PO DAILY Blood Clot 01/18/23 11/24/24 11/23/24 09:00 History
release Prevention/Tx
cholecalciferol (vitamin D3) 25 25 mcg PO DAILY Supplement 01/18/23 11/13/24 11/21/24 10:00 History
mcg (1,000 unit) tablet (Vitamin
D3)
amlodipine 5 mg tablet 5 mg PO DAILY Blood Pressure #0 01/29/23 11/24/24 11/23/24 09:00 Rx
tabs
metoprolol succinate 25 mg 12.5 mg PO DAILY Blood Pressure 02/17/23 11/24/24 11/23/24 09:00 History
tablet,extended release 24 hr
insulin aspart U-100 100 unit/mL 4 unit SC TID@0800,1200,1700 05/22/23 11/24/24 11/23/24 22:00 History
(3 mL) subcutaneous pen (Novolog Diabetes
FlexPen U-100 Insulin aspart)
atorvastatin 40 mg tablet 80 mg PO DAILY High Cholesterol 06/19/23 11/24/24 11/23/24 09:00 History
bupropion HCl 150 mg 24 hr tablet, 150 mg PO DAILY 11/04/24 11/24/24 11/23/24 09:00 History
extended release
ezetimibe 10 mg tablet 10 mg PO DAILY 11/04/24 11/24/24 11/23/24 09:00 History
ibuprofen 300 mg tablet 600 mg PO Q6H PRN pain 11/13/24 11/24/24 Unknown History
insulin glargine 100 unit/mL (3 15 unit SC HS 11/13/24 11/13/24 11/23/24 22:00 History
mL) subcutaneous pen (Lantus
Solostar U-100 Insulin)
Review of Systems
-
Hematologic/Lymphatic: Other (All 14 systems reviewed and negative except as stated above in the history of present illness.)
Vitals / Labs / Diagnostic Testing
Vital Signs
Temp Pulse Resp BP Pulse Ox
97.1 F 62 8 132/47 98
11/24/24 15:01 11/24/24 14:45 11/24/24 14:45 11/24/24 14:45 11/24/24 15:01
Lab Data
11/24/24 14:10
11/24/24 14:10
Diagnostic Testing:
Physical Exam
-
HEENT: Normocephalic
Cardiovascular: S1/S2
Respiratory: Clear
GI: Soft and Non Distended
Neurology: Awake and Alert
Skin: Warm
General: Comfortable
Assessment
-
Patient is a 79 y/o female with severe PVD, s/p left femoral endarterectomy with bovine pericardial patch angioplasty, profundoplasty and left lower extremity arteriogram by vascular surgery service, POD #0
Continue observation following procedure
Follow neurovascular checks per protocol
ASA, Amlodipine and statin on board. Also on Zetia.
Follow BP monitoring and parameters as set by primary team
Cardiac history reviewed
Monitor on telemetry
Pain control per protocol
RASS goal 0
Known h/o heavy smoking, Emphysema with COPD
CXR reviewed indicating no acute disease
Encouraged IS. Add as needed DuoNeb. Not using any scheduled maintenance inhaler at home.
Diet advancement per protocol
Aspiration precautions
GI prophylaxis: Protonix
Cr at baseline, follow UO
Critical I/Os
Void trials
Replete electrolytes as needed
No signs/symptoms suspicious for infectious etiology at this time
Will observe off antibiotics for now
Follow temperatures/CBC
Hb and platelets postoperatively stable
DVT prophylaxis: s.c Heparin
Other medical diagnoses:
- PVD
- CAD, s/p CABG (01/2023)
- HTN
- HLD
- H/o Smoking (almost 90 pack year smoking, quit in 2022)
- COPD with Emphysema. Resume follow up with Dr. Pagan at [facility] Pulmonary clinic
- CKD stage III with renal artery stenosis
- History of meningioma, s/p resection
- History of C. difficile colitis
- Anemia of chronic disease
- Depression
- GERD
Critical Care time 58 mins -- The patient is admitted for acute critical illness for the treatment of vital organ failure and/or prevention of further life-threatening conditions. Total care includes time spent in review of history, physical exam,
medications, hemodynamic/ventilator parameters, laboratory data, imaging and discussion with house staff, pharmacy, respiratory therapy, independent insurance adjuster, and nursing
Data:
CXR 11/2024: No acute abnormality
CT Chest 01/2023: Thoracic aorta within the limits of normal in caliber. Calcific atherosclerotic changes of the thoracic aorta extending from the proximal thoracic aortic arch to the descending thoracic aorta.
Coronary artery calcifications.
Findings compatible with mild centrilobular type emphysema. Mild bibasilar subsegmental atelectasis and/or scarring.
ECHO 06/2023: Normal biventricular size and systolic function without regional wall motion
abnormality. Estimated LVEF 60-65%.
Aortic sclerosis without stenosis.
[facility] 02/2023: 1: ACS/non-STEMI presentation
2: Systemic hypertension
3. Normal left ventricular function with EF 64%
4. Severe triple-vessel CAD as described
5. Recommend inpatient CABG-optimal revascularization would include grafts to the LAD, large OM 2, RPDA, and RPL
Spirometry 02/2024: Mild obstruction and moderate reduction in diffusion capacity.
[2024-11-24] MEDS: NSS 1000 IV (15:47)
[2024-11-24] MEDS: ASPIR LOW (ENTERIC COATED) 81 MG PO (15:47)
[2024-11-24] MEDS: HEPARIN 5000 UNITS SC ×2 (15:57→23:35)
[2024-11-24] MEDS: NOVOLOG FLEXPEN-MODERATE RESISTANCE 1 UNITS SC (17:58)
[2024-11-24 18:02] LABS: Glucose - Point of Care 156 mg/dl (70-99)
--- NOTE | 2024-11-24 18:20 | PTCARENOTE ---
1507-Received pt from PACU.Pt is awake and alert.Speech is appropriate.+ARMAS.Denies pain.SR noted.IVF infusing as ordered.Left DP and PT by Doppler noted.Decreased breath sounds bibasilar.POX 100% O2 2l NC.Tolerating liquids.No BM.Yulia 3 glucometer
on right arm.Triplett draining yellow urine.Left groin incision intact with dressing.No drainage noted.Plan of care discussed with pt.
--- NOTE | 2024-11-24 20:00 | PTCARENOTE ---
Resumed care of pt this evening. Neurovascular checks performed w/ day shift RN and were unchanged from previous assessment. B/L DP and PT pulses present via doppler. Pt is able to move b/l lower extremities. B/L lower extremities are warm to
palpation and have adequate cap refill.
[2024-11-24] MEDS: LANTUS 0.15 UNITS SC (23:34)
[2024-11-24 23:45] LABS: Glucose - Point of Care 280 mg/dl (70-99)
[2024-11-25] VITALS (24 sets, daily range): BP systolic 125–159; BP diastolic 45–70; BMI 27.7
[2024-11-25] MEDS: DILAUDID 0.5 MG IV (00:22)
--- NOTE | 2024-11-25 00:45 | PTCARENOTE ---
PRN dose of dilaudid administered by this RN for 8 out of 10 at left groin surgical site. Surgical dressing assessed and appears C/D/I with no signs of hematoma.
[2024-11-25] MEDS: NSS 1000 IV (03:43)
--- NOTE | 2024-11-25 04:30 | PTCARENOTE ---
Upon reassessment pt is resting comfortably. Q1H neurovascular checks maintained and continue to be unchanged.
[2024-11-25 04:56] LABS: Hematocrit 34.0 % (37.0-47.0); Hemoglobin 11.3 g/dL (12.0-16.0); Mean Corp Hgb Conc. 33.2 g/dL (33.0-37.0); Mean Corpuscular Volume 90.9 fL (81.0-99.0); Platelet Count 200 10^3/uL (130-400); Red Cell Dist. Width 12.7 % (11.5-14.5)
[2024-11-25 05:08] LABS: INR 0.95; PT 13.0 Sec (11.4-14.6)
[2024-11-25 05:09] LABS: APTT 26.5 Sec (23.4-35.0)
[2024-11-25 05:23] LABS: Blood Urea Nitrogen 32 mg/dl (7-17); Calcium 8.7 mg/dl (8.4-10.2); Carbon Dioxide 20 mmol/L (22-30); Chloride 112 mmol/L (98-107); Estimated Creatinine Clearance 31 ml/min; Glucose 206 mg/dl (70-99); Potassium 4.5 mmol/L (3.5-5.1); Sodium 138 mmol/L (135-145); eGFR 35.45
[2024-11-25] MEDS: NOVOLOG FLEXPEN-MODERATE RESISTANCE 3 UNITS SC ×2 (08:11→14:16)
[2024-11-25] MEDS: NORVASC 5 MG PO (08:12)
[2024-11-25] MEDS: TOPROL XL 12.5 MG PO (08:12)
[2024-11-25] MEDS: VITAMIN D3 (cholecalciferol) PO (08:13)
[2024-11-25] MEDS: ZETIA 10 MG PO (08:13)
[2024-11-25] MEDS: WELLBUTRIN XL (24 hour extended release) 150 MG PO (08:13)
[2024-11-25] MEDS: LIPITOR 80 MG PO (08:13)
[2024-11-25] MEDS: HEPARIN 5000 UNITS SC ×3 (08:13→23:18)
[2024-11-25] MEDS: ASPIR LOW (ENTERIC COATED) 81 MG PO (08:13)
[2024-11-25 08:18] LABS: Glucose - Point of Care 224 mg/dl (70-99)
--- NOTE | 2024-11-25 08:41 | W.PN.VS ---
Addendum entered and electronically signed by Larry Ramos III, MD 11/25/24 10:32:
This patient was seen and examined in collaboration with MEG Alvarez. I agree with the history and physical exam as well as the assessment and plan.
Signed:
Larry Ramos III, MD
Vascular Surgery
[facility]
Original Note:
Today's Communication / Plan
-
Below plan reviewed with attending Dr. Larry Ramos III.
Assessment/Plan
-
Assessment: 79 year old female POD#1 Left femoral endarterectomy with bovine pericardial patch angioplasty, profundoplasty. On table left lower extremity arteriogram.
Plan:
OOB to chair with progression to ambulation as tolerated
DC ramos catheter
DC IV fluids
Continue neurovascular checks
Continue DVT prophylaxis
Prefer compass protocol (Xarelto 2.5mg PO BID and ASA 81mg PO daily) for management of PAD, will singleton to see if afforable for patient
Subjective Data
-
Date of Service: November 25, 2024
Patient seen and examined at bedside, reports resolution in rest pain. Does note continued paraesthesia this is unchanged from preoperative baseline. Patient expressed that she is/will refuse any further blood draws this hospital stay. Reports well
managed post operative pain.
Objective Data
-
Vital Signs
Temp Pulse Resp BP Pulse Ox
98.8 F 73 16 151/63 92
11/25/24 08:03 11/25/24 08:15 11/25/24 08:15 11/25/24 08:00 11/25/24 08:15
Intake and Output
11/24/24 11/25/24 11/26/24
06:59 06:59 06:59
Intake Total 980 / 1060 160 / 160
Output Total 1190 / 1255 130 / 130
Balance -210 / -195 30 / 30
Intake:
IV fluids (Total) 980 / 1060 160 / 160
Nss 1,000 ml @ 80 mls/hr IV . 880 / 960 160 / 160
[id number] [facility] Rx#:[id number]
normosol 100 / 100
Output:
Urine, Ramos 1190 / 1255 130 / 130
Lab Results
11/25/24 04:45
11/25/24 04:45
Calcium 8.7 mg/dl (8.4-10.2) 11/25/24 04:45
Physical Exam
-
No apparent distress, resting in bed comfortably
No tachycardia
No dyspnea on room air
ABD flat, non-tender, non-distended
Left groin dressing clean, dry, and intact, flat no evidence of hematoma
Left foot warm, palpable +1 DP and doppler PT
Ramos draining clear yellow urine
[2024-11-25] MEDS: ROXICODONE 5 MG PO (09:12)
[2024-11-25 10:34] LABS: Glucose - Point of Care 174 mg/dl (70-99)
--- NOTE | 2024-11-25 11:38 | W.PN.INTV ---
Today's Communication / Plan
Recommendations
- Incentive spirometry
- Resume outpatient follow-up with [facility] pulmonary clinic
- Communications Professional service will sign off once patient is transferred out of ICU, please call as needed
Assessment
-
Patient is a very pleasant 79-year-old female with longstanding history of smoking, close to 90 pack years, with known history of peripheral vascular disease, was admitted today for an elective surgery. Patient has known history of severe
peripheral vascular disease with prior history of left common iliac stent as well as right common and right external iliac stent placement. She follows up with vascular surgery as outpatient. In view of some ischemia, she was admitted to the
hospital today and had left femoral endarterectomy and profundoplasty performed. Postprocedure, she was admitted to the ICU and head of transport logistics consultation was requested for further input.
Patient is a 79 y/o female with severe PVD, s/p left femoral endarterectomy with bovine pericardial patch angioplasty, profundoplasty and left lower extremity arteriogram by vascular surgery service, POD #1
Continue observation following procedure
Follow neurovascular checks per protocol
ASA, Amlodipine and statin on board. Also on Zetia.
Follow BP monitoring and parameters as set by primary team
Cardiac history reviewed
Monitor on telemetry
Pain control per protocol
RASS goal 0
Known h/o heavy smoking, Emphysema with COPD
CXR reviewed indicating no acute disease
Encouraged IS. Add as needed DuoNeb. Not using any scheduled maintenance inhaler at home. No wheezing this AM.
Diet advancement per protocol
Aspiration precautions
GI prophylaxis: Protonix
Cr at baseline, follow UO
Critical I/Os
Void trials
Replete electrolytes as needed
No signs/symptoms suspicious for infectious etiology at this time
Will observe off antibiotics for now
Follow temperatures/CBC
Hb and platelets postoperatively stable
DVT prophylaxis: s.c Heparin
Other medical diagnoses:
- PVD
- CAD, s/p CABG (01/2023)
- HTN
- HLD
- H/o Smoking (almost 90 pack year smoking, quit in 2022)
- COPD with Emphysema. Resume follow up with Dr. Pagan at [facility]
- CKD stage III with renal artery stenosis
- History of meningioma, s/p resection
- History of C. difficile colitis
- Anemia of chronic disease
- Depression
- GERD
Total time spent on this consultation/encounter _45___ minutes which includes review of history, physical exam, medications, laboratory data, personal review of imaging, extensive review of outpatient records, discussion with care team and
respiratory therapy.
Data:
CXR 11/2024: No acute abnormality
CT Chest 01/2023: Thoracic aorta within the limits of normal in caliber. Calcific atherosclerotic changes of the thoracic aorta extending from the proximal thoracic aortic arch to the descending thoracic aorta.
Coronary artery calcifications.
Findings compatible with mild centrilobular type emphysema. Mild bibasilar subsegmental atelectasis and/or scarring.
ECHO 06/2023: Normal biventricular size and systolic function without regional wall motion
abnormality. Estimated LVEF 60-65%.
Aortic sclerosis without stenosis.
[facility] 02/2023: 1: ACS/non-STEMI presentation
2: Systemic hypertension
3. Normal left ventricular function with EF 64%
4. Severe triple-vessel CAD as described
5. Recommend inpatient CABG-optimal revascularization would include grafts to the LAD, large OM 2, RPDA, and RPL
Spirometry 02/2024: Mild obstruction and moderate reduction in diffusion capacity.
Subjective Dataa
Subjective Data
Date of Service:
Date of Service: November 25, 2024
Subjective:
Patient comfortably sitting in bed in no acute distress.
Review of Systems
Genitourinary: Other (All 14 systems reviewed and negative except as stated above in the history of present illness.)
Objective Data
Data Reviewed
Vital Signs / I&O / Oxygen:
Vital Signs
Temp Pulse Resp BP Pulse Ox
98.8 F 73 16 151/63 92
11/25/24 08:03 11/25/24 08:15 11/25/24 08:15 11/25/24 08:00 11/25/24 08:15
Intake and Output
11/24/24 11/25/24 11/26/24
06:59 06:59 06:59
Intake Total 980 / 1060 240 / 240
Output Total 1190 / 1255 205 / 205
Balance -210 / -195 35 / 35
SaO2 92
Nasal Cannula flow liters per 2
minute
Physical Exam
General: Comfortable
HEENT: Normocephalic
Cardiovascular: S1-S2
Respiratory: Clear and Non-Labored Respirations
GI: Soft and Non Distended
Neurology: Awake and Alert
Skin: Warm
Labs/Micro/Reports
Lab Data
11/25/24 04:45
11/25/24 04:45
Laboratory Results
11/25/24
04:45
PT 13.0
INR 0.95
APTT 26.5
[2024-11-25 11:50] LABS: Glycohemoglobin (HgbA1c) 8.9 % (4.0-5.6)
--- NOTE | 2024-11-25 12:00 | CM ---
Initial assessment completed with patient whose adult son and daughter live with her in a [place] style home with 1 floor plus basement, small upper level storage area, 2 steps to enter. 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
She has a RW, rollator, SC and Quad cane in the home. No current in-home services. Does have a HC POA. No VA benefits. No psychiatric hospitalizations. PCP is Dr. Larry Bridges. Pharmacy is [facility] in [place]. Discharge POC: Anticipate home with no
needs. Closer to discharge identify if HH RN is needed.
--- NOTE | 2024-11-25 13:02 | PTCARENOTE ---
Pt OOB in chair. Ioana d/c'jatin. Neurovascular checks WNL. + left PT and DP via doppler.
[2024-11-25] MEDS: NOVOLOG FLEXPEN 4 UNITS SC ×2 (14:16→18:13)
[2024-11-25 14:25] LABS: Glucose - Point of Care 202 mg/dl (70-99)
[2024-11-25] MEDS: ZOFRAN 4 MG IV (15:07)
--- NOTE | 2024-11-25 16:49 | PTCARENOTE ---
Pt arrived to [facility] from ICU on a wheelchair. Pt ambulated from wheelchair to bed w/o incident. Right DP palpated. Left DP present with doppler. 97% on room air. Diminished at the bases. Left groin dressing c/d/i. Bed locked and in lowest position.
Care ongoing.
[2024-11-25 18:08] LABS: Glucose - Point of Care 192 mg/dl (70-99)
[2024-11-25] MEDS: NOVOLOG FLEXPEN-MODERATE RESISTANCE 1 UNITS SC (18:12)
[2024-11-25] MEDS: TYLENOL 650 MG PO (19:13)
[2024-11-25 21:46] LABS: Glucose - Point of Care 226 mg/dl (70-99)
[2024-11-25] MEDS: LANTUS 0.15 UNITS SC (21:49)
--- NOTE | 2024-11-26 02:17 | DOWNTIME ---
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 Downtime documentation of patient's care, including medication administrations, has been reconciled in the electronic record per guidelines. Refer to the
patient's paper chart under the miscellaneous tab to see printed paper medication records and downtime forms.
[2024-11-26 03:00] VITALS: BP 131/48
[2024-11-26 07:00] VITALS: BP 156/56
--- NOTE | 2024-11-26 07:48 | PN.DE.MGMTRT ---
Insulin Management
- -
11/26/2024 Diabetes Management Consult
Patient admitted 11/24 for elective L femoral endarterectomy. PMH CAD s/p PCI, PVD with L & R iliac stents, emphysema with COPD, [place], HTN, HLD, diabetes. Prior to admission patient was taking 18 units lantus @ HS with 8 units novolog AC. A1C is
8.9%, cr 1.5, eGFR 35.45.
Patient is awake alert and oriented able to discuss diabetes care. States she has had diabetes ~ [address] Bridges, primary doctor, for diabetes care. States she recently increased her lantus and novolog due to elevated glucose. States
she tries to watch her carbs but struggles.
Patient received 15 units of lantus @ HS, fasting glucose yesterday 224. Received 4 units novolog AC, required up to 3 units corrective insulin, pre meal glucose 192 to 224.
Will increase HS lantus to 18 units and AC novolog to 6 units, will decrease corrective insulin from moderate to low. Will change diet from 2000 to 1800 calorie.
Discussed with nurse
Will follow
Diabetes History
- -
Type of Diabetes: 2 requiring insulin
Pre-Admission Diabetes Regimen
Lab Results
Hemoglobin A1c 8.9 % (4.0-5.6) H 11/25/24 04:45
Insulin Pump Settings
IP Diabetes Regimen
11/24/24 11/25/24 11/25/24
11:54 08:06 14:14
POC Glucose 174 H 224 H 202 H
11/25/24 11/25/24
18:07 21:44
POC Glucose 192 H 226 H
Meal type: Dinner
Amount consumed: 25%
Patient Education
[2024-11-26 08:18] LABS: Glucose - Point of Care 210 mg/dl (70-99)
[2024-11-26] MEDS: NOVOLOG FLEXPEN 6 UNITS SC (08:35)
[2024-11-26] MEDS: NOVOLOG FLEXPEN-LOW RESISTANCE 2 UNITS SC ×3 (08:36→18:09)
[2024-11-26] MEDS: TYLENOL 650 MG PO (08:38)
[2024-11-26] MEDS: ASPIR LOW (ENTERIC COATED) 81 MG PO (08:40)
[2024-11-26] MEDS: ZETIA 10 MG PO (08:40)
[2024-11-26] MEDS: VITAMIN D3 (cholecalciferol) 25 MCG PO (08:40)
[2024-11-26] MEDS: WELLBUTRIN XL (24 hour extended release) 150 MG PO (08:40)
[2024-11-26] MEDS: HEPARIN 5000 UNITS SC ×3 (08:40→23:03)
[2024-11-26] MEDS: NORVASC 5 MG PO (08:40)
[2024-11-26] MEDS: LIPITOR 80 MG PO (08:40)
[2024-11-26] MEDS: TOPROL XL 12.5 MG PO (08:40)
[2024-11-26] MEDS: NOVOLOG FLEXPEN SC ×2 (08:54→12:59)
[2024-11-26] MEDS: NOVOLOG FLEXPEN-MODERATE RESISTANCE SC (08:54)
--- NOTE | 2024-11-26 10:18 | W.PN.VS ---
Addendum entered and electronically signed by Oc Blanton MD 11/26/24 14:53:
Seen and examined with DARWIN Draper earlier this a.m., this is a late entry. Agree with findings as noted below. Patient without complaints. Left groin incision clean dry and intact. No hematoma. No signs of infection. Foot warm with good
dopplerable signals. Plan/as discussed and noted below. Fever noted. Continue to watch. Patient is very anxious to go home. However need to make sure no signs of infections. Consider if later in afternoon patient is remaining afebrile to go
home with close observation at home of her fever trends. And to let us know NALDO if continued fevers.
Addendum entered and electronically signed by MEG Alvarez 11/26/24 10:51:
Patient remains in refusal to any blood draws/sticks cannot obtain CBC thus will not be able to trend WBC.
Original Note:
Today's Communication / Plan
-
Patient seen evaluated bedside with Dr. Oc Blanton M.D., below plan reviewed with attending.
Assessment/Plan
-
Assessment: 79 year old female POD#2 Left femoral endarterectomy with bovine pericardial patch angioplasty, profundoplasty. On table left lower extremity arteriogram.
Plan:
Febrile this a.m., will obtain chest x-ray and UA, patient prior to today was refusing any additional blood draws given fever will see if patient is agreeable to draw CBC
Continue to encourage ambulation
Continue neurovascular checks
Continue DVT prophylaxis
Prefer compass protocol for management of peripheral arterial disease, unfortunately patient has chronic kidney disease will initiate dual antiplatelet therapy instead of Plavix 75 mg p.o. daily and aspirin 81 mg p.o. daily
Patient with increased blood sugar while inpatient and hemoglobin A1c of 8.9, asked diabetes nurse practitioners to evaluate to see if modifications to insulin regimen is recommended
Given patient is febrile this a.m. would likely advise additional night, however, patient is very eager for discharge, will reevaluate this afternoon
Subjective Data
-
Date of Service: November 26, 2024
Patient seen examined bedside, offers no complaints. Reports well-managed postoperative pain. Reports eagerness for discharge to home. Denies fever, chills, cough, or recurrent nausea/vomiting since yesterday. However, febrile this a.m.
Objective Data
-
Vital Signs
Temp Pulse Resp BP Pulse Ox
101.1 F H 71 16 156/56 94
11/26/24 07:00 11/26/24 07:00 11/26/24 07:00 11/26/24 07:00 11/26/24 07:00
Intake and Output
11/25/24 11/26/24 11/27/24
06:59 06:59 06:59
Intake Total 980 / 1060 840 / 840
Output Total 1190 / 1255 /
Balance -210 / -195 635 / 635
Intake:
Oral fluids 600 / 600
IV fluids (Total) 980 / 1060 240 / 240
Nss 1,000 ml @ 80 mls/hr IV . 880 / 960 240 / 240
[id number] ANDREA Rx#:[id number]
normosol 100 / 100
Output:
Urine, Triplett 1190 / 1255 / 205
Other:
How many times incontinent 1
SMALL amount urine
Number of approximated MODERATE 2
amounts of urine
Lab Results
11/25/24 04:45
Calcium 8.7 mg/dl (8.4-10.2) 11/25/24 04:45
Physical Exam
-
No apparent distress, resting in bed comfortably
No tachycardia
No dyspnea on room air
ABD flat, non-tender, non-distended
Left groin dressing clean, dry, and intact, flat no evidence of hematoma
Left foot warm, palpable +1 DP and doppler PT
[2024-11-26 11:05] VITALS: BP 141/62
[2024-11-26 12:51] LABS: Glucose - Point of Care 235 mg/dl (70-99)
[2024-11-26] MEDS: PLAVIX 75 MG PO (12:56)
[2024-11-26] MEDS: NOVOLOG FLEXPEN 8 UNITS SC ×2 (13:15→18:09)
--- NOTE | 2024-11-26 14:54 | CM ---
CM following re: discharge planning.
Reviewed pt's chart, met with pt and daughter Yanna at bedside.
Pt is POD#2 Left femoral endarterectomy with bovine pericardial patch angioplasty, profundoplasty. Continue supportive care.
PT and OT evaluations pending.
Pt reports she lives with daughter, has a walker and does not use it. Pt expressed her desire to return back home at discharge and pt stated she feels she will not need after care VN services. Pt's daughter brought her concerns regarding having VN
services and pt stated she will decide after PT/OT evaluation.
D/C plan: home with most likely VN services if recommended by PT/OT. Daughter to transport at discharge.
CM will follow with discharge plan updates as hospitalization progresses
[2024-11-26 15:25] VITALS: BP 155/64
[2024-11-26 16:58] LABS: Urine Character Clear (Clear)
[2024-11-26 17:04] LABS: Urine Squamous Cell >30 /LPF (Few)
[2024-11-26 18:00] LABS: Glucose - Point of Care 209 mg/dl (70-99)
[2024-11-26 19:00] VITALS: BP 166/62
--- NOTE | 2024-11-26 21:30 | PTCARENOTE ---
Patient's temp of 101.2 ( with multiple blankets and sweater). Rechecked it now 99.8. MEG Candelaria made aware. added CBC and BMP for AM. Advised patient not to refuse blood draw in AM.
[2024-11-26 21:40] LABS: Glucose - Point of Care 197 mg/dl (70-99)
[2024-11-26] MEDS: LANTUS 0.18 UNITS SC (21:41)
[2024-11-26 23:00] VITALS: BP 143/58
[2024-11-27] VITALS (7 sets, daily range): BP systolic 117–160; BP diastolic 48–65; PULSE 65; O2SAT 97
[2024-11-27 06:43] LABS: Hematocrit 28.3 % (37.0-47.0); Hemoglobin 9.3 g/dL (12.0-16.0); Mean Corp Hgb Conc. 32.9 g/dL (33.0-37.0); Mean Corpuscular Volume 88.2 fL (81.0-99.0); Platelet Count 170 10^3/uL (130-400); Red Cell Dist. Width 12.6 % (11.5-14.5)
[2024-11-27 07:08] LABS: Blood Urea Nitrogen 41 mg/dl (7-17); Calcium 8.3 mg/dl (8.4-10.2); Carbon Dioxide 20 mmol/L (22-30); Chloride 111 mmol/L (98-107); Estimated Creatinine Clearance 29 ml/min; Glucose 173 mg/dl (70-99); Potassium 4.4 mmol/L (3.5-5.1); Sodium 136 mmol/L (135-145); eGFR 32.81
--- NOTE | 2024-11-27 07:35 | PN.DE.MGMTRT ---
Insulin Management
- -
11/27/2024 Diabetes Management Consult Follow up
Patient admitted 11/24 for elective L femoral endarterectomy. PMH CAD s/p PCI, PVD with L & R iliac stents, emphysema with COPD, [place], HTN, HLD, diabetes. Prior to admission patient was taking 18 units lantus @ HS with 8 units novolog AC. A1C is
8.9%, cr 1.5, eGFR 35.45. States she has had diabetes ~ [address] Bridges, primary doctor, for diabetes care. States she recently increased her lantus and novolog due to elevated glucose. States she tries to watch her carbs but struggles.
Patient is awake alert and oriented able to discuss diabetes care.
Patient received 18 units of lantus @ HS, fasting glucose today 173. Received 8 units novolog AC, required up to 2 units corrective insulin, pre meal glucose 209 to 235.
Will increase HS lantus to 20 units and AC novolog to 11 units, with low corrective insulin AC.
Discussed with nurse
Will follow
Diabetes History
- -
Type of Diabetes: 2 requiring insulin
Pre-Admission Diabetes Regimen
11/27/24
06:18
Creatinine 1.6 H
Lab Results
Hemoglobin A1c 8.9 % (4.0-5.6) H 11/25/24 04:45
Insulin Pump Settings
IP Diabetes Regimen
11/26/24 11/26/24 11/26/24
08:16 12:47 17:58
Glucose
POC Glucose 210 H 235 H 209 H
11/26/24 11/27/24
21:38 06:18
Glucose 173 H
POC Glucose 197 H
Meal type: Breakfast
Amount consumed: 100%
Patient Education
[2024-11-27 07:59] LABS: Glucose - Point of Care 200 mg/dl (70-99)
[2024-11-27] MEDS: NOVOLOG FLEXPEN SC (08:34)
[2024-11-27] MEDS: NOVOLOG FLEXPEN-LOW RESISTANCE 2 UNITS SC (08:35)
[2024-11-27] MEDS: TOPROL XL 12.5 MG PO (08:36)
[2024-11-27] MEDS: PLAVIX 75 MG PO (08:36)
[2024-11-27] MEDS: WELLBUTRIN XL (24 hour extended release) 150 MG PO (08:36)
[2024-11-27] MEDS: ASPIR LOW (ENTERIC COATED) 81 MG PO (08:36)
[2024-11-27] MEDS: NOVOLOG FLEXPEN 11 UNITS SC ×3 (08:36→18:00)
[2024-11-27] MEDS: NORVASC 5 MG PO (08:37)
[2024-11-27] MEDS: HEPARIN 5000 UNITS SC ×3 (08:37→23:09)
[2024-11-27] MEDS: VITAMIN D3 (cholecalciferol) 25 MCG PO (08:37)
[2024-11-27] MEDS: LIPITOR 80 MG PO (08:37)
[2024-11-27] MEDS: ZETIA 10 MG PO (08:37)
--- NOTE | 2024-11-27 08:58 | W.PN.VS ---
Addendum entered and electronically signed by Oc Blanton MD 11/27/24 16:38:
Seen and examined earlier this a.m. 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 This is a late entry. Agree with findings as noted below. Fever again. White blood cell count 12. Left groin incision clean dry and intact. No erythema. No fluctuance. No signs of infection.
Left foot warm. Plan/as discussed and noted below. Appreciate ID evaluation and input.
Original Note:
Today's Communication / Plan
-
Patient seen and examined at bedside with Dr. Oc Blanton, below plan reviewed with attending.
Assessment/Plan
-
Assessment: 79 year old female POD#3 Left femoral endarterectomy with bovine pericardial patch angioplasty, profundoplasty. On table left lower extremity arteriogram. Febrile on 917 at 1900.
Plan:
Patient was agreeable for lab draw this morning which did indicate leukocytosis at 12, UA concerning for UTI as source. However, patient endorses she is very hesitant to initiate antibiotics with history of C. difficile in the past, agreed to
consult infectious disease for recommendation of antibiotic and if prophylactic treatment for C. difficile will be required/recommended.
Continue to encourage ambulation
Continue neurovascular checks
Continue DVT prophylaxis
Continue DAPT of Plavix and aspirin
Appreciate diabetic nurse practitioner recommendations
Possible discharge today pending infectious disease recommendations
Subjective Data
-
Date of Service: November 27, 2024
Patient seen and examined at bedside, offers no complaints. Continues to endorse that she feels well and denies nausea, vomiting, fever, and chills. However, she did have another fever last evening at 1900 of 101.2. When reviewed that UA could be
concerning for UTI patient also denied urinary frequency, dysuria, or urinary retention. When discussed adding antibiotics patient endorses she was very concerned as anytime she has been on antibiotics before she has experienced C. difficile as
well.
Objective Data
-
Vital Signs
Temp Pulse Resp BP Pulse Ox
98.4 F 71 16 139/65 95
11/27/24 07:00 11/27/24 08:36 11/27/24 07:00 11/27/24 08:36 11/27/24 07:00
Intake and Output
11/26/24 11/27/24 11/28/24
06:59 06:59 06:59
Intake Total 840 / 840 1040 / 1040 240 / 240
Output Total
Balance 635 / 635 1040 / 1040 240 / 240
Intake:
Oral fluids 600 / 600 1040 / 1040 240 / 240
IV fluids (Total) 240 / 240
Nss 1,000 ml @ 80 mls/hr IV . 240 / 240
[id number] ANDREA Rx#:[id number]
Output:
Urine, Triplett
Other:
How many times incontinent 1
SMALL amount urine
How many times incontinent 1
MODERATE amount urine
Number of approximated MODERATE 2 2 1
amounts of urine
Lab Results
11/27/24 06:18
11/27/24 06:18
Calcium 8.3 mg/dl (8.4-10.2) L 11/27/24 06:18
Physical Exam
-
No apparent distress, resting in bed comfortably
No tachycardia
No dyspnea on room air
ABD flat, non-tender, non-distended
Left groin surgical site clean, dry, and intact, flat no evidence of hematoma, Exofin glue intact, no erythema
Left foot warm, palpable +1 DP and doppler PT
--- NOTE | 2024-11-27 09:35 | CON.ID ---
Consultation
-
Date/Time Consultation Requested: 11/27/24 8:33
Date/Time Consultation Performed: 11/27/24 9:36
Requesting Provider: Baron Olvera
Performing Provider: Dr Terrell
Reason for Consultation: post operative fever
Chief Complaint / Past History
Chief Complaint
fever
History of Present Illness
Ms Dwyer is a 79 year old female with history of C diff, severe PAD who was admitted electively and underwent Left femoral endarterectomy with bovine pericardial patch angioplasty, profundoplasty on 11/24, the procedure was uncomplicated. The
indication was ischemic rest pain.
First recorded C difficile here was 02/2023, since then she was noted to still be colonized 06/2023. States 'I panic whenever I hear antibiotics.'
Post procedure she was admitted to the ICU. Then 11/26, two days post operatively she developed fevers to 101.2, bp has been stable, wbc initially 8.8 now 12, hgb 9.3, plt 170, na 135, cr 1.6, a1c 8.9, CXR: mild L basilar atelectasis or pneumonia,
UA 6-10 wbc/hpf, urine culture in progress. ID is consulted due to patient concern re: previous C difficile. Reports no significant cough or sputum production. No dysuria, urgency or frequency. ID is consulted for assistance with management.
Past History
Additional Past Medical History:
Emphysema with COPD, coronary artery disease, history of MA in 2022 s/p coronary artery bypass graft, hypertension, hyperlipidemia, diabetes, peripheral vascular disease, longstanding history of smoking. History of meningioma thought to be etiology
for seizures.
Additional Past Surgical History:
Coronary artery bypass graft in 2022, right iliofemoral endarterectomy, angioplasty and stenting, right groin seroma s/p I&D in 2023, ankle surgery, history of meningioma s/p removal,
Allergy History:
meperidine Allergy (Severe, Verified 11/24/24 09:17)
Swelling
moxifloxacin HCl (From Avelox) Allergy (Severe, Verified 11/24/24 09:17)
Swelling
Penicillins Allergy (Severe, Verified 11/24/24 09:18)
Swelling, tolerated cefazolin and ceftriaxone in the past
Sulfa (Sulfonamide Antibiotics) (Sulfa(Sulfonamide Antibiotics)) Allergy (Severe, Verified 11/24/24 09:18)
Swelling
Medications Reviewed: Yes
Social History
Tobacco: Former Smoker
Family History
Family History: Not Pertinent
Review of Systems
Review of Systems
General: Fever
Vital Signs
Temp Pulse Resp BP Pulse Ox
98.4 F 71 16 139/65 95
11/27/24 07:00 11/27/24 08:36 11/27/24 07:00 11/27/24 08:36 11/27/24 07:00
Physical Exam
Lab / Diagnostic Study Results
11/27/24 06:18
11/27/24 06:18
Abs Immat Gran (auto) 0.0 10^3/uL (0-0.05) 11/14/24 09:56
Absolute Neuts (auto) 4.8 10^3/uL (1.4-6.5) 11/14/24 09:56
Absolute Lymphs (auto) 2.2 10^3/uL (1.2-3.4) 11/14/24 09:56
Absolute Monos (auto) 0.5 10^3/uL (0.1-0.6) 11/14/24 09:56
Absolute Basos (auto) 0.1 10^3/uL (0-0.2) 11/14/24 09:56
Immature Gran % 0.5 % (0-0.5) 11/14/24 09:56
Neutrophils % 60.1 % (42.2-75.2) 11/14/24 09:56
Lymphocytes % 26.9 % (20.5-51.1) 11/14/24 09:56
Monocytes % 6.4 % (1.7-9.3) 11/14/24 09:56
Eosinophils % 5.4 % (0-6) 11/14/24 09:56
Basophils % 0.7 % (0-2) 11/14/24 09:56
PT 13.0 Sec (11.4-14.6) 11/25/24 04:45
INR 0.95 11/25/24 04:45
Ur Squamous Epith Cells >30 /LPF (Few) 11/26/24 16:40
Microbiology Results
Micro:
11/26/24 16:40 Urine Culture - Pending
Urine
Assessment / Plan
Post Operative Fever
Colonization with C difficile
- differential pneumonia/atelectasis vs possible UTI
- start ceftriaxone
- start oral vancomycin 125 mg PO BID
[2024-11-27] MEDS: STERILE WATER FOR INJECTION 10 ML IV (11:17)
[2024-11-27] MEDS: ROCEPHIN 1000 MG IV (11:17)
[2024-11-27] MEDS: FIRVANQ 125 MG PO ×2 (11:18→19:33)
[2024-11-27 12:33] LABS: Glucose - Point of Care 195 mg/dl (70-99)
--- NOTE | 2024-11-27 13:06 | CM ---
CM following re: discharge planning.
Reviewed pt's chart, met with pt.
Pt is POD#3 Left femoral endarterectomy with bovine pericardial patch angioplasty, profundoplasty. Continue supportive care.
PT and OT evaluations noted - home PT/OT recommended. Pt is aware, expressed her agreement and pt preferred [facility]. A referral to [facility] made.
Pt lives with daughter, has a walker and does not use it.
IMM reviewed, placed on chart, pt has a copy.
D/C plan: home with [facility] and family support. Daughter to transport at discharge.
CM will follow with discharge plan updates as hospitalization progresses
[2024-11-27] MEDS: NOVOLOG FLEXPEN-LOW RESISTANCE 1 UNITS SC (13:14)
[2024-11-27 17:52] LABS: Glucose - Point of Care 282 mg/dl (70-99)
[2024-11-27] MEDS: NOVOLOG FLEXPEN-LOW RESISTANCE 3 UNITS SC (17:59)
[2024-11-27 21:28] LABS: Glucose - Point of Care 214 mg/dl (70-99)
[2024-11-27] MEDS: LANTUS 0.2 UNITS SC (21:46)
[2024-11-28 03:00] VITALS: BP 148/73
[2024-11-28 06:38] LABS: Hematocrit 27.9 % (37.0-47.0); Hemoglobin 9.2 g/dL (12.0-16.0); Mean Corp Hgb Conc. 33.0 g/dL (33.0-37.0); Mean Corpuscular Volume 89.1 fL (81.0-99.0); Platelet Count 195 10^3/uL (130-400); Red Cell Dist. Width 12.7 % (11.5-14.5)
[2024-11-28 07:22] VITALS: BP 136/56
[2024-11-28 07:27] LABS: Glucose - Point of Care 161 mg/dl (70-99)
--- NOTE | 2024-11-28 08:15 | PN.DE.MGMTRT ---
Insulin Management
- -
11/28/2024: Diabetes Management Follow up
Patient admitted 11/24 for elective L femoral endarterectomy. PMH CAD s/p PCI, PVD with L & R iliac stents, emphysema with COPD, [place], HTN, HLD, diabetes. Prior to admission patient was taking 18 units Lantus @ HS with 8 units NovoLog AC. A1C is
8.9%, cr 1.5, eGFR 35.45. States she has had diabetes ~ [address] Bridges, primary doctor, for diabetes care. States she recently increased her Lantus and NovoLog due to elevated glucose. States she tries to watch her carbs but struggles.
Patient is awake alert and oriented able to discuss diabetes care. Daughter at bedside.
HS glucose was 214, Patient received 20 units of Lantus @ HS, fasting glucose today 161. Will cont Lantus 20 units @ HS.
Yesterday pre meal glucose 195 to 228, received 11 units NovoLog AC, required up to 3 units additional corrective insulin,
Will increase AC NovoLog to 14 units, Cont low corrective insulin AC.
Discussed with nurse. Will cont to follow
Diabetes History
- -
Type of Diabetes: 2 requiring insulin
Pre-Admission Diabetes Regimen
Lab Results
Hemoglobin A1c 8.9 % (4.0-5.6) H 11/25/24 04:45
Insulin Pump Settings
IP Diabetes Regimen
11/27/24 11/27/24 11/27/24
12:31 17:51 21:27
POC Glucose 195 H 282 H 214 H
11/28/24
07:25
POC Glucose 161 H
Meal type: Lunch
Meal type: Breakfast
Amount consumed: 20%
Amount consumed: 100%
Patient Education
[2024-11-28] MEDS: NOVOLOG FLEXPEN 14 UNITS SC (08:54)
[2024-11-28] MEDS: NOVOLOG FLEXPEN-LOW RESISTANCE 1 UNITS SC (08:54)
[2024-11-28] MEDS: ASPIR LOW (ENTERIC COATED) 81 MG PO (08:55)
[2024-11-28] MEDS: NORVASC 5 MG PO (08:55)
[2024-11-28] MEDS: ZETIA 10 MG PO (08:55)
[2024-11-28] MEDS: LIPITOR 80 MG PO (08:55)
[2024-11-28] MEDS: PLAVIX 75 MG PO (08:55)
[2024-11-28] MEDS: FIRVANQ 125 MG PO (08:56)
[2024-11-28] MEDS: TOPROL XL 12.5 MG PO (08:56)
[2024-11-28] MEDS: VITAMIN D3 (cholecalciferol) 25 MCG PO (08:56)
[2024-11-28] MEDS: HEPARIN 5000 UNITS SC (08:56)
[2024-11-28] MEDS: WELLBUTRIN XL (24 hour extended release) 150 MG PO (08:58)
--- NOTE | 2024-11-28 09:04 | W.PN.VS ---
Addendum entered and electronically signed by Larry Triplett III, MD 11/28/24 11:32:
This patient was seen and examined in collaboration with MEG Michael. I agree with the history and physical exam as well as the assessment and plan.
Signed:
Larry Triplett III, MD
Vascular Surgery
[facility]
Original Note:
Today's Communication / Plan
-
Seen and assessed the Dr. Triplett
Assessment/Plan
-
Assessment: 79 year old female POD#4Left femoral endarterectomy with bovine pericardial patch angioplasty, profundoplasty. On table left lower extremity arteriogram. Febrile on 917 at 1900.
Plan:
WBC normalized
Antibiotics per ID, patient hopeful for discharge today with p.o. antibiotic plan
Continue DAPT of Plavix and aspirin
Appreciate diabetic nurse practitioner recommendations
DC planning
Subjective Data
-
Date of Service: November 28, 2024
Patient seen at bedside this ahaim Triplett. Patient resting at this time. No events overnight. Remains afebrile.
Objective Data
-
Vital Signs
Temp Pulse Resp BP Pulse Ox
98.8 F 66 20 136/56 96
11/28/24 07:22 11/28/24 07:22 11/28/24 07:22 11/28/24 07:22 11/28/24 07:22
Intake and Output
11/27/24 11/28/24 11/29/24
06:59 06:59 06:59
Intake Total 1040 / 1040 1200 / 1200
Balance 1040 / 1040 1200 / 1200
Intake:
Oral fluids 1040 / 1040 1200 / 1200
Other:
How many times incontinent 1
SMALL amount urine
How many times incontinent 1 1
MODERATE amount urine
Number of approximated MODERATE 2 2 1
amounts of urine
Lab Results
11/28/24 05:29
11/27/24 06:18
Calcium 8.3 mg/dl (8.4-10.2) L 11/27/24 06:18
Physical Exam
-
No apparent distress, resting in bed comfortably
No tachycardia
No dyspnea on room air
ABD flat, non-tender, non-distended
Left groin surgical site clean, dry, and intact, flat no evidence of hematoma, Exofin glue intact, no erythema
Left foot warm, palpable +1 DP and doppler PT
[2024-11-28] MEDS: NOVOLOG FLEXPEN SC ×2 (09:07→12:09)
--- NOTE | 2024-11-28 10:39 | W.PN.ID1 ---
Date of Service
Date of Service: November 28, 2024
Today's Communication
-Transition ceftriaxone to cefuroxime 500mg po daily through 12/01/24.
-Continue C. diff prophylaxis vancomycin 125 mg PO BID through 12/06/24
Assessment / Plan
Post Operative Fever - resolved
Leukocytosis - resolved
Probable PNA
Colonization with C difficile
- Ucx neg.
-blood cx neg
-Transition ceftriaxone to cefuroxime 500mg po daily through 12/01/24.
-Continue C. diff prophylaxis vancomycin 125 mg PO BID through 12/06/24
Chief Complaint
-: Fever and Leukocytosis
Subjective / Review of Systems
Feels well today. Had coughing fit last night. No sputum.
Vital Signs / Physical Exam
Vital Signs
Vital Signs
Temp Pulse Resp BP Pulse Ox
98.8 F 66 20 136/56 96
11/28/24 07:22 11/28/24 07:22 11/28/24 07:22 11/28/24 07:22 11/28/24 07:22
Physical Exam
Constitutional: No Acute Distress and Comfortable
Cardiovascular: Regular Rate and S1/S2
Pulmonary: Rales (Right base crackles)
Gastrointestinal: Soft, Non Tender and Non Distended
Extremities: Negative Edema
Neurological: AO x 3
Objective Data
Lab Data
Lab Results
11/28/24 05:29
11/27/24 06:18
PT 13.0 Sec (11.4-14.6) 11/25/24 04:45
INR 0.95 11/25/24 04:45
APTT 26.5 Sec (23.4-35.0) 11/25/24 04:45
Estimated Creat Clear 29 ml/min 11/27/24 06:18
Most recent labs reviewed.
Micro Results:
11/26/24 16:40 Urine Culture - Final
Urine NO GROWTH
--- NOTE | 2024-11-28 11:14 | W.DS.TRANS ---
DC Summary - Duct Maker
-
Discharge Instructions:
Discharge Diagnosis/Procedures Left femoral endarterectomy
Diet Diabetic, Carb Controlled
Activity No strenuous activity
Driving Restrictions No driving for 2 weeks
Bathing Restrictions OK to Shower
Instructions:
Stand-Alone Forms: Vascular Surg Discharge Instr
Changes to Home Medications: Yes
Discharge Medications:
DC Medications w/original date entered in [facility]
aspirin 81 mg tablet,delayed release 81 mg PO DAILY Blood Clot Prevention/Tx 01/18/23
cholecalciferol (vitamin D3) 25 mcg (1,000 unit) tablet (Vitamin D3) 25 mcg PO DAILY Supplement 01/18/23
amlodipine 5 mg tablet 5 mg PO DAILY Blood Pressure #0 tabs 01/29/23
metoprolol succinate 25 mg tablet,extended release 24 hr 12.5 mg PO DAILY Blood Pressure 02/17/23
atorvastatin 40 mg tablet 80 mg PO DAILY High Cholesterol 06/19/23
bupropion HCl 150 mg 24 hr tablet, extended release 150 mg PO DAILY Mental Health/Anxiety 11/04/24
ezetimibe 10 mg tablet 10 mg PO DAILY High Cholesterol 11/04/24
ibuprofen 300 mg tablet 600 mg PO Q6H PRN pain 11/13/24
cefuroxime axetil 500 mg tablet 500 mg PO DAILY 3 days #3 tabs 11/28/24
clopidogrel 75 mg tablet 75 mg PO DAILY #90 tabs 11/28/24
insulin aspart U-100 100 unit/mL (3 mL) subcutaneous pen (Novolog FlexPen U-100 Insulin aspart) 11 unit (0.11 mL) SC TID@0800,1200,1700 Diabetes #0 mL 11/28/24
insulin glargine 100 unit/mL (3 mL) subcutaneous pen (Lantus Solostar U-100 Insulin) 20 unit (0.2 mL) SC HS Diabetes #0 mL 11/28/24
vancomycin 50 mg/mL oral solution 125 mg (2.5 mL) PO BID #80 mL 11/28/24
Home Medication Changes
Increased Insulins
Added Vancomycin, cefuroxime, plavix
Pending Results: No
[2024-11-28 11:25] VITALS: BP 152/99
--- NOTE | 2024-11-28 11:38 | CM ---
CM following re: discharge planning.
Reviewed pt's chart, met with pt.
Pt is POD#4 Left femoral endarterectomy with bovine pericardial patch angioplasty, profundoplasty.
PT and OT evaluations noted - home PT/OT recommended. Pt is aware, expressed her agreement and pt preferred [facility]. A referral to [facility] made.
Pt lives with daughter, has a walker and does not use it.
Discharge order noted. Pt is aware, expressed her agreement and she stated her daughter will transport home.
IMM reviewed yesterday, placed on chart, pt has a copy.
[facility] discharge instructions fax: [phone]
D/C plan: home with [facility] and family support. Daughter to transport
[2024-11-28] MEDS: CEFTIN 500 MG PO (12:03)
[2024-11-28 12:08] LABS: Glucose - Point of Care 194 mg/dl (70-99)
[2024-11-28] MEDS: NOVOLOG FLEXPEN-LOW RESISTANCE SC (12:09)
--- NOTE | 2024-11-29 13:13 | PTCARENOTE ---
accessed chart: pt called [facility] with difficulty obtaining PO abt. # and info taken and passed along to Rachael Rausch
== END 2024-11-28 13:12 | disposition home health service (06) | DRG 252 ==
LOC: 2 SOUTH 09:04
PROVIDERS: Nurse Practitioner; Nurse Practitioner Acute Care; Nurse Practitioner Family; ADMITTING PHYSICIAN Surgery Vascular Surgery; CONSULT PHYSICIAN Internal Medicine; OTHER PHYSICIAN Student in an Organized Health Care Education/Training Program; PRIMARYCARE PHYSICIAN Family Medicine
PROC: 04UL0KZ Supplement Left Femoral Artery with Nonautologous Tissue Substitute, Open Approach (ICD-10-PCS; 2024-11-24)
PROC: 04CL0ZZ Extirpation of Matter from Left Femoral Artery, Open Approach (ICD-10-PCS; 2024-11-24)
PROC: B41G1ZZ Fluoroscopy of Left Lower Extremity Arteries using Low Osmolar Contrast (ICD-10-PCS; 2024-11-24)
DX: E11.51 Type 2 diabetes mellitus with diabetic peripheral angiopathy without gangrene (principal); J18.9 Pneumonia, unspecified organism; J98.11 Atelectasis; I70.222 Atherosclerosis of native arteries of extremities with rest pain, left leg; J43.9 Emphysema, unspecified; I25.10 Atherosclerotic heart disease of native coronary artery without angina pectoris; E78.00 Pure hypercholesterolemia, unspecified; D63.8 Anemia in other chronic diseases classified elsewhere; E11.22 Type 2 diabetes mellitus with diabetic chronic kidney disease; I12.9 Hypertensive chronic kidney disease with stage 1 through stage 4 chronic kidney disease, or unspecified chronic kidney disease; N18.30 Chronic kidney disease, stage 3 unspecified; R50.82 Postprocedural fever; Z87.891 Personal history of nicotine dependence; I25.2 Old myocardial infarction; Z95.1 Presence of aortocoronary bypass graft; Z88.0 Allergy status to penicillin; Z88.2 Allergy status to sulfonamides; Z88.8 Allergy status to other drugs, medicaments and biological substances; Z79.4 Long term (current) use of insulin; Z86.19 Personal history of other infectious and parasitic diseases; Z79.899 Other long term (current) drug therapy
CPT/HCPCS: 35371; 36140; 36415; 71046; 75710; 80048; 81003; 81015; 82962; 83036; 85025; 85027; 85610; 85730; 86850; 86900; 86901; 87086; 88304; 88311; 93005; 97163; 97530; C1769; C1894; Q9967

== ENCOUNTER → 2025-02-18 07:39 | Outpatient (REF) | payer OTHER, SELFPAY | LOC: RAD 07:39 | PROVIDERS: ATTENDING PHYSICIAN Registered Nurse | DX: I77.9 Disorder of arteries and arterioles, unspecified (principal) | CPT/HCPCS: 93922; 93925 ==